=== PATIENT | male | born 1960 | race African-American/Black ===

== ENCOUNTER 2018-05-01 13:00 | Outpatient (RCR) | payer OTHER, MEDICARE, MEDICAID, SELFPAY ==
--- NOTE | 2018-04-02 13:22 | IE_ITS ---
Date: 04/02/18 Referring: Dr. Jaimie Willett Diagnosis: Mobility issues related to MS P.T. Diagnosis: Same SUBJECTIVE: History of Present Illness: Bryan returns to the clinic after a 2 month hiatus. After his last appt here in the clinic, he contacted his primary care physician due to extreme fatigue and weakness. He was subsequently admitted to [facility] with a 6 day stay for high dose steroids to address MS flair versus sarcoidosis. He had multiple studies performed during his stay, all of which showed stable changes, and stable areas of high signal in the spinal cord at both the cervical and thoracic level. He has since followed by his Rheumatology and has further testing coming up down at [facility] later this week. It sounds to be a schedule PET scan. His complaints today are of continued weakness now effecting his (R) side as well. Pt has historically been fully (I) with bed mobility and transfers, able to shower (I) etc.. Since his hospitalization, he has had difficulty getting into bed on his own stating that this can take 30-60 minutes to accomplish. He has also modified his transfers into the shower to limit the amount of time that he spends weightbearing , which has become difficult for him. He does receive services in the home with house keepers that come in 2x per day to assist with meal prep. Pt has a very regimented schedule which he keeps daily. He does not get any physical assistance at home however. Prior Level of Function: Pt has been wheelchair bound since 2012, he is visually impaired. He had been walking 300+/-ft here at prior to his hospital admission in March 2018. He receives assistance with meal preparation and housekeeping through home health. Current Level of Function: Pt continues to be (I) with stand pivot transfers. Although admits that he does not feel as safe, or confident with these as he had prior. He is no longer able to stand without UE support as he had been 2 months ago. He has a great deal of difficulty getting in and out of bed. Previous Treatment: Extensive PT intervention here in our clinic over the past several months. Comorbidities: DM, HTN, MS, Arthritis, Sarcoidosis. Falls in the last year: ____ No __X__Yes - How many? __1__ - Just prior to admission with EMS alerted by a lifeline. Reported hospitalizations in the last year - ____ No __X__ Yes - Dates of admission/reason: As above. Medications: Baclofen, Gabapentin, Mepotrexate, Aoendoonate, Folic Acid, Vitamin D3, 5mg prednisone, Metformin, Multi Vitamin, Atorvastatin, Docuset, 81mg aspirin, Acetaminophen. Quality of Life: __X__ Good Standardized Measures: Pt is unable to complete due to low vision status. OBJECTIVE: Posture: Pt presents in a motorized wheelchair with trunk supports and head rests. In seated position, he is able to statically sit without external support, although with rounded shoulder, forward head position. With upright positioning, he does have posteriorly directed loss of balance. In static standing, he maintains WBOS and UE support to wheeled walker. (B) knee hyperextension and accentuated lumbar lordosis with anterior pelvic tilt. Gait: Pt is able to ambulate 20ft with wheeled walker and CGA to min (A). He utilizes an AFO on the (L) LE. Demonstrates poor foot clearance on the (R), (B) circumducting gait pattern and early heel off on the (R). Strength: UE strength is grossly WNL Diminished trunk control Able to statically sit (I) although with dynamic sitting has significant loss of balance particularly with (R) side bending and full upright positioning. Hip flexion 2/5 (R), 0/5 (L) Quads 4/5 (R), 4-/5 (L) Hamstrings 4-/5 (R), 3/5 (L) Ankle Dorsiflexion 3/5 (R), 0/5 (L) Neuro: Pt has significant tone in (B) LE (R) > (L). He has significant strength deficits as noted specifically under strength. Treatment: Todays session consisted of re evaluation followed by neuro muscular re-education. IE: [id number] _X_ Neuro Re-education - (26022 x1): Began in the supine position with introduction of bridging activities for 15 reps. Pt requires external support to (B) LEs to maintain hooklying position. He was instructed in hip ab/ adduction because he requires 75% of (A) on the (L) and 25% (R). He also completed sit to stand exercises for 3 reps with focus on achieving unsupported static standing, and holding x 10 seconds. He requires UE support for both ascending and descending stairs for sitting position. He performs static standing with weight shifts for 10 reps. Direct treatment time: 60 minutes Total treatment time: 60 minutes ASSESSMENT: Patient has been referred for PT services with the diagnosis of mobility deficits related to MS. Patient presents with clinical signs and symptoms consistent with this dx with complicating factors including sarcoidosis and pt being low vision. He has had some losses in his mobility since his last session here two months ago, and requires extensive PT intervention to allow for safe transfers, and short distance ambulation as he had been performing previously. Of particular concern is pt's significant struggle getting into bed at night, which is taking him up to 60 minutes each night. I have discussed with him some alterations in his caregiving schedule, and hopefully he can get some assistance with this for short term which he will be looking into (I) . He is demonstrating the following impairment level findings: 1. Decreased LE strength , 2. Decreased trunk strength, 3. Increase LE tone, 4. Gait deficits. Impairments are contributing to the following functional limitations: 1. Non functional ambulator, 2. Difficulty with transfers to and from wheelchair, 3. Difficulty with bed mobility with transfers into bed taking 30-60 minutes, 4. Fear of falling. Patient is assessed as: ____ Low 97407 __X__ Moderate 31796 ____ High 40457 complexity, based on the following: History: Progressively decreasing mobility and pt with relapsing remitting MS, DM, low vision and sarcoidosis. Pt lives alone Pt is dependent on house keepers for (A) with meal prep etc... Examination: X See above for functional limitations and impairments. Presentation: X Evolving due to recent exacerbation of symptoms and hospitalization management. Decision-Making: X Moderate complexity G-Codes : Patient's primary functional limitation is in the category of: __X__ Mobility - walking and moving around : [id number] based on clinical judgement and specifically on his functional ambulation category of non functional ambulator. Projected goal: __X__ Remains Mobility - walking and moving around: [id number] STG: __6__ weeks. 1. Pt able to tolerate re-introduction of weightbearing activity without exacerbation of symptoms. 2. Pt able to statically stand (I) for short periods to improve (I) with ADLs. LTG: __12__ weeks. 1. Pt able to (I) get in and out of bed in less than 10 minutes. 2. Fully (I) self management with HEP PLAN: Patient will resume PT intervention to be seen 2 x per week, for 12 weeks, adjusting frequency of visits per patient symptoms and response to treatment. Treatment to include: X NRE- With progressive stretching and strengthening activities primarily focused at trunk strengthening and LEs. Will also perform gait training activities with focus on improved (I) with transfers, static standing and short distance ambulation. Thank you for this referral. Please do not hesitate to contact me with any questions or concerns regarding this patient's plan of care. Dr. Etienne please sign below if you are in agreement with this patient's plan of care, cc: Brittany Lim MD
--- NOTE | 2018-04-14 14:11 | PTTR_ITS ---
DATE: 04/14/18 SUBJECTIVE: Bryan reporting he is doing okay today. He feels quite stiff through bilateral LE's left greater than right. He does not feel strong enough yet to perform a lot of walking. OBJECTIVE: * X Neuro Re-education - (59096 x3): Pt was instructed in his neuromuscular re-education program as noted on his flow sheet. Perform stretching of the left LE including hamstrings and single knee to chest stretch for tone management. He performs core stabilization activities in supine and long sit position. He requires max assist in long sit for trunk stability. Standing balance performed including small CHARLI working on posturing and trunk control as well as small CHARLI tasks. See flow sheet for all activities performed. Direct treatment time: 45 minutes Total treatment time: 60 minutes Deanne Portillo PTA
--- NOTE | 2018-04-16 09:03 | PTTR_ITS ---
DATE: 04/16/18 OBJECTIVE: Co treatment with Kell Tenorio DPT. Please refer to her note. Therapeutic procedures ([id number]). Pt performs strengthening program as noted on flow sheet including core stabilization activities in long sit and short sitting positions as well as seated LAQ strengthening. Manual cueing and support required at LE's for core stabilization and bridging. See flow sheet for specific activities performed. Direct treatment time: 25 minutes Total treatment time: 25 minutes
--- NOTE | 2018-04-16 13:59 | PTTR_ITS ---
DATE: 04/16/18 SUBJECTIVE: Bryan states that he continues to feel stiff and weak. He's now on 5mg Prednisone, versus his normal 15mg. He is awaiting results of CT scans performed at [facility] [place]. OBJECTIVE: * x Neuro Re-education - (34462 x2): Bryan was instructed in a progressed NRE program as noted on flowsheet. HE was able to tolerate ambulation x 25' initially, with use of WW and min A. He requires cues for turning techniques and safety. After a rest period, he's able to ambulate 60', although with worsening gait mechanics with distance. He completed seated trunk strengthening activities, as well as closed chain strengthening, where he's able to tolerate static standing without UE support and with CG x 10 seconds. Direct treatment time: 30 minutes Total treatment time: additional time spent with Deanne Portillo PTA
--- NOTE | 2018-04-21 13:36 | PTTR_ITS ---
DATE: 04/21/18 SUBJECTIVE: Bryan states that he is feeling well. He's noticing that it's easier to get in and out of bed. He still needs to assist the right leg, and requires more time than he had previously, although he is able to accomplish the transfer in approx 30 minutes, vs the 60 minutes it was taking 2 weeks ago. OBJECTIVE: * x Neuro Re-education - (55319 x2): Bryan was instructed in a progressive NRE program. Began with transfer into quadruped position from supported standing ; he requires mod A x 1 for assistance with LEs to attain position. He is able to perform rocking exercises for tone management and alternating arm lifts with only CG. He was assisted to supine for mat activities in both supine and long sit position. He continues to require mod A for eccentric crunches, and requires rest period x 2 due to fatigue during long sit activities. Full program can be found on flow sheet. Direct treatment time: 30 minutes Total treatment time: additional time spent with Deanne Portillo PTA (see her note for specifics)
--- NOTE | 2018-04-21 15:55 | PTTR_ITS ---
DATE: 04/21/18 OBJECTIVE: Co-treatment with Kell Tenorio DPT. Please see her note for specifics. * X Neuro Re-education - (06059 x1): Pt performs seated and standing balance activities with focus on LE strength and core stabilization. Pt is quite fatigued today and requires min A with sit to stands and has several LOB especially when eccentrically lowering back to the low mat. He has one instance where he is unable to maintain sitting position due to lack of trunk control and lies all the way onto his back. He also performs small CHARLI activities within the walker with light UE support. See flow sheet for all activities performed. Deferred remaining exercises today due to pt's fatigue level and symptoms of tingling in his LE's. Direct treatment time: 20 minutes Total treatment time: 20 minutes Deanne Portillo, ESTIMATOR JEWELRY
--- NOTE | 2018-04-24 14:45 | PTTR_ITS ---
DATE: 04/24/18 OBJECTIVE: Co-treatment with Kell Tenorio DPT. Please see her note for specifics. * X Neuro Re-education - (71479 x2): Pt instructed in his neuro re-ed program as noted on flow sheet. Pt performs standing static balance activities, min A throughout with light UE support to walker followed by standing and seated trunk stabilization activities with CGA required throughout. Pt requires several rest breaks throughout to manage tone in the left LE and for fatigue level. See flow sheet for all activities performed. Direct treatment time: 25 minutes Total treatment time: 25 minutes Daenne Portillo PTA
--- NOTE | 2018-04-24 16:39 | PTTR_ITS ---
DATE: 04/24/18 SUBJECTIVE: Bryan states that he was fatigued after his last session, although was able to care for himself normally. He continues to have difficulty getting in and out of bed, although this hasn't significantly changed since his last session. OBJECTIVE: * X Neuro Re-education - (66701 x2):as noted on flow sheet. Pt completed self stretching activities. He was assisted into quadruped position, where he performed quadruped rocking for management of LE tone. He does require mod assist to the LLE, min assist to the RLE to achieve position and contact guard throughout. He was able to transition to alternating arm lifts, again with contact guard. He requires mod assist for rolling on the low mat, particularly for assistance to the LEs. He is able to perform clam shells with mod assist on the L min assist on the R and requires mod assist for all hook lying activities to maintain LE position. He does have 2 episodes of markedly increased tone in the LLE during his session today with full knee extension and ankle plantar flexion, which requires approx. 1 min. rest period each.These both occurred during rolling activities. Full program can be found noted on flow sheet. Direct treatment time: 30 min Total treatment time: 30 min, with additional time spent with Deanne Portillo PTA. Please see her note for specifics. SS/fw
--- NOTE | 2018-04-28 13:00 | PTTR_ITS ---
DATE: 04/28/18 SUBJECTIVE: Bryan notes he's feeling pretty good today. He does want to try walking. OBJECTIVE: * x Neuro Re-education - (07519 x4): Pt. instructed in neuro re-ed program as noted on his flow sheet. I do assist pt. with donning his AFO on his left foot. This was followed by ambulation x 80' contact guard assist with wheelchair follow. This was followed by parallel bar activities including small base of support balancing, functional sit to stand coming up into a full stand and pausing in that position unsupported. Pt. also completes some hook lying core stabilization exercises with assist required to maintain LE positioning. He 's able to independently roll from left to right positions to perform clam shells. Full program can be found in pt. chart. Direct treatment time: 55 min. Total treatment time: 55 min. MAURA/kf
--- NOTE | 2018-05-01 14:23 | PTTR_ITS ---
DATE: 05/01/18 SUBJECTIVE: Bryan states that his vision has been problematic today. He is feeling like he's moving better, and denies any significant fatigue after PT sessions. Compliant with HEP: x Yes No OBJECTIVE: KX applied to all codes x Patient requires PT intervention beyond therapy cap, due to mobility issues related to MS and sarcoidosis, with recent flare resulting in diminished mobility. * x Neuro Re-education - (75153 x2): Patient was instructed in a progressed NRE program as noted in flowsheet. He was able to advance his high kneeling activities, and performs these with only SBA today. He tolerated light perturbations in high kneeling as well (20 seconds, limited by LE fatigue). He requires mod A to achieve high kneel position on the low mat, although transitions to high knee with supervision only. He completed supine and long sit activities as noted on flowsheet. Direct treatment time: 30 minutes Total treatment time: additional time spent with Deanne Portillo PTA.
--- NOTE | 2018-05-01 14:34 | PTTR_ITS ---
DATE: 05/01/18 OBJECTIVE: KX applied to all codes X * X Neuro Re-education - (87736 x1)(KX): Pt performs remainder of his neuro re-ed program here in the clinic consisting of long sit trunk stabilization activities where pt requires min-mod assist to avoid posterior lean. Pt also performs standing balance activities working on upright posturing and unsupported standing. Pt notes getting very fatigued and starting to be achy in his back and we defer further exercises at this point. See flow sheet for all activities performed. Direct treatment time: 20 minutes Total treatment time: 20 minutes Deanne Portillo, GUT SNATCHER
== END 2018-05-01 23:59 | disposition home or self-care (01) ==
LOC: PT 13:00
PROVIDERS: PCP Family Medicine; Referring Provider Psychiatry & Neurology Neurology; Visit Provider Psychiatry & Neurology Neurology
DX: R26.89 Other abnormalities of gait and mobility (principal); G35 Multiple sclerosis
CPT/HCPCS: 97110; 97112; 97162; G8978

== ENCOUNTER → 2018-06-23 10:24 | Outpatient (BNVA) | payer MEDICARE, MEDICAID, SELFPAY | PROVIDERS: PCP Family Medicine; Visit Provider Psychiatry & Neurology Neurology | DX: G35 Multiple sclerosis (principal); E11.40 Type 2 diabetes mellitus with diabetic neuropathy, unspecified; Z79.84 Long term (current) use of oral hypoglycemic drugs | CPT/HCPCS: 99214 ==

== ENCOUNTER → 2018-11-12 14:51 | Outpatient (BNVA) | payer MEDICARE, MEDICAID, SELFPAY | PROVIDERS: PCP Family Medicine; Visit Provider Psychiatry & Neurology Neurology | DX: G35 Multiple sclerosis (principal); R25.2 Cramp and spasm; E11.319 Type 2 diabetes mellitus with unspecified diabetic retinopathy without macular edema; Z79.84 Long term (current) use of oral hypoglycemic drugs; E11.40 Type 2 diabetes mellitus with diabetic neuropathy, unspecified | CPT/HCPCS: 99214 ==

== ENCOUNTER → 2018-12-10 14:08 | Outpatient (BNVA) | payer MEDICARE, MEDICAID, SELFPAY | PROVIDERS: PCP Family Medicine; Visit Provider Psychiatry & Neurology Neurology | DX: G35 Multiple sclerosis (principal); R25.2 Cramp and spasm; R29.898 Other symptoms and signs involving the musculoskeletal system; E11.40 Type 2 diabetes mellitus with diabetic neuropathy, unspecified; Z79.84 Long term (current) use of oral hypoglycemic drugs | CPT/HCPCS: 99214 ==

== ENCOUNTER 2018-12-17 15:04 | Emergency (ER) | payer MEDICARE, MEDICAID, SELFPAY ==
[2018-12-17] VITALS (15 sets, daily range): BP systolic 107–128; BP diastolic 61–81; PULSE 55–91; RESP 9–23; TEMP 36.5–37; O2SAT 95–99
--- NOTE | 2018-12-17 15:08 | DI.CT_ITS ---
SYMPTOMS/DIAGNOSIS: LEFT-SIDED WEAKNESS CRANIAL CT: Noncontrast cranial CT was performed. There is mild generalized cerebral atrophy. There is no evidence of acute intracranial hemorrhage, mass effect or midline shift. Orbital and temporal bone structures appear intact. Paranasal sinuses and mastoid air cells are well aerated as visualized. CONCLUSION: No evidence of acute intracranial process.
--- NOTE | 2018-12-17 15:13 | W.ED.GENAD ---
Discharge Plan Disposition Patient Disposition: HOME Condition: Good Discharge Details Chief Complaint: GenMedical Clinical Impression: Exacerbation of multiple sclerosis, Tingling of left upper extremity, Acute hypokalemia Primary Care Provider: Ale Barraza V ED Provider: Adrian Tompkins Home Meds and New Rx's Prescriptions: New prednisone 50 MG tablet 50 mg PO DAILY Qty: 7 RF: 0 Continued methotrexate sodium 2.5 mg tablet 20 mg PO DAILY RF: 0 alfuzosin 10 mg tablet extended release 24 hr 10 mg PO DAILY RF: 0 cholecalciferol (vitamin D3) 1,000 UNIT tablet 2,000 unit PO DAILY RF: 0 alendronate 70 MG tablet 70 mg PO WEEKLY RF: 0 folic acid 1 MG tablet 1 mg PO DAILY RF: 0 gabapentin 300 MG capsule 1 - 2 cap PO TID Qty: 360 RF: 3 acetaminophen 500 MG tablet 500 mg PO DIRECTED RF: 0 docusate sodium [Doc-Q-Lace] 100 MG capsule 100 mg PO TID RF: 0 aspirin [Aspirin Low-Strength] 81 MG tablet,chewable 81 mg PO DAILY RF: 0 atorvastatin [Lipitor] 40 MG tablet 40 mg PO QPM RF: 0 Prodigy No Coding 1 EACH strip 1 ea Sub-Q BID RF: 0 multivitamin [Daily Multi-Vitamin] 1 EACH tablet 1 tab PO DAILY RF: 0 ferrous gluconate 325 MG tablet 240 mg PO DAILY RF: 0 metformin 500 MG tablet 1,000 mg PO BID RF: 0 glipizide 10 mg Tablet 10 mg PO DAILY RF: 0 baclofen 20 mg tablet 20 mg PO TID RF: 0 Discontinued prednisone 20 mg tablet 60 mg PO DAILY Qty: 15 RF: 0 Discharge Instructions Instructions: Multiple Sclerosis (GEN), Hypokalemia (ED) Additional Instructions: Please take the prednisone as directed for the next week until you follow-up with your primary care provider. If you notice any worsening of your symptoms, or any new symptoms such as vomiting, diarrhea, fever, chills, shortness of breath, chest pain, numbness, weakness, or fainting , please return immediately to the emergency department for reevaluation. Please follow up with your primary care provider as soon as possible for reassessment and reevaluation. As always, it was a pleasure participating in your medical care today. Referrals: Ale Barraza MD [Primary Care Provider] - Medical Decision Making This is a 58-year-old male with a past medical history of sarcoidosis, MS, but denies any history of stroke or myocardial infarction, who presents today for weakness for his left upper extremity with associated numbness and tingling. He denies any recent trauma or falls. Exam shows no signs of trauma, no midline cervical spine or thoracic spine tenderness. He states that his symptoms have been present for the last 2-3 days, however initially started more centrally about a week and a half ago when he stopped taking his steroids. He is unsure if this feels like her previous MS exacerbation or something different. He denies any concerning red flags of chest pain, tearing sensation in his chest, headache, or acute vision changes. He does have some chronic blindness. With his symptoms lasting greater than 24 hours I do not see any current clinical indication for immediate TPA as he would not be a candidate for this due to the longevity of his symptoms. We will get a CT scan to rule out acute stroke lead complete coverage however I do feel that his symptoms may have a component related to his MS. 4:[address] scan results have returned, there is no evidence of acute intracranial process. There is evidence of notable brain atrophy per radiology, but no other acute component. Laboratory workup is returned relatively benign, white count is normal, hemoglobin stable, electrolytes normal, potassium slightly low at 3.3, but no other significant abnormalities. Creatinine is 1.5 which is minimally higher than normal, troponin is less than 0.02, EKG benign. He had no initial symptoms concerning for ACS or chest pain. On repeat exam he continues to demonstrate notable 5 out of 5 strength of his upper extremities bilaterally, no decrease in sensation on exam. he does complain of some mild subjective tingling in his left arm, but he also states that this is much better after he got the Solu-Medrol. He states that his legs are still at their chronic level of weakness secondary to the MS in the past, and that there is no change here. With signs and symptoms clinically inconsistent with stroke, especially with him being associated with his decrease in oral steroids, and lasting for greater than 2-[address] evidence of infarct I feel that his signs and symptoms are clinically inconsistent with significant cerebrovascular accident, ACS, or acute orthopedic process. Feel that they are consistent at this time with MS. We will recommend for continued steroids for the next week until he is already scheduled appointment with his PCP 1 week away. We recommend that he continue taking his daily aspirin, and we discussed any red flags for which to immediately return. I have extensively reviewed the treatment plan and discharge instructions with the patient and their family. I have addressed all patient concerns at this time. The patient and family was made aware of what symptoms to monitor for that would warrant a return to the emergency department. Discussed the plan with the patient and family, they demonstrate verbal understanding and agreement with our assessment and plan at this time. EKG 15: 04 Rate 74, intervals normal, sinus rhythm, no significant ST elevations or depressions, no T wave inversions, no Q waves. Exam(s) a CT:CT head wo SYMPTOMS/DIAGNOSIS: LEFT-SIDED WEAKNESS CRANIAL CT: Noncontrast cranial CT was performed. There is mild generalized cerebral atrophy. There is no evidence of acute intracranial hemorrhage, mass effect or midline shift. Orbital and temporal bone structures appear intact. Paranasal sinuses and mastoid air cells are well aerated as visualized. CONCLUSION: No evidence of acute intracranial process. [id number]: Total DLP = 0.00 mGy-cm Ordered By: Adrian Tompkins DO CC: HPI General Date/Time Provider Initiated Documentation: 12/17/18 15:08. HPI Narrative: This is a 58-year-old -Swiss male with a past medical history of MS, diabetes type 2, BPH, chronic blindness, fluid overload, GERD, sarcoidosis, who presents today for evaluation of left-sided weakness. EMS was contacted secondary to the weakness, he states that his left arm is been notably weak over the last 2-3 days, however there is also been associated tingling and cramping which she states is occurred for the last week and a half after he stopped his steroids. He denies any headache, chest pain, tearing sensation in his chest, shortness of breath, right-sided weakness. He does have chronic weakness of his lower extremities and uses a wheelchair to get around. Patient denies any recent falls or trauma. He does admit to occasional sweats. He did stop his steroids about a week and a half ago, but denies any other acute medical changes or medication changes. Patient denies any history of cardiac disease or history of stroke, although he does admit to symptoms similar to this in the past that were associated with an MS exacerbation. He denies any other complaint or modifying factors at this time. He is not on any blood thinners. He does have a chronic indwelling [place] catheter urinary incontinence. Related Data Home Medications Medication Instructions Recorded Confirmed acetaminophen 500 mg PO DIRECTED 11/23/13 12/17/18 aspirin [Aspirin Low-Strength] 81 mg PO DAILY 11/23/13 12/17/18 docusate sodium [Doc-Q-Lace] 100 mg PO TID 11/23/13 12/17/18 atorvastatin [Lipitor] 40 mg PO QPM 06/14/14 12/17/18 Prodigy No Coding 12/23/15 12/17/18 ferrous gluconate 240 mg PO DAILY 03/23/16 12/17/18 multivitamin [Daily Multi-Vitamin] 1 tab PO DAILY 03/23/16 12/17/18 metformin 1,000 mg PO BID 05/29/16 12/17/18 cholecalciferol (vitamin D3) 2,000 unit PO DAILY 12/19/16 12/17/18 alendronate 70 mg PO WEEKLY 05/13/17 12/17/18 folic acid 1 mg PO DAILY tab-cap 05/13/17 12/17/18 gabapentin 1 - 2 cap PO TID #360 cap 10/21/17 12/17/18 methotrexate sodium 2.5 mg tablet 20 mg PO DAILY tab-cap 06/23/18 12/17/18 alfuzosin ER 10 mg tablet,extended 10 mg PO DAILY 12/10/18 12/17/18 release 24 hr baclofen 20 mg PO TID 12/17/18 12/17/18 glipizide 10 mg PO DAILY 12/17/18 12/17/18 prednisone 50 mg PO DAILY #7 tab 12/17/18 Previous Rx's Medication Instructions Recorded gabapentin 1 - 2 cap PO TID #360 cap 10/21/17 prednisone 50 mg PO DAILY #7 tab 12/17/18 Allergies Allergy/AdvReac Type Severity Reaction Status Date / Time No Known Allergies Allergy Unverified 12/10/18 14:29 General Stated Complaint: GenMedical AIDA: 3 Review of Systems Review of Systems All systems reviewed & are unremarkable except as noted in HPI and below PFSH Social History Smoking/Tobacco Use Status: Current every day Drug use: Never Housing: apartment 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 Do you feel safe at home: Yes Do you feel safe in your relationship?: Yes Exam Narrative Exam Narrative: 1.Const: Well-nourished, Well-developed, appearing stated age 2.Eyes: PERRL, no conjunctival injection. Notably limited vision bilaterally 3.ENT: Atraumatic external nose and ears. Moist MM. Neck: Symmetric, trachea midline, No thyromegaly. 4.CVS: +S1/S2, No murmurs or gallops. Peripheral pulses 2+ and equal in all extremities. Brisk capillary refill in all extremities. 5.RESP: Unlabored respiratory effort. Clear to auscultation bilaterally. No wheezes rales or rhonchi 6.GI: Soft, Nontender/Nondistended, No hepatosplenomegaly. No guarding or rebound. 7.MSK: Normocephalic/Atraumatic, Extremities w/o deformity or ttp No cyanosis or clubbing, +1 pitting edema of his lower extremities bilaterally, notable 1 out of 5 strength bilaterally. Patient states that this is chronic. Sensation intact bilaterally. Upper extremities demonstrate 5 out of 5 strength bilaterally, normal sensation throughout, to both pinprick and fine touch. Radial pulses +2 bilaterally. No evidence of significant abnormality or deficit comparing the left to the right. 8.Skin: Warm, Dry. No rashes or lesions. 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 Sensation grossly intact, no focal neurologic deficits. Normal swedish masseuse strength bilaterally, normal movements, exam is certainly obfuscated by his chronic MS and chronic lower extremity weakness. Otherwise there appears to be no focal neuro deficit that appears acute 10.Psych: (AAO) x3. Appropriate mood and affect Course Vital Signs Temperature 36.5 C 12/17/18 15:04 Pulse 74 12/17/18 15:04 Respiratory Rate 13 12/17/18 15:04 Blood Pressure 107/72 12/17/18 15:04 Pulse Oximetry 99 12/17/18 15:04 Temperature 36.5 C 12/17/18 15:04 Temperature Source Temporal Artery Scan 12/17/18 15:04 Pulse 74 12/17/18 15:04 Respiratory Rate 13 12/17/18 15:04 Respiratory Effort Non-Labored 12/17/18 15:04 Blood Pressure 107/72 12/17/18 15:04 Blood Pressure Position Sitting 12/17/18 15:04 Pulse Oximetry 99 12/17/18 15:04 Oxygen Delivery Method Room Air 12/17/18 15:04 Oxygen Flow Rate 0 12/17/18 15:04 Pain Level 0 12/17/18 15:04
[2018-12-17 15:25] LABS: Abs Immature Grans 0.05 k/cumm (0.0-0.09); Absolute Basophil Count 0.02 k/cumm (0.0-0.2); Absolute Eosinophil Count 0.14 k/cumm (0.0-0.7); Absolute Lymphocyte Count 2.37 k/cumm (1.2-3.4); Absolute Monocyte Count 0.35 k/cumm (0.11-0.7); Absolute Neutrophil Count 3.16 k/cumm (1.2-6.7); Basophils % 0.3; Eosinophils % 2.3; HCT 34.9 % (40.0-50.0); HGB 11.5 g/dL (13.5-17.5); Immature Grans % 0.8; Lymphocytes % 38.9; Mean Corpuscular Hemoglobin 27.6 pg (27.0-33.0); Mean Corpuscular Volume 83.7 fL (80-95); Mean Platelet Volume 10.4 fL (8.0-11.0); Monocytes % 5.7; Platelet Count 284 x1000/uL (130-400); RBC 4.17 m/cumm (4.50-6.00); RBC Distribution Width 15.3 % (11.8-14.1); White Blood Cell Count 6.09 k/cumm (4.4-10.8)
[2018-12-17] MEDS: methylPREDNISolone SUCC 125 MG VIAL IVP (15:39)
--- NOTE | 2018-12-17 15:53 | DI.RAD_ITS ---
SYMPTOMS/DIAGNOSIS: LEFT-SIDED WEAKNESS PORTABLE AP CHEST: The heart is not enlarged. The lungs appear clear and well expanded. CONCLUSION: No evidence of acute disease.
[2018-12-17 15:58] LABS: INR 1.1 (0.9-1.1); PTT Activated 20.7 sec (21.0-31.4); Prothrombin Time 10.7 sec (9.3-11.0)
[2018-12-17 16:00] LABS: ALT 22 U/L (12-78); AST 13 U/L (15-37); Albumin 4.1 g/dL (3.4-5.0); Alkaline Phosphatase 74 U/L (46-116); Anion Gap 12.3 mmol/L (3-11); BUN 15 mg/dL (7-18); Bilirubin, Total 0.3 mg/dL (0.2-1.0); CO2 24.7 mmol/L (21.0-32.0); CREATININE 1.53 mg/dL (0.70-1.30); Calcium 8.7 mg/dL (8.5-10.1); Chloride 104 mmol/L (98-107); Estimated GFR 47.32 (mL/min/1.73m2); Glucose 79 mg/dL (70-100); NT-proBNP 53 pg/mL; Potassium 3.3 mmol/L (3.5-5.1); Sodium 141 mmol/L (136-145); TSH (W/Ref FT4) 3.32 uIU/mL (0.358-3.74); Total Protein 7.7 g/dL (6.4-8.2)
[2018-12-17 16:03] LABS: TSH 3.19 uIU/mL (0.358-3.74)
[2018-12-17 16:18] LABS: Troponin I < 0.02 ng/mL (0.00-0.06)
[2018-12-17 16:37] LABS: ETHANOL BLOOD < 3.0 mg/dL (<3)
[2018-12-17] MEDS: Potassium Chloride 20 MEQ TABCR 40 MEQ PO (17:08)
== END 2018-12-17 17:27 | disposition home or self-care (01) ==
PROVIDERS: Emergency Provider Student in an Organized Health Care Education/Training Program; PCP Family Medicine
DX: G35 Multiple sclerosis (principal); R20.2 Paresthesia of skin; E87.6 Hypokalemia; E11.9 Type 2 diabetes mellitus without complications
CPT/HCPCS: 36415; 80053; 93005; 96374; 99285; 70450; 71045; 80320; 81003; 83880; 84443; 84484; 85025; 85610; 85730; 93010; J2930

== ENCOUNTER 2018-12-22 12:38 | Outpatient (REF) | payer MEDICARE, MEDICAID, SELFPAY ==
[2018-12-22 21:21] LABS: Anion Gap 14.4 mmol/L (3-11); BUN 13 mg/dL (7-18); CO2 20.6 mmol/L (21.0-32.0); CREATININE 1.47 mg/dL (0.70-1.30); Calcium 9.3 mg/dL (8.5-10.1); Chloride 104 mmol/L (98-107); Estimated GFR 49.55 (mL/min/1.73m2); Glucose 223 mg/dL (70-100); Potassium 4.3 mmol/L (3.5-5.1); Sodium 139 mmol/L (136-145)
[2018-12-22 21:43] LABS: Hemoglobin A1C 7.6 % (4.5-6.2)
== END 2018-12-22 12:58 ==
LOC: NCHCN 12:38
PROVIDERS: PCP Family Medicine; Visit Provider Family Medicine
DX: E11.39 Type 2 diabetes mellitus with other diabetic ophthalmic complication (principal)
CPT/HCPCS: 80048; 83036

== ENCOUNTER → 2018-12-23 14:40 | Outpatient (BNVA) | payer MEDICARE, MEDICAID, SELFPAY | PROVIDERS: PCP Family Medicine; Visit Provider Psychiatry & Neurology Neurology | DX: G35 Multiple sclerosis (principal); R25.2 Cramp and spasm; R29.898 Other symptoms and signs involving the musculoskeletal system; R60.9 Edema, unspecified; E11.40 Type 2 diabetes mellitus with diabetic neuropathy, unspecified | CPT/HCPCS: 99214 ==

== ENCOUNTER 2018-12-29 00:53 | Outpatient (CLI) | payer MEDICARE, MEDICAID, SELFPAY ==
--- NOTE | 2018-12-29 11:00 | DI.MRI_ITS ---
SYMPTOMS/DIAGNOSIS: RT LEG AND LT ARM WEAKNESS MRI OF THE BRAIN: Pre and post contrast examination was performed. Comparison is 02/16/18. There is again seen hyperintense signal in the periventricular white matter on the FLAIR and T 2 weighted images. This appears stable. Following contrast administration no enhancing lesions are seen. The involvement of the corpus callosum appears stable. The ventricles and sulci are stable compared to the prior examination. The diffusion weighted images have a normal appearance. No intracranial hemorrhage is seen. No enhancing masses are appreciated. There is a normal flow void seen in the [place]. The pituitary gland appears grossly unremarkable. The visualized paranasal sinuses are clear. IMPRESSION: Stable hyperintensity in the periventricular region. No new lesions or enhancing lesions are identified.
[2018-12-29] MEDS: Normal Saline Flush 10 ML SYR IVP (11:17)
[2018-12-29] MEDS: Gadoterate meglumine 20 ML VIAL 10 ML IVP (11:23)
== END 2018-12-29 01:13 ==
PROVIDERS: PCP Family Medicine; Visit Provider Psychiatry & Neurology Neurology
DX: G35 Multiple sclerosis (principal); M62.81 Muscle weakness (generalized); R29.898 Other symptoms and signs involving the musculoskeletal system
CPT/HCPCS: 70553

== ENCOUNTER 2019-01-02 13:20 | Emergency (ER) | payer MEDICARE, MEDICAID, SELFPAY ==
[2019-01-02] VITALS (16 sets, daily range): BP systolic 93–123; BP diastolic 57–94; PULSE 64–78; RESP 10–27; TEMP 36.5; O2SAT 94–99
--- NOTE | 2019-01-02 13:35 | ED.GENADUL_ITS ---
Discharge Plan Disposition Patient Disposition: HOME Condition: Stable Discharge Details Chief Complaint: Dizzy/Sync Clinical Impression: Neuropathy Primary Care Provider: Ale Barraza V ED Provider: Pérez Wall Home Meds and New Rx's Prescriptions: No Action methotrexate sodium 2.5 mg tablet 2.5 mg PO DAILY RF: 0 alfuzosin 10 mg tablet extended release 24 hr 10 mg PO DAILY RF: 0 diazepam [Valium] 5 mg tablet 5 mg PO ONCE Qty: 2 RF: 0 cholecalciferol (vitamin D3) 1,000 UNIT tablet 2,000 unit PO DAILY RF: 0 alendronate 70 MG tablet 70 mg PO WEEKLY RF: 0 folic acid 1 MG tablet 1 mg PO DAILY RF: 0 gabapentin 300 MG capsule 1 - 2 cap PO TID Qty: 360 RF: 3 ferrous gluconate [Ferate] 240 mg (27 mg iron) tablet 240 mg PO DAILY RF: 0 glipizide 10 mg tablet extended release 24hr 10 mg PO DAILY RF: 0 loratadine 10 mg tablet 10 mg PO DAILY RF: 0 omeprazole 40 mg capsule,delayed release(DR/EC) 40 mg PO DAILY RF: 0 prednisone 5 mg tablet 5 mg PO DAILY RF: 0 baclofen 20 mg tablet 20 mg PO .20 MG AM,PM,40 HS RF: 0 clonazepam 1 mg tablet 1 mg PO QHS Qty: 30 RF: 3 acetaminophen 500 MG tablet 500 mg PO DIRECTED RF: 0 docusate sodium [Doc-Q-Lace] 100 MG capsule 100 mg PO TID RF: 0 aspirin [Aspirin Low-Strength] 81 MG tablet,chewable 81 mg PO DAILY RF: 0 atorvastatin [Lipitor] 40 MG tablet 40 mg PO QPM RF: 0 Prodigy No Coding 1 EACH strip 1 ea Sub-Q BID RF: 0 multivitamin [Daily Multi-Vitamin] 1 EACH tablet 1 tab PO DAILY RF: 0 metformin 500 MG tablet 1,000 mg PO BID RF: 0 Discharge Instructions Additional Instructions: Your lab work did not show any new concerning findings. Your symptoms are likely due to your neuropathy follow up with your primary care provider in 1-2 weeks if you have new symptoms such as fevers, difficulty breathing or feel more ill return to the emergency department Medical Decision Making 58 yo male with hx of MS, chronic lower extremity weakness and wheel chair bound, T2DM, who comes in with complaints of tingling in both legs primarily in the feet. Denies fevers though states he had sweating an hour or so ago. Denies chest pain, sob, cough, headaches. He has 1+ edema of both legs to the mid tibia that he states is chronic and unchaned. He can't move the left leg when asked to lift it and right leg minimally moves against gravity and states this is chronic for him. He does have intact soft sensation to touch. No focal upper extremity deficits. Given no new weakness, vision changes or speech abnoramlities doubt cva and no recent trauma so do not feel head ct indicated. Unlikely MS flare, suspect more likely diabetic neuropathy. Will eval for electrolyte abnormalities and monitor pt remains stable no new symptoms other than spasms which he states he ges frequently and is on baclofen for this. Suspect his symptoms are due to diabetic neuropathy, will have him f/u with pcp and return precautions given Differential Diagnosis neuropathy, ms, electrolyte abnormality Medical Records Medical records reviewed: Yes I reviewed the patient's medical records. Lab Data Lab results reviewed: Yes I reviewed the patient's lab results. ECG Data Attestation: I personally reviewed and interpreted this ECG (s) as follows: Prior ECG tracings: available for review Interpretation: sinus rhythm, rate of 76, pr 154, no acute st t wave ischemic changes HPI General Mode of arrival: EMS . Date/Time Provider Initiated Documentation: 01/02/19 13:20 . Limitations to Documentation: no limitations . Information obtained by: patient . History of Present Illness 58 year old M presents to the emergency department with the chief complaint of tingling legs, described as moderate, and is localized to the left, right and lower extremity. Patient started experiencing this hour(s) (1) and it has been constant. No relieving factors improve symptom(s), No exacerbating factors reported . Patient notes denies confusion, chest pain, cough and fever/chills. Patient did receive the following treatments prior to arrival, none Related Data Home Medications Medication Instructions Recorded Confirmed acetaminophen 500 mg PO DIRECTED 11/23/13 12/17/18 aspirin [Aspirin Low-Strength] 81 mg PO DAILY 11/23/13 01/02/19 docusate sodium [Doc-Q-Lace] 100 mg PO TID 11/23/13 01/02/19 atorvastatin [Lipitor] 40 mg PO QPM 06/14/14 01/02/19 Prodigy No Coding 12/23/15 12/17/18 multivitamin [Daily Multi-Vitamin] 1 tab PO DAILY 03/23/16 01/02/19 metformin 1,000 mg PO BID 05/29/16 01/02/19 cholecalciferol (vitamin D3) 2,000 unit PO DAILY 12/19/16 01/02/19 alendronate 70 mg PO WEEKLY 05/13/17 01/02/19 folic acid 1 mg PO DAILY tab-cap 05/13/17 01/02/19 gabapentin 1 - 2 cap PO TID #360 cap 10/21/17 01/02/19 methotrexate sodium 2.5 mg tablet 2.5 mg PO DAILY tab-cap 06/23/18 01/02/19 alfuzosin ER 10 mg tablet,extended 10 mg PO DAILY 12/10/18 01/02/19 release 24 hr baclofen 20 mg tablet 20 mg PO .20 MG AM,PM,40 HS tab 12/23/18 01/02/19 diazepam 5 mg tablet 5 mg PO ONCE #2 tab 12/23/18 12/23/18 ferrous gluconate 240 mg (27 mg 240 mg PO DAILY tab 12/23/18 01/02/19 iron) tablet glipizide ER 10 mg tablet, 10 mg PO DAILY 12/23/18 extended release 24 hr loratadine 10 mg tablet 10 mg PO DAILY 12/23/18 omeprazole 40 mg capsule,delayed 40 mg PO DAILY 12/23/18 01/02/19 release prednisone 5 mg tablet 5 mg PO DAILY 12/23/18 01/02/19 clonazepam 1 mg tablet 1 mg PO QHS #30 tab 12/28/18 Previous Rx's Medication Instructions Recorded gabapentin 1 - 2 cap PO TID #360 cap 10/21/17 diazepam 5 mg tablet 5 mg PO ONCE #2 tab 12/23/18 clonazepam 1 mg tablet 1 mg PO QHS #30 tab 12/28/18 Allergies Allergy/AdvReac Type Severity Reaction Status Date / Time No Known Allergies Allergy Unverified 01/02/19 13:28 General Stated Complaint: Dizzy/Sync AIDA: 2 Review of Systems Review of Systems All systems reviewed & are unremarkable except as noted in HPI and below Constitutional Denies chills and Denies fever(s) Cardiovascular Denies chest pain and Denies dyspnea Respiratory Denies cough and Denies dyspnea Gastrointestinal Denies abdominal pain, Denies nausea and Denies vomiting Integumentary/Breasts Denies rash [facility] Medical History Sarcoidosis (Chronic) Neck pain (Chronic) Multiple sclerosis (Chronic) Optic neuritis (Chronic) GERD (gastroesophageal reflux disease) (Chronic) Diabetes type 2, controlled (Chronic) BPH (benign prostatic hyperplasia) (Chronic) Urinary incontinence (Chronic) Tobacco abuse (Chronic) Hyperlipidemia (Chronic) Chronic pain (Chronic) Vitamin D deficiency (Chronic) Congenital ptosis of left eyelid (Acute) Diabetic retinopathy (Chronic) Chewing tobacco nicotine dependence (Chronic) Surgical History H/O surgical procedure (Chronic) History of lung biopsy (Acute) History of appendectomy (Chronic) Social History Smoking/Tobacco Use Status: Former Tobacco Use Alcohol Intake: never Drug use: Never Housing: apartment 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 Do you feel safe at home: Yes Do you feel safe in your relationship?: Yes Exam Const General: no acute distress Orientation: alert HENMT Head: normal to inspection Ears: external ears normal General nose exam: external nose normal Mouth: moist mucous membranes Eyes General: appearance normal, both eyes and all related structures Neck Neck: normal visual inspection Resp Effort & Inspection: normal respiratory effort and able to speak in complete sentences Cardio Rate: regular rate Skin General skin exam: no rashes or lesions noted Neuro General: alert and oriented x3 Extrem General: normal capillary refill Psych Mental Status: mental status grossly normal Course Vital Signs Temperature 36.5 C 01/02/19 13:24 Pulse 77 01/02/19 13:24 Respiratory Rate 10 L 01/02/19 13:24 Blood Pressure 123/94 H 01/02/19 13:24 Pulse Oximetry 99 01/02/19 13:24 Temperature 36.5 C 01/02/19 13:24 Temperature Source Temporal Artery Scan 01/02/19 13:24 Pulse 77 01/02/19 13:24 Respiratory Rate 10 L 01/02/19 13:24 Respiratory Effort 01/02/19 13:30 Blood Pressure 123/94 H 01/02/19 13:24 Pulse Oximetry 99 01/02/19 13:24 Oxygen Delivery Method Room Air 01/02/19 13:24 Oxygen Flow Rate 0 01/02/19 13:24
[2019-01-02 13:49] LABS: Abs Immature Grans 0.01 k/cumm (0.0-0.09); Absolute Basophil Count 0.01 k/cumm (0.0-0.2); Absolute Lymphocyte Count 1.31 k/cumm (1.2-3.4); Absolute Monocyte Count 0.34 k/cumm (0.11-0.7); Absolute Neutrophil Count 2.71 k/cumm (1.2-6.7); Basophils % 0.2; Eosinophils % 2.2; HCT 34.3 % (40.0-50.0); HGB 11.4 g/dL (13.5-17.5); Immature Grans % 0.2; Lymphocytes % 29.2; Mean Corp. HGB Concentration 33.2 g/dL (32.0-36.0); Mean Corpuscular Hemoglobin 27.8 pg (27.0-33.0); Mean Corpuscular Volume 83.7 fL (80-95); Mean Platelet Volume 10.7 fL (8.0-11.0); Monocytes % 7.6; Neutrophils % 60.6; Platelet Count 205 x1000/uL (130-400); RBC Distribution Width 15.7 % (11.8-14.1); White Blood Cell Count 4.48 k/cumm (4.4-10.8)
[2019-01-02 13:58] LABS: INR 1.1 (0.9-1.1); PTT Activated 23.6 sec (21.0-31.4); Prothrombin Time 10.6 sec (9.3-11.0)
[2019-01-02 14:02] LABS: ALT 23 U/L (12-78); AST 24 U/L (15-37); Albumin 4.2 g/dL (3.4-5.0); Alkaline Phosphatase 64 U/L (46-116); Anion Gap 12.9 mmol/L (3-11); BUN 11 mg/dL (7-18); Bilirubin, Total 0.4 mg/dL (0.2-1.0); CO2 23.1 mmol/L (21.0-32.0); Calcium 8.7 mg/dL (8.5-10.1); Chloride 100 mmol/L (98-107); Estimated GFR 48.41 (mL/min/1.73m2); Glucose 177 mg/dL (70-100); Potassium 3.5 mmol/L (3.5-5.1); Sodium 136 mmol/L (136-145); Total Protein 7.5 g/dL (6.4-8.2)
== END 2019-01-02 14:43 | disposition home or self-care (01) ==
PROVIDERS: Emergency Provider Emergency Medicine; PCP Family Medicine
DX: E11.42 Type 2 diabetes mellitus with diabetic polyneuropathy (principal); R60.0 Localized edema; G35 Multiple sclerosis
CPT/HCPCS: 36415; 80053; 99283; 85025; 85610; 85730; J3490

== ENCOUNTER 2019-01-04 15:28 | Outpatient (REF) | payer MEDICARE, MEDICAID, SELFPAY ==
[2019-01-04 18:03] LABS: ESR 28 MM/HR (1-20)
== END 2019-01-04 15:48 ==
LOC: LBN 15:28
PROVIDERS: PCP Family Medicine; Visit Provider Psychiatry & Neurology Neurology
DX: D86.9 Sarcoidosis, unspecified (principal); G35 Multiple sclerosis
CPT/HCPCS: 85652

== ENCOUNTER 2019-01-17 16:05 | Emergency (ER) | payer MEDICARE, MEDICAID, SELFPAY ==
[2019-01-17] VITALS (84 sets, daily range): BP systolic 94–105; BP diastolic 58–72; PULSE 56–75; RESP 5–38; TEMP 36.3; O2SAT 88–97
--- NOTE | 2019-01-17 16:30 | DI.RAD_ITS ---
SYMPTOMS/DIAGNOSIS: WEAKNESS, FATIGUE, H/O MS PA AND LATERAL CHEST: Comparison is made with November,. The cardiac and mediastinal contours have a normal appearance. The lungs are well inflated and clear. No infiltrate, effusion or pneumothorax is seen. IMPRESSION: Negative chest x-ray.
--- NOTE | 2019-01-17 16:33 | W.ED.GENAD ---
Discharge Plan Disposition Patient Disposition: HOME Discharge Details Chief Complaint: GenMedical Clinical Impression: Generalized weakness Primary Care Provider: Ale Barraza V ED Provider: Willis Fowler Home Meds and New Rx's Prescriptions: Continued methotrexate sodium 2.5 mg tablet 2.5 mg PO DAILY RF: 0 alfuzosin 10 mg tablet extended release 24 hr 10 mg PO DAILY RF: 0 diazepam [Valium] 5 mg tablet 5 mg PO ONCE Qty: 2 RF: 0 cholecalciferol (vitamin D3) 1,000 UNIT tablet 2,000 unit PO DAILY RF: 0 alendronate 70 MG tablet 70 mg PO WEEKLY RF: 0 folic acid 1 MG tablet 1 mg PO DAILY RF: 0 gabapentin 300 MG capsule 1 - 2 cap PO TID Qty: 360 RF: 3 ferrous gluconate [Ferate] 240 mg (27 mg iron) tablet 240 mg PO DAILY RF: 0 glipizide 10 mg tablet extended release 24hr 10 mg PO DAILY RF: 0 loratadine 10 mg tablet 10 mg PO DAILY RF: 0 omeprazole 40 mg capsule,delayed release(DR/EC) 40 mg PO DAILY RF: 0 prednisone 5 mg tablet 5 mg PO DAILY RF: 0 baclofen 20 mg tablet 20 mg PO .20 MG AM,PM,40 HS RF: 0 clonazepam 1 mg tablet 1 mg PO QHS Qty: 30 RF: 3 acetaminophen 500 MG tablet 500 mg PO DIRECTED RF: 0 docusate sodium [Doc-Q-Lace] 100 MG capsule 100 mg PO TID RF: 0 aspirin [Aspirin Low-Strength] 81 MG tablet,chewable 81 mg PO DAILY RF: 0 atorvastatin [Lipitor] 40 MG tablet 40 mg PO QPM RF: 0 Prodigy No Coding 1 EACH strip 1 ea Sub-Q BID RF: 0 multivitamin [Daily Multi-Vitamin] 1 EACH tablet 1 tab PO DAILY RF: 0 metformin 500 MG tablet 1,000 mg PO BID RF: 0 Discharge Instructions Instructions: Weakness (ED) Additional Instructions: No identifiable cause for your weakness was found today. If your symptoms worsen or you develop localized weakness you must return to the emergency department immediately. If you feel like your symptoms are persisting or they have not improved over the next week to contact your primary care provider Referrals: Ale Barraza MD [Primary Care Provider] - 3 days Discharge Data Discharge Date/Time-TO BE ENTERED AT DEPARTURE: 01/17/19 21:23 Medical Decision Making This is a nontoxic-appearing 58-year-old male with significant comorbidities presenting with the above complaint of weakness. No focal findings on exam. No outward signs of infection. Vitals reflect a slightly decreased systolic blood pressure however MAP has been > 65 and reviewing his records show similar readings in the past. No fever here. his lab work today reveals no acute abnormalities and is unchanged from his baseline. He denies any chest pain or chest pain equivalent symptoms. His isolated troponin and EKG is negative for ACS. Urine tox here is negative. He says that he has had symptoms chronically and today felt slightly worse than normal. He has VNA coming into the home regularly as well as his nephew. I do not feel this to be related to his MS as he does not report any MS flare symptoms. As stated above he has no focal findings or deficits therefore head CT did not seem indicated at this time. He feels comfortable being discharged home at this time. We discussed in detail return precautions including fever, chest pain, abdominal pain diarrhea. Lab Data Abnormal Labs 01/17/19 01/17/19 16:25 16:25 RBC 4.04 L Hgb 11.5 L Hct 34.2 L RDW 16.0 H Anion Gap 11.2 H Creatinine 1.40 H Glucose 102 H HPI General Date/Time Provider Initiated Documentation: 01/17/19 16:07. HPI Narrative: Patient is a 58-year-old male with a significant past medical history for multiple sclerosis, diabetes mellitus type 2, paraplegia, sarcoidosis, optic neuritis, and diabetic neuropathy who presents to the emergency department with generalized weakness. He reports his symptoms occurring over the last 24 to 48 hours. He denies any focal weakness. He normally ambulates with a wheelchair at home. He denies any chest pain or shortness of breath. No abdominal pain, diarrhea, or constipation. He denies any melena stools. No vomiting. He does report a lack of appetite. Blood sugars at home is been normal and he takes his metformin daily in the a.m. Related Data Home Medications Medication Instructions Recorded Confirmed acetaminophen 500 mg PO DIRECTED 11/23/13 01/17/19 aspirin [Aspirin Low-Strength] 81 mg PO DAILY 11/23/13 01/17/19 docusate sodium [Doc-Q-Lace] 100 mg PO TID 11/23/13 01/17/19 atorvastatin [Lipitor] 40 mg PO QPM 06/14/14 01/17/19 Prodigy No Coding 12/23/15 12/17/18 multivitamin [Daily Multi-Vitamin] 1 tab PO DAILY 03/23/16 01/17/19 metformin 1,000 mg PO BID 05/29/16 01/17/19 cholecalciferol (vitamin D3) 2,000 unit PO DAILY 12/19/16 01/17/19 alendronate 70 mg PO WEEKLY 05/13/17 01/17/19 folic acid 1 mg PO DAILY tab-cap 05/13/17 01/17/19 gabapentin 1 - 2 cap PO TID #360 cap 10/21/17 01/17/19 methotrexate sodium 2.5 mg tablet 2.5 mg PO DAILY tab-cap 06/23/18 01/17/19 alfuzosin ER 10 mg tablet,extended 10 mg PO DAILY 12/10/18 01/17/19 release 24 hr baclofen 20 mg tablet 20 mg PO .20 MG AM,PM,40 HS tab 12/23/18 01/17/19 diazepam 5 mg tablet 5 mg PO ONCE #2 tab 12/23/18 01/17/19 ferrous gluconate 240 mg (27 mg 240 mg PO DAILY tab 12/23/18 01/17/19 iron) tablet glipizide ER 10 mg tablet, 10 mg PO DAILY 12/23/18 01/17/19 extended release 24 hr loratadine 10 mg tablet 10 mg PO DAILY 12/23/18 01/17/19 omeprazole 40 mg capsule,delayed 40 mg PO DAILY 12/23/18 01/17/19 release prednisone 5 mg tablet 5 mg PO DAILY 12/23/18 01/17/19 clonazepam 1 mg tablet 1 mg PO QHS #30 tab 12/28/18 01/17/19 Previous Rx's Medication Instructions Recorded gabapentin 1 - 2 cap PO TID #360 cap 10/21/17 diazepam 5 mg tablet 5 mg PO ONCE #2 tab 12/23/18 clonazepam 1 mg tablet 1 mg PO QHS #30 tab 12/28/18 Allergies Allergy/AdvReac Type Severity Reaction Status Date / Time No Known Allergies Allergy Unverified 01/17/19 16:17 General Stated Complaint: GenMedical AIDA: 3 Review of Systems Constitutional Denies body ache(s), Reports chills, Denies difficulty sleeping, Reports fatigue, Denies fever(s), Reports headache(s), Denies increased appetite, Reports lethargy, Reports night sweats, Reports poor appetite and Reports weakness Eyes Denies loss of vision ENT Denies dysphagia, Denies dizziness, Reports headache(s) and Denies neck pain Cardiovascular Denies chest pain, Denies diaphoresis, Denies syncope, Denies rapid heart rate, Denies pedal edema, Denies edema, Denies leg edema, Denies lightheadedness, Denies palpitations, Denies dyspnea and Denies dyspnea on exertion Respiratory Denies chest congestion, Denies cough, Denies pain on inspiration, Denies dyspnea, Denies dyspnea on exertion and Denies wheezing Gastrointestinal Denies melena, Denies bloating, Denies constipation, Denies cramping, Denies dysphagia, Denies diarrhea and Denies vomiting Genitourinary Denies dysuria and Denies flank pain Musculoskeletal Denies myalgias, Denies deformity, Denies joint swelling, Reports muscle weakness, Denies neck pain, Denies numbness and Denies tingling Integumentary/Breasts Denies rash Neurologic Denies confusion, Denies dizziness, Denies syncope, Reports headache(s), Denies focal weakness, Denies loss of vision, Denies numbness, Denies tingling and Reports weakness Psychiatric Denies confusion and Denies depression Endocrine Denies cold intolerance, Reports fatigue and Denies palpitations Hematologic/Lymphatic Denies easy bleeding, Denies easy bruising and Denies lymphadenopathy Allergic/Immunologic Denies wheezing [facility] Medical History Sarcoidosis (Chronic) Neck pain (Chronic) Multiple sclerosis (Chronic) Optic neuritis (Chronic) GERD (gastroesophageal reflux disease) (Chronic) Diabetes type 2, controlled (Chronic) BPH (benign prostatic hyperplasia) (Chronic) Urinary incontinence (Chronic) Tobacco abuse (Chronic) Hyperlipidemia (Chronic) Chronic pain (Chronic) Vitamin D deficiency (Chronic) Congenital ptosis of left eyelid (Acute) Diabetic retinopathy (Chronic) Chewing tobacco nicotine dependence (Chronic) Surgical History H/O surgical procedure (Chronic) History of lung biopsy (Acute) History of appendectomy (Chronic) Social History Smoking/Tobacco Use Status: Former Tobacco Use Alcohol Intake: never Drug use: Never Housing: apartment 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 Do you feel safe at home: Yes Do you feel safe in your relationship?: Yes Exam Const General: cooperative, healthy appearing, comfortable, no acute distress and well developed Nutritional Appearance: obese Orientation: alert, awake and oriented x3 HENMT Head: normal to inspection Ears: hearing grossly normal bilaterally General nose exam: external nose normal Face and sinus: normal facial exam Mouth: oral mucosae normal, tongue normal and moist mucous membranes Throat: posterior oropharynx normal Eyes General: appearance normal, both eyes and all related structures Neck Neck: normal visual inspection, full ROM, no lymphadenopathy and no meningeal signs Chest Chest: normal inspection of the chest Resp Effort & Inspection: normal respiratory effort and able to speak in complete sentences Auscultation: clear to auscultation bilaterally Cardio Jugular venous pressure: no JVD Rate: regular rate Rhythm: regular rhythm Heart Sounds: S1 normal and S2 normal GI Inspection: normal to inspection Palpation: soft, no hepatosplenomegaly and nontender Back/Spine/Pelvis Back: no CVA tenderness Skin General skin exam: no rashes or lesions noted Neuro General: alert, awake and oriented x3 Motor: muscle tone normal throughout Extrem General: normal to inspection Course Vital Signs Temperature 36.3 C L 01/17/19 16:06 Pulse 57 L 01/17/19 16:06 Respiratory Rate 16 01/17/19 16:06 Blood Pressure 101/72 01/17/19 16:06 Pulse Oximetry 97 01/17/19 16:06 Temperature 36.3 C L 01/17/19 16:06 Temperature Source Skin 01/17/19 16:06 Pulse 57 L 01/17/19 16:06 Respiratory Rate 16 01/17/19 16:06 Respiratory Effort Non-Labored 01/17/19 16:06 Blood Pressure 101/72 01/17/19 16:06 Pulse Oximetry 97 01/17/19 16:06 Oxygen Delivery Method Room Air 01/17/19 16:06 Oxygen Flow Rate 0 01/17/19 16:06 Pain Level 8 01/17/19 16:06
[2019-01-17 16:54] LABS: Lactate-non-spesis 1.3 mmol/l (0.6-1.4)
[2019-01-17 16:57] LABS: Abs Immature Grans 0.01 k/cumm (0.0-0.09); Absolute Basophil Count 0.01 k/cumm (0.0-0.2); Absolute Eosinophil Count 0.18 k/cumm (0.0-0.7); Absolute Lymphocyte Count 2.09 k/cumm (1.2-3.4); Absolute Monocyte Count 0.33 k/cumm (0.11-0.7); Absolute Neutrophil Count 2.59 k/cumm (1.2-6.7); Basophils % 0.2; Eosinophils % 3.5; HCT 34.2 % (40.0-50.0); HGB 11.5 g/dL (13.5-17.5); Immature Grans % 0.2; Lymphocytes % 40.1; Mean Corp. HGB Concentration 33.6 g/dL (32.0-36.0); Mean Corpuscular Hemoglobin 28.5 pg (27.0-33.0); Mean Corpuscular Volume 84.7 fL (80-95); Mean Platelet Volume 10.6 fL (8.0-11.0); Monocytes % 6.3; Neutrophils % 49.7; Platelet Count 231 x1000/uL (130-400); RBC 4.04 m/cumm (4.50-6.00); White Blood Cell Count 5.21 k/cumm (4.4-10.8)
[2019-01-17] MEDS: Normal Saline 1,000 ML 1000 ML IV (17:05)
[2019-01-17 17:13] LABS: ALT 25 U/L (12-78); AST 23 U/L (15-37); Albumin 4.3 g/dL (3.4-5.0); Alkaline Phosphatase 60 U/L (46-116); Anion Gap 11.2 mmol/L (3-11); BUN 15 mg/dL (7-18); Bilirubin, Total 0.4 mg/dL (0.2-1.0); CO2 25.8 mmol/L (21.0-32.0); Calcium 9.4 mg/dL (8.5-10.1); Chloride 103 mmol/L (98-107); Estimated GFR 52.42 (mL/min/1.73m2); Glucose 102 mg/dL (70-100); Magnesium 2.1 mg/dL (1.8-2.4); Potassium 3.6 mmol/L (3.5-5.1); Sodium 140 mmol/L (136-145); Total Protein 7.6 g/dL (6.4-8.2); Troponin I < 0.02 ng/mL (0.00-0.06)
[2019-01-17 17:19] LABS: TSH (W/Ref FT4) 2.78 uIU/mL (0.358-3.74)
[2019-01-17 17:57] LABS: Bilirubin Negative (Negative); Blood Negative (Negative); Clarity Clear; Glucose Negative (Negative); Ketones Negative (Negative); Leukocyte Esterase Negative (Negative); Nitrite Negative (Negative); Specific Gravity 1.015 (1.005-1.025); Urobilinogen 0.2 EU/dL (Up TO 0.2); pH 5.5 (5-8)
--- NOTE | 2019-01-17 18:12 | DI.VRAD_ITS ---
EXAM: XR Chest, 2 Views EXAM DATE/TIME: 01/17/2019 5:28 PM CLINICAL HISTORY: 58 years old, male; Signs and symptoms; Shortness of breath TECHNIQUE: Imaging protocol: XR of the chest, 2 views. COMPARISON: CR XR PORTABLE CHEST AP 12/17/2018 3:42 PM FINDINGS: Lungs: No focal airspace consolidation. Pleural space: No large pleural effusion or pneumothorax. Heart/Mediastinum: Cardiomediastinal silhouette is unchanged. Bones/joints: Mild degenerative changes of the spine. Other findings: Evaluation of the retrosternal space is limited due to overlapping arm. IMPRESSION: No acute abnormality. Dictated and Authenticated by: Laura Dominguez MD. Ordering:EMILY Pedro MD
[2019-01-17 19:14] LABS: *AMPHETAMINES SCREEN URINE Negative (Negative); *BARBITURATES SCREEN URINE Negative (Negative); *BENZODIAZEPINES SCREEN URINE Negative (Negative); Cannabinoids THC Negative (Negative); Cocaine Screen,Urine Negative (Negative); METHADONE URINE SCREEN Negative (Negative); OPIATES URINE SCREEN Negative (Negative)
[2019-01-17 19:15] LABS: Tricyclic Antidepressants Negative (Negative)
== END 2019-01-17 21:22 | disposition home or self-care (01) ==
PROVIDERS: Emergency Provider Physician Assistant; PCP Family Medicine
DX: R53.1 Weakness (principal); E11.319 Type 2 diabetes mellitus with unspecified diabetic retinopathy without macular edema
CPT/HCPCS: 36415; 80053; 80307; 93005; 96360; 99285; 71046; 81003; 83605; 83735; 84443; 84484; 85025; 93010

== ENCOUNTER → 2019-02-09 12:28 | Outpatient (BNVA) | payer MEDICARE, MEDICAID, SELFPAY | PROVIDERS: PCP Family Medicine; Visit Provider Psychiatry & Neurology Neurology | DX: G35 Multiple sclerosis (principal); R25.2 Cramp and spasm; R29.898 Other symptoms and signs involving the musculoskeletal system; E11.42 Type 2 diabetes mellitus with diabetic polyneuropathy; Z79.84 Long term (current) use of oral hypoglycemic drugs | CPT/HCPCS: 99214 ==

== ENCOUNTER 2019-03-10 00:53 | Outpatient (CLI) | payer MEDICARE, MEDICAID, SELFPAY ==
--- NOTE | 2019-03-10 11:40 | DI.MRI_ITS ---
SYMPTOMS/DIAGNOSIS: CERVICALGIA, M54.2, MULTIPLE SCLEROSIS, G35 CERVICAL SPINE MRI: MRI examination of the cervical spine was performed according to the usual protocol. The images are of suboptimal technical quality. In comparison with previous examination of 12/26/16, note is again made of multilevel prominence of the disc-osteophyte complex in the cervical region, particularly at C3-4, C4-5 and C5-6; little interval change in appearance at these levels in comparison with the previous study. No new disc herniations seen. No significant central canal spinal stenosis. Bilateral neural foraminal stenosis noted at C4-5 and C5-6. Subtle cord lesions seen on the previous examination consistent with clinically apparent multiple sclerosis noted at C2 and C3 levels and perhaps also at C1. Possible C4 and C6 lesions also present. The findings are difficult to confirm on today's examination due to decreased technical quality of the examination, but these lesions are probably still present. No gross new lesion identified. CONCLUSION: Stable appearance of subtle multiple cord lesions consistent with the patient's reported diagnosis of multiple sclerosis. No gross interval change in multilevel prominence of disc-osteophyte complex, no focal disc herniation seen.
== END 2019-03-10 01:13 ==
PROVIDERS: PCP Family Medicine; Visit Provider Specialist/Technologist Athletic Trainer
DX: M54.2 Cervicalgia (principal); G35 Multiple sclerosis; M99.72 Connective tissue and disc stenosis of intervertebral foramina of thoracic region
CPT/HCPCS: 72141

== ENCOUNTER → 2019-04-19 12:51 | Outpatient (BNVA) | payer MEDICARE, MEDICAID, SELFPAY | PROVIDERS: PCP Family Medicine; Visit Provider Psychiatry & Neurology Neurology | DX: G35 Multiple sclerosis (principal); R25.2 Cramp and spasm; R29.898 Other symptoms and signs involving the musculoskeletal system; G89.29 Other chronic pain; H54.7 Unspecified visual loss | CPT/HCPCS: 99214 ==

== ENCOUNTER 2019-06-01 09:31 | Outpatient (CLI) | payer MEDICARE, MEDICAID, SELFPAY ==
[2019-06-01 10:01] VITALS: BP 91/57; PULSE 75; RESP 18; TEMP 36.4; O2SAT 98
[2019-06-01] MEDS: Omnipaque 240 MG/ML 50 ML BTL IJ (10:38)
[2019-06-01] MEDS: Dexamethasone Sod. Phos./Pres-Free 10 MG/ML VIAL IJ (10:39)
--- NOTE | 2019-06-01 10:44 | PDOC.PAIN ---
Pain Clinic Procedure Note Procedure Note Procedure Note: Cervical Epidural Steroid Injection ALVARO GARRISON has been referred to the [facility] for cervical epidural steroid injection. COMMENTS: He was previously evaluated in our clinic and has had this procedure X 2 over the past few years. DX: Cervical radiculopathy BLADIMIR was interviewed and the medical record reviewed. There were no medical, pharmacologic, radiographic or other structural contraindications to attempting fluoroscopically guided epidural steroid injection. Risks and expected side effects as well as potential benefit of the procedure were reviewed with BLADIMIR , and BLADIMIR voiced concerns addressed. The printed consent form was signed and witnessed. Standard time-out procedure was performed. The patient was placed in the prone position on the fluoroscopy table and automated blood pressure cuff and pulse oximeter applied. The skin entry point for entering the epidural space by a midline C7-T1 interlaminar approach was identified under fluoroscopy and marked. Following thorough Chlorhexadine preparation of the skin and draping and 1% lidocaine infiltration of the skin entry point and subcutaneous tissues, an 18 gauge Tuohy needle was placed under fluoroscopic guidance and with loss of resistance technique into the C7-T1 epidural space. Upon needle placement and loss of resistance there were no paresthesiae or return of blood or CSF through the needle. 1 cc of Omnipaque 240 was injected with clear epidural spread in the A/P, lateral and oblique views. 15 mg of preservative free Dexomethasone was injected with no unusual discomfort expressed by BLADIMIR. This was flushed with 1 cc of normal saline. BLADIMIR 's vital signs were stable throughout the procedure and were as recorded in the docflowsheet by the nursing staff. Follow up plans and appointments were discussed with the BLADIMIR. Post procedure instruction was given as documented in nursing documentation and having met discharge criteria, BLADIMIR was discharged from the [facility]. COMMENTS: This procedure can be completed up to 3 times per 12 months if it is found to be effective. CC: Ale Barraza V
[2019-06-01 10:45] VITALS: BP 121/78; PULSE 84; RESP 25; O2SAT 97
--- NOTE | 2019-06-01 10:47 | DI.RAD_ITS ---
EXAM: XR PAIN CLINIC CERVICAL SP 2V CLINICAL HISTORY: Dx:Cervical Radiculopathy TECHNIQUE: Realtime digital imaging was performed. CONTRAST MATERIAL: Please refer to the procedure report for complete details. Fluoro time: 36.2 s, 5.81 mGy FINDINGS: Fluoroscopy was utilized by Dr. English during the performance of a cervical epidural steroid injection. Please refer to the procedure report for complete details.
== END 2019-06-01 09:51 ==
PROVIDERS: PCP Family Medicine; Visit Provider Preventive Medicine Occupational Medicine
DX: M54.12 Radiculopathy, cervical region (principal)
CPT/HCPCS: 62321; 72040; Q9967

== ENCOUNTER → 2019-07-13 12:59 | Outpatient (BNVA) | payer MEDICARE, MEDICAID, SELFPAY | PROVIDERS: PCP Family Medicine; Referring Provider Family Medicine; Visit Provider Psychiatry & Neurology Neurology | DX: G35 Multiple sclerosis (principal); M25.511 Pain in right shoulder; E11.9 Type 2 diabetes mellitus without complications; F17.220 Nicotine dependence, chewing tobacco, uncomplicated; G89.29 Other chronic pain; H46.9 Unspecified optic neuritis; D86.9 Sarcoidosis, unspecified; R25.2 Cramp and spasm | CPT/HCPCS: 99213 ==

== ENCOUNTER 2019-08-03 14:54 | Outpatient (CLI) | payer MEDICARE, MEDICAID, SELFPAY ==
--- NOTE | 2019-08-03 15:18 | DI.RAD_ITS ---
EXAM: XR SHOULDER RT COMPLETE 2+V INDICATION: R shoulder pain. COMPARISON: LEFT SHOULDER COMPLETE from 05/17/2014 TECHNIQUE: 2D digital imaging was performed. FINDINGS: There is mild spurring of the AC joint. There is spurring at the inferior aspect of the acromion as well as glenoid, greater and lesser tuberosities. The glenohumeral joint space is well maintained. Humeral head appears normally positioned. IMPRESSION: Degenerative changes greatest of the undersurface of the acromion.
== END 2019-08-03 15:14 ==
PROVIDERS: PCP Family Medicine; Referring Provider Family Medicine; Visit Provider Student in an Organized Health Care Education/Training Program
DX: M25.511 Pain in right shoulder (principal); M19.011 Primary osteoarthritis, right shoulder; M75.21 Bicipital tendinitis, right shoulder; M75.101 Unspecified rotator cuff tear or rupture of right shoulder, not specified as traumatic
CPT/HCPCS: 20610; 99204; 99215; 73030; J1030

== ENCOUNTER 2019-08-10 12:06 | Outpatient (REF) | payer MEDICARE, MEDICAID, SELFPAY ==
[2019-08-10 19:36] LABS: HCT 34.4 % (40.0-50.0); HGB 11.3 g/dL (13.5-17.5)
[2019-08-10 19:45] LABS: Anion Gap 13.2 mmol/L (3-11); BUN 14 mg/dL (7-18); CO2 23.8 mmol/L (21.0-32.0); CREATININE 1.34 mg/dL (0.70-1.30); Calcium 9.7 mg/dL (8.5-10.1); Chloride 107 mmol/L (98-107); Estimated GFR 55.14 (mL/min/1.73m2); Glucose 98 mg/dL (74-106); Potassium 4.6 mmol/L (3.5-5.1); Sodium 144 mmol/L (136-145)
== END 2019-08-10 12:26 ==
LOC: NCHCN 12:06
PROVIDERS: PCP Family Medicine; Visit Provider Family Medicine
DX: E11.9 Type 2 diabetes mellitus without complications (principal); D64.9 Anemia, unspecified; G35 Multiple sclerosis
CPT/HCPCS: 80048; 85014; 85018

== ENCOUNTER 2019-09-29 01:16 | Outpatient (CLI) | payer MEDICARE, MEDICAID, SELFPAY ==
--- NOTE | 2019-09-29 11:01 | DI.MRI_ITS ---
EXAM: MR CERVICAL SPINE WO/W CLINICAL HISTORY: MS G35, RT SHOULDER WEAKNESS AND HX MS. TECHNIQUE: Multiplanar multisequence MRI was performed. FINDINGS: The exam is limited by patient motion. The cervical spinal cord is difficult to evaluate due to the degree of motion artifact. Foci of increased T2 signal is noted within the cord at the C2, C3, C4, a nd possibly C6 levels, not definitely changed from the previous exam. No areas of enhancement are vi sible. Multilevel disc osteophytes are again noted which are more prominent and toward the right jose e, causing right neural foraminal encroachment from C3-4 through C6-7. IMPRESSION: Limited exam due to patient motion. Grossly stable areas of high signal in the cervical cord consist ent with the patient's history of multiple sclerosis. Stable degenerative disc changes and neural fo raminal narrowing at multiple levels greatest on the right side at C3-4.
[2019-09-29] MEDS: Normal Saline Flush 10 ML SYR IVP (11:17)
[2019-09-29] MEDS: Gadoterate meglumine 20 ML VIAL 18 ML IVP (11:18)
== END 2019-09-29 01:36 ==
PROVIDERS: PCP Family Medicine; Visit Provider Psychiatry & Neurology Neurology
DX: G35 Multiple sclerosis (principal); M25.511 Pain in right shoulder; M62.81 Muscle weakness (generalized); M50.320 Other cervical disc degeneration, mid-cervical region, unspecified level
CPT/HCPCS: 72156

== ENCOUNTER → 2019-10-13 12:14 | Outpatient (BNVA) | payer MEDICARE, MEDICAID, SELFPAY | PROVIDERS: PCP Family Medicine; Referring Provider Family Medicine; Visit Provider Psychiatry & Neurology Neurology | DX: G35 Multiple sclerosis (principal); R25.2 Cramp and spasm; R29.898 Other symptoms and signs involving the musculoskeletal system; G89.29 Other chronic pain; M25.511 Pain in right shoulder | CPT/HCPCS: 99213 ==

== ENCOUNTER 2019-11-04 21:44 | Outpatient (REF) | payer MEDICARE, MEDICAID, SELFPAY ==
[2019-11-04 19:39] LABS: ALT 18 U/L (16-63); AST 21 U/L (15-37); Albumin 4.3 g/dL (3.4-5.0); Alkaline Phosphatase 47 U/L (46-116); Anion Gap 10.4 mmol/L (3-11); BUN 12 mg/dL (7-18); Bilirubin, Total 0.3 mg/dL (0.2-1.0); CO2 26.6 mmol/L (21.0-32.0); CREATININE 1.24 mg/dL (0.70-1.30); Chloride 106 mmol/L (98-107); Glucose 97 mg/dL (74-106); Potassium 4.6 mmol/L (3.5-5.1); Sodium 143 mmol/L (136-145); Total Protein 7.1 g/dL (6.4-8.2)
[2019-11-04 19:44] LABS: Calcium 8.5 mg/dL (8.5-10.1)
[2019-11-04 19:50] LABS: HCT 33.6 % (40.0-50.0); HGB 10.8 g/dL (13.5-17.5)
[2019-11-04 20:23] LABS: Hemoglobin A1C 5.9 % (3.8-5.6)
== END 2019-11-04 22:04 ==
LOC: NCHCN 21:44
PROVIDERS: PCP Family Medicine; Visit Provider Family Medicine
DX: E11.69 Type 2 diabetes mellitus with other specified complication (principal); N28.9 Disorder of kidney and ureter, unspecified; D64.9 Anemia, unspecified; R25.2 Cramp and spasm
CPT/HCPCS: 80053; 83036; 85014; 85018

== ENCOUNTER → 2019-11-09 14:14 | Outpatient (BNVA) | payer MEDICARE, MEDICAID, SELFPAY | PROVIDERS: PCP Family Medicine; Referring Provider Family Medicine; Visit Provider Student in an Organized Health Care Education/Training Program | DX: M75.21 Bicipital tendinitis, right shoulder (principal); M75.101 Unspecified rotator cuff tear or rupture of right shoulder, not specified as traumatic | CPT/HCPCS: 99213 ==

== ENCOUNTER → 2019-12-21 10:58 | Outpatient (BNVA) | payer MEDICARE, MEDICAID, SELFPAY | PROVIDERS: PCP Family Medicine; Referring Provider Family Medicine; Visit Provider Psychiatry & Neurology Neurology | DX: G35 Multiple sclerosis (principal); R25.2 Cramp and spasm; R29.898 Other symptoms and signs involving the musculoskeletal system; G89.29 Other chronic pain; E11.319 Type 2 diabetes mellitus with unspecified diabetic retinopathy without macular edema; Z79.84 Long term (current) use of oral hypoglycemic drugs | CPT/HCPCS: 99214 ==

== ENCOUNTER → 2020-01-17 08:25 | Outpatient (BNVA) | payer MEDICARE, MEDICAID, SELFPAY | PROVIDERS: PCP Family Medicine; Referring Provider Family Medicine; Visit Provider Psychiatry & Neurology Neurology | DX: G35 Multiple sclerosis (principal); R29.898 Other symptoms and signs involving the musculoskeletal system; M75.101 Unspecified rotator cuff tear or rupture of right shoulder, not specified as traumatic; R25.2 Cramp and spasm; G89.29 Other chronic pain | CPT/HCPCS: 99214 ==

== ENCOUNTER 2020-01-25 00:47 | Outpatient (CLI) | payer MEDICARE, MEDICAID, SELFPAY ==
--- NOTE | 2020-01-25 08:45 | DI.MRI_ITS ---
EXAM: MR BRAIN WO/W CLINICAL HISTORY: new RLE WEAKNESS; MS,R29.898,G35. TECHNIQUE: Multiplanar multisequence MRI of the brain was performed. The exam is limited by patient motion. CONTRAST MATERIAL: IV Contrast: 17 ML of Dotarem contrast administered. COMPARISON: MR MR brain wo/w from 12/29/2018 FINDINGS: VENTRICLES AND EXTRA AXIAL SPACES: Stable ventricular enlargement, disproportionate to the patient's age HEMORRHAGE: None. CEREBRAL PARENCHYMA: Moderate atrophy. Cyst stable patchy areas of high signal in the periventricula r white matter. Stable atrophy of the corpus callosum. No focus of restricted diffusion to suggest acute infarct. No space-occupying lesion identified. MIDLINE SHIFT: None. BRAINSTEM/CEREBELLUM: Normal. ENHANCEMENT: No suspicious enhancement identified. VISUALIZED PARANASAL SINUSES/MASTOIDS: Clear. IMPRESSION: Limited exam due to patient motion. Stable atrophy and ventricular enlargement. Stable high signal in the periventricular white matter. No evidence of enhancing lesions. DATA REPOSITORY:
[2020-01-25] MEDS: Normal Saline Flush 10 ML SYR IVP (14:41)
[2020-01-25] MEDS: Gadoterate meglumine 20 ML VIAL 17 ML IVP (14:42)
== END 2020-01-25 01:07 ==
PROVIDERS: PCP Family Medicine; Visit Provider Psychiatry & Neurology Neurology
DX: G35 Multiple sclerosis (principal); R29.898 Other symptoms and signs involving the musculoskeletal system; G31.89 Other specified degenerative diseases of nervous system
CPT/HCPCS: 70553

== ENCOUNTER 2020-01-27 10:59 | Outpatient (REF) | payer MEDICARE, MEDICAID, SELFPAY ==
[2020-01-27 14:52] LABS: ESR 46 mm/hr (1-20)
[2020-01-27 14:56] LABS: HCT 32.3 % (40.0-50.0); HGB 10.6 g/dL (13.5-17.5); Mean Corp. HGB Concentration 32.8 g/dL (32.0-36.0); Mean Corpuscular Hemoglobin 27.3 pg (27.0-33.0); Mean Corpuscular Volume 83.2 fL (80-95); Mean Platelet Volume 11.2 fL (8.0-11.0); Platelet Count 232 x1000/uL (130-400); RBC 3.88 m/cumm (4.50-6.00); RBC Distribution Width 16.1 % (11.8-14.1); White Blood Cell Count 6.95 k/cumm (4.4-10.8)
[2020-01-27 17:12] LABS: Hemoglobin A1C 6.5 % (3.8-5.6)
== END 2020-01-27 11:19 ==
LOC: NCHCN 10:59
PROVIDERS: PCP Family Medicine; Referring Provider Family Medicine; Visit Provider Psychiatry & Neurology Neurology
DX: G35 Multiple sclerosis (principal); R29.898 Other symptoms and signs involving the musculoskeletal system; E11.9 Type 2 diabetes mellitus without complications
CPT/HCPCS: 85027; 85652; 83036

== ENCOUNTER 2020-02-08 12:40 | Outpatient (REF) | payer MEDICARE, MEDICAID, SELFPAY | END 2020-02-08 13:00 | LOC: NCHCN 12:40 | PROVIDERS: PCP Family Medicine; Visit Provider Family Medicine | DX: L97.219 Non-pressure chronic ulcer of right calf with unspecified severity (principal) | CPT/HCPCS: 87077; 87070; 87186; 87205 ==

== ENCOUNTER → 2020-03-21 10:17 | Outpatient (BNVA) | payer MEDICARE, MEDICAID, SELFPAY | PROVIDERS: PCP Family Medicine; Referring Provider Family Medicine; Visit Provider Psychiatry & Neurology Neurology | DX: G35 Multiple sclerosis (principal); R25.2 Cramp and spasm; R29.898 Other symptoms and signs involving the musculoskeletal system; G89.29 Other chronic pain | CPT/HCPCS: 99214 ==

== ENCOUNTER → 2020-06-20 10:47 | Outpatient (BNVA) | payer MEDICARE, MEDICAID, SELFPAY | PROVIDERS: PCP Family Medicine; Referring Provider Family Medicine; Visit Provider Psychiatry & Neurology Neurology | DX: G35 Multiple sclerosis (principal); R29.898 Other symptoms and signs involving the musculoskeletal system; R25.2 Cramp and spasm; G89.29 Other chronic pain; E11.319 Type 2 diabetes mellitus with unspecified diabetic retinopathy without macular edema; Z79.84 Long term (current) use of oral hypoglycemic drugs | CPT/HCPCS: 99213 ==

== ENCOUNTER → 2020-09-26 10:30 | Outpatient (BNVA) | payer MEDICARE, MEDICAID, SELFPAY | PROVIDERS: PCP Family Medicine; Visit Provider Psychiatry & Neurology Neurology | DX: G35 Multiple sclerosis (principal); R29.898 Other symptoms and signs involving the musculoskeletal system; R25.2 Cramp and spasm; G89.29 Other chronic pain | CPT/HCPCS: 99213 ==

== ENCOUNTER → 2020-12-26 10:53 | Outpatient (BNVA) | payer OTHER, MEDICAID, SELFPAY | PROVIDERS: PCP Family Medicine; Referring Provider Family Medicine; Visit Provider Psychiatry & Neurology Neurology | DX: G35 Multiple sclerosis (principal); R25.2 Cramp and spasm; R29.898 Other symptoms and signs involving the musculoskeletal system; G89.29 Other chronic pain; E11.69 Type 2 diabetes mellitus with other specified complication | CPT/HCPCS: 99214 ==

== ENCOUNTER → 2021-04-02 08:30 | Outpatient (BNVA) | payer MEDICARE, MEDICAID, SELFPAY | PROVIDERS: PCP Family Medicine; Referring Provider Family Medicine; Visit Provider Psychiatry & Neurology Neurology | DX: G35 Multiple sclerosis (principal); R25.2 Cramp and spasm; R29.898 Other symptoms and signs involving the musculoskeletal system; G89.29 Other chronic pain | CPT/HCPCS: 99442 ==

== ENCOUNTER 2021-04-05 17:15 | Outpatient (REF) | payer MEDICARE, MEDICAID, SELFPAY ==
[2021-04-05 20:05] LABS: COMMENT (LAB VIEW ONLY) 26.76 mg/dL; Microalb ug/mg Crea 19.4 ug/mg Cr
== END 2021-04-05 17:16 | disposition home or self-care (01) ==
LOC: NCHCN 17:15
PROVIDERS: PCP Family Medicine; Visit Provider Family Medicine
DX: N28.9 Disorder of kidney and ureter, unspecified (principal)
CPT/HCPCS: 82043; 82570

== ENCOUNTER → 2021-06-04 08:32 | Outpatient (BNVA) | payer MEDICARE, MEDICAID, SELFPAY | PROVIDERS: PCP Family Medicine; Referring Provider Family Medicine; Visit Provider Psychiatry & Neurology Neurology | DX: G35 Multiple sclerosis (principal); R25.2 Cramp and spasm; R29.898 Other symptoms and signs involving the musculoskeletal system; G89.29 Other chronic pain | CPT/HCPCS: 99213 ==

== ENCOUNTER 2021-07-07 16:19 | Inpatient (IN) | payer MEDICARE, MEDICAID, SELFPAY ==
[2021-07-07] VITALS (31 sets, daily range): BP systolic 90–136; BP diastolic 45–86; PULSE 71–97; RESP 10–20; TEMP 35.7–36.5; O2SAT 98–100
--- NOTE | 2021-07-07 16:00 | RT.EKG_ITS ---
APPROVED REPORT Exam: Resting ECG Reason for Exam: weakness Patient Location: E HR:88 bpm ECG Measurements Heart Rate 88 AXIS ID 152 P 36 QRSd 71 QRS 18 QT 407 T 53 QTc 494 Conclusion Sinus rhythm...normal P axis, V-rate 60- 99
--- NOTE | 2021-07-07 16:21 | W.ED.GENAD ---
Discharge Plan Disposition Patient Disposition: [facility] INPATIENT Condition: Stable Discharge Details Chief Complaint: AMS/LOC Clinical Impression: Altered mental status, Rhabdomyolysis, Urinary tract infection Primary Care Provider: Ale Barraza V ED Provider: Pérez Wall Home Meds and New Rx's Prescriptions: No Action lisinopril 2.5 mg tablet 2.5 mg PO DAILY RF: 0 tramadol 100 mg tablet 100 mg PO DAILY PRNRF: 0 folic acid 1 mg tablet 1 mg PO DAILY RF: 0 methotrexate (PF) 25 mg/0.4 mL auto-injector 25 mg subcut QWEEK RF: 0 clonazepam 1 mg tablet 1 mg PO QHS Qty: 30 RF: 3 baclofen 20 mg tablet 20 mg PO DIRECTED Qty: 360 RF: 3 alfuzosin 10 mg tablet extended release 24 hr 10 mg PO DAILY RF: 0 alendronate 70 MG tablet 70 mg PO WEEKLY RF: 0 ferrous gluconate [Ferate] 240 mg (27 mg iron) tablet 240 mg PO DAILY RF: 0 glipizide 10 mg tablet extended release 24hr 10 mg PO DAILY RF: 0 loratadine 10 mg tablet 10 mg PO DAILY RF: 0 omeprazole 40 mg capsule,delayed release(DR/EC) 40 mg PO DAILY RF: 0 prednisone 5 mg tablet 5 mg PO DAILY RF: 0 cholecalciferol (vitamin D3) 25 mcg (1,000 unit) tablet 4,000 unit PO DAILY RF: 0 gabapentin 300 mg capsule See Rx Instructions PO TID Qty: 450 RF: 3 acetaminophen 500 MG tablet 500 mg PO DIRECTED RF: 0 docusate sodium [Doc-Q-Lace] 100 MG capsule 100 mg PO TID RF: 0 aspirin [Aspirin Low-Strength] 81 MG tablet,chewable 81 mg PO DAILY RF: 0 atorvastatin [Lipitor] 40 MG tablet 40 mg PO QPM RF: 0 (DME) Prodigy No Coding 1 EACH strip 1 ea Sub-Q BID RF: 0 multivitamin [Daily Multi-Vitamin] 1 EACH tablet 1 tab PO DAILY RF: 0 metformin 500 mg tablet 850 mg PO .am RF: 0 Medical Decision Making 6=60 yo male with hx of MS, gerd, t2DM, who comes in with ems for altered mental status. Home health apparently found him at home slumped in his wheel chair and it is unclear how long he was like this for. They called ems and they noted a bgfs over 200 and on arrival the patient will make sounsd when I call his name but doesn't make any words that I can make out, just noises. He doesn't open his eyes and minimally withdraws his extremities from painful stimuli. He has no signs of trauma to the head. Diminished breath sounds at the bases. Soft abdomen, no rashes noted. He is on tramadol per his med review and given his decreased mental status and pin point pupils will administer narcan and reassess, will also obtain labs to evaluate for electrolyte abnormalities and ct head to evaluate for intracranial pathology such as hemorrhage. pt given narcan and reassessed after CT and is now awake and oriented, is still fatigued, labs thus far remarkable for cpk over 4000. He is not sure how long he has been altered for and denies taking excess amounts of tramadol though his presentation and response to narcan makes me feel the tramadol caused him to be lethargic and develop rhabdo, awaiting imaging and rest of labs. UA consistent with uti so ceftriaxone ordered, making good urine in the ng which was placed for monitoring of urinary output in setting of rhabdo. CTA negative. Given the rhabdo and lethargy will discuss with hospitalist for admission Differential Diagnosis Differential Diagnosis: drug overdose, electrolyte abnormality, tbi Imaging Data Radiologic Study: Attestation: I personally reviewed and interpreted this imaging study as follows: Imaging: CT Scan Radiologist's impression: no acute findings Lab Data Lab results reviewed: Yes I reviewed the patient's lab results. ECG Data Attestation: I personally reviewed and interpreted this ECG (s) as follows: Prior ECG tracings: not available for review Interpretation: sinus rhythm, rate of 88, no acute st t wave ischemic findings HPI General Mode of arrival: EMS. Date/Time Provider Initiated Documentation: 07/07/21 16:20. Limitations to Documentation: altered mental status. Information obtained by: patient. History of Present Illness 60 year old M presents to the emergency department with the chief complaint of lethargic, described as moderate, Patient started experiencing this unknown and it has been constant. Patient did receive the following treatments prior to arrival, none Related Data Home Medications Medication Instructions Recorded Confirmed acetaminophen 500 mg PO DIRECTED 11/23/13 06/04/21 aspirin [Aspirin Low-Strength] 81 mg PO DAILY 11/23/13 06/04/21 docusate sodium [Doc-Q-Lace] 100 mg PO TID 11/23/13 06/04/21 atorvastatin [Lipitor] 40 mg PO QPM 06/14/14 06/04/21 Prodigy No Coding 12/23/15 06/04/21 multivitamin [Daily Multi-Vitamin] 1 tab PO DAILY 03/23/16 06/04/21 alendronate 70 mg PO WEEKLY 05/13/17 06/04/21 alfuzosin 10 mg tablet,extended 10 mg PO DAILY 12/10/18 06/04/21 release 24 hr ferrous gluconate 240 mg (27 mg 240 mg PO DAILY tab 12/23/18 06/04/21 iron) tablet glipizide 10 mg tablet, extended 10 mg PO DAILY 12/23/18 06/04/21 release 24 hr loratadine 10 mg tablet 10 mg PO DAILY 12/23/18 06/04/21 omeprazole 40 mg capsule,delayed 40 mg PO DAILY 12/23/18 06/04/21 release prednisone 5 mg tablet 5 mg PO DAILY 12/23/18 06/04/21 cholecalciferol (vitamin D3) 25 4,000 unit PO DAILY tab 12/21/19 06/04/21 mcg (1,000 unit) tablet metformin 500 mg tablet 850 mg PO .am tab 06/20/20 06/04/21 baclofen 20 mg tablet 20 mg PO DIRECTED #360 tab 06/04/21 06/04/21 clonazepam 1 mg tablet 1 mg PO QHS #30 tab 06/04/21 06/04/21 folic acid 1 mg tablet 1 mg PO DAILY 06/04/21 06/04/21 lisinopril 2.5 mg tablet 2.5 mg PO DAILY 06/04/21 06/04/21 methotrexate (PF) 25 mg/0.4 mL 25 mg SUBCUT QWEEK 06/04/21 06/04/21 subcutaneous auto-injector tramadol 100 mg tablet 100 mg PO DAILY PRN 06/04/21 06/04/21 gabapentin 300 mg capsule See Rx Instructions PO TID #450 cap 06/06/21 Previous Rx's Medication Instructions Recorded baclofen 20 mg tablet 20 mg PO DIRECTED #360 tab 06/04/21 clonazepam 1 mg tablet 1 mg PO QHS #30 tab 06/04/21 gabapentin 300 mg capsule See Rx Instructions PO TID #450 cap 06/06/21 Allergies Allergy/AdvReac Type Severity Reaction Status Date / Time No Known Allergies Allergy Unverified 06/04/21 08:36 General Stated Complaint: AMS/LOC AIDA: 2 Review of Systems Unobtainable due to mental status [facility] Medical History (Updated 07/07/21 @ 18:18 by Pérez Wall MD) Abnormal CT of liver Anemia Bilateral cataracts Bilateral leg edema BPH (benign prostatic hyperplasia) Cervical radiculopathy Cervicalgia Chewing tobacco nicotine dependence Chronic pain a. chronic opiate rx Clostridium difficile colitis Congenital ptosis of left eyelid Diabetes type 2, controlled Diabetic retinopathy Family hx of colon cancer GERD (gastroesophageal reflux disease) Hip pain, right Hyperlipidemia Lytic bone lesions on xray Lytic lesion of bone on x-ray Mediastinal adenopathy Microcytic anemia Multiple sclerosis A. Diagnosed in 2006 b. nonambulatory, primarly bed to wheelchair Neck pain A. 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 Chronic opiate Rx Optic nerve atrophy Optic neuritis a. legally blind Osteopenia Pelvic lymphadenopathy Peripheral neuropathy Pituitary adenoma Renal insufficiency Sarcoidosis Spasticity Spinal stenosis Tobacco abuse a. Uses chewing tobacco Ulcer of calf Urinary incontinence Vitamin D deficiency Surgical History H/O surgical procedure a. appendectomy b. 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 What is your relationship status?: Panel score (0-1 are the most socially isolated patients): 0 What type of physical activity do you participate in: weight lifting, wheelchair-bound and additional Details: PT Do you feel safe at home: Yes Do you feel safe in your relationship?: Yes Exam Const General: no acute distress Orientation: alert HENMT Head: normal to inspection Ears: external ears normal General nose exam: external nose normal Mouth: moist mucous membranes Eyes General: appearance normal, both eyes and all related structures Neck Neck: normal visual inspection Resp Effort & Inspection: normal respiratory effort Cardio Rate: regular rate Skin General skin exam: elasticity normal Neuro General: patient alert Extrem General: normal to inspection Course Vital Signs Vital signs: Vital Signs Temperature 36.1 C L 07/07/21 16:14 Pulse 86 07/07/21 16:14 Respiratory Rate 16 07/07/21 16:14 Blood Pressure 95/52 L 07/07/21 16:14 Pulse Oximetry 100 07/07/21 16:14 Temperature 36.1 C L 07/07/21 16:14 Temperature Source Skin 07/07/21 16:14 Pulse 86 07/07/21 16:14 Respiratory Rate 16 07/07/21 16:14 Blood Pressure 95/52 L 07/07/21 16:14 Pulse Oximetry 100 07/07/21 16:14 Oxygen Delivery Method Room Air 07/07/21 16:14 Oxygen Flow Rate 0 07/07/21 16:14
[2021-07-07] MEDS: Normal Saline Flush 10 ML SYR IVP ×2 (16:35→17:01)
[2021-07-07] MEDS: Naloxone 0.4 MG/ML VIAL 0.1 MG IVP (16:35)
[2021-07-07 16:37] LABS: BE (Venous) -4 mmol/L (-2-3); HCO3 (Venous) 23 mmol/L (23-28); O2 Sat (Venous) 42 %; TCO2 (Venous) 21 mmol/L (24-29); pCO2 (Venous) 47 mmHg (41-51); pH (Venous) 7.29 (7.31-7.41); pO2 (Venous) 26 mmHg
[2021-07-07 16:40] LABS: Abs Immature Grans 0.06 10^3/uL (0.0-0.06); Absolute Basophil Count 0.01 10^3/uL (0.0-0.2); Absolute Eosinophil Count 0.01 10^3/uL (0.0-0.7); Absolute Lymphocyte Count 0.76 10^3/uL (1.2-3.4); Absolute Neutrophil Count 5.37 10^3/uL (1.2-6.7); Basophils % 0.2; Eosinophils % 0.2; HCT 36.9 % (40.0-50.0); HGB 12.2 g/dL (13.5-17.5); Immature Grans % 0.9; Lymphocytes % 11.5; MCH 28.3 pg (27.0-33.0); MCHC 33.1 % (32.0-36.0); MCV 85.6 fL (80-95); MPV 11.1 fL (8.0-11.0); Monocytes % 6.1; Neutrophils % 81.1; Nucleated RBC 0 %; Platelet Count 193 10^3/uL (130-400); RBC 4.31 10^6/uL (4.36-5.78); RDW 15.8 % (11.8-14.1); RDW-SD 48.3 fL; WBC 6.61 10^3/uL (4.4-10.8)
[2021-07-07 16:50] LABS: Source Nasal/Nares
[2021-07-07 17:04] LABS: ALT 32 U/L (16-63); AST 74 U/L (15-37); Albumin 4.5 g/dL (3.4-5.0); Alkaline Phosphatase 75 U/L (46-116); Anion Gap 11.4 mmol/L (3-11); BUN 16 mg/dL (7-18); Bilirubin, Total 0.6 mg/dL (0.2-1.0); CO2 24.6 mmol/L (21.0-32.0); CREATININE 1.4 mg/dL (0.70-1.30); Calcium 9.6 mg/dL (8.5-10.1); Chloride 105 mmol/L (98-107); Estimated GFR 52.05 (mL/min/1.73m2); Glucose 154 mg/dL (74-106); Lipase 144 U/L (73-393); Magnesium 2.6 mg/dL (1.8-2.4); Potassium 5.5 mmol/L (3.5-5.1); Sodium 141 mmol/L (136-145); TSH (W/Ref FT4) 1.63 uIU/mL (0.36-3.74); Total Protein 8.1 g/dL (6.4-8.2)
[2021-07-07 17:05] LABS: Creatine Kinase 4131 U/L (39-308); ETHANOL BLOOD < 3.0 mg/dL (<10); Troponin I < 0.05 ng/mL (<0.06)
[2021-07-07] MEDS: Omnipaque 350 MG/ML 100 ML BTL IJ (17:07)
[2021-07-07] MEDS: Normal Saline - Diluent 50 ML VIAL IV (17:08)
--- NOTE | 2021-07-07 17:10 | DI.CT_ITS ---
Exam(s) CT BRAIN NECK CTA EXAM: CT BRAIN NECK CTA CLINICAL HISTORY: altered mental status, ?cva. TECHNIQUE: Imaging Protocol: Axial CT angiography was performed with multi-slice acquisition and mu lti-planar and/or 3D reconstructions. CONTRAST MATERIAL: Intravenous: Omnipaque 350 Contrast volume:structured data in ml COMPARISON: CT,PT PET/CT STANDARD WITH E from 12/05/2015 FINDINGS: CT angiography of the cervical cranial region was performed according to the usual protocol with intr avenous infusion of 85 cc of Omnipaque 350.. Initial noncontrast scanning of the head shows moderate changes of cerebral atrophy and patchy areas of decreased attenuation in periventricular white matter consistent with microvascular ischemic gillespie es.. Visualized lung apices are clear. Visualized portions of thoracic aorta and pulmonary arterial circul ation are unremarkable. There is no evidence of a cervical mass or adenopathy. The tracheal laryngeal structures appear intact. The common, internal, and external carotid arteries are within normal limits in the cervical region w ith no evidence of aneurysm, stenosis, or dissection. The vertebral arteries are unremarkable in appearance in the cervical region with no evidence of aneu rysm, stenosis, or dissection. Intracranial portions of the internal carotid arteries appear normal with no evidence of aneurysm, st enosis, or dissection. Intracranial vertebral arteries and basilar artery appear normal with no evidence of aneurysm, stenos is or dissection. No aneurysm identified in the region of the [id number]. The anterior, middle, and posterior cer ebral arteries and major branches appear intact with no evidence of aneurysm, stenosis, or dissection . No enhancing brain lesion identified on 5 minutes delayed images.. IMPRESSION: Negative CT angiography of the cervical cranial region. RADIATION DOSE DELIVERED: 2,068.12mGy.cmTotal DLP 2,068.12mGy.cm Total DLP 43.99mGy CTDIvol DATA REPOSITORY: All CT scans at this facility are submitted to the National Radiology Data Registry (NRDR) Dose Index Registry (DIR) with the [employer] ([employer]). RADIATION OPTIMIZATION: All CT scans at this facility use at least one of these dose optimization te chniques: automated exposure control; mA and/or kV adjustment per patient size (includes targeted exa ms where dose is matched to clinical indication); or iterative reconstruction.
[2021-07-07] MEDS: Normal Saline 1,000 ML 1000 ML IV ×2 (17:14→19:21)
[2021-07-07] MEDS: Naloxone 0.4 MG/ML VIAL 0.3 MG IVP (17:25)
[2021-07-07 17:41] LABS: COVID-19 PCR Negative (Negative)
[2021-07-07 17:49] LABS: *AMPHETAMINES SCREEN URINE Negative (Negative); *BARBITURATES SCREEN URINE Negative (Negative); *BENZODIAZEPINES SCREEN URINE Negative (Negative); Cannabinoids THC Negative (Negative); Cocaine Screen,Urine Negative (Negative); METHADONE URINE SCREEN Negative (Negative); OPIATES URINE SCREEN Negative (Negative)
[2021-07-07 17:50] LABS: Tricyclic Antidepressants Negative (Negative)
[2021-07-07 17:53] LABS: Bilirubin Negative (Negative); Blood Moderate (Negative); Clarity Sl Cloudy (Clear); Glucose Negative (Negative); Ketones Negative (Negative); Leukocyte Esterase Small (Negative); Nitrite Negative (Negative); Urobilinogen 0.2 EU/dL (Up TO 0.2); pH 5.5 (5-8)
[2021-07-07 18:06] LABS: Bacteria Many HPF (Negative); C & S Indicated? Yes; Casts Negative LPF (Negative); Crystals Negative HPF (Negative); Epithelial Cells Rare HPF (Negative); Mucus Negative (Negative)
--- NOTE | 2021-07-07 18:08 | DI.VRAD_ITS ---
PROCEDURE INFORMATION: Exam: CT Angiography Head Without And With Contrast, Arteriography Exam date and time: 07/07/2021 4:42 PM Age: 60 years old Clinical indication: AMS; Additional info: PT unresponsive during exam TECHNIQUE: Imaging protocol: Computed tomographic angiography of the head without and with contrast. Exam focused on the arteries. 3D rendering (Not supervised by radiologist): MIP and/or 3D reconstructed images were created by the technologist. Radiation optimization: All CT scans at this facility use at least one of these dose optimization techniques: automated exposure control; mA and/or kV adjustment per patient size (includes targeted exams where dose is matched to clinical indication); or iterative reconstruction. Contrast material: [id number]; Contrast volume: 85 ml; Contrast route: INTRAVENOUS (IV); COMPARISON: MR BRAIN WO/W 01/25/2020 2:30 PM FINDINGS: ANTERIOR CIRCULATION: Right internal carotid artery: Intracranial segment is patent with no significant stenosis or occlusion. No aneurysm. Right middle cerebral artery: No occlusion or significant stenosis. No aneurysm. Right anterior cerebral artery: No occlusion or significant stenosis. No aneurysm. Left internal carotid artery: Intracranial segment is patent with no significant stenosis. No aneurysm. Left middle cerebral artery: No occlusion or significant stenosis. No aneurysm. Left anterior cerebral artery: No occlusion or significant stenosis. No aneurysm. POSTERIOR CIRCULATION: Right vertebral artery: No occlusion or significant stenosis. No aneurysm. Left vertebral artery: No occlusion or significant stenosis. No aneurysm. Basilar artery: No occlusion or significant stenosis. No aneurysm. Right posterior cerebral artery: No occlusion or significant stenosis. No aneurysm. Left posterior cerebral artery: No occlusion or significant stenosis. No aneurysm. HEAD: Brain: There is no acute intracranial hemorrhage, mass effect or midline shift. No large acute territorial infarct identified. There are patchy regions of hypodensity in the periventricular and subcortical white matter, likely on the basis of chronic microvascular ischemic disease. Cerebral ventricles: The ventricles and sulci are prominent in size, which is at least in part due to global cerebral volume loss. Bones/joints: Unremarkable. No acute fracture. Paranasal sinuses: Visualized sinuses are normal. No fluid levels. Mastoid air cells: Visualized mastoids are normal. No mastoid effusion. Soft tissues: Unremarkable. IMPRESSION: 1. No acute intracranial hemorrhage, mass effect or midline shift. 2. No large vessel occlusion. PROCEDURE INFORMATION: Exam: CT Angiography Neck Without And With Contrast Exam date and time: 07/07/2021 4:42 PM Age: 60 years old Clinical indication: AMS; Additional info: PT unresponsive during exam TECHNIQUE: Imaging protocol: Computed tomographic angiography of the neck without and with contrast. 3D rendering (Not supervised by radiologist): MIP and/or 3D reconstructed images were created by the technologist. Radiation optimization: All CT scans at this facility use at least one of these dose optimization techniques: automated exposure control; mA and/or kV adjustment per patient size (includes targeted exams where dose is matched to clinical indication); or iterative reconstruction. Contrast material: [id number]; Contrast volume: 85 ml; Contrast route: INTRAVENOUS (IV); COMPARISON: MR BRAIN WO/W 01/25/2020 2:30 PM FINDINGS: Right common carotid artery: No stenosis. No dissection or occlusion. Right internal carotid artery: No stenosis of the extracranial segment. No dissection or occlusion. Right external carotid artery: No occlusion or stenosis of the origin. Left common carotid artery: No stenosis. No dissection or occlusion. Left internal carotid artery: No stenosis of the extracranial segment. No dissection or occlusion. Left external carotid artery: No occlusion or stenosis of the origin. Right vertebral artery: No stenosis. No dissection or occlusion. Left vertebral artery: No stenosis. No dissection or occlusion. Soft tissues: Normal. No significant soft tissue swelling. Bones/joints: No acute fracture. IMPRESSION: No stenosis or occlusion. REFERENCES: NASCET CRITERIA. The degree of internal carotid artery stenosis is based on NASCET criteria. Normal is no stenosis. Mild is less than 50% stenosis. Moderate is 50-69% stenosis. Severe is 70% to 99% stenosis. Total occlusion is no detectable patent lumen. Dictated and Authenticated by: Ana Wells MD. Ordering:ARLEN Ortez MD
[2021-07-07] MEDS: cefTRIAXone 2 GM/50 ML BAG IVPB (18:13)
[2021-07-07] MEDS: Atorvastatin 40 MG TAB PO (21:47)
[2021-07-07] MEDS: Docusate Sodium 100 MG CAP PO (21:47)
[2021-07-07] MEDS: Heparin 5,000 UNITS/ML VIAL 5000 UNITS SC (21:48)
[2021-07-07] MEDS: clonazePAM 1 MG TAB PO (21:49)
[2021-07-07] MEDS: Normal Saline 1,000 ML 175 ML IV (23:13)
[2021-07-07] MEDS: Baclofen 10 MG TAB 40 MG PO (23:56)
[2021-07-07] MEDS: Gabapentin 300 MG CAP 600 MG PO (23:56)
[2021-07-08] MEDS: Heparin 5,000 UNITS/ML VIAL 5000 UNITS SC ×2 (04:02→15:47)
[2021-07-08] MEDS: Normal Saline 1,000 ML 175 ML IV ×4 (04:02→23:05)
[2021-07-08] MEDS: Baclofen 10 MG TAB 20 MG PO ×2 (06:33→15:47)
[2021-07-08] MEDS: Omeprazole 20 MG CAPCR 40 MG PO (06:33)
--- NOTE | 2021-07-08 06:42 | HPE_ITS ---
Date of service: 07/07/21 Time of Service: 19:42 Assessment and Plan Assessment and plan (1) Rhabdomyolysis: Status: Acute Assessment and plan: Unknown period of time when stationary, sitting in his wheelchair. IV NS bolus and ongoing replacement. Monitor CPK and creatinine. Creatinine in baseline range at time of admission. Qualifiers: Rhabdomyolysis type: non-traumatic Qualified Code(s): M62.82 - Rhabdomyolysis (2) Urinary tract infection: Status: Acute Assessment and plan: Had h/o pseudomonas UTI in 2018. No documented fever. WBC normal. Given Rocephin in the ED. Consider changing abx coverage to ciprofloxacin. (3) Altered mental status: Status: Acute Assessment and plan: Related to the Current UTI? Does take tramadol but only once daily. Held tramadol on admission. (4) Sarcoidosis: Status: Chronic Assessment and plan: Unclear of what manifestations he has had. CXR in 2019 was read as normal. (5) Multiple sclerosis: Status: Chronic Assessment and plan: See Dr Etienne routinely; last visis on 06/04/21. Will consult. (6) Diabetes type 2, controlled: Status: Chronic Assessment and plan: On glipizide and metformin. Both currently held. AC/HS fingerstick glucose monitoring with sensitive SS insulin correction dosing. Controlled carb diet. (7) Tobacco abuse: Status: Chronic Assessment and plan: Chewing tobacco. Nicoderm patch. (8) Anemia: Status: Chronic Assessment and plan: Stable. (9) Hyperkalemia: Status: Acute Assessment and plan: K 5.5 on admission; repeat pending. Elevation d/t rhabdomyolysis. Monitor. IV fluids. History of Present Illness History of Present Illness Chief Complaint: Altered mental status; lethargy Narrative: This is a 60 yo male with a PMH of Multiple Sclerosis, spasticity, Sarcoidosis, cervical stnenosis with radiculopathy, BPH, tobacco abuse, DM2, Diabtic retinopathy, anemia, GERD. He presented to the ED via EMS after home health caregiver found him at home slumped in his wheel chair. His blood glucose was > 200. In the ED he initially did not respond with words, just noises and he didn't open his eyes. Pupils were pinpoint. He was given narcan and was then awake and oriented and would answer questions appropriately. CTA head was unremarkable for any acute findings. CPK was > 4000. Creatine was 1.4 (in his baseline range). BUN 16. K elevated at 5.5. WBC normal, Hgb 12.2. UA + for mod blood, small leuk est., 10-20 WBCs and many bacteria. Rocephin initiated in the ED. Admitted for UTI and rhabdomyolysis. At the time of my evaluation, he was lethargic but would open eyes and answer questions appropriately. He stated he felt back to his baseline. Denied current pain. Stated he had an appetite and had been having normal BMs. Denied CP/palpitations, F/C. Review of Systems All systems reviewed & are unremarkable except as noted in HPI and below PFS Medical History Abnormal CT of liver Anemia Bilateral cataracts Bilateral leg edema BPH (benign prostatic hyperplasia) Cervical radiculopathy Cervicalgia Chewing tobacco nicotine dependence Chronic pain a. chronic opiate rx Clostridium difficile colitis Congenital ptosis of left eyelid Diabetes type 2, controlled Diabetic retinopathy Family hx of colon cancer GERD (gastroesophageal reflux disease) Hip pain, right Hyperlipidemia Lytic bone lesions on xray Lytic lesion of bone on x-ray Mediastinal adenopathy Microcytic anemia Multiple sclerosis A. Diagnosed in 2006 b. nonambulatory, primarly bed to wheelchair Neck pain A. 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 Chronic opiate Rx Optic nerve atrophy Optic neuritis a. legally blind Osteopenia Pelvic lymphadenopathy Peripheral neuropathy Pituitary adenoma Renal insufficiency Sarcoidosis Spasticity Spinal stenosis Tobacco abuse a. Uses chewing tobacco Ulcer of calf Urinary incontinence Vitamin D deficiency Surgical History H/O surgical procedure a. appendectomy b. 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 What is your relationship status?: Panel score (0-1 are the most socially isolated patients): 0 What type of physical activity do you participate in: weight lifting, wheelchair-bound and additional Details: PT Do you feel safe at home: Yes Do you feel safe in your relationship?: Yes Meds Allergies and Home Medications Allergies Allergy/AdvReac Type Severity Reaction Status Date / Time No Known Allergies Allergy Unverified 07/07/21 19:38 Home Medications Medication Instructions Recorded Confirmed Type acetaminophen 500 mg PO DIRECTED PRN 11/23/13 07/07/21 History aspirin [Aspirin Low-Strength] 81 mg PO DAILY 11/23/13 07/07/21 History docusate sodium [Doc-Q-Lace] 100 mg PO TID 11/23/13 07/07/21 History atorvastatin [Lipitor] 40 mg PO QPM 06/14/14 07/07/21 History Prodigy No Coding 12/23/15 06/04/21 History multivitamin [Daily Multi-Vitamin] 1 tab PO DAILY 03/23/16 07/07/21 History alendronate 70 mg PO WEEKLY 05/13/17 07/07/21 History alfuzosin 10 mg tablet,extended 10 mg PO DAILY 12/10/18 07/07/21 History release 24 hr ferrous gluconate 240 mg (27 mg 240 mg PO DAILY tab 12/23/18 07/07/21 History iron) tablet glipizide 10 mg tablet, extended 10 mg PO DAILY 12/23/18 07/07/21 History release 24 hr loratadine 10 mg tablet 10 mg PO DAILY 12/23/18 07/07/21 History omeprazole 40 mg capsule,delayed 40 mg PO DAILY 12/23/18 07/07/21 History release prednisone 5 mg tablet 5 mg PO DAILY 12/23/18 07/07/21 History cholecalciferol (vitamin D3) 25 4,000 unit PO DAILY tab 12/21/19 07/07/21 History mcg (1,000 unit) tablet metformin 500 mg tablet 850 mg PO BID tab 06/20/20 07/07/21 History baclofen 20 mg tablet 20 mg PO DIRECTED #360 tab 06/04/21 07/07/21 Rx clonazepam 1 mg tablet 1 mg PO QHS #30 tab 06/04/21 07/07/21 Rx folic acid 1 mg tablet 1 mg PO DAILY 06/04/21 07/07/21 History lisinopril 2.5 mg tablet 2.5 mg PO DAILY 06/04/21 07/07/21 History methotrexate (PF) 25 mg/0.4 mL 25 mg SUBCUT QWEEK 06/04/21 07/07/21 History subcutaneous auto-injector tramadol 100 mg tablet 100 mg PO HS 06/04/21 07/07/21 History gabapentin 300 mg capsule See Rx Instructions PO TID #450 cap 06/06/21 07/07/21 Rx methotrexate sodium 20 mg PO DIRECTED 07/07/21 07/07/21 History Exam Const General: cooperative and no acute distress Nutritional Appearance: overweight Orientation: awake, oriented to person and oriented to place [facility] Head: atraumatic and no abrasions Eyes General: appearance normal, both eyes and all related structures Sclera: sclerae normal Resp Effort & Inspection: normal respiratory effort Auscultation: clear to auscultation bilaterally Cardio Rate: regular rate Rhythm: regular rhythm Heart Sounds: S1 normal and S2 normal GI Inspection: other (Protuberant abd) Palpation: soft and nontender Auscultation: hyperactive bowel sounds Skin General skin exam: no rashes or lesions noted Neuro General: patient awake and normal light touch, pain and propioception Cranial Nerves: pupils not ERRL (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 Small reactivity noted in left eye. ) Motor: other (5/5 BUE strength. 2/5 BLE proximal strength. ) Extrem General: no calf tenderness and edema (Nonpitting) Results Labs Result diagrams: 07/07/21 16:33 07/07/21 16:33 Labs: Laboratory Results - last 24 hr 07/07/21 07/07/21 07/07/21 16:33 16:33 16:33 WBC 6.61 RBC 4.31 L Hgb 12.2 L Hct 36.9 L MCV 85.6 MCH 28.3 MCHC 33.1 RDW 15.8 H Plt Count 193 MPV 11.1 H Immature Gran % 0.9 Neutrophils % 81.1 Lymphocytes % 11.5 Monocytes % 6.1 Eosinophils % 0.2 Basophils % 0.2 Nucleated RBC % 0 Absolute Neutrophils 5.37 Absolute Lymphocytes 0.76 L Absolute Monocytes 0.40 Absolute Eosinophils 0.01 Absolute Basophils 0.01 VBG pH 7.29 L VBG pCO2 47 VBG pO2 26 VBG HCO3 23 VBG Total CO2 21 L VBG O2 Saturation 42 VBG Base Excess -4 L Sodium 141 Potassium 5.5 H Chloride 105 Carbon Dioxide 24.6 Anion Gap 11.4 H BUN 16 Creatinine 1.4 H Estimated GFR/1.73 m2 52.05 Glucose 154 H Calcium 9.6 Magnesium 2.6 H Total Bilirubin 0.6 AST 74 H ALT 32 Alkaline Phosphatase 75 Creatine Kinase 4131 H Troponin I < 0.05 Total Protein 8.1 Albumin 4.5 Lipase 144 TSH 1.63 Urine Color Urine Clarity Urine pH Ur Specific [place] Urine Protein Urine Ketones Urine Blood Urine Nitrite Urine Bilirubin Urine Urobilinogen Ur Leukocyte Esterase Urine RBC Urine WBC Ur Epithelial Cells Urine Crystals Urine Bacteria Urine Casts Urine Mucus Ur Culture Indicated? Urine Glucose Urine Opiates Screen Urine Methadone Screen Ur Barbiturates Screen Ur Tricyclics Screen Ur Amphetamines Screen U Benzodiazepines Scrn Urine Cocaine Screen Ur THC Screen Ethyl Alcohol < 3.0 COVID-19 Source SARS-CoV-2 (PCR) 07/07/21 07/07/21 07/07/21 16:45 17:20 17:20 WBC RBC Hgb Hct MCV MCH MCHC RDW Plt Count MPV Immature Gran % Neutrophils % Lymphocytes % Monocytes % Eosinophils % Basophils % Nucleated RBC % Absolute Neutrophils Absolute Lymphocytes Absolute Monocytes Absolute Eosinophils Absolute Basophils VBG pH VBG pCO2 VBG pO2 VBG HCO3 VBG Total CO2 VBG O2 Saturation VBG Base Excess Sodium Potassium Chloride Carbon Dioxide Anion Gap BUN Creatinine Estimated GFR/1.73 m2 Glucose Calcium Magnesium Total Bilirubin AST ALT Alkaline Phosphatase Creatine Kinase Troponin I Total Protein Albumin Lipase TSH Urine Color Yellow Urine Clarity Sl Cloudy Urine pH 5.5 Ur Specific [place] 1.020 Urine Protein Negative Urine Ketones Negative Urine Blood Moderate H Urine Nitrite Negative Urine Bilirubin Negative Urine Urobilinogen 0.2 Ur Leukocyte Esterase Small H Urine RBC 5-10 H Urine WBC 10-20 H Ur Epithelial Cells Rare Urine Crystals Negative Urine Bacteria Many Urine Casts Negative Urine Mucus Negative Ur Culture Indicated? Yes Urine Glucose Negative Urine Opiates Screen Negative Urine Methadone Screen Negative Ur Barbiturates Screen Negative Ur Tricyclics Screen Negative Ur Amphetamines Screen Negative U Benzodiazepines Scrn Negative Urine Cocaine Screen Negative Ur THC Screen Negative Ethyl Alcohol COVID-19 Source Nasal/Nares SARS-CoV-2 (PCR) Negative 07/07/21 19:12 WBC RBC Hgb Hct MCV MCH MCHC RDW Plt Count MPV Immature Gran % Neutrophils % Lymphocytes % Monocytes % Eosinophils % Basophils % Nucleated RBC % Absolute Neutrophils Absolute Lymphocytes Absolute Monocytes Absolute Eosinophils Absolute Basophils VBG pH VBG pCO2 VBG pO2 VBG HCO3 VBG Total CO2 VBG O2 Saturation VBG Base Excess Sodium Potassium Chloride Carbon Dioxide Anion Gap BUN Creatinine Estimated GFR/1.73 m2 Glucose Calcium Magnesium Total Bilirubin AST ALT Alkaline Phosphatase Creatine Kinase Troponin I Cancelled Total Protein Albumin Lipase TSH Urine Color Urine Clarity Urine pH Ur Specific [place] Urine Protein Urine Ketones Urine Blood Urine Nitrite Urine Bilirubin Urine Urobilinogen Ur Leukocyte Esterase Urine RBC Urine WBC Ur Epithelial Cells Urine Crystals Urine Bacteria Urine Casts Urine Mucus Ur Culture Indicated? Urine Glucose Urine Opiates Screen Urine Methadone Screen Ur Barbiturates Screen Ur Tricyclics Screen Ur Amphetamines Screen U Benzodiazepines Scrn Urine Cocaine Screen Ur THC Screen Ethyl Alcohol COVID-19 Source SARS-CoV-2 (PCR) Last Vital Signs Temp 36.5 C 07/07/21 23:39 Pulse 71 07/07/21 23:39 Resp 20 07/07/21 23:39 BP 136/85 07/07/21 23:39 Pulse Ox 98 07/07/21 23:39
[2021-07-08 07:04] VITALS: BP 108/70; PULSE 89; RESP 18; TEMP 36.7; O2SAT 99
[2021-07-08 07:04] LABS: Abs Immature Grans 0.04 10^3/uL (0.0-0.06); Absolute Basophil Count 0.02 10^3/uL (0.0-0.2); Absolute Eosinophil Count 0.13 10^3/uL (0.0-0.7); Absolute Neutrophil Count 2.49 10^3/uL (1.2-6.7); Basophils % 0.4; Eosinophils % 2.6; HGB 11.5 g/dL (13.5-17.5); Immature Grans % 0.8; Lymphocytes % 32.1; MCH 27.8 pg (27.0-33.0); MCHC 32.9 % (32.0-36.0); MCV 84.7 fL (80-95); Monocytes % 14.1; Nucleated RBC 0 %; Platelet Count 220 10^3/uL (130-400); RBC 4.13 10^6/uL (4.36-5.78); RDW-SD 48.4 fL; WBC 4.98 10^3/uL (4.4-10.8)
[2021-07-08 07:38] LABS: Anion Gap 10.6 mmol/L (3-11); BUN 12 mg/dL (7-18); CO2 25.4 mmol/L (21.0-32.0); CREATININE 1.1 mg/dL (0.70-1.30); Calcium 8.4 mg/dL (8.5-10.1); Chloride 109 mmol/L (98-107); Glucose 142 mg/dL (74-106); Magnesium 2.2 mg/dL (1.8-2.4); Potassium 3.7 mmol/L (3.5-5.1); Sodium 145 mmol/L (136-145)
[2021-07-08] MEDS: Nicotine 14 MG/24 HR PATCH TD (08:17)
[2021-07-08] MEDS: cefTRIAXone 1 GM/50 ML BAG IVPB (08:17)
[2021-07-08 08:18] LABS: Creatine Kinase > 10000 U/L (39-308)
[2021-07-08] MEDS: Gabapentin 300 MG CAP 600 MG PO (08:18)
[2021-07-08] MEDS: Folic Acid 1 MG TAB PO (08:18)
[2021-07-08] MEDS: Cholecalciferol (Vitamin D3) 1,000 UNIT TAB 4000 UNITS PO (08:18)
[2021-07-08] MEDS: predniSONE 5 MG TAB PO (08:18)
[2021-07-08] MEDS: Aspirin 81 MG CHEW PO (08:18)
[2021-07-08] MEDS: Multivitamin TAB 1 TAB PO (08:19)
[2021-07-08] MEDS: Loratidine 10 MG TAB PO (08:19)
[2021-07-08] MEDS: Docusate Sodium 100 MG CAP PO ×2 (08:19→13:19)
[2021-07-08] MEDS: PIPERACILLIN/TAZO 3.375 GM in Normal Saline 50 ML IVPB ×3 (09:59→20:56)
[2021-07-08] MEDS: Tamsulosin 0.4 MG CAPCR PO (10:08)
--- NOTE | 2021-07-08 10:40 | PDOC.CMIN ---
- If Service Date Differs Date of service: 07/08/21 Time of Service: 10:44 Care Management Initial Assess REASON FOR HOSPITALIZATION:: UTI, Rhabdomyolysis PAST MEDICAL HISTORY/PAST SURGICAL HISTORY:: Abnormal CT of liver. Anemia. Bilateral cataracts. Bilateral leg edema. BPH (benign prostatic hyperplasia). Cervical radiculopathy. Cervicalgia. Chewing tobacco nicotine dependence. Chronic pain. a. chronic opiate rx. Clostridium difficile colitis. Congenital ptosis of left eyelid. Diabetes type 2, controlled. Diabetic retinopathy. Family hx of colon cancer. GERD (gastroesophageal reflux disease). Hip pain, right. Hyperlipidemia. Lytic bone lesions on xray. Lytic lesion of bone on x-ray. Mediastinal adenopathy. Microcytic anemia. Multiple sclerosis. A. Diagnosed in 2006. b. nonambulatory, primarly bed to wheelchair. Neck pain. A. 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 b. Chronic opiate Rx. Optic nerve atrophy. Optic neuritis. a. legally blind. Osteopenia. Pelvic lymphadenopathy. Peripheral neuropathy. Pituitary adenoma. Renal insufficiency. Sarcoidosis. Spasticity. Spinal stenosis. Tobacco abuse. a. Uses chewing tobacco. Ulcer of calf. Urinary incontinence. Vitamin D deficiency. Surgical History . H/O surgical procedure. a. appendectomy. b. left levator surgery 2011. History of appendectomy. History of lung biopsy PREVIOUS FUNCTIONAL STATUS/SOCIAL/FAMILY SUPPORTS:: Bryan resides alone in [place], [place] in a handicap accessible apartment. He is independent with most home based ADLs, though he has a home health aide to help with cleaning and meal prep. He has a son, Bryan MCCURDY who resides locally and a father, Bryan Abraham who is a Reverend in [place] and keeps in good contact with Bryan. CURRENT FUNCTIONAL STATUS:: Bryan was lying in bed, talking to his son, Bryan MCCURDY when RAMIREZ entered the room. RAMIREZ reviewed known information and then enlisted the support of YAMIL Dickerson to explain medical situation to Bryan and his son, specifically treatment for Rhabdo (IVF) and anticipated length of stay (at least a few days). Bryan was gracious in interaction and both shared appreciation for the information. ADVANCE DIRECTIVES:: On file at [facility]: Bryan De CALLI as agent, others include Cal Mock and Reverend Bryan De Sr. Has patient been provided with info about the portal/API?: Yes Did the patient sign up for the portal?: No CODE STATUS:: Full Code INSURANCE COVERAGE / FINANCIAL ISSUES:: Medicaid. Medicare. Choices for Care: LTC Medicaid CURRENT HOME/COMMUNITY SERVICES/EQUIPMENT:: Grab bars, hand rails, wheel chair, hospital bed, glucometer, Homemaker; [facility]: RAMIREZ Villanueva. Bryan has met with Dr. Hayes in the past for Palliative Care. Disability income. [employer] for appointments. PRIMARY CARE PHYSICIAN:: Ale Barraza POTENTIAL DISCHARGE NEEDS:: Discussion around increased services; coordination of support. Follow up appointment with PCP. PATIENT/FAMILY EDUCATION NEEDS:: Review of discharge instructions, discuss Ask Me Three to ensure patient understanding of reason for hospitalization and self care needs upon discharge. ANTICIPATED BARRIERS TO DISCHARGE:: None identified at this time. TRANSPORTATION:: [employer] PLAN:: Bryan will return home when ready per MD, to resume current support services and follow up with his PCP. CM will continue to support discharge planning considerations. He will transport via [employer] coordinated by this keno writer.
[2021-07-08] MEDS: Insulin Aspart 300 UNITS/3 ML PEN SC ×2 (12:35→17:01)
[2021-07-08] MEDS: Gabapentin 300 MG CAP PO (12:37)
--- NOTE | 2021-07-08 13:41 | PGE_ITS ---
Date of Service Date of service: 07/08/21 Time of Service: 13:41 Assessment and Plan Assessment and plan (1) Rhabdomyolysis: Start date: 07/08/21 Start time: 13:56 Status: Acute Assessment and plan: Unknown period of time when stationary, sitting in his wheelchair. IV NS bolus and ongoing replacement. [place] [address] Creatinine 1.1 today continue to monitor CPK Qualifiers: Rhabdomyolysis type: non-traumatic Qualified Code(s): M62.82 - Rhabdomyolysis (2) Urinary tract infection: Start date: 07/08/21 Start time: 13:57 Status: Acute Assessment and plan: Had h/o pseudomonas UTI in 2018. No documented fever. WBC normal. On ceftriaxone and zosyn urine cx pending retaining, 800 ml out when cather placed per chart Placed on flomax with urinary consult question of neurogenic bladder d/t MS Qualifiers: Urinary tract infection type: acute cystitis Hematuria presence: without hematuria Qualified Code(s): N30.00 - Acute cystitis without hematuria (3) Altered mental status: Start date: 07/08/21 Start time: 13:59 Status: Resolved Assessment and plan: Baseline Mental status Related to the Current UTI? Does take tramadol but only once daily. Held tramadol on admission. Given narcan and he did wake up some uds was negative Qualifiers: Altered mental status type: stupor Qualified Code(s): R40.1 - Stupor (4) Sarcoidosis: Start date: 07/08/21 Start time: 14:00 Status: Chronic Assessment and plan: Unclear of what manifestations he has had. CXR in 2019 was read as normal. (5) Multiple sclerosis: Start date: 07/08/21 Start time: 14:01 Status: Chronic Assessment and plan: Sees Dr Etienne routinely; last visit on 06/04/21. Will consult. (6) Diabetes type 2, controlled: Start date: 07/08/21 Start time: 14:01 Status: Chronic Assessment and plan: On glipizide and metformin. Both currently held. AC/HS fingerstick glucose monitoring with sensitive SS insulin correction dosing. Controlled carb diet. Qualifiers: Diabetes mellitus superintendent terminal insulin use: unspecified superintendent terminal insulin use status Diabetes mellitus complication status: without complication Qualified Code(s): E11.9 - Type 2 diabetes mellitus without complications (7) Tobacco abuse: Start date: 07/08/21 Start time: 14:02 Status: Chronic Assessment and plan: Chewing tobacco. Nicoderm patch. (8) Anemia: Start date: 07/08/21 Start time: 14:02 Status: Chronic Assessment and plan: Stable. Qualifiers: Anemia type: unspecified type Qualified Code(s): D64.9 - Anemia, unspecified (9) Hyperkalemia: Start date: 07/08/21 Start time: 14:03 Status: Resolved Assessment and plan: 3.7 this am resolved continue to monitor. (10) DVT prophylaxis: Start date: 07/08/21 Start time: 14:04 Status: Acute Assessment and plan: Heparin subcut (11) Discharge planning issues: Start date: 07/08/21 Start time: 14:07 Status: Acute Assessment and plan: Home when medically ready discussed with Dr. Wright Subjective Subjective Patient reports: no new complaints Interval history since last seen: Alert sitting up in bed. AAOx3. States his bladder was full because he hadn't gotten up to use bathroom before the incident, he claims he stopped breathing and this is the third time it has happened, in his life. He stated that his caregiver started hitting his chest and pulling on his arms. he was awake. Discussed with him about the reasons he has been admitted. He states he does not feel any weaker than usual. Denies Cp, SOB, N/V/D. Exam Const General: cooperative and no acute distress Nutritional Appearance: overweight Orientation: awake, oriented to person and oriented to place [facility] Head: atraumatic and no abrasions Eyes General: appearance normal, both eyes and all related structures Sclera: sclerae normal Resp Effort & Inspection: normal respiratory effort Auscultation: clear to auscultation bilaterally Cardio Rate: regular rate Rhythm: regular rhythm Heart Sounds: S1 normal and S2 normal GI Inspection: other (Protuberant abd) Palpation: soft and nontender Auscultation: hyperactive bowel sounds Skin General skin exam: no rashes or lesions noted Neuro General: patient awake and normal light touch, pain and propioception Cranial Nerves: pupils not ERRL (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 Small reactivity noted in left eye. ) Motor: other (5/5 BUE strength. 2/5 BLE proximal strength. ) Extrem General: no calf tenderness and edema (Nonpitting) Objective Last Vital Signs Temp 36.7 C 07/08/21 07:04 Pulse 89 07/08/21 07:04 Resp 18 07/08/21 07:04 BP 108/70 07/08/21 07:04 Pulse Ox 99 07/08/21 07:04 Laboratory Results - last 24 hr 07/07/21 07/07/21 07/07/21 16:33 16:33 16:33 WBC 6.61 RBC 4.31 L Hgb 12.2 L Hct 36.9 L MCV 85.6 MCH 28.3 MCHC 33.1 RDW 15.8 H Plt Count 193 MPV 11.1 H Immature Gran % 0.9 Neutrophils % 81.1 Lymphocytes % 11.5 Monocytes % 6.1 Eosinophils % 0.2 Basophils % 0.2 Nucleated RBC % 0 Absolute Neutrophils 5.37 Absolute Lymphocytes 0.76 L Absolute Monocytes 0.40 Absolute Eosinophils 0.01 Absolute Basophils 0.01 VBG pH 7.29 L VBG pCO2 47 VBG pO2 26 VBG HCO3 23 VBG Total CO2 21 L VBG O2 Saturation 42 VBG Base Excess -4 L Sodium 141 Potassium 5.5 H Chloride 105 Carbon Dioxide 24.6 Anion Gap 11.4 H BUN 16 Creatinine 1.4 H Estimated GFR/1.73 m2 52.05 Glucose 154 H Calcium 9.6 Magnesium 2.6 H Total Bilirubin 0.6 AST 74 H ALT 32 Alkaline Phosphatase 75 Creatine Kinase 4131 H Troponin I < 0.05 Total Protein 8.1 Albumin 4.5 Lipase 144 TSH 1.63 Urine Color Urine Clarity Urine pH Ur Specific [place] Urine Protein Urine Ketones Urine Blood Urine Nitrite Urine Bilirubin Urine Urobilinogen Ur Leukocyte Esterase Urine RBC Urine WBC Ur Epithelial Cells Urine Crystals Urine Bacteria Urine Casts Urine Mucus Ur Culture Indicated? Urine Glucose Urine Opiates Screen Urine Methadone Screen Ur Barbiturates Screen Ur Tricyclics Screen Ur Amphetamines Screen U Benzodiazepines Scrn Urine Cocaine Screen Ur THC Screen Ethyl Alcohol < 3.0 COVID-19 Source SARS-CoV-2 (PCR) 07/07/21 07/07/21 07/07/21 16:45 17:20 17:20 WBC RBC Hgb Hct MCV MCH MCHC RDW Plt Count MPV Immature Gran % Neutrophils % Lymphocytes % Monocytes % Eosinophils % Basophils % Nucleated RBC % Absolute Neutrophils Absolute Lymphocytes Absolute Monocytes Absolute Eosinophils Absolute Basophils VBG pH VBG pCO2 VBG pO2 VBG HCO3 VBG Total CO2 VBG O2 Saturation VBG Base Excess Sodium Potassium Chloride Carbon Dioxide Anion Gap BUN Creatinine Estimated GFR/1.73 m2 Glucose Calcium Magnesium Total Bilirubin AST ALT Alkaline Phosphatase Creatine Kinase Troponin I Total Protein Albumin Lipase TSH Urine Color Yellow Urine Clarity Sl Cloudy Urine pH 5.5 Ur Specific [place] 1.020 Urine Protein Negative Urine Ketones Negative Urine Blood Moderate H Urine Nitrite Negative Urine Bilirubin Negative Urine Urobilinogen 0.2 Ur Leukocyte Esterase Small H Urine RBC 5-10 H Urine WBC 10-20 H Ur Epithelial Cells Rare Urine Crystals Negative Urine Bacteria Many Urine Casts Negative Urine Mucus Negative Ur Culture Indicated? Yes Urine Glucose Negative Urine Opiates Screen Negative Urine Methadone Screen Negative Ur Barbiturates Screen Negative Ur Tricyclics Screen Negative Ur Amphetamines Screen Negative U Benzodiazepines Scrn Negative Urine Cocaine Screen Negative Ur THC Screen Negative Ethyl Alcohol COVID-19 Source Nasal/Nares SARS-CoV-2 (PCR) Negative 07/07/21 07/08/21 07/08/21 19:12 06:40 06:40 WBC 4.98 RBC 4.13 L Hgb 11.5 L Hct 35.0 L MCV 84.7 MCH 27.8 MCHC 32.9 RDW 16.0 H Plt Count 220 MPV 11.0 Immature Gran % 0.8 Neutrophils % 50.0 Lymphocytes % 32.1 Monocytes % 14.1 Eosinophils % 2.6 Basophils % 0.4 Nucleated RBC % 0 Absolute Neutrophils 2.49 Absolute Lymphocytes 1.60 Absolute Monocytes 0.70 Absolute Eosinophils 0.13 Absolute Basophils 0.02 VBG pH VBG pCO2 VBG pO2 VBG HCO3 VBG Total CO2 VBG O2 Saturation VBG Base Excess Sodium 145 Potassium 3.7 D Chloride 109 H Carbon Dioxide 25.4 Anion Gap 10.6 BUN 12 Creatinine 1.1 Estimated GFR/1.73 m2 >= 60.00 Glucose 142 H Calcium 8.4 L Magnesium 2.2 Total Bilirubin AST ALT Alkaline Phosphatase Creatine Kinase > 68525 H Troponin I Cancelled Total Protein Albumin Lipase TSH Urine Color Urine Clarity Urine pH Ur Specific [place] Urine Protein Urine Ketones Urine Blood Urine Nitrite Urine Bilirubin Urine Urobilinogen Ur Leukocyte Esterase Urine RBC Urine WBC Ur Epithelial Cells Urine Crystals Urine Bacteria Urine Casts Urine Mucus Ur Culture Indicated? Urine Glucose Urine Opiates Screen Urine Methadone Screen Ur Barbiturates Screen Ur Tricyclics Screen Ur Amphetamines Screen U Benzodiazepines Scrn Urine Cocaine Screen Ur THC Screen Ethyl Alcohol COVID-19 Source SARS-CoV-2 (PCR)
[2021-07-08 16:07] VITALS: BP 105/68; PULSE 92; RESP 19; TEMP 36.9; O2SAT 100
[2021-07-08 23:10] VITALS: BP 131/74; PULSE 85; RESP 18; TEMP 36.4; O2SAT 98
[2021-07-09] MEDS: PIPERACILLIN/TAZO 3.375 GM in Normal Saline 50 ML IVPB ×3 (02:01→13:43)
[2021-07-09] MEDS: Heparin 5,000 UNITS/ML VIAL 5000 UNITS SC ×3 (05:01→22:17)
[2021-07-09] MEDS: Normal Saline 1,000 ML 175 ML IV (05:02)
[2021-07-09 07:22] LABS: Abs Immature Grans 0.04 10^3/uL (0.0-0.06); Absolute Basophil Count 0.01 10^3/uL (0.0-0.2); Absolute Eosinophil Count 0.16 10^3/uL (0.0-0.7); Absolute Monocyte Count 0.75 10^3/uL (0.1-0.8); Absolute Neutrophil Count 3.09 10^3/uL (1.2-6.7); Basophils % 0.2; Eosinophils % 2.7; HCT 34.2 % (40.0-50.0); Immature Grans % 0.7; Lymphocytes % 31.9; MCH 27.6 pg (27.0-33.0); MCHC 32.2 % (32.0-36.0); MCV 85.7 fL (80-95); MPV 11.2 fL (8.0-11.0); Monocytes % 12.6; Neutrophils % 51.9; Nucleated RBC 0 %; Platelet Count 190 10^3/uL (130-400); RBC 3.99 10^6/uL (4.36-5.78); RDW 16.3 % (11.8-14.1); WBC 5.95 10^3/uL (4.4-10.8)
[2021-07-09 07:34] VITALS: BP 111/72; PULSE 95; RESP 22; TEMP 36.9; O2SAT 97
[2021-07-09] MEDS: Nicotine 14 MG/24 HR PATCH TD (08:24)
[2021-07-09] MEDS: Gabapentin 300 MG CAP 600 MG PO ×2 (08:26→19:59)
[2021-07-09] MEDS: Cholecalciferol (Vitamin D3) 1,000 UNIT TAB 4000 UNITS PO (08:27)
[2021-07-09] MEDS: Folic Acid 1 MG TAB PO (08:28)
[2021-07-09] MEDS: Omeprazole 20 MG CAPCR 40 MG PO (08:28)
[2021-07-09] MEDS: Baclofen 10 MG TAB 20 MG PO ×2 (08:28→15:31)
[2021-07-09 08:29] LABS: Anion Gap 9.6 mmol/L (3-11); BUN 6 mg/dL (7-18); CO2 24.4 mmol/L (21.0-32.0); CREATININE 1.1 mg/dL (0.70-1.30); Calcium 7.9 mg/dL (8.5-10.1); Chloride 116 mmol/L (98-107); Glucose 110 mg/dL (74-106); Magnesium 2.3 mg/dL (1.8-2.4); Potassium 3.8 mmol/L (3.5-5.1); Sodium 150 mmol/L (136-145)
[2021-07-09] MEDS: Loratidine 10 MG TAB PO (08:29)
[2021-07-09] MEDS: Tamsulosin 0.4 MG CAPCR PO (08:29)
[2021-07-09] MEDS: predniSONE 5 MG TAB PO (08:29)
[2021-07-09] MEDS: Aspirin 81 MG CHEW PO (08:29)
[2021-07-09] MEDS: Multivitamin TAB 1 TAB PO (08:29)
[2021-07-09] MEDS: cefTRIAXone 1 GM/50 ML BAG IVPB (08:30)
[2021-07-09] MEDS: Docusate Sodium 100 MG CAP PO ×3 (08:30→19:59)
[2021-07-09 08:56] LABS: Creatine Kinase > 10000 U/L (39-308)
[2021-07-09] MEDS: DEXTROSE 5%-WATER 1,000 ML 150 ML IV (10:17)
--- NOTE | 2021-07-09 10:47 | CMPROGNOTE_ITS ---
- If Service Date Differs Date of service: 07/09/21 Time of Service: 10:47 Care Management Progress Note S/O:Bryan was lying in bed when CM met with him. He was pleasant and agreeable to conversation. Bryan stated that he was feeling OK and declined the need for any assistance from CM at this time. His CK continues to rise and, per provider, he will likely remain hospitalized for a while. RAMIREZ received a call from Darcy Alfaro, his community product specialist, who requested advanced notice of discharge to ensure care givers would be in place upon his return home. A: Bryan is a 60 year old man admitted with a UTI and rhabdomyolysis on 07/07/21 P:Bryan will return home when ready per MD, to resume current support services and follow up with his PCP. CM will continue to support discharge planning considerations. He will transport via [facility] W/C Van coordinated by RAMIREZ.
[2021-07-09] MEDS: Gabapentin 300 MG CAP PO (11:35)
[2021-07-09] MEDS: Insulin Aspart 300 UNITS/3 ML PEN SC ×2 (11:53→17:08)
[2021-07-09 12:17] LABS: BUN 7 mg/dL (7-18); CREATININE 1.2 mg/dL (0.70-1.30); Calcium 7.8 mg/dL (8.5-10.1); Chloride 111 mmol/L (98-107); Glucose 185 mg/dL (74-106); Potassium 4.1 mmol/L (3.5-5.1); Sodium 146 mmol/L (136-145)
--- NOTE | 2021-07-09 13:24 | UCONE_ITS ---
Date of service: 07/09/21 Time of Service: 13:25 Assessment and Plan Assessment and plan (1) Incontinence: Status: Acute Assessment and plan: His voiding symptoms seem chronic (incontinence was added to his medical history back in 2013) but I do not see where his incontinence has been characterized. I would plan on leaving his indwelling catheter until it is no longer needed for I&O and the patient returns to his baseline functioning. At that time, I would remove the indwelling catheter and go back to an external catheter. We can then monitor his postvoid residual urines and decide if more invasive testing such as urodynamics would be helpful. If the patient is incontinent but has low residual urines, we would likely continue with symptomatic management with external catheters. If the patient demonstrates high residual urines, we would likely want to see a renal ultrasound to ensure he has no hydronephrosis from a high pressure bladder. The last renal imaging that I can find in our EMR is from 2015. He had a CT scan for a GI bleed. No hydronephrosis was seen at that time. History of Present Illness History of Present Illness Chief Complaint: Incontinence Narrative: This is a 60-year-old gentleman who has a history of multiple sclerosis. He is currently hospitalized with rhabdomyolysis. I have been asked to see him for possible neurogenic bladder. The patient tells me that he has not seen a urologist previously. I do not find any previous urology records from our institution or at [facility]. Mr. De has spasticity in his cervical radiculopathy. He is wheelchair bound. He tells me that he is able to sense when he needs to void, but at times he will have difficulty getting a urinal in place in time to catch the urine. When he goes out of the house, he tells me he uses a catheter and a bag. When I asked him if the catheter was internal or attached to the outside of the penis, he said it was an external catheter. He does not recall frequent urinary tract infections. I do have 3 prior positive urine culture results over the past 5 years. I do not see any recent renal imaging studies. He does not recall any history of kidney stones or urologic surgery. He does not recall having had any type of urodynamics. In reviewing his emergency room records, a Marrero catheter was placed for accurate I and O. I do not find any indication that there was a clinical concern for urinary retention at the time. From the emergency room documentation, it looks like he may have had 825 cc of urine present soon after catheter placement. I do not know when he last voided prior to the catheter placement. Review of Systems Constitutional Constitutional: Denies chills and Denies fever(s) Cardiovascular Cardiovascular: Denies chest pain Respiratory Respiratory: Denies hemoptysis and Denies excessive phlegm production PFSH Medical History Abnormal CT of liver Anemia Bilateral cataracts Bilateral leg edema BPH (benign prostatic hyperplasia) Cervical radiculopathy Cervicalgia Chewing tobacco nicotine dependence Chronic pain a. chronic opiate rx Clostridium difficile colitis Congenital ptosis of left eyelid Diabetes type 2, controlled Diabetic retinopathy Family hx of colon cancer GERD (gastroesophageal reflux disease) Hip pain, right Hyperlipidemia Lytic bone lesions on xray Lytic lesion of bone on x-ray Mediastinal adenopathy Microcytic anemia Multiple sclerosis A. Diagnosed in 2006 b. nonambulatory, primarly bed to wheelchair Neck pain A. 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 Chronic opiate Rx Optic nerve atrophy Optic neuritis a. legally blind Osteopenia Pelvic lymphadenopathy Peripheral neuropathy Pituitary adenoma Renal insufficiency Sarcoidosis Spasticity Spinal stenosis Tobacco abuse a. Uses chewing tobacco Ulcer of calf Urinary incontinence Vitamin D deficiency Surgical History H/O surgical procedure a. appendectomy b. 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 What is your relationship status?: Panel score (0-1 are the most socially isolated patients): 0 What type of physical activity do you participate in: weight lifting, wheelchair-bound and additional Details: PT Do you feel safe at home: Yes Do you feel safe in your relationship?: Yes Exam Narrative Exam Narrative: He is cooperative. His vital signs are documented elsewhere He is awake and alert His catheter is draining clear urine Results Last Vital Signs Temp 36.9 C 07/09/21 07:34 Pulse 95 H 07/09/21 07:34 Resp 22 07/09/21 07:34 BP 111/72 07/09/21 07:34 Pulse Ox 97 07/09/21 07:34 Labs Result diagrams: 07/09/21 06:30 07/09/21 12:05 Labs: Laboratory Results - last 24 hr 07/09/21 07/09/21 07/09/21 06:30 06:50 12:05 WBC 5.95 RBC 3.99 L Hgb 11.0 L Hct 34.2 L MCV 85.7 MCH 27.6 MCHC 32.2 RDW 16.3 H Plt Count 190 MPV 11.2 H Immature Gran % 0.7 Neutrophils % 51.9 Lymphocytes % 31.9 Monocytes % 12.6 Eosinophils % 2.7 Basophils % 0.2 Nucleated RBC % 0 Absolute Neutrophils 3.09 Absolute Lymphocytes 1.90 Absolute Monocytes 0.75 Absolute Eosinophils 0.16 Absolute Basophils 0.01 Sodium 150 H 146 H Potassium 3.8 4.1 Chloride 116 H 111 H Carbon Dioxide 24.4 25.0 Anion Gap 9.6 10.0 BUN 6 L 7 Creatinine 1.1 1.2 Estimated GFR/1.73 m2 >= 60.00 >= 60.00 Glucose 110 H 185 H D Calcium 7.9 L 7.8 L Magnesium 2.3 Creatine Kinase > 10751 H
--- NOTE | 2021-07-09 13:27 | DM INPTCON_ITS ---
Date of service: 07/09/21 Time of Service: 13:27 Diabetes Inpatient Consult DESCRIPTION/ASSESSMENT: 60yo male admitted with change in mental status, rhabdomyolysis, UTI, Sarcoidosis, MS, DMII, hyperkalemia, anemia, hx of MS and tobacco use. Meds: Aspirin, baclofen, ceftriaxone, colonazepam, docusate sodiu, heparin, insulin aspart sensitive protocol, loratidine, omeprazole, zosyn, prednisone, vitamin d3, folate, mvi. Mr. De eating lunch with assistance when I visited. Denies V/V/C/D. Tolerating diabetic consistent cho diet and choosing softer textures due to not having his dentures with him. Manages blood sugar with metformin and glipizide at home ? most recent A1C was 6.5 01/27/20 (good glycemic control). BMI of 31.9kg/m2 c/w stage I obesity. No reported food allergies, restoration food needs, or any nutrition concerns. Estimated nutrition needs: 2097kcals (REEx1.2), 56-70g protein (.8-1g/kg IBW), and 2,100mL fluid (30mL/kg IBW). Diagnosis: No significant nutrition diagnosis at this time Intervention: Continue to order trays that are appropriate in textures tolerated without dentures in on diabetes consistent CHO diet order. Monitoring/evaluation: Will monitor for nutrition related changes in weight, labs. Will check back on how intake is going during admission ? no concerns at this time. Shun Dubose NDTR ? Electric Meter Setter Time Spent in Nutritional Counseling and Treatment: 0
[2021-07-09] MEDS: Polyethylene Glycol 3350 17 GM PACKET PO ×2 (14:01→19:59)
[2021-07-09 14:44] LABS: Source Nasal/Nares
--- NOTE | 2021-07-09 15:38 | W.PM.PROGNOT ---
Date of Service Date of service: 07/09/21 Time of Service: 15:38 Assessment and Plan Assessment and plan (1) Rhabdomyolysis: Status: Acute Assessment and plan: [place] [address] Creatinine 1.2 today continue to monitor CPK and kidney function Qualifiers: Rhabdomyolysis type: non-traumatic Qualified Code(s): M62.82 - Rhabdomyolysis (2) Urinary tract infection: Status: Acute Assessment and plan: urine growing ecoli, morrison sensitive retaining, 800 ml out when catheter placed per chart Placed on flomax with urinary consult question of neurogenic bladder d/t MS Qualifiers: Hematuria presence: without hematuria Urinary tract infection type: acute cystitis Qualified Code(s): N30.00 - Acute cystitis without hematuria (3) Altered mental status: Status: Resolved Assessment and plan: Baseline Mental status Related to the Current UTI? Does take tramadol but only once daily. Held tramadol on admission. Qualifiers: Altered mental status type: stupor Qualified Code(s): R40.1 - Stupor (4) Sarcoidosis: Status: Chronic Assessment and plan: Unclear of what manifestations he has had. CXR in 2019 was read as normal. (5) Multiple sclerosis: Status: Chronic Assessment and plan: Sees Dr Etienne routinely; last visit on 06/04/21. Will consult. (6) Diabetes type 2, controlled: Status: Chronic Assessment and plan: On glipizide and metformin. Both currently held. AC/HS fingerstick glucose monitoring with sensitive SS insulin correction dosing. Controlled carb diet. Qualifiers: Diabetes mellitus complication status: without complication Diabetes mellitus residential insulin use: unspecified residential insulin use status Qualified Code(s): E11.9 - Type 2 diabetes mellitus without complications (7) Tobacco abuse: Status: Chronic Assessment and plan: Chewing tobacco. Nicoderm patch. (8) Anemia: Status: Chronic Assessment and plan: Stable. Qualifiers: Anemia type: unspecified type Qualified Code(s): D64.9 - Anemia, unspecified (9) Hyperkalemia: Status: Resolved Assessment and plan: 3.7 this am resolved continue to monitor. (10) DVT prophylaxis: Status: Acute Assessment and plan: Heparin subcut (11) Discharge planning issues: Status: Acute Assessment and plan: Home when medically ready discussed with Dr. Wright Subjective Subjective Patient reports: no new complaints and afebrile Exam Const General: cooperative and no acute distress Nutritional Appearance: overweight Orientation: awake, oriented to person and oriented to place [facility] Head: atraumatic and no abrasions Eyes General: appearance normal, both eyes and all related structures Sclera: sclerae normal Resp Effort & Inspection: normal respiratory effort Auscultation: clear to auscultation bilaterally Cardio Rate: regular rate Rhythm: regular rhythm Heart Sounds: S1 normal and S2 normal GI Inspection: other (Protuberant abd) Palpation: soft and nontender Auscultation: hyperactive bowel sounds General: other (ng draining clear yellow urine) Neuro General: patient awake Motor: other (5/5 BUE strength. 2/5 BLE proximal strength. ) Extrem General: no calf tenderness and edema (Nonpitting) Objective Last Vital Signs Temp 36.9 C 07/09/21 07:34 Pulse 95 H 07/09/21 07:34 Resp 22 07/09/21 07:34 BP 111/72 07/09/21 07:34 Pulse Ox 97 07/09/21 07:34 Laboratory Results - last 24 hr 07/09/21 07/09/21 07/09/21 06:30 06:50 12:05 WBC 5.95 RBC 3.99 L Hgb 11.0 L Hct 34.2 L MCV 85.7 MCH 27.6 MCHC 32.2 RDW 16.3 H Plt Count 190 MPV 11.2 H Immature Gran % 0.7 Neutrophils % 51.9 Lymphocytes % 31.9 Monocytes % 12.6 Eosinophils % 2.7 Basophils % 0.2 Nucleated RBC % 0 Absolute Neutrophils 3.09 Absolute Lymphocytes 1.90 Absolute Monocytes 0.75 Absolute Eosinophils 0.16 Absolute Basophils 0.01 Sodium 150 H 146 H Potassium 3.8 4.1 Chloride 116 H 111 H Carbon Dioxide 24.4 25.0 Anion Gap 9.6 10.0 BUN 6 L 7 Creatinine 1.1 1.2 Estimated GFR/1.73 m2 >= 60.00 >= 60.00 Glucose 110 H 185 H D Calcium 7.9 L 7.8 L Magnesium 2.3 Creatine Kinase > 35281 H COVID-19 Source 07/09/21 14:30 WBC RBC Hgb Hct MCV MCH MCHC RDW Plt Count MPV Immature Gran % Neutrophils % Lymphocytes % Monocytes % Eosinophils % Basophils % Nucleated RBC % Absolute Neutrophils Absolute Lymphocytes Absolute Monocytes Absolute Eosinophils Absolute Basophils Sodium Potassium Chloride Carbon Dioxide Anion Gap BUN Creatinine Estimated GFR/1.73 m2 Glucose Calcium Magnesium Creatine Kinase COVID-19 Source Nasal/Nares
[2021-07-09 15:39] LABS: COVID-19 PCR Negative (Negative)
[2021-07-09 16:15] VITALS: BP 137/74; PULSE 75; RESP 17; TEMP 37.5; O2SAT 100
[2021-07-09] MEDS: Lactated Ringers 1,000 ML 150 ML IV ×3 (16:32→23:35)
[2021-07-09] MEDS: clonazePAM 1 MG TAB PO (22:16)
[2021-07-09] MEDS: Baclofen 10 MG TAB 30 MG PO (22:16)
[2021-07-09 23:17] VITALS: BP 110/70; PULSE 90; RESP 20; TEMP 36.6; O2SAT 97
[2021-07-10] MEDS: Heparin 5,000 UNITS/ML VIAL 5000 UNITS SC ×3 (05:51→22:25)
[2021-07-10] MEDS: Lactated Ringers 1,000 ML 150 ML IV ×3 (05:51→20:20)
[2021-07-10 06:56] LABS: Abs Immature Grans 0.04 10^3/uL (0.0-0.06); Absolute Basophil Count 0.01 10^3/uL (0.0-0.2); Absolute Eosinophil Count 0.14 10^3/uL (0.0-0.7); Absolute Lymphocyte Count 2.08 10^3/uL (1.2-3.4); Basophils % 0.1; Eosinophils % 1.7; HCT 33.2 % (40.0-50.0); HGB 10.8 g/dL (13.5-17.5); Immature Grans % 0.5; Lymphocytes % 25.6; MCH 27.8 pg (27.0-33.0); MCHC 32.5 % (32.0-36.0); MCV 85.3 fL (80-95); MPV 10.4 fL (8.0-11.0); Monocytes % 8.6; Neutrophils % 63.5; Nucleated RBC 0 %; Platelet Count 181 10^3/uL (130-400); RBC 3.89 10^6/uL (4.36-5.78); RDW 15.9 % (11.8-14.1); RDW-SD 49.2 fL; WBC 8.12 10^3/uL (4.4-10.8)
--- NOTE | 2021-07-10 07:01 | PGE_ITS ---
Date of Service Date of service: 07/10/21 Time of Service: 07:01 Assessment and Plan Assessment and plan (1) Urinary tract infection: Status: Acute Qualifiers: Urinary tract infection type: acute cystitis Hematuria presence: without hematuria Qualified Code(s): N30.00 - Acute cystitis without hematuria (2) Incontinence: Status: Acute Assessment and plan: Mr. De currently has had more chronic issues than he admits to based on history. He has been on alpha blockers since at least 2012, so I suspect he has some baseline of incomplete bladder emptying. I do not have a good sense of his baseline voiding symptoms. Starting him on Flomax seems like a good idea especially since he has been on alpha blockers in the past. I again think that we should leave his catheter in as long as it is medically needed for I/O and until he returns to his functional baseline. At that point, we can remove the catheter and assess his voiding symptoms. Subjective Subjective Interval history since last seen: I was able to find some additional information in this patient's older EMR notes. It looks like he has been on an alpha- jaison since at least 2012, so it would not surprise me if incomplete bladder emptying is a fairly chronic issue for him. He did have a visit with a local urologist in 2012 when the patient was on Rapaflo. Since that time, he has had other alpha blockers on his medication list (doxazosin or alfuzosin), but I am not certain that he was taking the medications routinely as the medicines disappear from his medication list periodically. Exam Narrative Exam Narrative: He is sleeping and I did not wake him His vital signs are documented elsewhere His urine in the catheter remains clear His renal function is stable with a creatinine of 1.0 Objective Last Vital Signs Temp 36.6 C 07/09/21 23:17 Pulse 90 07/09/21 23:17 Resp 20 07/09/21 23:17 BP 110/70 07/09/21 23:17 Pulse Ox 97 07/09/21 23:17 Laboratory Results - last 24 hr 07/09/21 07/09/21 07/09/21 06:30 06:50 12:05 WBC 5.95 RBC 3.99 L Hgb 11.0 L Hct 34.2 L MCV 85.7 MCH 27.6 MCHC 32.2 RDW 16.3 H Plt Count 190 MPV 11.2 H Immature Gran % 0.7 Neutrophils % 51.9 Lymphocytes % 31.9 Monocytes % 12.6 Eosinophils % 2.7 Basophils % 0.2 Nucleated RBC % 0 Absolute Neutrophils 3.09 Absolute Lymphocytes 1.90 Absolute Monocytes 0.75 Absolute Eosinophils 0.16 Absolute Basophils 0.01 Sodium 150 H 146 H Potassium 3.8 4.1 Chloride 116 H 111 H Carbon Dioxide 24.4 25.0 Anion Gap 9.6 10.0 BUN 6 L 7 Creatinine 1.1 1.2 Estimated GFR/1.73 m2 >= 60.00 >= 60.00 Glucose 110 H 185 H D Calcium 7.9 L 7.8 L Magnesium 2.3 Creatine Kinase > 01560 H COVID-19 Source SARS-CoV-2 (PCR) 07/09/21 14:30 WBC RBC Hgb Hct MCV MCH MCHC RDW Plt Count MPV Immature Gran % Neutrophils % Lymphocytes % Monocytes % Eosinophils % Basophils % Nucleated RBC % Absolute Neutrophils Absolute Lymphocytes Absolute Monocytes Absolute Eosinophils Absolute Basophils Sodium Potassium Chloride Carbon Dioxide Anion Gap BUN Creatinine Estimated GFR/1.73 m2 Glucose Calcium Magnesium Creatine Kinase COVID-19 Source Nasal/Nares SARS-CoV-2 (PCR) Negative
[2021-07-10 07:11] LABS: Absolute Neutrophil Count 5.16 10^3/uL (1.2-6.7)
[2021-07-10 07:52] VITALS: BP 152/70; PULSE 89; RESP 18; TEMP 36.6; O2SAT 98
[2021-07-10] MEDS: cefTRIAXone 1 GM/50 ML BAG IVPB (08:35)
[2021-07-10] MEDS: Polyethylene Glycol 3350 17 GM PACKET PO ×2 (08:46→20:19)
[2021-07-10] MEDS: Cholecalciferol (Vitamin D3) 1,000 UNIT TAB 4000 UNITS PO (08:47)
[2021-07-10 08:49] LABS: BUN 6 mg/dL (7-18); Calcium 8.3 mg/dL (8.5-10.1); Glucose 114 mg/dL (74-106)
[2021-07-10] MEDS: Gabapentin 300 MG CAP 600 MG PO ×2 (08:49→20:18)
[2021-07-10] MEDS: Aspirin 81 MG CHEW PO (08:49)
[2021-07-10] MEDS: Tamsulosin 0.4 MG CAPCR PO (08:49)
[2021-07-10] MEDS: Omeprazole 20 MG CAPCR 40 MG PO (08:49)
[2021-07-10] MEDS: Folic Acid 1 MG TAB PO (08:49)
[2021-07-10] MEDS: Docusate Sodium 100 MG CAP PO ×3 (08:49→20:19)
[2021-07-10] MEDS: predniSONE 5 MG TAB PO (08:49)
[2021-07-10 08:50] LABS: Anion Gap 8.8 mmol/L (3-11); CO2 25.2 mmol/L (21.0-32.0); Chloride 113 mmol/L (98-107); Potassium 3.5 mmol/L (3.5-5.1); Sodium 147 mmol/L (136-145)
[2021-07-10] MEDS: Loratidine 10 MG TAB PO (08:50)
[2021-07-10] MEDS: Baclofen 10 MG TAB 20 MG PO ×2 (08:50→16:55)
[2021-07-10] MEDS: Multivitamin TAB 1 TAB PO (08:50)
[2021-07-10] MEDS: Nicotine 14 MG/24 HR PATCH TD (08:50)
[2021-07-10 08:51] LABS: Creatine Kinase 7845 U/L (39-308); Magnesium 1.9 mg/dL (1.8-2.4)
--- NOTE | 2021-07-10 09:35 | PDOC.CMPRO ---
- If Service Date Differs Date of service: 07/10/21 Time of Service: 09:35 Care Management Progress Note S/O: Bryan was lying in bed when CM met with him. He was pleasant and agreeable to conversation. He was alert and oriented and shared with CM that he is originally from [place] and moved to [place] to receive better healthcare. He has been in a wheelchair since 2008 and is legally blind. He spends much of his time listening to the TV. He shared that he gets around independently in his apartment, since he knows where everything is. He also has caregivers for a few hours a day and receives [facility] services. RAMIREZ received a call from Darcy Alfaro yesterday, his community pharmacist, who requested advanced notice of discharge to ensure care givers would be in place upon his return home. A: Bryan is a 60 year old man admitted with a UTI and rhabdomyolysis on 07/07/21 P:Bryan will return home when ready per MD, to resume current support services and follow up with his PCP. RAMIREZ will continue to support discharge planning considerations. He will transport via [facility] W/C Van coordinated by RAMIREZ.
--- NOTE | 2021-07-10 09:36 | OTIE_ITS ---
Occupational Therapy Notes Inpatient Occupational Therapy Evaluation Date: 07/10/21 Referring Doctor:Taryn Wright MD OT Orders: Non Urgent Precautions: Fall, standard, Full PATIENT PROFILE/ADMITTING DIAGNOSIS: Pt is a 60 year old male who was brought via EMS to the ED on 07/07/21 after being found in his wheelchair by HH services with his head down. He was admitted based on his symptoms and clinical impression of Altered mental status, Rhabdomyolysis, Urinary tract infection. Past Medical History: Medical History (Updated 07/07/21 @ 18:18 by Pérez Wall MD) Abnormal CT of liver Anemia Bilateral cataracts Bilateral leg edema BPH (benign prostatic hyperplasia) Cervical radiculopathy Cervicalgia Chewing tobacco nicotine dependence Chronic pain a. chronic opiate rx Clostridium difficile colitis Congenital ptosis of left eyelid Diabetes type 2, controlled Diabetic retinopathy Family hx of colon cancer GERD (gastroesophageal reflux disease) Hip pain, right Hyperlipidemia Lytic bone lesions on xray Lytic lesion of bone on x-ray Mediastinal adenopathy Microcytic anemia Multiple sclerosis A. Diagnosed in 2006 b. nonambulatory, primarly bed to wheelchair Neck pain A. 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 Chronic opiate Rx Optic nerve atrophy Optic neuritis a. legally blind Osteopenia Pelvic lymphadenopathy Peripheral neuropathy Pituitary adenoma Renal insufficiency Sarcoidosis Spasticity Spinal stenosis Tobacco abuse a. Uses chewing tobacco Ulcer of calf Urinary incontinence Vitamin D deficiency Surgical History H/O surgical procedure a. appendectomy b. left levator surgery 2012 History of appendectomy History of lung biopsy Social History/Home Situation: Pt lives in an private apartment with caregivers and HH who come in and (A) with his ADL/IADL routines. He has MS and moved to [place] from [place] to be with his son. He states that he used to utilize a cane and FW W but his mobility progressed to worsening state and he now utilizes an electric wheelchair to get around. He notes that he sponge baths at the sink and has a visual deficit which is his baseline. He takes RCT to get to [employer] and works out at [employer] 2x per week on the (I) program. Equipment owned/DME: Cane, FWW, utilizes a electric wheelchair, grab bars SUBJECTIVE: Pt is sitting in bed when OT arrived. He states that he is doing ok and knows OT from outpatient setting. He reports that he has no idea what happened and that he fell. Although this does not appear to be the same as his ED note mentions, pt may be slightly confused at this time. OBJECTIVE: General Observation: Pleasant, ng in place Mental Status: A&Ox3 Pain: c/o pain in abdomen ROM: RUE AROM WFL L UE AROM WFL STRENGTH: RUE 2/5 throughout IV in (R) UE which may be contributing LUE 4/5 throughout FUNCTIONAL MOBILITY/ADLS: BATHING - pt was slightly confused he states that he is tired and will only wash his face and arms. OT provided pt with wash clothe for performance and he was (I) with face and (B) UE. Denies LE for today and says maybe tomorrow. BALANCE: Static sitting Normal Dynamic Sitting Normal SPECIAL TESTS: Daily Activity Limitations Standardized Measure [facility] AM -PAC ?6 clicks? Daily Activity Inpatient Short Form: Raw score: 11 Standardized score: 29.04 CMS score: 70.42% INFORMED CONSENT/EDUCATION: Pt instructed in purpose of OT Consult and plan of care. ASSESSMENT: Patient is a 60-year-old male referred to occupational therapy services with diagnosis of Altered mental status, Rhabdomyolysis, Urinary tract infection. Patient presents with clinical signs and symptoms consistent with dx, as demonstrated by the following impairment level findings/functional limitations: Slightly confused today, decreased (R) UE strength, fatigued easily, decreased functional mobility, decreased LE dressing and bathing. AMPAC score 11 Patient is assessed as a Moderate 47787 complexity based on the following: History:see above Examination: see functional limitations as noted above Presentation: evolving Decision Making: AMPAC score 11 GOALS Goals x1 week 1. Grooming- Min (A) brushing his teeth in the sitting position 2. Dressing- (I) UE and min (A) LE 3. Bathing- (I) 4. Toileting (I) 5. Eating (I) PLAN OF CARE/TREATMENT PLAN: 1x/day, 5 days/ week x 1week Initiate Occupational Therapy Services for bathing, dressing, grooming, toileting, eating, transfer training. DISCHARGE RECOMMENDATIONS TREATMENT TIME/MINUTES/CODES 60594, 20 minutes (08:40) Aura Cohen OTR/L [facility]
[2021-07-10] MEDS: Gabapentin 300 MG CAP PO (11:46)
--- NOTE | 2021-07-10 12:29 | PGE_ITS ---
Date of Service Date of service: 07/10/21 Time of Service: 12:29 Assessment and Plan Assessment and plan (1) Rhabdomyolysis: Status: Acute Assessment and plan: CPK improving Creatinine 1.0 today continue to monitor CPK and kidney function Qualifiers: Rhabdomyolysis type: non-traumatic Qualified Code(s): M62.82 - Rhabdomyolysis (2) Urinary tract infection: Status: Acute Assessment and plan: urine growing ecoli, morrison sensitive day 11/05 ceftriaxone retaining urine with 800 ml out when catheter placed per chart Placed on flomax Dr Lopez consulted. Qualifiers: Urinary tract infection type: acute cystitis Hematuria presence: w ithout hematuria Qualified Code(s): N30.00 - Acute cystitis without hematuria (3) BPH (benign prostatic hyperplasia): Status: Chronic Assessment and plan: with urinary retention started on flomax Dr Lopez consulted. Per his note: I would plan on leaving his indwelling catheter until it is no longer needed for I&O and the patient returns to his baseline functioning. At that time, I would remove the indwelling catheter and go back to an external catheter. We can then monitor his postvoid residual urines and decide if more invasive testing such as urodynamics would be helpful. If the patient is incontinent but has low residual urines, we would likely continue with symptomatic management with external catheters. If the patient demonstrates high residual urines, we would likely want to see a renal ultrasound to ensure he has no hydronephrosis from a high pressure bladder. The last renal imaging that I can find in our EMR is from 2016. He had a CT scan for a GI bleed. No hydronephrosis was seen at that time. (4) Sarcoidosis: Status: Chronic Assessment and plan: Unclear of what manifestations he has had. CXR in 2019 was read as normal. (5) Multiple sclerosis: Status: Chronic Assessment and plan: Sees Dr Etienne routinely; last visit on 06/04/21. Will consult. (6) Diabetes type 2, controlled: Status: Chronic Assessment and plan: On glipizide and metformin. Both currently held. AC/HS fingerstick glucose monitoring with sensitive SS insulin correction dosing. Controlled carb diet. Qualifiers: Diabetes mellitus tank terminal gauger insulin use: unspecified intermediate insulin use status Diabetes mellitus complication status: without complication Qualified Code(s): E11.9 - Type 2 diabetes mellitus without complications (7) Tobacco abuse: Status: Chronic Assessment and plan: Chewing tobacco. Nicoderm patch. (8) Anemia: Status: Chronic Assessment and plan: Stable. Qualifiers: Anemia type: unspecified type Qualified Code(s): D64.9 - Anemia, unspecified (9) DVT prophylaxis: Status: Acute Assessment and plan: Heparin subcut (10) Discharge planning issues: Status: Acute Assessment and plan: Home when medically ready discussed with Dr. Wright Subjective Subjective Patient reports: no new complaints, tolerating liquids well, tolerating a regular diet and afebrile; denies shortness of breath Exam Const General: cooperative and no acute distress Nutritional Appearance: overweight Orientation: awake, oriented to person and oriented to place [facility] Head: atraumatic and no abrasions Eyes General: appearance normal, both eyes and all related structures Sclera: sclerae normal Resp Effort & Inspection: normal respiratory effort Auscultation: clear to auscultation bilaterally Cardio Rate: regular rate Rhythm: regular rhythm Heart Sounds: S1 normal and S2 normal GI Inspection: other (Protuberant abd) Palpation: soft and nontender Auscultation: hyperactive bowel sounds General: other (ng draining clear yellow urine) Skin General skin exam: no rashes or lesions noted Neuro General: patient awake Cranial Nerves: pupils not ERRL (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 Small reactivity noted in left eye. ) Motor: other (5/5 BUE strength. 2/5 BLE proximal strength. ) Extrem General: no calf tenderness and edema (Nonpitting) Objective Last Vital Signs Temp 36.6 C 07/10/21 07:52 Pulse 89 07/10/21 07:52 Resp 18 07/10/21 07:52 BP 152/70 H 07/10/21 07:52 Pulse Ox 98 07/10/21 07:52 Laboratory Results - last 24 hr 07/09/21 07/10/21 07/10/21 14:30 06:30 06:30 WBC 8.12 D RBC 3.89 L Hgb 10.8 L Hct 33.2 L MCV 85.3 MCH 27.8 MCHC 32.5 RDW 15.9 H Plt Count 181 MPV 10.4 Immature Gran % 0.5 Neutrophils % 63.5 Lymphocytes % 25.6 Monocytes % 8.6 Eosinophils % 1.7 Basophils % 0.1 Nucleated RBC % 0 Absolute Neutrophils 5.16 Absolute Lymphocytes 2.08 Absolute Monocytes 0.70 Absolute Eosinophils 0.14 Absolute Basophils 0.01 Sodium 147 H Potassium 3.5 Chloride 113 H Carbon Dioxide 25.2 Anion Gap 8.8 BUN 6 L Creatinine 1.0 Estimated GFR/1.73 m2 >= 60.00 Glucose 114 H Calcium 8.3 L Magnesium 1.9 Creatine Kinase 7845 H COVID-19 Source Nasal/Nares SARS-CoV-2 (PCR) Negative
--- NOTE | 2021-07-10 13:21 | IN_ITS ---
Date of service: 07/10/21 Time of Service: 13:21 PT Notes Visit Reasons: UTI, Rhabdomyolysis Physical Therapy Inpatient Initial Evaluation Date: July 10, 2021 Referring Doctor: Taryn Wright MD PT Orders: PT CONSULT: Limited ability Precautions: Fall. Standard. Activity as tolerated. Wheelchair-bound. Legally blind. Patient Profile/Admitting Diagnosis: Leelee is a 60-year-old male with chronic multiple sclerosis, sarcoidosis, and diabetes mellitus mellitus who presented to the ED on July 07, 2021 due to a home health staff finding him slumped in his wheelchair. Patient is diagnosed with altered mental status, rhabdomyolysis, urinary tract infection, and generalized weakness. PMHX: Medical History Abnormal CT of liver Anemia Bilateral cataracts Bilateral leg edema BPH (benign prostatic hyperplasia) Cervical radiculopathy Cervicalgia Chewing tobacco nicotine dependence Chronic pain a. chronic opiate rx Clostridium difficile colitis Congenital ptosis of left eyelid Diabetes type 2, controlled Diabetic retinopathy Family hx of colon cancer GERD (gastroesophageal reflux disease) Hip pain, right Hyperlipidemia Lytic bone lesions on xray Lytic lesion of bone on x-ray Mediastinal adenopathy Microcytic anemia Multiple sclerosis A. Diagnosed in 2006 b. nonambulatory, primarily bed to wheelchair Neck pain A. 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 Chronic opiate Rx Optic nerve atrophy Optic neuritis a. legally blind Osteopenia Pelvic lymphadenopathy Peripheral neuropathy Pituitary adenoma Renal insufficiency Sarcoidosis Spasticity Spinal stenosis Tobacco abuse a. Uses chewing tobacco Ulcer of calf Urinary incontinence Vitamin D deficiency Surgical History H/O surgical procedure a. appendectomy b. left levator surgery 2012 History of appendectomy History of lung biopsy Social History/Home Situation: Lives alone in a handicap accessible apartment complex in [place] with community support being managed by community home visit field care manager Darcy Alfaro. At baseline, patient states he is able to perform stand pivot transfers to and from his motorized wheelchair at home. He receives home health assistance with meal preparation for his breakfast and dinners. receives help with house chores, groceries, and medical transport. Equipment Owned/DME: Hospital bed, regular wheelchair, motorized wheelchair, front-wheeled walker Subjective: Bryan indicates that he has been managing well at home with transferring to and from his motorized wheelchair by holding onto the armrest of the wheelchair from bed and holding onto the bed rail coming from the wheelchair. He states that he regularly uses a chest harness system to prevent him from going forward when he transfers. He clarifies that when Franny, the home health staff, found her on the chair he was trying to reach for an on the floor he dropped. He forgot to use a entry level civil engineer filler picker the object and he ended up unable to move both his legs out of an awkward position. Emphasizes that he has not fallen nor slid out of his chair when he was found. Ask about the wounds on his legs and thighs he states that when he moves in his wheelchair he gets caught some parts of his wheelchair. Objective: General Observation: Supine in bed. Wound dressing over bilateral thighs and legs. Mental Status: Alert and oriented as to person, place, time, and purpose. Able to pay attention, focus, and respond appropriately. Pain: 2-3/10 in low back ROM: Right Upper Extremity: Shoulder Flexion allows only 50% of available range of motion. Shoulder abduction allows only 50% of available range of motion.. Elbow flexion WFL. Wrist flexion WFL. Functional opening and closing of hand WFL. Left Upper Extremity: Shoulder Flexion allows only 50% of available range of motion. Shoulder abduction allows only 50% of available range of motion.. Elbow flexion WFL. Wrist flexion WFL. Functional opening and closing of hand WFL. Right Lower Extremity: Hip flexion-unable to slide heel up in supine. Hip abduction-only able to move R LE less than 10 degrees in supine to edge of bed. Knee flexion unable to slide heel up in supine. Ankle dorsiflexion no actual movement seen, muscle contraction only. Ankle plantarflexion muscle contraction only. Left Lower Extremity: Hip flexion-able to slide heel up resulting to less than 20 degrees of knee flexion and about 10 degrees of hip flexion in supine. Hip abduction-only able to move R LE less than about 10 degrees in supine to edge of bed. Knee flexion-able to slide heel up about 20 degrees of knee flexion in supine. Ankle dorsiflexion less than 10 degrees. Ankle plantarflexion about 15 degrees . Strength: Right Upper Extremity: Shoulder flexors 3-/5. Shoulder abductors 3-/5. Elbow flexors 4-/5. Elbow extensors 4-/5. Death Clearance Coordinator weak but functional. Left Upper Extremity: Shoulder flexors 3-/5. Shoulder abductors 3-/5. Elbow flexors 4-/5. Elbow extensors 4-/5. Death Clearance Coordinator weak but functional. Right Lower Extremity: Hip flexors 2-/5. Hip abductors 2-/5. Knee flexors 2-/5. Knee extensors 2-/5. Ankle dorsiflexors 1/5. Ankle plantarflexors 1/5. Left Lower Extremity: Hip flexors 2-/5. Hip abductors 2-/5. Knee flexors 2-/5. Knee extensors 2-/5. Ankle dorsiflexors 2-/5. Ankle plantarflexors 2-/5. Bed Mobility/Transfers: Supine to sit moderate assist with HOB at 45 degrees Sit to supine moderate assist with HOB at 45 degrees Sit to stand unable to test due to safety concerns Stand to sit unable to test due to safety concerns Bed to bedside commode unable to test due to safety concerns Bedside commode to bed unable to test due to safety concerns Bed to reclining chair unable to test due to safety concerns Reclining chair to bed unable to test due to safety concerns Gait: N/A. Patient non-ambulatory. Balance: Static Sitting: Poor Dynamic Sitting: Poor Static Standing: Unable to test Dynamic Standing: Unable to test gait Special Tests: Mobility Limitations Standardized Measure [facility] 6 clicks Basic Mobility Inpatient Short Form: Raw Score: CMS Score: 87% deficit Informed Consent/Education: Patient was instructed in purpose of PT consult and plan of care. Agreeable to proceed with established PT POC to achieve personal goals. Assessment: Bryan demonstrates functional mobility decline in transfers requiring the use of mechanical lift at this time to ensure patient and staff safety. We will plan on assessing transfers using steady lift in the next session with an additional caregiver for support. Skilled services are required to address issues with trunk stability, B UE/LE/core strength, mobility dependence. Patient presents with clinical signs and symptoms consistent with current/admitting diagnoses that have resulted to mobility limitations, gait instability, generalized weakness, and overall ADL decline as demonstrated by the following impairment level findings: 1. Decreased strength to BUE/LE/trunk major muscle groups 2. Impaired sitting/ balance and tolerance 3. Impaired activity tolerance 4. Limitation of joint range of motion in BUE/LE 5. BLE swelling Impairments are contributing to the following functional limitations: 1. Decline in bed mobility skills 2. Decline in transfer skills 3. Increased completion time for mobility ADL performance 5. Increased risk for falls 6. Increased risk for skin breakdown Patient is assessed as a 69976 high complexity based on the following: History: 60-year-old male with past medical history as indicated above Examination: Demonstrable impairment in strength, balance, and mobility level with underlying impairments and functional limitations as exhibited above as well as deficit score of 87% utilizing the [facility] Mobility Inpatient Short Form Presentation: Evolving Decision Makin high complexity Goals: Goals X1 week 1. Supine-Sit minimal assist 2. Sit-Supine minimal assist 3. Sit-Stand minimal assist with stand pivot and use of FWW 4. Stand-Sit minimal assist with stand pivot and use of FWW 5. Bed-Chair minimal assist with stand pivot and use of FWW 6. Chair-Bed minimal assist with stand pivot and use of FWW 7. Sitting balance and tolerance fair 8. Standing balance and tolerance fair Plan of Care/Treatment Plan: 1-2x/day, 7 days/week x 1 week. Plan of care has been reviewed with the STRUCTURAL STEEL PAINTER providing the service under Physical Therapy direction. Initiate Physical Therapy intervention for pain management as needed, strengthening, bed mobility, transfers, gait, stairs, balance training, and use of assistive device. DISCHARGE RECOMMENDATIONS: [] Home with no services [] [] Home with services [specify] [] Home with outpatient PT [] [X] SNF for continued rehabilitation to address impairments in trunk stability, B UE/LE strength, and improve mobility level prior to discharge to home. [] [employer] Robotic[employer] Care [] [] SNF versus LTC based on ability to participate and progress [] TREATMENT CODE/TIME: 60133 x 30 minutes, 56876 x 17 minutes beginning at 13:21 PM. Thank you for the opportunity to participate in the care of this patient. Rosa Luevano PT, DPT, CLT [facility] [place], [place]
[2021-07-10 15:42] VITALS: BP 143/81; PULSE 89; RESP 18; TEMP 36.6; O2SAT 98
[2021-07-10] MEDS: Insulin Aspart 300 UNITS/3 ML PEN SC (16:55)
[2021-07-10] MEDS: clonazePAM 1 MG TAB PO (22:25)
[2021-07-10] MEDS: Baclofen 10 MG TAB 30 MG PO (22:25)
[2021-07-10 23:28] VITALS: BP 115/75; PULSE 103; RESP 16; TEMP 37.6; O2SAT 96
[2021-07-11] MEDS: Ondansetron 4 MG/2 ML VIAL IVP ×2 (03:01→20:06)
[2021-07-11] MEDS: Lactated Ringers 1,000 ML 150 ML IV ×3 (03:05→22:12)
[2021-07-11 03:15] VITALS: BP 116/80; PULSE 103; RESP 24; TEMP 37.4; O2SAT 95
--- NOTE | 2021-07-11 03:15 | DI.RAD_ITS ---
Exam(s) XR ABDOMEN FLAT UPRIGHT EXAM: XR ABDOMEN FLAT UPRIGHT CLINICAL HISTORY: Vomiting and abdominal distension. TECHNIQUE: 2D digital imaging was performed. COMPARISON: No exams were available for comparison FINDINGS: There is an NG tube in the stomach. There are air-filled loops of both large and small bowel. Air-f luid levels are seen on the decubitus view. No obvious free air. IMPRESSION: I ileus versus distal large bowel obstruction. DATA REPOSITORY: RADIATION DOSE DELIVERED:
--- NOTE | 2021-07-11 04:44 | DI.VRAD_ITS ---
PROCEDURE INFORMATION: Exam: XR Abdomen Exam date and time: 07/11/2021 3:28 AM Age: 60 years old Clinical indication: Prior surgery; Surgery date: 6+ months; Surgery type: Appendectomy; Patient HX: Vomiting and abdominal distension TECHNIQUE: Imaging protocol: XR of the abdomen. Views: 2 Views. Upright and supine views. COMPARISON: CT ABD PELVIS WITH CONTRAST 10/30/2015 5:07 PM FINDINGS: Gastrointestinal tract: Moderate gaseous distention of the colon limiting evaluation for dilated small bowel. A couple loops nonspecific air in fluid distended bowel are suspicious for dilated small bowel but this cannot be determined with certainty. NG tube tip overlies stomach. Intraperitoneal space: Normal. No free air. Bones/joints: Unremarkable for age. IMPRESSION: 1. Moderate gaseous distention of the colon limiting evaluation for dilated small bowel. 2. A couple loops nonspecific air in fluid distended bowel are suspicious for dilated small bowel but this cannot be determined with certainty. Dictated and Authenticated by: Pérez Montoya MD. Ordering:BERNICE Gaston MD
[2021-07-11] MEDS: Heparin 5,000 UNITS/ML VIAL 5000 UNITS SC ×3 (05:40→22:25)
--- NOTE | 2021-07-11 07:13 | OT.INTREAT ---
Date of service: 07/11/21 Time of Service: 08:30 Occupational Therapy Notes Occupational Therapy Inpatient Treatment Note Date: 07/11/21 PRECAUTIONS: Fall, standard, Full SUBJECTIVE: Pt was lying in bed he notes that he is tired. OBJECTIVE: PAIN: c/o pain in abdomen BATHING: Sitting in bed with max (A) Set up /clean up Upper Body: (I) face, (B) UE and abdomen Lower Body: max (A) DRESSING: sitting in bed Upper Extremity: Mod (A) [facility] gown ASSESSMENT/PLAN: Pt was receptive to his ADLs in the bed, he has an NG tube and notes that he is not sure what is happening. He was able to wash his arms well with (A) with grabbing the washcloth only because of his IVs in his (R) UE. TREATMENT CODES/TIME: 43071, 20 minutes (08:30) Aura Cohen, OTR/L [facility]
[2021-07-11] MEDS: Baclofen 10 MG TAB 20 MG PO ×2 (07:32→16:36)
[2021-07-11 08:10] LABS: Anion Gap 11.3 mmol/L (3-11); BUN 5 mg/dL (7-18); CO2 22.7 mmol/L (21.0-32.0); CREATININE 0.8 mg/dL (0.70-1.30); Calcium 8.3 mg/dL (8.5-10.1); Chloride 111 mmol/L (98-107); Glucose 129 mg/dL (74-106); Potassium 3.1 mmol/L (3.5-5.1); Sodium 145 mmol/L (136-145)
[2021-07-11 08:11] LABS: C-Reactive Protein 7.71 mg/dL (0.0-0.3)
[2021-07-11] MEDS: Nicotine 14 MG/24 HR PATCH TD (08:18)
[2021-07-11] MEDS: cefTRIAXone 1 GM/50 ML BAG IVPB (08:18)
[2021-07-11 08:44] LABS: Abs Immature Grans 0.05 10^3/uL (0.0-0.06); Absolute Basophil Count 0.01 10^3/uL (0.0-0.2); Absolute Eosinophil Count 0.16 10^3/uL (0.0-0.7); Absolute Lymphocyte Count 1.88 10^3/uL (1.2-3.4); Absolute Monocyte Count 1.03 10^3/uL (0.1-0.8); Absolute Neutrophil Count 5.85 10^3/uL (1.2-6.7); Basophils % 0.1; Eosinophils % 1.8; HCT 34.9 % (40.0-50.0); HGB 11.5 g/dL (13.5-17.5); Immature Grans % 0.6; Lymphocytes % 20.9; MCH 27.4 pg (27.0-33.0); MCV 83.1 fL (80-95); MPV 11.2 fL (8.0-11.0); Monocytes % 11.5; Neutrophils % 65.1; Nucleated RBC 0 %; Platelet Count 190 10^3/uL (130-400); RDW 15.9 % (11.8-14.1); WBC 8.98 10^3/uL (4.4-10.8)
[2021-07-11 09:45] LABS: Creatine Kinase 4332 U/L (39-308)
--- NOTE | 2021-07-11 10:01 | SCONE_ITS ---
Date of service: 07/11/21 Time of Service: 10:01 Assessment and Plan Assessment and plan (1) Altered mental status: Status: Resolved Qualifiers: Altered mental status type: stupor Qualified Code(s): R40.1 - Stupor (2) Rhabdomyolysis: Status: Acute Qualifiers: Rhabdomyolysis type: non-traumatic Qualified Code(s): M62.82 - Rhabdomyolysis (3) Abdominal pain: Status: Acute Assessment and plan: Patient with abdominal distention and discomfort. No signs of peritonitis. Patient is pleasant, however difficult to follow and gather historical information at this time. Patient has been passing bowel movements daily and has been incontinent of stool. NG tube in place with minimal output. Sarah colored urine in the ng. Recommend continuing with NPO status and NG tube decompression. Trial suppository to promote passing of flatus and stool. Also ABD CT scan with oral and IV contrast would be beneficial in determining possible etiology for abdominal symptoms. History of Present Illness History of Present Illness Chief Complaint: ABD Pain, Ileus Narrative: 60 y/o male with a history of MS, Type 2 DM, spasticity, sarcoidosis and GERD was admitted to the hospitalist service for AMS and rhadomyolysis. Arrive with patient resting in bed, eyes closed this morning. Patient reports abdominal pain and expresses that his abdomen is distended. He denies any nausea or vomiting at this time. NG tube in place with minimal output. Patient has been passing large amounts of stool daily since 07/09. Review of Systems Constitutional Constitutional: Reports as per [facility] Medical History Abnormal CT of liver Anemia Bilateral cataracts Bilateral leg edema BPH (benign prostatic hyperplasia) Cervical radiculopathy Cervicalgia Chewing tobacco nicotine dependence Chronic pain a. chronic opiate rx Clostridium difficile colitis Congenital ptosis of left eyelid Diabetes type 2, controlled Diabetic retinopathy Family hx of colon cancer GERD (gastroesophageal reflux disease) Hip pain, right Hyperlipidemia Lytic bone lesions on xray Lytic lesion of bone on x-ray Mediastinal adenopathy Microcytic anemia Multiple sclerosis A. Diagnosed in 2006 b. nonambulatory, primarly bed to wheelchair Neck pain A. 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 Chronic opiate Rx Optic nerve atrophy Optic neuritis a. legally blind Osteopenia Pelvic lymphadenopathy Peripheral neuropathy Pituitary adenoma Renal insufficiency Sarcoidosis Spasticity Spinal stenosis Tobacco abuse a. Uses chewing tobacco Ulcer of calf Urinary incontinence Vitamin D deficiency Surgical History H/O surgical procedure a. appendectomy b. 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 What is your relationship status?: Panel score (0-1 are the most socially isolated patients): 0 What type of physical activity do you participate in: weight lifting, wheelchair-bound and additional Details: PT Do you feel safe at home: Yes Do you feel safe in your relationship?: Yes Exam Const General: cooperative and comfortable Orientation: alert and awake Resp Effort & Inspection: normal respiratory effort, no audible wheezes and no cough GI Inspection: distended Palpation: soft, no guarding and tender Percussion: tympanic to percussion Auscultation: high-pitched sounds Results Last Vital Signs Temp 37.4 C 07/11/21 03:15 Pulse 103 H 07/11/21 03:15 Resp 24 07/11/21 03:15 BP 116/80 07/11/21 03:15 Pulse Ox 95 07/11/21 03:15 Labs Result diagrams: 07/11/21 08:30 07/11/21 06:40 Labs: Laboratory Results - last 24 hr 07/11/21 07/11/21 07/11/21 06:40 06:40 06:40 WBC Cancelled RBC Cancelled Hgb Cancelled Hct Cancelled MCV Cancelled MCH Cancelled MCHC Cancelled RDW Cancelled Plt Count Cancelled MPV Cancelled Immature Gran % Cancelled Neutrophils % Cancelled Band Neutrophils % Cancelled Lymphocytes % Cancelled Atypical Lymphs % Cancelled Monocytes % Cancelled Eosinophils % Cancelled Basophils % Cancelled Metamyelocytes % Cancelled Myelocytes % Cancelled Promyelocytes % Cancelled Other Cells % Cancelled Nucleated RBC % Cancelled Absolute Neutrophils Cancelled Absolute Lymphocytes Cancelled Absolute Monocytes Cancelled Absolute Eosinophils Cancelled Absolute Basophils Cancelled RBC Morphology Cancelled Polychromasia Cancelled Hypochromasia Cancelled Poikilocytosis Cancelled Basophilic Stippling Cancelled Anisocytosis Cancelled Microcytosis Cancelled Macrocytosis Cancelled Spherocytes Cancelled Tear Drop Cells Cancelled Ovalocytes Cancelled Stomatocytes Cancelled Zaidi-Freeland Bodies Cancelled Cary Cells/Echinocytes Cancelled Acanthocytes (Spur) Cancelled Schistocytes Cancelled Sodium 145 Potassium 3.1 L Chloride 111 H Carbon Dioxide 22.7 Anion Gap 11.3 H BUN 5 L Creatinine 0.8 Estimated GFR/1.73 m2 >= 60.00 Glucose 129 H Calcium 8.3 L Creatine Kinase 4332 H C-Reactive Protein 7.71 H 07/11/21 08:30 WBC 8.98 RBC 4.20 L Hgb 11.5 L Hct 34.9 L MCV 83.1 MCH 27.4 MCHC 33.0 RDW 15.9 H Plt Count 190 MPV 11.2 H Immature Gran % 0.6 Neutrophils % 65.1 Band Neutrophils % Lymphocytes % 20.9 Atypical Lymphs % Monocytes % 11.5 Eosinophils % 1.8 Basophils % 0.1 Metamyelocytes % Myelocytes % Promyelocytes % Other Cells % Nucleated RBC % 0 Absolute Neutrophils 5.85 Absolute Lymphocytes 1.88 Absolute Monocytes 1.03 H Absolute Eosinophils 0.16 Absolute Basophils 0.01 RBC Morphology Polychromasia Hypochromasia Poikilocytosis Basophilic Stippling Anisocytosis Microcytosis Macrocytosis Spherocytes Tear Drop Cells Ovalocytes Stomatocytes Zaidi-Freeland Bodies Jamshid Cells/Echinocytes Acanthocytes (Spur) Schistocytes Sodium Potassium Chloride Carbon Dioxide Anion Gap BUN Creatinine Estimated GFR/1.73 m2 Glucose Calcium Creatine Kinase C-Reactive Protein
--- NOTE | 2021-07-11 10:16 | PDOC.CMPRO ---
- If Service Date Differs Date of service: 07/11/21 Time of Service: 10:16 Care Management Progress Note S/O: Bryan was laying in bed when CM met with him. He was pleasant and easily engaged in conversation. He shared that he's feeling better today, and his stomach is less bloated. He had a NG tube placed last night and a surgical consult placed today, as there is some concern on imaging for an illeus vs. Lg bowel obstruction. ICE HOCKEY COACH's will need to be in place at discharge so [facility] is requesting advance notice to help coordinate discharge planning needs. A: Bryan is a 60 year old man admitted with a UTI and rhabdomyolysis on 07/07/21 P:Bryan will return home when ready per MD via RCT W/C Van coordinated by CM. He will resume current support services and follow up with his PCP. [facility] [employer] HOC[employer] COACH's will support Bryan's transition home, so [facility] will need advance notice of discharge. CM will continue to support discharge planning considerations.
--- NOTE | 2021-07-11 10:45 | PGE_ITS ---
Date of Service Date of service: 07/11/21 Time of Service: 10:46 Assessment and Plan Assessment and plan (1) Ileus: Status: Acute Assessment and plan: NGT placed overnight, not draining any fluid. surgical consult placed CT abd/pelvis pending. (2) Rhabdomyolysis: Status: Acute Assessment and plan: CPK continues to improve Creatinine 1.0 today continue to monitor CPK and kidney function Qualifiers: Rhabdomyolysis type: non-traumatic Qualified Code(s): M62.82 - Rhabdomyolysis (3) Urinary tract infection: Status: Acute Assessment and plan: urine growing ecoli, morrison sensitive day 11/05 ceftriaxone retaining urine with 800 ml out when catheter placed per chart Placed on flomax Dr Lopez consulted. Qualifiers: Hematuria presence: without hematuria Urinary tract infection type: acute cystitis Qualified Code(s): N30.00 - Acute cystitis without hematuria (4) BPH (benign prostatic hyperplasia): Status: Chronic Assessment and plan: with urinary retention started on flomax Dr Lopez consulted. Per his note: I would plan on leaving his indwelling catheter until it is no longer needed for I&O and the patient returns to his baseline functioning. At that time, I would remove the indwelling catheter and go back to an external catheter. We can then monitor his postvoid residual urines and decide if more invasive testing such as urodynamics would be helpful. If the patient is incontinent but has low residual urines, we would likely continue with symptomatic management with external catheters. If the patient demonstrates high residual urines, we would likely want to see a renal ultrasou nd to ensure he has no hydronephrosis from a high pressure bladder. The last renal imaging that I can find in our EMR is from 2016. He had a CT scan for a GI bleed. No hydronephrosis was seen at that time. (5) Sarcoidosis: Status: Chronic Assessment and plan: Unclear of what manifestations he has had. CXR in 2019 was read as normal. (6) Multiple sclerosis: Status: Chronic Assessment and plan: Sees Dr Etienne routinely; last visit on 06/04/21. Will consult. (7) Diabetes type 2, controlled: Status: Chronic Assessment and plan: On glipizide and metformin. Both currently held. AC/HS fingerstick glucose monitoring with sensitive SS insulin correction dosing. Controlled carb diet. Qualifiers: Diabetes mellitus complication status: without complication Diabetes mellitus superintendent terminal insulin use: unspecified superintendent terminal insulin use status Qualified Code(s): E11.9 - Type 2 diabetes mellitus without complications (8) Tobacco abuse: Status: Chronic Assessment and plan: Chewing tobacco. Nicoderm patch. (9) Anemia: Status: Chronic Assessment and plan: Stable. Qualifiers: Anemia type: unspecified type Qualified Code(s): D64.9 - Anemia, unspecified (10) DVT prophylaxis: Status: Acute Assessment and plan: Heparin subcut (11) Discharge planning issues: Status: Acute Assessment and plan: Home when medically ready discussed with Dr. Wright Subjective Subjective Patient reports: no new complaints, nausea and afebrile; denies shortness of breath Interval history since last seen: required NGT overnight, concern for ileus vs bowel obstruction on imaging. Exam Const General: cooperative and no acute distress Nutritional Appearance: overweight Orientation: awake, oriented to person and oriented to place HENMN Head: atraumatic and no abrasions Eyes General: appearance normal, both eyes and all related structures Sclera: sclerae normal Resp Effort & Inspection: normal respiratory effort Auscultation: clear to auscultation bilaterally Cardio Rate: regular rate Rhythm: regular rhythm Heart Sounds: S1 normal and S2 normal GI Inspection: other (Protuberant abd) Palpation: soft and nontender Auscultation: hyperactive bowel sounds General: other (ng draining clear yellow urine) Skin General skin exam: no rashes or lesions noted Neuro General: patient awake Cranial Nerves: pupils not ERRL (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 Small reactivity noted in left eye. ) Motor: other (5/5 BUE strength. 2/5 BLE proximal strength. ) Extrem General: no calf tenderness and edema (Nonpitting) Objective Last Vital Signs Temp 37.4 C 07/11/21 03:15 Pulse 103 H 07/11/21 03:15 Resp 24 07/11/21 03:15 BP 116/80 07/11/21 03:15 Pulse Ox 95 07/11/21 03:15 Laboratory Results - last 24 hr 07/11/21 07/11/21 07/11/21 06:40 06:40 06:40 WBC Cancelled RBC Cancelled Hgb Cancelled Hct Cancelled MCV Cancelled MCH Cancelled MCHC Cancelled RDW Cancelled Plt Count Cancelled MPV Cancelled Immature Gran % Cancelled Neutrophils % Cancelled Band Neutrophils % Cancelled Lymphocytes % Cancelled Atypical Lymphs % Cancelled Monocytes % Cancelled Eosinophils % Cancelled Basophils % Cancelled Metamyelocytes % Cancelled Myelocytes % Cancelled Promyelocytes % Cancelled Other Cells % Cancelled Nucleated RBC % Cancelled Absolute Neutrophils Cancelled Absolute Lymphocytes Cancelled Absolute Monocytes Cancelled Absolute Eosinophils Cancelled Absolute Basophils Cancelled RBC Morphology Cancelled Polychromasia Cancelled Hypochromasia Cancelled Poikilocytosis Cancelled Basophilic Stippling Cancelled Anisocytosis Cancelled Microcytosis Cancelled Macrocytosis Cancelled Spherocytes Cancelled Tear Drop Cells Cancelled Ovalocytes Cancelled Stomatocytes Cancelled [place] Bodies Cancelled [place]id Cells/Echinocytes Cancelled Acanthocytes (Spur) Cancelled Schistocytes Cancelled Sodium 145 Potassium 3.1 L Chloride 111 H Carbon Dioxide 22.7 Anion Gap 11.3 H BUN 5 L Creatinine 0.8 Estimated GFR/1.73 m2 >= 60.00 Glucose 129 H Calcium 8.3 L Creatine Kinase 4332 H C-Reactive Protein 7.71 H 07/11/21 08:30 WBC 8.98 RBC 4.20 L Hgb 11.5 L Hct 34.9 L MCV 83.1 MCH 27.4 MCHC 33.0 RDW 15.9 H Plt Count 190 MPV 11.2 H Immature Gran % 0.6 Neutrophils % 65.1 Band Neutrophils % Lymphocytes % 20.9 Atypical Lymphs % Monocytes % 11.5 Eosinophils % 1.8 Basophils % 0.1 Metamyelocytes % Myelocytes % Promyelocytes % Other Cells % Nucleated RBC % 0 Absolute Neutrophils 5.85 Absolute Lymphocytes 1.88 Absolute Monocytes 1.03 H Absolute Eosinophils 0.16 Absolute Basophils 0.01 RBC Morphology Polychromasia Hypochromasia Poikilocytosis Basophilic Stippling Anisocytosis Microcytosis Macrocytosis Spherocytes Tear Drop Cells Ovalocytes Stomatocytes [place] Bodies Jamshid Cells/Echinocytes Acanthocytes (Spur) Schistocytes Sodium Potassium Chloride Carbon Dioxide Anion Gap BUN Creatinine Estimated GFR/1.73 m2 Glucose Calcium Creatine Kinase C-Reactive Protein
[2021-07-11] MEDS: Bisacodyl 10 MG SUPP PR (10:52)
--- NOTE | 2021-07-11 13:30 | DI.CT_ITS ---
Exam(s) CT ABDOMEN PELVIS W EXAM: CT ABDOMEN PELVIS W CLINICAL HISTORY: ileus,. TECHNIQUE: Imaging Protocol: Axial computed tomography images with coronal and sagittal reformatted images were created and reviewed CONTRAST MATERIAL: Intravenous: Omnipaque 100cc Oral: None COMPARISON: CT CT BRAIN NECK CTA from 07/07/2021 FINDINGS: VISUALIZED LUNG BASES: No nodules nor pleural effusions evident. Small pericardial effusion noted. ABDOMEN: There is a small amount of fluid in the left pericolic gutter. LIVER: Hepatic steatosis but no discrete focal hepatic lesions identified. No dilatation of intrahep atic ducts. GALLBLADDER/BILIARY: No obvious gallbladder pathology. CBD is not dilated. PANCREAS: No evidence of pancreatic mass nor dilatation of the pancreatic duct. SPLEEN: Spleen is not enlarged. No obvious intrasplenic lesions. Splenic and portal veins are paten t. ADRENALS: There are no significant adrenal masses. KIDNEYS:Left kidney is atrophic. Extrarenal pelvis on the right side but no hydronephrosis. No kris d renal masses evident. No hydronephrosis. Marrero catheter noted in the urinary bladder.. ABDOMINAL AORTA: Abdominal aorta is not enlarged. LYMPH NODES:There is no retroperitoneal nor paraaortic adenopathy. ABDOMINAL WALL: No evidence of significant anterior abdominal wall nor inguinal hernia. GI: NG tube coiled in the stomach. The stomach is not distended. Oral contrast has progressed to th e level of the colon. There is no evidence of small-bowel obstruction The colon is distended but not edematous. The rectosigmoid arises out of the pelvis to reach level o f the transverse colon prior to read descending into the pelvis. There is no obvious transition poin t in the field of view of this study. PELVIS: GI: Appendix is not well seen.No evidence of sigmoid diverticulitis. LYMPH NODES: There is no intrapelvic nor inguinal adenopathy. REPRODUCTIVE: Age-appropriate URINARY BLADDER: Contains Marrero catheter. OSSEOUS: No significant osseous lesions. IMPRESSION: 1. Atrophic left kidney. No other significant renal findings. No hydronephrosis. A Marrero catheter is noted in the bladder. 2. NG tube is noted in the stomach. There is no small bowel obstruction evident at this time. Howev er, the colon is somewhat distended throughout its entire length and the rectosigmoid is quite redund ant, extending up from the pelvis to the upper abdomen. 3. There is small amount of fluid in the left pericolic gutter. There is no obvious culprit source f or this fluid evident. RADIATION DOSE DELIVERED: 1,680.55mGy.cm Total DLP DATA REPOSITORY: All CT scans at this facility are submitted to the National Radiology Data Registry (NRDR) Dose Index Registry (DIR) with the [employer] (A[employer]). RADIATION OPTIMIZATION: All CT scans at this facility use at least one of these dose optimization te chniques: automated exposure control; mA and/or kV adjustment per patient size (includes targeted exa ms where dose is matched to clinical indication); or iterative reconstruction.
[2021-07-11] MEDS: Breeza Beverage 473 ML BTL 946 ML PO (14:05)
[2021-07-11] MEDS: Omnipaque 350 MG/ML 50 ML BTL PO (14:05)
--- NOTE | 2021-07-11 15:34 | PT.INTREAT ---
Date of service: 07/11/21 Time of Service: 13:28 PT Notes Visit Reasons: UTI, Rhabdomyolysis Inpatient Physical Therapy Treatment Note [facility] Date: 07/11/2021 PRECAUTIONS: Fall, wc bound, legally blind SUBJECTIVE: Bryan is pleasant and agreeable to participating in PT. He states that his R knee gives out and makes it difficult to stand. He states that he wishes he had a mechanical lift at home. OBJECTIVE: PAIN: No c/o pain BED MOBILITY/TRANSFERS Rolling L/R: Min A Supine-sit: Mod A with HOB at 40 degrees Sit-supine: Max A x2 with HOB flat Sit-stand: Mod A x2 with STEDY Stand-sit: Min A x2 with STEDY Bed-Chair: Unable GAIT: Unable THEREX: Patient was instructed in several global strengthening exercises, completed in the STEDY, including partial [id number], weight shifting, and cervical ROM exercises. ASSESSMENT: Patient tolerated session with complaint of increased fatigue. He demonstrates global weakness and requires significant assist for all bed mobility and transfers. He will require SNF level rehab versus home with resumption of community supports if they are able to manage his care at this level. PLAN: Continue with global strengthening and general conditioning for improved mobility and activity tolerance. TREATMENT CODE/TIME: 25 minutes; [id number] x2 (13:28)
[2021-07-11 15:35] VITALS: BP 112/72; PULSE 90; RESP 18; TEMP 37; O2SAT 96
[2021-07-11] MEDS: Normal Saline - Diluent 50 ML VIAL IV (15:45)
[2021-07-11] MEDS: Omnipaque 350 MG/ML 100 ML BTL IJ (15:46)
--- NOTE | 2021-07-11 17:20 | NUR.NOTE ---
Nursing Note: Patient was had 3 grossly large episodes of liquid brown stool this afternoon. Abdomen was still very distended. Patient still felt uncomfortable and crampy. The abdomen was not as firm as yesterday, and he did not strongly react to palpation of the abdomen. I did update Dr. Sesay of patients status
--- NOTE | 2021-07-11 18:16 | DI.VRAD_ITS ---
PROCEDURE INFORMATION: Exam: CT Abdomen And Pelvis With Contrast Exam date and time: 07/11/2021 1:39 PM Age: 60 years old Clinical indication: Abdominal pain TECHNIQUE: Imaging protocol: Computed tomography of the abdomen and pelvis with contrast. Contrast material: OMNIPAUE 350; Contrast volume: 100 ml; Contrast route: INTRAVENOUS (IV); COMPARISON: CT ABD PELVIS WITH CONTRAST 10/30/2015 5:07 PM FINDINGS: Tubes, catheters and devices: The nasogastric tube courses through the esophagus past a small hiatal hernia and curves in the proximal stomach terminating along the cardia. Lungs: The visualized portions of the lungs demonstrate minimal foci of atelectasis. Heart: Trace pericardial effusion. Liver: Mild generalized hepatic steatosis. Gallbladder and bile ducts: Normal. No calcified stones. No ductal dilation. Pancreas: Normal. No ductal dilation. Spleen: Normal. No splenomegaly. Adrenal glands: Normal. No mass. Kidneys and ureters: Atrophic upper pole of the left kidney with scarring and atrophy of the remainder of the left kidney. Prominent right extrarenal pelvis. Otherwise, normal right kidney. Stomach and bowel: Transit of oral contrast through nondistended small bowel loops. No small bowel obstruction. The oral contrast layers in the right hemicolon where there is extensive gaseous distension. Oral contrast mixed with liquid stool distally in dilated descending and redundant sigmoid colon. No bowel wall thickening. Appendix: No evidence of appendicitis. Intraperitoneal space: Unremarkable. No free air. No significant fluid collection. Vasculature: Unremarkable. No abdominal aortic aneurysm. Lymph nodes: Unremarkable. No enlarged lymph nodes. Urinary bladder: Urinary bladder is decompressed with a Marrero catheter balloon within. Reproductive: Unremarkable as visualized. Bones/joints: Unremarkable. No acute fracture. Soft tissues: Unremarkable. IMPRESSION: 1. Marked colonic distension with transit of oral contrast and multiple air-fluid levels suggestive of a distal large bowel obstruction at the anorectal junction versus a functional ileus. The small bowel is of normal caliber, however. No small bowel obstruction. 2. Mildly coiled nasogastric tube terminating in the cardia of the stomach. Nondistended stomach. Small hiatal hernia. 3. Severe atrophy of the upper left kidney and relative atrophy of the remaining left lower kidney relative to the right. Right prominent extrarenal pelvis is stable. 4. Decompressed urinary bladder with a Marrero catheter balloon within. 5. Mild generalized hepatic steatosis. Dictated and Authenticated by: Raeann Bautista MD. Ordering:HIMA Saldana MD
[2021-07-11] MEDS: Normal Saline Flush 10 ML SYR IVP (20:06)
[2021-07-11] MEDS: Gabapentin 300 MG CAP 600 MG PO (22:25)
[2021-07-11] MEDS: Baclofen 10 MG TAB 30 MG PO (22:26)
[2021-07-11] MEDS: clonazePAM 1 MG TAB PO (22:26)
[2021-07-12 03:24] VITALS: BP 114/74; PULSE 88; RESP 18; TEMP 36.6; O2SAT 96
[2021-07-12] MEDS: Lactated Ringers 1,000 ML 150 ML IV (04:26)
[2021-07-12] MEDS: Heparin 5,000 UNITS/ML VIAL 5000 UNITS SC ×2 (06:08→22:35)
[2021-07-12 07:14] LABS: Abs Immature Grans 0.05 10^3/uL (0.0-0.06); Absolute Basophil Count 0.03 10^3/uL (0.0-0.2); Absolute Eosinophil Count 0.13 10^3/uL (0.0-0.7); Absolute Lymphocyte Count 1.13 10^3/uL (1.2-3.4); Absolute Monocyte Count 0.51 10^3/uL (0.1-0.8); Absolute Neutrophil Count 3.63 10^3/uL (1.2-6.7); Basophils % 0.5; Eosinophils % 2.4; HCT 34.5 % (40.0-50.0); HGB 11.2 g/dL (13.5-17.5); Immature Grans % 0.9; Lymphocytes % 20.6; MCH 27.9 pg (27.0-33.0); MCHC 32.5 % (32.0-36.0); Monocytes % 9.3; Neutrophils % 66.3; Nucleated RBC 0 %; RBC 4.01 10^6/uL (4.36-5.78); RDW 15.9 % (11.8-14.1); RDW-SD 48.8 fL; WBC 5.48 10^3/uL (4.4-10.8)
[2021-07-12] MEDS: Nicotine 14 MG/24 HR PATCH TD (07:56)
[2021-07-12] MEDS: Loratidine 10 MG TAB PO (07:59)
[2021-07-12] MEDS: Aspirin 81 MG CHEW PO (07:59)
[2021-07-12] MEDS: Baclofen 10 MG TAB 20 MG PO (07:59)
[2021-07-12] MEDS: predniSONE 5 MG TAB PO (07:59)
[2021-07-12] MEDS: Gabapentin 300 MG CAP 600 MG PO (07:59)
[2021-07-12] MEDS: Cholecalciferol (Vitamin D3) 1,000 UNIT TAB 4000 UNITS PO (08:00)
[2021-07-12] MEDS: Omeprazole 20 MG CAPCR 40 MG PO (08:00)
[2021-07-12] MEDS: Multivitamin TAB 1 TAB PO (08:01)
[2021-07-12] MEDS: Folic Acid 1 MG TAB PO (08:01)
[2021-07-12] MEDS: Docusate Sodium 100 MG CAP PO (08:01)
[2021-07-12] MEDS: Tamsulosin 0.4 MG CAPCR PO (08:01)
[2021-07-12] MEDS: cefTRIAXone 1 GM/50 ML BAG IVPB (08:01)
[2021-07-12] MEDS: Polyethylene Glycol 3350 17 GM PACKET PO (08:05)
[2021-07-12 08:12] VITALS: BP 107/71; PULSE 96; RESP 18; TEMP 37.6; O2SAT 97
[2021-07-12 08:20] LABS: BUN 3 mg/dL (7-18); Calcium 8.2 mg/dL (8.5-10.1); Glucose 90 mg/dL (74-106)
[2021-07-12 08:21] LABS: Anion Gap 10.2 mmol/L (3-11); CO2 26.8 mmol/L (21.0-32.0); Chloride 112 mmol/L (98-107); Creatine Kinase 2236 U/L (39-308); Potassium 3.1 mmol/L (3.5-5.1); Sodium 149 mmol/L (136-145)
[2021-07-12 08:41] LABS: Diff Comment Diff Reviewed; Polychromasia Present
--- NOTE | 2021-07-12 08:55 | CMPROGNOTE_ITS ---
- If Service Date Differs Date of service: 07/12/21 Time of Service: 08:55 Care Management Progress Note S/O: Bryan was lying in bed when CM met with him. He was pleasant and easily engaged in conversation. He denies pain and reported that he was feeling lousy today. Bryan is NPO and is anticipating going to the OR this afternoon for a colonoscopy. His abdomen was more distended today and his mouth was dry. CM offered him chapstick, which he felt was helpful. A: Bryan is a 60 year old man admitted with a UTI and rhabdomyolysis on 07/07/21 P:Bryan will return home when ready per MD via RCT W/C Van coordinated by CM. He will resume current support services and follow up with his PCP. [facility] [employer] will support Bryan's transition home, so [facility] will need advance notice of discharge. CM will continue to support discharge planning considerations.
--- NOTE | 2021-07-12 09:11 | W.PM.PROGNOT ---
Date of Service Date of service: 07/12/21 Time of Service: 09:11 Assessment and Plan Assessment and plan (1) Ileus: Status: Acute Assessment and plan: NGT not draining any fluid. surgical consult placed CT abd/pelvis concerning for large bowel obstruction awaiting flex sigmoidoscopy, plan for tomorrow. (2) Rhabdomyolysis: Status: Acute Assessment and plan: CPK continues to improve Creatinine 1.0 today continue to monitor CPK and kidney function Qualifiers: Rhabdomyolysis type: non-traumatic Qualified Code(s): M62.82 - Rhabdomyolysis (3) Urinary tract infection: Status: Acute Assessment and plan: urine growing ecoli, morrison sensitive day 12/06 ceftriaxone retaining urine with 800 ml out when catheter placed per chart Placed on flomax Dr Lopez consulted. Qualifiers: Hematuria presence: without hematuria Urinary tract infection type: acute cystitis Qualified Code(s): N30.00 - Acute cystitis without hematuria (4) BPH (benign prostatic hyperplasia): Status: Chronic Assessment and plan: with urinary retention started on flomax Dr Lopez consulted. Per his note: I would plan on leaving his indwelling catheter until it is no longer needed for I&O and the patient returns to his baseline functioning. At that time, I would remove the indwelling catheter and go back to an external catheter. We can then monitor his postvoid residual urines and decide if more invasive testing such as urodynamics would be helpful. If the patient is incontinent but has low residual urines, we would likely continue with symptomatic management with external catheters. If the patient demonstrates high residual urines, we would likely want to see a renal ultrasound to ensure he has no hydronephrosis from a high pressure bladder. The last renal imaging that I can find in our EMR is from 2016. He had a CT scan for a GI bleed. No hydronephrosis was seen at that time. (5) Sarcoidosis: Status: Chronic Assessment and plan: Unclear of what manifestations he has had. CXR in 2019 was read as normal. (6) Multiple sclerosis: Status: Chronic Assessment and plan: Sees Dr Etienne routinely; last visit on 06/04/21. Will consult. (7) Diabetes type 2, controlled: Status: Chronic Assessment and plan: On glipizide and metformin. Both currently held. AC/HS fingerstick glucose monitoring with sensitive SS insulin correction dosing. Controlled carb diet. Qualifiers: Diabetes mellitus complication status: without complication Diabetes mellitus tobacco classer insulin use: unspecified long-term insulin use status Qualified Code(s): E11.9 - Type 2 diabetes mellitus without complications (8) Tobacco abuse: Status: Chronic Assessment and plan: Chewing tobacco. Nicoderm patch. (9) Anemia: Status: Chronic Assessment and plan: Stable. Qualifiers: Anemia type: unspecified type Qualified Code(s): D64.9 - Anemia, unspecified (10) DVT prophylaxis: Status: Acute Assessment and plan: Heparin subcut (11) Discharge planning issues: Status: Acute Assessment and plan: Home when medically ready discussed with Dr. Wright Subjective Subjective Patient reports: diarrhea and afebrile Interval history since last seen: passing liquid stool and flatus Exam Const General: cooperative and no acute distress Nutritional Appearance: overweight Orientation: awake, oriented to person and oriented to place [facility] Head: atraumatic and no abrasions Eyes General: appearance normal, both eyes and all related structures Sclera: sclerae normal Resp Effort & Inspection: normal respiratory effort Auscultation: clear to auscultation bilaterally Cardio Rate: regular rate Rhythm: regular rhythm Heart Sounds: S1 normal and S2 normal GI Inspection: other (Protuberant abd) Palpation: soft and nontender Auscultation: hyperactive bowel sounds General: other (ng draining clear yellow urine) Skin General skin exam: no rashes or lesions noted Neuro General: patient awake Cranial Nerves: pupils not ERRL (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 Small reactivity noted in left eye. ) Motor: other (5/5 BUE strength. 2/5 BLE proximal strength. ) Extrem General: no calf tenderness and edema (Nonpitting) Objective Last Vital Signs Temp 37.6 C H 07/12/21 08:12 Pulse 96 H 07/12/21 08:12 Resp 18 07/12/21 08:12 BP 107/71 07/12/21 08:12 Pulse Ox 97 07/12/21 08:12 Laboratory Results - last 24 hr 07/11/21 07/12/21 07/12/21 06:40 06:55 06:55 WBC 5.48 D RBC 4.01 L Hgb 11.2 L Hct 34.5 L MCV 86.0 MCH 27.9 MCHC 32.5 RDW 15.9 H Plt Count MPV Immature Gran % 0.9 Neutrophils % 66.3 Lymphocytes % 20.6 Monocytes % 9.3 Eosinophils % 2.4 Basophils % 0.5 Nucleated RBC % 0 Absolute Neutrophils 3.63 Absolute Lymphocytes 1.13 L Absolute Monocytes 0.51 Absolute Eosinophils 0.13 Absolute Basophils 0.03 RBC Morphology See Below Polychromasia Present Sodium 149 H Potassium 3.1 L Chloride 112 H Carbon Dioxide 26.8 Anion Gap 10.2 BUN 3 L Creatinine 1.0 Estimated GFR/1.73 m2 >= 60.00 Glucose 90 Calcium 8.2 L Creatine Kinase 4332 H 2236 H
--- NOTE | 2021-07-12 09:57 | W.NUTRFU ---
Date of service: 07/12/21 Time of Service: 09:57 Nutrition Note NOTE: Noted to have ileus, NPO x day 2. Will follow and make recommendations as needed. In view of elevated BMI, should tolerate up to 5 days NPO with fluid replacement. Time Spent in Nutritional Counseling and Treatment: 0
[2021-07-12] MEDS: POTASSIUM CHLORIDE 10 MEQ/100 ML BAG 100 MEQ IVPB ×4 (10:00→13:48)
[2021-07-12] MEDS: Normal Saline Flush 10 ML SYR IVP ×2 (10:02→15:14)
--- NOTE | 2021-07-12 12:21 | PGE_ITS ---
Date of Service Date of service: 07/12/21 Time of Service: 12:22 Assessment and Plan Assessment and plan (1) Ileus: Status: Acute (2) Abdominal pain: Status: Acute (3) Incontinence: Status: Acute (4) Urinary tract infection: Status: Acute Qualifiers: Hematuria presence: without hematuria Urinary tract infection type: acute cystitis Qualified Code(s): N30.00 - Acute cystitis without hematuria (5) Rhabdomyolysis: Status: Acute Qualifiers: Rhabdomyolysis type: non-traumatic Qualified Code(s): M62.82 - Rhabdomyolysis (6) Multiple sclerosis: Status: Chronic (7) Optic neuritis: Status: Chronic (8) GERD (gastroesophageal reflux disease): Status: Chronic (9) Diabetes type 2, controlled: Status: Chronic Qualifiers: Diabetes mellitus complication status: without complication 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 Marked colonic distension with transit of oral contrast and multiple air-fluid levels suggestive of a distal large bowel obstruction at the anorectal junction versus a functional ileus. The small bowel is of normal caliber, however. No small bowel obstruction. 2. Mildly coiled nasogastric tube terminating in the cardia of the stomach. Nondistended stomach. Small hiatal hernia. NG tube is noted in the stomach. There is no small bowel obstruction evident at this time. However, the colon is somewhat distended throughout its entire length and the rectosigmoid is quite redundant, extending up from the pelvis to the upper abdomen. Informed consent is obtained for the procedural (explained in simple layman's terms that the pt and/or family could understand) explaining risks vs benefits and alternatives to the procedure and consequences if we do not do the procedure and need/rational for the procedure. Risks include but are not limited to: bleeding, infection, perforation of esophagus, stomach, colon, small intestines, bronchus or trachea, or PTX. This would necessitate emergency surgery to repair the damage w/ possible ostomy; and other associated complications w/ the required surgery. Also complications of anesthesia including aspiration, NM/CVA/. -hospitalitsts feels he is medically stable for procedure. -d/w anethesia. mac vs GETA for procedure Subjective Subjective Interval history since last seen: pt had a nl CE 5 yrs ago Difficult to get any hx from him Exam GI Other: soft and non tender Objective Last Vital Signs Temp 37.6 C H 07/12/21 08:12 Pulse 96 H 07/12/21 08:12 Resp 18 07/12/21 08:12 BP 107/71 07/12/21 08:12 Pulse Ox 97 07/12/21 08:12 Laboratory Results - last 24 hr 07/12/21 07/12/21 06:55 06:55 WBC 5.48 D RBC 4.01 L Hgb 11.2 L Hct 34.5 L MCV 86.0 MCH 27.9 MCHC 32.5 RDW 15.9 H Plt Count MPV Immature Gran % 0.9 Neutrophils % 66.3 Lymphocytes % 20.6 Monocytes % 9.3 Eosinophils % 2.4 Basophils % 0.5 Nucleated RBC % 0 Absolute Neutrophils 3.63 Absolute Lymphocytes 1.13 L Absolute Monocytes 0.51 Absolute Eosinophils 0.13 Absolute Basophils 0.03 RBC Morphology See Below Polychromasia Present Sodium 149 H Potassium 3.1 L Chloride 112 H Carbon Dioxide 26.8 Anion Gap 10.2 BUN 3 L Creatinine 1.0 Estimated GFR/1.73 m2 >= 60.00 Glucose 90 Calcium 8.2 L Creatine Kinase 2236 H
--- NOTE | 2021-07-12 14:40 | PT.INTREAT ---
Date of service: 07/12/21 Time of Service: 13:20 PT Notes Visit Reasons: UTI, Rhabdomyolysis Inpatient Physical Therapy Treatment Note [facility] Date: 07/12/2021 PRECAUTIONS: Fall, wc bound, legally blind SUBJECTIVE: Bryan is pleasant and agreeable to participating in PT. OBJECTIVE: Bryan refused morning PT session stating I just fell asleep. PAIN: No c/o pain BED MOBILITY/TRANSFERS: Session ended early as patient requested to use bed morrison for BM. Rolling L/R: Mod A Supine-sit: Mod A - Max A with HOB at 45 degrees Sit-supine: Max A x2 with HOB flat ASSESSMENT: He demonstrates global weakness and requires significant assist for all bed mobility and transfers. He will require SNF level rehab versus home with resumption of community supports if they are able to manage his care at this level. PLAN: Continue with global strengthening and general conditioning for improved mobility and activity tolerance. TREATMENT CODE/TIME: 12 minutes; 85383 (13:20)
[2021-07-12 15:01] VITALS: BP 111/68; PULSE 100; RESP 18; TEMP 37.5; O2SAT 96
[2021-07-12] MEDS: POTASSIUM CHLORIDE/D5-0.45NACL 1,000 ML 100 MEQ IV (15:15)
--- NOTE | 2021-07-12 17:09 | W.ANESPRE ---
General Info Date of Service Date Performed: 07/13/21 Height: 5 ft 8 in Weight: 95.254 kg Body Mass Index (BMI): 31.9 Surgical Procedure: Operation Date: 07/12/21 14:25 Proposed Procedures Side Surgeon p Flexible Sigmoidoscopy Mercy Shen, DO Meds Allergies and Home Medications Allergies Allergy/AdvReac Type Severity Reaction Status Date / Time No Known Allergies Allergy Unverified 07/07/21 19:38 Home Medication Medication Instructions Recorded acetaminophen 500 mg PO DIRECTED PRN 11/23/13 aspirin [Aspirin Low-Strength] 81 mg PO DAILY 11/23/13 docusate sodium [Doc-Q-Lace] 100 mg PO TID 11/23/13 atorvastatin [Lipitor] 40 mg PO QPM 06/14/14 Prodigy No Coding 12/23/15 multivitamin [Daily Multi-Vitamin] 1 tab PO DAILY 03/23/16 alendronate 70 mg PO WEEKLY 05/13/17 alfuzosin 10 mg tablet,extended 10 mg PO DAILY 12/10/18 release 24 hr ferrous gluconate 240 mg (27 mg 240 mg PO DAILY tab 12/23/18 iron) tablet glipizide 10 mg tablet, extended 10 mg PO DAILY 12/23/18 release 24 hr loratadine 10 mg tablet 10 mg PO DAILY 12/23/18 omeprazole 40 mg capsule,delayed 40 mg PO DAILY 12/23/18 release prednisone 5 mg tablet 5 mg PO DAILY 12/23/18 cholecalciferol (vitamin D3) 25 4,000 unit PO DAILY tab 12/21/19 mcg (1,000 unit) tablet metformin 500 mg tablet 850 mg PO BID tab 06/20/20 baclofen 20 mg tablet 20 mg PO DIRECTED #360 tab 06/04/21 clonazepam 1 mg tablet 1 mg PO QHS #30 tab 06/04/21 folic acid 1 mg tablet 1 mg PO DAILY 06/04/21 lisinopril 2.5 mg tablet 2.5 mg PO DAILY 06/04/21 methotrexate (PF) 25 mg/0.4 mL 25 mg SUBCUT QWEEK 06/04/21 subcutaneous auto-injector tramadol 100 mg tablet 100 mg PO HS 06/04/21 gabapentin 300 mg capsule See Rx Instructions PO TID #450 cap 06/06/21 methotrexate sodium 20 mg PO DIRECTED 07/07/21 Current Visit Medications: Current Medications Generic Name Dose Route Start Last Admin Trade Name Yamile PRN Reason Stop Dose Admin Acetaminophen 0 mg 07/07/21 18:54 Acetaminophen 325 Mg Tab PO Q4H PRN PRN Aspirin 81 mg 07/08/21 08:30 07/12/21 07:59 Aspirin 81 Mg Chew PO 81 mg DAILY DENEEN Administration Baclofen 20 mg 07/08/21 16:00 07/12/21 15:27 Baclofen 10 Mg Tab PO Not Given BID@0800,1600 [facility] Baclofen 30 mg 07/09/21 22:00 07/11/21 22:26 Baclofen 10 Mg Tab PO 30 mg HS DENEEN Administration Cholecalciferol 4,000 units 07/08/21 08:30 07/12/21 08:00 Cholecalciferol (Vitamin D3) 1,000 Unit Tab PO 4,000 units DAILY DENEEN Administration Clonazepam 1 mg 07/07/21 22:00 07/11/21 22:26 Clonazepam 1 Mg Tab PO 1 mg HS DENEEN Administration Dextrose 0 gm 07/07/21 19:03 Glucose 40% Oral Solution 15 Gm/37.5 Gm Tube PO DIRECTED PRN Dextrose/Water 0 gm 07/07/21 19:03 Dextrose 50%-Water 25 Gm/50 Ml Syr IVP DIRECTED PRN Dimethicone/Zinc Oxide 0 gm 07/07/21 18:48 Alexis Protect Cream 142 Gm Tube TP PRN PRN Docusate Sodium 100 mg 07/07/21 20:00 07/12/21 13:55 Docusate Sodium 100 Mg Cap PO Not Given TID DENEEN Folic Acid 1 mg 07/08/21 08:30 07/12/21 08:01 Folic Acid 1 Mg Tab PO 1 mg DAILY DENEEN Administration Gabapentin 600 mg 07/07/21 23:00 07/12/21 07:59 Gabapentin 300 Mg Cap PO 600 mg BID DENEEN Administration Gabapentin 300 mg 07/08/21 12:00 07/12/21 12:33 Gabapentin 300 Mg Cap PO Not Given 1200 [facility] Heparin Sodium (Porcine) 5,000 units 07/08/21 14:00 07/12/21 13:54 Heparin 5,000 Units/Ml Vial SC Not Given Q8H [facility] Ceftriaxone Sodium/Dextrose 1 gm in 50 mls @ 100 mls/hr 07/08/21 08:30 07/12/21 08:01 Rocephin IVPB 100 mls/hr DAILY DENEEN Administration Potassium Chloride/Sodium Chloride 1,000 mls @ 100 mls/hr 07/12/21 09:15 07/12/21 15:15 Kcl 20meq/D5-0.45% Nacl IV 100 mls/hr INFUSION DENEEN Administration IV Miscellaneous Supplies 1 each 07/07/21 16:15 Iv Access IV DIRECTED DENEEN Insulin Aspart 0 units 07/08/21 08:00 07/12/21 12:33 Insulin Aspart 300 Units/3 Ml Pen SC Not Given 0800,1200,1700 [facility] Protocol Iohexol 50 ml 07/11/21 15:00 07/11/21 14:05 Omnipaque 350 Mg/Ml 50 Ml Btl PO 08/10/21 23:59 50 ml DIRECTED DENEEN Administration Iohexol 100 ml 07/11/21 16:00 07/11/21 15:46 Omnipaque 350 Mg/Ml 100 Ml Btl IJ 08/10/21 23:59 100 ml DIRECTED DENEEN Administration Loratadine 10 mg 07/08/21 08:30 07/12/21 07:59 Loratidine 10 Mg Tab PO 10 mg DAILY DENEEN Administration Magnesium Hydroxide 30 ml 07/09/21 17:22 Milk Of Magnesia 30 Ml Cup PO DAILY PRN PRN Miscellaneous Medication 946 ml 07/11/21 14:15 07/11/21 14:05 Breeza Beverage 473 Ml Btl PO 08/10/21 23:59 946 ml DIRECTED DENEEN Administration Multivitamins 1 tab 07/08/21 08:30 07/12/21 08:01 Multivitamin Tab PO 1 tab DAILY DENEEN Administration Nicotine 14 mg 07/08/21 08:30 07/12/21 07:56 Nicotine 14 Mg/24 Hr Patch TD 14 mg DAILY DENEEN Administration Omeprazole 40 mg 07/08/21 07:30 07/12/21 08:00 Omeprazole 20 Mg Capcr PO 40 mg DAILY@0730 DENEEN Administration Ondansetron HCl 4 mg 07/11/21 00:25 07/11/21 20:06 Ondansetron 4 Mg/2 Ml Vial IVP 4 mg Q4H PRN PRN Administration Polyethylene Glycol 17 gm 07/09/21 20:00 07/12/21 08:05 Polyethylene Glycol 3350 17 Gm Packet PO 17 gm BID DENEEN Administration Prednisone 5 mg 07/08/21 08:30 07/12/21 07:59 Prednisone 5 Mg Tab PO 5 mg DAILY DENEEN Administration Sodium Chloride 0 ml 07/07/21 16:11 07/12/21 15:14 Normal Saline Flush 10 Ml Syr IVP 10 ml PRN PRN Administration Sodium Chloride 50 ml 07/11/21 15:45 07/11/21 15:45 Normal Saline - Diluent 50 Ml Vial IV 50 ml .FOR DI USE DENEEN Administration Tamsulosin HCl 0.4 mg 07/08/21 08:30 07/12/21 08:01 Tamsulosin 0.4 Mg Capcr PO 0.4 mg DAILY DENEEN Administration PFSH Active Problems Active Problems: Problem Status Onset Code Abnormal computed tomography angiography (CTA) of abdomen R93.5 Ileus K56.7 Abdominal pain R10.9 Incontinence R32 Discharge planning issues Z02.9 DVT prophylaxis Z29.9 Hyperkalemia E87.5 Altered mental status R41.82 Rhabdomyolysis M62.82 Urinary tract infection N39.0 Microcytic anemia D50.9 Lytic lesion of bone on x-ray M89.9 Pelvic lymphadenopathy R59.0 Mediastinal adenopathy R59.[address] of liver R93.2 Rotator cuff tear, right M75.101 Tendonitis of long head of biceps brachii of right shoulder M75.21 Right shoulder pain M25.511 Cervical radiculopathy M54.12 Vision loss H54.7 Spasticity R25.2 Right leg weakness R29.898 Sarcoidosis D86.9 Neck pain M54.2 Multiple sclerosis G35 Optic neuritis H46.9 GERD (gastroesophageal reflux disease) K21.9 Diabetes type 2, controlled E11.9 BPH (benign prostatic hyperplasia) N40.0 Urinary incontinence R32 Tobacco abuse Z72.0 Hyperlipidemia E78.5 Cervical spinal stenosis M48.02 Chronic pain G89.29 Vitamin D deficiency E55.9 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 chronic opiate rx Clostridium difficile colitis Congenital ptosis of left eyelid Diabetes type 2, controlled Diabetic retinopathy Family hx of colon cancer GERD (gastroesophageal reflux disease) Hip pain, right Hyperlipidemia Lytic bone lesions on xray Lytic lesion of bone on x-ray Mediastinal adenopathy Microcytic anemia Multiple sclerosis A. Diagnosed in 2006 b. nonambulatory, primarly bed to wheelchair Neck pain A. 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 Chronic opiate Rx Optic nerve atrophy Optic neuritis a. legally blind Osteopenia Pelvic lymphadenopathy Peripheral neuropathy Pituitary adenoma Renal insufficiency Sarcoidosis Spasticity Spinal stenosis Tobacco abuse a. Uses chewing tobacco Ulcer of calf Urinary incontinence Vitamin D deficiency Surgical History Surgical History H/O surgical procedure a. appendectomy b. left levator surgery 2012 History of appendectomy History of lung biopsy Tobacco Smoking/Tobacco Use Status: Current every day Smokeless tobacco user: chewing tobacco Alcohol Alcohol Intake: never Substance Use Substance use: Never Substance use type: does not use Vital Signs and Lab Results Vital Signs Most Recent Vital Signs in EMR: Most Recent Vital Signs Temp Pulse Resp BP Pulse Ox 37.5 C 100 H 18 111/68 96 07/12/21 15:01 07/12/21 15:01 07/12/21 15:01 07/12/21 15:01 07/12/21 15:01 Point of Care Results Point of Care Results: Finger Stick Blood Glucose 142 07/12/21 16:38 Lab Results Result Diagrams: 07/12/21 06:55 07/12/21 06:55 Blood Type / Crossmatch: No Data to Display Complete Blood Count: White Blood Count 5.48 10^3/uL (4.4-10.8) 07/12/21 06:55 07/12/21 Red Blood Count 4.01 10^6/uL (4.36-5.78) L 07/12/21 06:55 07/12/21 Hemoglobin 11.2 g/dL (13.5-17.5) L 07/12/21 06:55 07/12/21 Hematocrit 34.5 % (40.0-50.0) L 07/12/21 06:55 07/12/21 Platelet Count 10^3/uL (130-400) 07/12/21 06:55 07/12/21 Complete Metabolic Panel: Sodium Level 149 mmol/L (136-145) H 07/12/21 06:55 07/12/21 Potassium Level 3.1 mmol/L (3.5-5.1) L 07/12/21 06:55 07/12/21 Chloride Level 112 mmol/L (98-107) H 07/12/21 06:55 07/12/21 Carbon Dioxide Level 26.8 mmol/L (21.0-32.0) 07/12/21 06:55 07/12/21 Blood Urea Nitrogen 3 mg/dL (7-18) L 07/12/21 06:55 07/12/21 Creatinine 1.0 mg/dL (0.70-1.30) 07/12/21 06:55 07/12/21 Estimated GFR/1.73 m2 >= 60.00 (mL/min/1.73m2) 07/12/21 06:55 07/12/21 Magnesium Level 1.9 mg/dL (1.8-2.4) 07/10/21 06:30 07/10/21 Calcium Level 8.2 mg/dL (8.5-10.1) L 07/12/21 06:55 07/12/21 Albumin 4.5 g/dL (3.4-5.0) 07/07/21 16:33 07/07/21 Glucose Level 90 mg/dL (74-106) 07/12/21 06:55 07/12/21 C-Reactive Protein 7.71 mg/dL (0.0-0.3) H 07/11/21 06:40 07/11/21 Liver Function Panel: Alanine Aminotransferase (ALT/SGPT) 32 U/L (16-63) 07/07/21 16:33 07/07/21 Aspartate Amino Transf (AST/SGOT) 74 U/L (15-37) H 07/07/21 16:33 07/07/21 Coagulation Panel: No Data to Display Cardiac Panel: Troponin I < 0.05 ng/mL (<0.06) 07/07/21 16:33 07/07/21 Creatine Kinase 2236 U/L (39-308) H 07/12/21 06:55 07/12/21 Arterial Blood Gas: No Data to Display Venous Blood Gas: Venous Blood pH 7.29 (7.31-7.41) L 07/07/21 16:33 07/07/21 Venous Blood Partial Pressure O2 26 mmHg 07/07/21 16:33 07/07/21 Venous Blood Partial Pressure CO2 47 mmHg (41-51) 07/07/21 16:33 07/07/21 Venous Blood Oxygen Saturation 42 % 07/07/21 16:33 07/07/21 Venous Blood HCO3 23 mmol/L (23-28) 07/07/21 16:33 07/07/21 Venous Blood Base Excess -4 mmol/L (-2-3) L 07/07/21 16:33 07/07/21 Venous Blood Total Carbon Dioxide 21 mmol/L (24-29) L 07/07/21 16:33 07/07/21 Pancreas Panel: Lipase 144 U/L (73-393) 07/07/21 16:33 07/07/21 Thyroid Panel: Thyroid Stimulating Hormone (TSH) 1.63 uIU/mL (0.36-3.74) 07/07/21 16:33 07/07/21 Infectious Disease: Coronavirus (COVID-19)(PCR) Negative (Negative) 07/09/21 14:30 07/09/21 Coronavirus 2019 Source Nasal/Nares 07/09/21 14:30 07/09/21 Blood Cultures: No Data to Display Toxicology Panel: Ethyl Alcohol Level < 3.0 mg/dL (<10) 07/07/21 16:33 07/07/21 Urine Amphetamines Screen Negative (Negative) 07/07/21 17:20 07/07/21 Urine Benzodiazepines Screen Negative (Negative) 07/07/21 17:20 07/07/21 Urine Barbiturates Screen Negative (Negative) 07/07/21 17:20 07/07/21 Urine Cocaine Screen Negative (Negative) 07/07/21 17:20 07/07/21 Urine Methadone Screen Negative (Negative) 07/07/21 17:20 07/07/21 Urine Opiates Screen Negative (Negative) 07/07/21 17:20 07/07/21 Ur Tricyclic Antidepressants Screen Negative (Negative) 07/07/21 17:20 07/07/21 Ur Tetrahydrocannabinol (THC) Scrn Negative (Negative) 07/07/21 17:20 07/07/21 Imaging and Studies Imaging and Studies EKG Summary: 07/07/21: sinus rhythm. MRI Summary: 2019 c spine: stable degenerative disc changes and neural foraminal narrowing at multiple levels. Anesthesia Assessment and Plan Anesthesia History Personal History: No History of Anesthesia Complications Family History: No Family History of Anesthesia Complications Exercise Tolerance Exercise Tolerance: Metabolic Equivalents<4 Pertinent Negatives Pertinent Negatives: No Symptoms of GERD, No Major Cardiovascular Symptoms or Complaints, No Major Pulmonary Symptoms or Complaints and No History of CVA/TIA Cardiac & Pulmonary Exam Cardiac Exam: Normal S1/S2 Heart Sounds Pulmonary Exam: Clear Bilateral Breath Sounds Implantable Cardiac Device Does patient have a Pacemaker or an ICD?: No Airway Exam Known Difficult Airway: No Mallampati Class: 4 Mouth Opening: Narrow (< 3cm) Thyromental Distance: Greater than 3 cm Facial Hair: Full [place] Neck Range of Motion: Limited ROM Neck Circumference: Thick Teeth Condition: Edentulous ASA Classification ASA Score: ASA 3 Emergency Case?: No NPO Status NPO Status: NPO Clears >2 hours, Solids >8 hours Anesthesia Plan Resuscitation Status: Full Code Anesthesia Technique: General Anesthesia Airway Planned: Natural Airway Monitors Used: Standard Monitors Preoperative Comments:: 60 yo male for flex sig Currently admitted with rhabdo, AMS, abdominal pain. Sig PMHx: severe c spine DJD/narrowing, MS, GERD, HTN, sarcoidosis, DM, chewing tobacco.
[2021-07-12] MEDS: Insulin Aspart 300 UNITS/3 ML PEN SC (17:30)
[2021-07-12 19:18] VITALS: BP 99/63; PULSE 102; RESP 20; TEMP 36.3; O2SAT 95
[2021-07-12 19:24] VITALS: BP 99/52
[2021-07-12] MEDS: POTASSIUM CHLORIDE/D5-0.45NACL 1,000 ML 125 MEQ IV (22:58)
[2021-07-12 23:47] VITALS: BP 111/77; PULSE 90; RESP 16; TEMP 36.5; O2SAT 96
[2021-07-13] VITALS (7 sets, daily range): BP systolic 105–130; BP diastolic 67–77; PULSE 79–94; RESP 17–20; TEMP 36.2–37.4; O2SAT 7–99; BMI 31.9
--- NOTE | 2021-07-13 | DI.RAD_ITS ---
Exam(s) XR ABDOMEN FLAT PLATE EXAM: XR ABDOMEN FLAT PLATE CLINICAL HISTORY: ileus TECHNIQUE: COMPARISON: CR,XR XR ABDOMEN FLAT UPRIGHT from 07/11/[address] ABDOMEN PELVIS W from 07/11/2021 FINDINGS: Two views were obtained. There is contrast material in the colon following contrast enhanced CT exam ination of July 11. There is moderate colonic distention. Little or no small bowel distension noted. No gross free intraperitoneal air on this supine film. IMPRESSION: Findings as described are consistent with an ileus. Contrast material remains in the colon [address] oral contrast administration. RADIATION DOSE DELIVERED: Total DLP
[2021-07-13] MEDS: POTASSIUM CHLORIDE/D5-0.45NACL 1,000 ML 125 MEQ IV ×2 (06:13→16:23)
[2021-07-13] MEDS: Insulin Aspart 300 UNITS/3 ML PEN SC ×2 (06:20→17:11)
--- NOTE | 2021-07-13 08:31 | CMPROGNOTE_ITS ---
- If Service Date Differs Date of service: 07/13/21 Time of Service: 08:31 Care Management Progress Note S/O: Bryan was laying in bed when CM met with him. He was awake, alert and reported that he feels like a million bucks. CM discussed discharge options with Bryan: home with resumption of services vs. SNF for short term rehab. Bryan wants to go home, and is not open to SNF placement. CM notified Yazmin at [facility] that Bryan is anticipating being discharged home with resumption of [facility] services tomorrow. Yazmin from [facility] reports that she can have [employer]'s at his apartment for 3PM, tomorrow. CM will solidify the plan with [facility] tomorrow morning. A: Bryan is a 60 year old man admitted with a UTI and rhabdomyolysis on 07/07/21 P:Bryan will return home when ready per MD via [facility] W/[facility]. He will resume current support services and follow up with his PCP. [facility] [employer] will support Bryan's transition home (they can be at his home on 07/14/21 at 3pm) Please confirm with [facility] in the morning. CM will continue to support discharge planning considerations.
--- NOTE | 2021-07-13 08:31 | PDOC.CMPRO ---
- If Service Date Differs Date of service: 07/13/21 Time of Service: 08:31 Care Management Progress Note S/O: Bryan was laying in bed when CM met with him. He was awake, alert and reported that he feels like a million bucks. CM discussed discharge options with Bryan: home with resumption of services vs. SNF for short term rehab. Bryan wants to go home, and is not open to SNF placement. CM notified Yazmin at [facility] that Bryan is anticipating being discharged home with resumption of [facility] services tomorrow. Yazmin from [facility] reports that she can have [employer]'s at his apartment for 3PM, tomorrow. CM will solidify the plan with [facility] tomorrow morning. A: Bryan is a 60 year old man admitted with a UTI and rhabdomyolysis on 07/07/21 P:Bryan will return home when ready per MD via [facility]. He will resume current support services and follow up with his PCP. [facility] [employer]'s will support Bryan's transition home (they can be at his home on 07/14/21 at 3pm) Please confirm with [facility] in the morning. CM will continue to support discharge planning considerations.
--- NOTE | 2021-07-13 08:36 | ROE_ITS ---
Date of service: 07/13/21 Time of Service: 08:36 Operative Note Operative Note DATE OF PROCEDURE: 07/13/21 POST-OP DIAGNOSIS: other olgivies from meds vs MS no mass or obstruction. no fecal impaction PROCEDURE: After informed consent was obtained the patient was taken to the procedure room and placed in a left decubitous position. Monitors were applied and a time out was done. The patients name, date of , procedure, allergies to medications and metal in their body was reviewed. The patient was then sedated. Once sedated and comfortable a rectal exam was done. External exam sh ows inflammed ext henorrhoid. Internal exam revealed a normal sphincter tone and no palpable masses. This was an un-prepped procedure. There is some stool in the rectal vault and this was irrigated out. Once we get to the rectosigmoid junction, the colon is massively dilated. There is no masses. There are no polyps visualized. There is no diaper nuclear. Presurgery. Bili and ALT of these either from his MS or from his medications.: The was decompressed. And the procedure ended. The scope was then introduced and retrofelexed. No internal hemorrhoids were identified. The scope was then advanced to the splenic flexure. The scope was removed and the patient was woken up and taken back to Same day surgery in stable condition. The patient tolerated the procedure well and there were no immediate complications. SURGEON: Mercy Shen Refer to Anesthesia Record
--- NOTE | 2021-07-13 08:50 | W.ANESPOSTOP ---
Postoperative Evaluation Vital Signs Most Recent Imported Vital Signs: Most Recent Vital Signs Temp Pulse Resp BP Pulse Ox 36.5 C 91 H 18 112/72 7 L 07/13/21 07:33 07/13/21 07:33 07/13/21 07:33 07/13/21 07:33 07/13/21 07:33 Pain Score Most Recent Pain Score: Most Recent Pain Score Pain Level 0 07/13/21 07:33
[2021-07-13] MEDS: Normal Saline Flush 10 ML SYR IVP ×2 (09:16→10:29)
[2021-07-13] MEDS: cefTRIAXone 1 GM/50 ML BAG IVPB (09:16)
--- NOTE | 2021-07-13 10:13 | W.ANESPOSTOP ---
Postoperative Evaluation Date, Time and Location Date Performed: 07/13/21 Time Performed: 10:14 Patient Location: Med/Surg Vital Signs Most Recent Imported Vital Signs: Most Recent Vital Signs Temp Pulse Resp BP Pulse Ox 37.1 C 80 18 108/70 99 07/13/21 10:09 07/13/21 10:09 07/13/21 10:09 07/13/21 10:09 07/13/21 10:09 Pain Score Most Recent Pain Score: Most Recent Pain Score Pain Level 0 07/13/21 10:09 Assessment Mental Status: Awake (Alert & Oriented to Patient Baseline) Airway and Respiratory Function: Patent airway with normal (patient baseline) respiratory exam Cardiovascular Function: Hemodynamically Stable Hydration Status: Adequately Hydrated Nausea & Vomiting: No Nausea or Vomiting Pain: Pt. Denies Any Pain Peripheral Nerve Block: Patient did not receive a nerve block
[2021-07-13] MEDS: Ondansetron 4 MG/2 ML VIAL IVP (10:29)
--- NOTE | 2021-07-13 11:00 | W.NUTRFU ---
Date of service: 07/13/21 Time of Service: 11:00 Nutrition Note NOTE: Assessment: Mr. De's diet has been advanced to full liquids. His PO intake prior to NPO was fair. Weight has been entirely stable over the past few years. BMI is 31.9 kg/m2 c/w class 1 obesity. Blood glucose has been at target. No recent A1C but historically A1C has been at target. Nutrition diagnosis: No new nutrition diagnosis at this time. Intervention: Would advance diet when he is ready to carbohydrate counting consistency soft and bite sized/moist meats etc. He does not have teeth. Monitoring and Evaluation: Will continue to monitor PO and weight and nutritional status. Will evaluate nutrition care plan ongoing and adjust as needed. Time Spent in Nutritional Counseling and Treatment: 0
--- NOTE | 2021-07-13 11:44 | OT.INNT ---
Date of service: 07/13/21 Time of Service: 09:00 Occupational Therapy Notes 07/13/21 OT attempted to see pt who states that he is not doing well. He notes that he is very uncomfortable and his abdomen appears to be swollen today. OT does let RN know who does come to assess pt and indicates that he is more sore today. His NG tube is not attached and pt states he just wants to feel better. OT will hold for today and attempt to resume services on Friday. OT was in pts room for 15 minutes at no charge to pt. Aura Cohen, OTEllie/L
[2021-07-13] MEDS: Gabapentin 300 MG CAP PO (12:18)
--- NOTE | 2021-07-13 16:21 | PT.INTREAT ---
Date of service: 07/13/21 Time of Service: 13:16 PT Notes Visit Reasons: UTI, Rhabdomyolysis Inpatient Physical Therapy Treatment Note [facility] Date: 07/13/2021 PRECAUTIONS: Wheelchair bound, legally blind SUBJECTIVE: Bryan is pleasant and agreeable to participating in PT in the afternoon. He states that he does not stand at home, that he uses his upper body to transfer from wheelchair<>bed. He reports that he has help for several hours several times each day, and feels that is sufficient. He states that he will not go to a SNF. OBJECTIVE: Patient refused morning PT session. PAIN: No c/o pain THEREX: Patient was instructed in an UE and core strengthening program, as per flow sheet. He utilizes 1# and 3# dumbbells as well as Theraband for exercise completion. ASSESSMENT: Patient would benefit from continued UE strengthening for improved ability to perform transfers from wheelchair<>bed independently in home setting. PLAN: Continue with strengthening as tolerated. TREATMENT CODE/TIME: 31 minutes; 39623 (10:28)
[2021-07-13] MEDS: Baclofen 10 MG TAB 20 MG PO (16:23)
--- NOTE | 2021-07-13 16:41 | PGE_ITS ---
Date of Service Date of service: 07/13/21 Time of Service: 10:30 Assessment and Plan Assessment and plan (1) Ileus: Start date: 07/13/21 Start time: 16:45 Status: Acute Assessment and plan: NGT dcd No BM will trial lactulose, he has dilated bowel. Flex sig with no significant findings. will give lactulose (2) Rhabdomyolysis: Start date: 07/13/21 Start time: 16:48 Status: Acute Assessment and plan: CPK continues to improve Creatinine 1.0 today continue to monitor CPK and kidney function Qualifiers: Rhabdomyolysis type: non-traumatic Qualified Code(s): M62.82 - Rhabdom yolysis (3) Urinary tract infection: Start date: 07/13/21 Start time: 16:50 Status: Acute Assessment and plan: urine growing ecoli, morrison sensitive day 6/ ceftriaxone retaining urine with 800 ml out when catheter placed per chart Placed on flomax Qualifiers: Urinary tract infection type: acute cystitis Hematuria presence: without hematuria Qualified Code(s): N30.00 - Acute cystitis without hematuria (4) BPH (benign prostatic hyperplasia): Start date: 07/13/21 Start time: 16:52 Status: Chronic Assessment and plan: with urinary retention started on flomax Dr Lopez consulted. Per his note: I would plan on leaving his indwelling catheter until it is no longer needed for I&O and the patient returns to his baseline functioning. At that time, I would remove the indwelling catheter and go back to an external catheter. We can then monitor his postvoid residual urines and decide if more invasive testing such as urodynamics would be helpful. If the patient is incontinent but has low residual urines, we would likely continue with symptomatic management with external catheters. If the patient demonstrates high residual urines, we would likely want to see a renal ultrasound to ensure he has no hydronephrosis from a high pressure bladder. The last renal imaging that I can find in our EMR is from 2016. He had a CT scan for a GI bleed. No hydronephrosis was seen at that time. (5) Sarcoidosis: Start date: 07/13/21 Start time: 16:54 Status: Chronic Assessment and plan: Unclear of what manifestations he has had. CXR in 2019 was read as normal. (6) Multiple sclerosis: Start date: 07/13/21 Start time: 16:54 Status: Chronic Assessment and plan: Sees Dr Etienne routinely; last visit on 06/04/21. Will consult. (7) Diabetes type 2, controlled: Start date: 07/13/21 Start time: 16:55 Status: Chronic Assessment and plan: On glipizide and metformin. Both currently held. AC/HS fingerstick glucose monitoring with sensitive SS insulin correction dosing. Controlled carb diet. Qualifiers: Diabetes mellitus assisted insulin use: unspecified exterminator insulin use status Diabetes mellitus complication status: without complication Qualified Code(s): E11.9 - Type 2 diabetes mellitus without complications (8) Tobacco abuse: Start date: 07/13/21 Start time: 16:55 Status: Chronic Assessment and plan: Chewing tobacco. Nicoderm patch. (9) Anemia: Start date: 07/13/21 Start time: 16:55 Status: Chronic Assessment and plan: Stable. Qualifiers: Anemia type: unspecified type Qualified Code(s): D64.9 - Anemia, unspecified (10) DVT prophylaxis: Start date: 07/13/21 Start time: 16:55 Status: Acute Assessment and plan: Heparin subcut (11) Discharge planning issues: Start date: 07/13/21 Start time: 16:55 Status: Acute Assessment and plan: Home when medically ready discussed with Dr. Alcantar Subjective Subjective Patient reports: no new complaints Interval history since last seen: Finishing up day 6/7 of ceftriaxone. NGT dcd. Patient tolerating diet. NO BM. Will give lactulose. Once he has a BM he will be ready for discharge. Exam Const General: cooperative and no acute distress Nutritional Appearance: overweight Orientation: awake, oriented to person and oriented to place [facility] Head: atraumatic and no abrasions Eyes General: appearance normal, both eyes and all related structures Sclera: sclerae normal Resp Effort & Inspection: normal respiratory effort Auscultation: clear to auscultation bilaterally Cardio Rate: regular rate Rhythm: regular rhythm Heart Sounds: S1 normal and S2 normal GI Inspection: other (Protuberant abd) Palpation: soft and nontender Auscultation: hyperactive bowel sounds General: other (ng draining clear yellow urine) Skin General skin exam: no rashes or lesions noted Neuro General: patient awake Cranial Nerves: pupils not ERRL (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 Small reactivity noted in left eye. ) Motor: other (5/5 BUE strength. 2/5 BLE proximal strength. ) Extrem General: no calf tenderness and edema (Nonpitting) Objective Last Vital Signs Temp 37.4 C 07/13/21 15:29 Pulse 94 H 07/13/21 15:29 Resp 17 07/13/21 15:29 BP 105/67 07/13/21 15:29 Pulse Ox 97 07/13/21 15:29
--- NOTE | 2021-07-13 18:00 | INDS_ITS ---
Date of service: 07/13/21 PT Notes Visit Reasons: UTI, Rhabdomyolysis Physical Therapy Inpatient Discharge Summary Date: July 13, 2021 Dates of Service: 07/13/2021 through 07/13/2021 This is a clinical summary of care provided for the duration of dates listed above. No charge was made in the completion of this documentation. Referring Doctor: Taryn Wright MD PT Orders: PT CONSULT: Limited ability Precautions: Fall. Standard. Activity as tolerated. Wheelchair-bound. Legally blind. Patient Profile/Admitting Diagnosis: Leelee is a 60-year-old male with chronic multiple sclerosis, sarcoidosis, and diabetes mellitus mellitus who presented to the ED on July 07, 2021 due to a home health staff finding him slumped in his wheelchair. Patient is diagnosed with altered mental status, rhabdomyolysis, urinary tract infection, and generalized weakness. PMHX: Medical History Abnormal CT of liver Anemia Bilateral cataracts Bilateral leg edema BPH (benign prostatic hyperplasia) Cervical radiculopathy Cervicalgia Chewing tobacco nicotine dependence Chronic pain a. chronic opiate rx Clostridium difficile colitis Congenital ptosis of left eyelid Diabetes type 2, controlled Diabetic retinopathy Family hx of colon cancer GERD (gastroesophageal reflux disease) Hip pain, right Hyperlipidemia Lytic bone lesions on xray Lytic lesion of bone on x-ray Mediastinal adenopathy Microcytic anemia Multiple sclerosis A. Diagnosed in 2006 b. nonambulatory, primarily bed to wheelchair Neck pain A. 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 Chronic opiate Rx Optic nerve atrophy Optic neuritis a. legally blind Osteopenia Pelvic lymphadenopathy Peripheral neuropathy Pituitary adenoma Renal insufficiency Sarcoidosis Spasticity Spinal stenosis Tobacco abuse a. Uses chewing tobacco Ulcer of calf Urinary incontinence Vitamin D deficiency Surgical History H/O surgical procedure a. appendectomy b. left levator surgery 2012 History of appendectomy History of lung biopsy Social History/Home Situation: Lives alone in a handicap accessible apartment complex in [place] with community support being managed by community caregivers homecare [facility]. At baseline, patient states he is able to perform stand pivot transfers to and from his motorized wheelchair at home. He receives home health assistance with meal preparation for his breakfast and dinners. receives help with house chores, groceries, and medical transport. Equipment Owned/DME: Hospital bed, regular wheelchair, motorized wheelchair, front-wheeled walker Subjective: NT. See most recent DIRECTOR OF CLINICAL EDUCATION notes. Objective: General Observation: NT. See most recent DIRECTOR OF CLINICAL EDUCATION notes. Mental Status: NT. See most recent DIRECTOR OF CLINICAL EDUCATION notes. Pain: NT. See most recent DIRECTOR OF CLINICAL EDUCATION notes. ROM: Right Upper Extremity: Shoulder Flexion allows only 50% of available range of motion. Shoulder abduction allows only 50% of available range of motion.. Elbow flexion WFL. Wrist flexion WFL. Functional opening and closing of hand WFL. Left Upper Extremity: Shoulder Flexion allows only 50% of available range of motion. Shoulder abduction allows only 50% of available range of motion.. Elbow flexion WFL. Wrist flexion WFL. Functional opening and closing of hand WFL. Right Lower Extremity: Hip flexion-unable to slide heel up in supine. Hip abduction-only able to move R LE less than 10 degrees in supine to edge of bed. Knee flexion unable to slide heel up in supine. Ankle dorsiflexion no actual movement seen, muscle contraction only. Ankle plantarflexion muscle contraction only. Left Lower Extremity: Hip flexion-able to slide heel up resulting to less than 20 degrees of knee flexion and about 10 degrees of hip flexion in supine. Hip abduction-only able to move R LE less than about 10 degrees in supine to edge of bed. Knee flexion-able to slide heel up about 20 degrees of knee flexion in supine. Ankle dorsiflexion less than 10 degrees. Ankle plantarflexion about 15 degrees . Strength: Right Upper Extremity: Shoulder flexors 3-/5. Shoulder abductors 3-/5. Elbow flexors 4-/5. Elbow extensors 4-/5. Edge Bander Hand weak but functional. Left Upper Extremity: Shoulder flexors 3-/5. Shoulder abductors 3-/5. Elbow flexors 4-/5. Elbow extensors 4-/5. Edge Bander Hand weak but functional. Right Lower Extremity: Hip flexors 2-/5. Hip abductors 2-/5. Knee flexors 2-/5. Knee extensors 2-/5. Ankle dorsiflexors 1/5. Ankle plantarflexors 1/5. Left Lower Extremity: Hip flexors 2-/5. Hip abductors 2-/5. Knee flexors 2-/5. Knee extensors 2-/5. Ankle dorsiflexors 2-/5. Ankle plantarflexors 2-/5. Bed Mobility/Transfers: Supine to sit moderate assist with HOB at 45 degrees Sit to supine moderate assist with HOB at 45 degrees Sit to stand unable to test due to safety concerns Stand to sit unable to test due to safety concerns Bed to bedside commode unable to test due to safety concerns Bedside commode to bed unable to test due to safety concerns Bed to reclining chair unable to test due to safety concerns Reclining chair to bed unable to test due to safety concerns Gait: N/A. Patient non-ambulatory. Balance: Static Sitting: Poor Dynamic Sitting: Poor Static Standing: Unable to test Dynamic Standing: Unable to test gait Assessment: Bryan demonstrates functional mobility decline in transfers requiring the use of mechanical lift at this time to ensure patient and staff safety. We will plan on assessing transfers using steady lift in the next session with an additional caregiver for support. Skilled services are required to address issues with trunk stability, B UE/LE/core strength, mobility dependence. Patient presents with clinical signs and symptoms consistent with current/admitting diagnoses that have resulted to mobility limitations, gait instability, generalized weakness, and overall ADL decline as demonstrated by the following impairment level findings: 1. Decreased strength to BUE/LE/trunk major muscle groups 2. Impaired sitting/ balance and tolerance 3. Impaired activity tolerance 4. Limitation of joint range of motion in BUE/LE 5. BLE swelling Impairments are contributing to the following functional limitations: 1. Decline in bed mobility skills 2. Decline in transfer skills 3. Increased completion time for mobility ADL performance 5. Increased risk for falls 6. Increased risk for skin breakdown Goals: Goals X1 week 1. Supine-Sit minimal assist NOT MET 2. Sit-Supine minimal assist NOT MET 3. Sit-Stand minimal assist with stand pivot and use of FWW NOT MET 4. Stand-Sit minimal assist with stand pivot and use of FWW NOT MET 5. Bed-Chair minimal assist with stand pivot and use of FWW NOT MET 6. Chair-Bed minimal assist with stand pivot and use of FWW NOT MET 7. Sitting balance and tolerance fair NOT MET 8. Standing balance and tolerance fair NOT MET Plan of Care/Treatment Plan: 1-2x/day, 7 days/week x 1 week. Plan of care has been reviewed with the DIRECTOR OF CLINICAL EDUCATION providing the service under Physical Therapy direction. Initiate Physical Therapy intervention for pain management as needed, strengthening, bed mobility, transfers, gait, stairs, balance training, and use of assistive device. DISCHARGE RECOMMENDATIONS: [] Home with no services [] [] Home with services [specify] [] Home with outpatient PT [] [X] SNF for continued rehabilitation to address impairments in trunk stability, B UE/LE strength, and improve mobility level prior to discharge to home. [] [facility] [] [] SNF versus LTC based on ability to participate and progress [] TREATMENT CODE/TIME: AL Thank you for the opportunity to participate in the care of this patient. Rosa Luevano PT, DPT, CLT [facility] [place], [place]
[2021-07-13] MEDS: Polyethylene Glycol 3350 17 GM PACKET PO (20:11)
[2021-07-13] MEDS: Docusate Sodium 100 MG CAP PO (20:11)
[2021-07-13] MEDS: Gabapentin 300 MG CAP 600 MG PO (20:11)
[2021-07-13] MEDS: Lactulose 20 GM/30 ML CUP PO (20:11)
[2021-07-14] MEDS: clonazePAM 1 MG TAB PO (00:07)
[2021-07-14] MEDS: Baclofen 10 MG TAB 30 MG PO (00:07)
[2021-07-14] MEDS: Insulin Aspart 300 UNITS/3 ML PEN SC ×2 (00:07→11:57)
[2021-07-14] MEDS: POTASSIUM CHLORIDE/D5-0.45NACL 1,000 ML 125 MEQ IV ×2 (00:08→09:45)
[2021-07-14 07:33] VITALS: BP 123/81; PULSE 80; RESP 19; TEMP 36.2; O2SAT 98
[2021-07-14 07:58] LABS: Anion Gap 8.9 mmol/L (3-11); BUN 1 mg/dL (7-18); CO2 23.1 mmol/L (21.0-32.0); Calcium 7.9 mg/dL (8.5-10.1); Chloride 113 mmol/L (98-107); Glucose 135 mg/dL (74-106); Potassium 3.1 mmol/L (3.5-5.1); Sodium 145 mmol/L (136-145)
[2021-07-14 08:32] LABS: Absolute Eosinophil Count 0.15 10^3/uL (0.0-0.7); Absolute Lymphocyte Count 1.29 10^3/uL (1.2-3.4); Absolute Neutrophil Count 2.93 10^3/uL (1.2-6.7); Atypical Lymphocytes % 3; HCT 30.3 % (40.0-50.0); HGB 9.7 g/dL (13.5-17.5); MCH 27.8 pg (27.0-33.0); MCV 86.8 fL (80-95); MPV 11.2 fL (8.0-11.0); Platelet Count 211 10^3/uL (130-400); RBC 3.49 10^6/uL (4.36-5.78); RDW 15.9 % (11.8-14.1); RDW-SD 49.7 fL; WBC 4.97 10^3/uL (4.4-10.8)
[2021-07-14 08:33] LABS: Diff Comment Manual Differential; RBC Morphology Normal
[2021-07-14] MEDS: Cholecalciferol (Vitamin D3) 1,000 UNIT TAB 4000 UNITS PO (09:36)
[2021-07-14] MEDS: cefTRIAXone 1 GM/50 ML BAG IVPB (09:36)
[2021-07-14] MEDS: Nicotine 14 MG/24 HR PATCH TD (09:36)
[2021-07-14] MEDS: Aspirin 81 MG CHEW PO (09:37)
[2021-07-14] MEDS: Baclofen 10 MG TAB 20 MG PO (09:37)
[2021-07-14] MEDS: Tamsulosin 0.4 MG CAPCR PO (09:37)
[2021-07-14] MEDS: Folic Acid 1 MG TAB PO (09:37)
[2021-07-14] MEDS: Loratidine 10 MG TAB PO (09:37)
[2021-07-14] MEDS: Multivitamin TAB 1 TAB PO (09:37)
[2021-07-14] MEDS: predniSONE 5 MG TAB PO (09:38)
[2021-07-14] MEDS: Omeprazole 20 MG CAPCR 40 MG PO (09:39)
[2021-07-14] MEDS: Potassium Chloride 20 MEQ TABCR 40 MEQ PO (09:39)
[2021-07-14] MEDS: Gabapentin 300 MG CAP 600 MG PO (09:39)
[2021-07-14 11:23] LABS: Nucleated RBC 0 %
--- NOTE | 2021-07-14 11:25 | PT.INTREAT ---
PT Notes Visit Reasons: UTI, Rhabdomyolysis Inpatient Physical Therapy Treatment Note [facility] Date: 07/14/21 PRECAUTIONS: Rolling L/R: Mod x 2 to the L THEREX: Pt completed UE strengthening ther ex as per flow sheet with 3# wt, 1#wt, and red tubing. ASSESSMENT: Pt tolerated today's session fairly well. PLAN: Cont as per PT POC. TREATMENT CODE/TIME: 10:20-10:50(30) TPx2
--- NOTE | 2021-07-14 11:37 | CMDISCH_ITS ---
- If Service Date Differs Date of service: 07/14/21 Time of Service: 11:37 LACE Index Scoring Tool - Questions: Length of Stay (in days): 7 - 13 Acuity (Admit via E.D.?): Yes Comorbidities: Diabetes w/o Complication, Connective Tissue Disease E.D. Visits: 1 - Answers: Total Score: 14 Risk of Readmission: High Risk Care Management Discharge Reason for Hospitalization: UTI, Rhabdomyolysis Discharge Plan: Bryan will return home via [facility] coordinated by [facility]. He will resume current support services and follow up with his PCP. [facility] will support Bryan's transition home (they will be at his home on 07/14/21 at 3pm) Confirmed with [facility] this morning. Patient/Family Education Needs: Review of discharge instructions, discuss Ask Me Three to ensure patient understanding of reason for hospitalization and self care needs upon discharge
[2021-07-14] MEDS: Gabapentin 300 MG CAP PO (11:57)
--- NOTE | 2021-07-14 11:57 | PGE_ITS ---
Date of Service Date of service: 07/14/21 Time of Service: 11:57 Assessment and Plan Assessment and plan (1) Ileus: Status: Resolved Assessment and plan: -Appears to have resolved, possible [place] related to polypharmacy -PO diet as tolerated -Encourage increased physical activity -Call for outpatient follow up in 1-2 weeks (2) Abdominal pain: Status: Acute Assessment and plan: -Resolved Qualifiers: Abdominal location: generalized Qualified Code(s): R10.84 - Generalized abdominal pain (3) Rhabdomyolysis: Status: Resolved Qualifiers: Rhabdomyolysis type: non-traumatic Qualified Code(s): M62.82 - Rhabdomyolysis (4) Optic neuritis: Status: Chronic (5) Multiple sclerosis: Status: Chronic (6) Sarcoidosis: Status: Chronic (7) Cervical radiculopathy: Status: Chronic Subjective Subjective Patient reports: no new complaints, feels better and tolerating a regular diet; denies nausea and vomiting Exam Const General: cooperative, comfortable and no acute distress Resp Effort & Inspection: normal respiratory effort, no audible wheezes, no cough and no respiratory distress GI Palpation: soft, not firm, no guarding and nontender Neuro General: patient alert, patient awake and patient oriented x3 Objective Last Vital Signs Temp 97.2 F L 07/14/21 07:33 Pulse 80 07/14/21 07:33 Resp 19 07/14/21 07:33 BP 123/81 07/14/21 07:33 Pulse Ox 98 07/14/21 07:33 Laboratory Results - last 24 hr 07/14/21 07/14/21 06:59 06:59 WBC 4.97 RBC 3.49 L Hgb 9.7 L Hct 30.3 L MCV 86.8 MCH 27.8 MCHC 32.0 RDW 15.9 H Plt Count 211 MPV 11.2 H Immature Gran % 0.0 Neutrophils % 59.0 Lymphocytes % 23.0 Atypical Lymphs % 3 Monocytes % 12.0 Eosinophils % 3.0 Basophils % 0.0 Nucleated RBC % 0 Absolute Neutrophils 2.93 Absolute Lymphocytes 1.29 Absolute Monocytes 0.60 Absolute Eosinophils 0.15 Absolute Basophils 0.00 RBC Morphology Normal Sodium 145 Potassium 3.1 L Chloride 113 H Carbon Dioxide 23.1 Anion Gap 8.9 BUN 1 L Creatinine 1.0 Estimated GFR/1.73 m2 >= 60.00 Glucose 135 H Calcium 7.9 L
--- NOTE | 2021-07-14 12:13 | W.PM.DS.N ---
Date of service: 07/14/21 Time of Service: 12:13 DS: Diagnosis Discharge Diagnosis (1) Ileus: Start date: 07/14/21 Start time: 12:14 Status: Resolved Asessment and Plan: Resolved Patient had a CT abd concerning for large bowel obstruction, Surgical consult was placed, NGT was placed. Very little was draining from his NGT. Flex sig was preformed by Dr. Shen. There were no identified issues. He had dialted bowel, neurogenic iliues. He would benefit from a good bowel regimen. Uptodate recommend miralax, and lactulose alonge with senna and Docusate for mild to moderate constipation in neurogenic bowel. For severe amitaza would be beneficial. he did receive lactulose overnight with good results. Will give BM with lactulose prn for BM colace and psyllium scheduled. Hold for diarrhea. Follow up with PCP in 1-2 weeks (2) Rhabdomyolysis: Start date: 07/14/21 Start time: 12:31 Status: Resolved Asessment and Plan: He had a CPK greater than 10,000 on admission from being found slumped over in WC for unknown amount of time. CpK has improved. Doing better Will resume services. (3) Urinary tract infection: Start date: 07/14/21 Start time: 12:31 Status: Resolved Asessment and Plan: Grew e.coli pansensitive. Treated with ceftriaxone. he had urinary retention of greater than 800 ml on admission, ng catheter inserted. Urology consult placed. Initiated on flomax Likely neurogenic bowel. Per urology he was ok to have ng dcd when medically stable and return to intermitten catheterization as needed with voiding. He should continue to see Dr. Lopez as he may need a superpubic in the future. (4) BPH (benign prostatic hyperplasia): Start date: 07/14/21 Start time: 12:34 Status: Chronic Asessment and Plan: On flomax and alfuzosin (5) Sarcoidosis: Start date: 07/14/21 Start time: 12:34 Status: Chronic Asessment and Plan: Unclear of what manifestations he has had. CXR in 2019 was read as normal. (6) Multiple sclerosis: Start date: 07/14/21 Start time: 12:35 Status: Chronic Asessment and Plan: Sees Dr Etienne routinely; last visit on 06/04/21. (7) Diabetes type 2, controlled: Start date: 07/14/21 Start time: 12:35 Status: Chronic Asessment and Plan: On glipizide and metformin will continue on discharge (8) Tobacco abuse: Start date: 07/14/21 Start time: 12:36 Status: Chronic Asessment and Plan: chews tobacco Used patch while in hospital (9) Anemia: Start date: 07/14/21 Start time: 12:36 Status: Chronic Asessment and Plan: Continue Iron supplementation discussed with Dr. wood Discharge Plan Disposition Patient Disposition: HOME W/HOME HEALTH SERVICE Condition: Stable Discharge Details Reason For Visit: UTI, Rhabdomyolysis Admit Date/Time: 07/07/21 18:48 Admit Provider: Abraham Alcantar Attending Provider: Abraham Alcantar Primary Care Provider: Ale Barraza V Hospital Course Hospital Course: 60 yo male with a PMH of Multiple Sclerosis, spasticity, Sarcoidosis, cervical stnenosis with radiculopathy, BPH, tobacco abuse, DM2, Diabtic retinopathy, anemia, GERD. He presented to the ED via EMS after home health caregiver found him at home slumped in his wheel chair. His blood glucose was > 200. In the ED he initially did not respond with words, just noises and he didn't open his eyes. Pupils were pinpoint. He was given narcan and was then awake and oriented and would answer questions appropriately. CTA head was unremarkable for any acute findings. CPK was > 4000. Creatine was 1.4 (in his baseline range). BUN 16. K elevated at 5.5. WBC normal, Hgb 12.2. UA + for mod blood, small leuk est., 10-20 WBCs and many bacteria. Rocephin initiated in the ED. Over course of treatment CPK came back greater than 10,000 the next day, IVF continued, rhabdo corrected and his CPK normalized. He was found to have urinary retention in the ED greater than 800 ml and catheter was placed he was started on flomax with urology consult. He recommended leaving his indwelling catheter until it is no longer needed for I&O and the patient returns to his baseline functioning. At that time, I would remove the indwelling catheter and go back to an external catheter. We can then monitor his postvoid residual urines and decide if more invasive testing such as urodynamics would be helpful. See above in diagnosis, plan. He was able to have ng dcd. There was also concern for Ileus, also see diagnosis for assessment and plan, which resolved. Will make sure Bowel regimen for home. He finished 7 day course ceftriaxone. He is being discharged home with resumption of services. Home Meds and New Rx's Prescriptions: New lactulose 20 gram/30 mL Solution 20 g PO BID Qty: 1500 RF: 0 polyethylene glycol 3350 17 gram Powder In Packet 17 g PO BID Qty: 100 RF: 0 potassium chloride [Klor-Con M20] 20 mEq Tablet,Er Particles/Crystals 40 meq PO DAILY Qty: 20 RF: 0 tamsulosin 0.4 mg Capsule 0.4 mg PO DAILY Qty: 30 RF: 0 ascorbic acid (vitamin C) [Vitamin C] 500 mg tablet 500 mg PO BID Qty: 60 RF: 0 sennosides [Senna Lax] 8.6 mg tablet 8.6 mg PO DAILY Qty: 20 RF: 0 Continued lisinopril 2.5 mg tablet 2.5 mg PO DAILY RF: 0 tramadol 100 mg tablet 100 mg PO HS RF: 0 folic acid 1 mg tablet 1 mg PO DAILY RF: 0 methotrexate (PF) 25 mg/0.4 mL auto-injector 25 mg subcut QWEEK RF: 0 clonazepam 1 mg tablet 1 mg PO QHS Qty: 30 RF: 3 baclofen 20 mg tablet 20 mg PO DIRECTED Qty: 360 RF: 3 alfuzosin 10 mg tablet extended release 24 hr 10 mg PO DAILY RF: 0 alendronate 70 MG tablet 70 mg PO WEEKLY RF: 0 ferrous gluconate [Ferate] 240 mg (27 mg iron) tablet 240 mg PO DAILY RF: 0 glipizide 10 mg tablet extended release 24hr 10 mg PO DAILY RF: 0 loratadine 10 mg tablet 10 mg PO DAILY RF: 0 omeprazole 40 mg capsule,delayed release(DR/EC) 40 mg PO DAILY RF: 0 prednisone 5 mg tablet 5 mg PO DAILY RF: 0 cholecalciferol (vitamin D3) 25 mcg (1,000 unit) tablet 4,000 unit PO DAILY RF: 0 gabapentin 300 mg capsule See Rx Instructions PO TID Qty: 450 RF: 3 acetaminophen 500 MG tablet 500 mg PO DIRECTED PRNRF: 0 docusate sodium [Doc-Q-Lace] 100 MG capsule 100 mg PO TID RF: 0 aspirin [Aspirin Low-Strength] 81 MG tablet,chewable 81 mg PO DAILY RF: 0 atorvastatin [Lipitor] 40 MG tablet 40 mg PO QPM RF: 0 (DME) [employer] No Coding 1 EACH strip 1 ea Sub-Q BID RF: 0 multivitamin [Daily Multi-Vitamin] 1 EACH tablet 1 tab PO DAILY RF: 0 metformin 500 mg tablet 850 mg PO BID RF: 0 methotrexate sodium 2.5 mg tablet 20 mg PO DIRECTED RF: 0 Discharge Instructions Instructions: Urinary Tract Infection in Men (GEN), Rhabdomyolysis (DC), Bowel Obstruction (GEN) Additional Instructions: Take bowel medications as directed, do not take if stool is loose Follow up with PCP in 1 [address] Follow up [address] Lopez as an outpatient, call to make an appt, he will need to follow you for possible further testing. Activity:: Activity as Tolerated Equipment/Supplies:: No Equipment Needed Diet:: Carb Counting Discharge Orders Discharge Orders: Discharge Order (Routine); Ordered 07/14/21 Ordered By: Nancy Davenport DS: Summary Time Spent with Patient providing and/or coordinating discharge services: Greater than 30 minutes Status at Discharge Functional status at discharge: wheelchair bound Overall status at discharge: patient is back to baseline Mental Status: mental status grossly normal Speech and Movement: speech and movement normal Mood: congruent mood Affect: normal affect Exam Const General: cooperative and no acute distress Nutritional Appearance: overweight Orientation: awake, oriented to person and oriented to place [facility] Head: atraumatic and no abrasions Eyes General: appearance normal, both eyes and all related structures Sclera: sclerae normal Resp Effort & Inspection: normal respiratory effort Auscultation: clear to auscultation bilaterally Cardio Rate: regular rate Rhythm: regular rhythm Heart Sounds: S1 normal and S2 normal GI Inspection: other (Protuberant abd) Palpation: soft and nontender Auscultation: hyperactive bowel sounds General: other (ng draining clear yellow urine) Skin General skin exam: no rashes or lesions noted Neuro General: patient awake and normal light touch, pain and propioception Cranial Nerves: pupils not ERRL (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 Small reactivity noted in left eye. ) Motor: other (5/5 BUE strength. 2/5 BLE proximal strength. ) Extrem General: no calf tenderness and edema (Nonpitting) Psych Mental Status: mental status grossly normal Speech and Movement: speech and movement normal Mood: congruent mood Affect: normal affect DS: Data Vitals/I&O Vitals and I&O: Vital Signs Temperature 36.2 C L 07/14/21 07:33 Temperature Source Tympanic 07/14/21 07:33 Pulse 80 07/14/21 07:33 Pulse Rhythm Regular 07/14/21 10:34 Pulse 80 07/07/21 19:45 Respiratory Rate 19 07/14/21 07:33 Respiratory Effort Non-Labored 07/14/21 10:34 Respiratory Depth Normal 07/14/21 10:34 Respiratory Pattern Normal 07/14/21 10:34 Blood Pressure 123/81 07/14/21 07:33 Blood Pressure Mean 78 07/07/21 19:45 Pulse Oximetry 98 07/14/21 07:33 Oxygen Delivery Method Room Air 07/14/21 07:33 Oxygen Flow Rate 0 07/14/21 07:33 Pain Level 0 07/13/21 23:48 Intake & Output 07/13/21 07/14/21 07/14/21 23:59 11:59 23:59 Intake Total 1117.083 / 2246.250 2601.667 / 2601.667 Output Total 1100 / 2050 550 / 550 Balance 17.083 / 403.628 5355.667 / 2051.667 Intake: IV 777.083 / 7399.891 8544.667 / 2241.667 Oral 340 / 340 360 / 360 Output: Urine 1100 / 1875 400 / 400 Stool 150 / 150 Other: Urine Color Straw Yellow Urine Appearance Clear Clear Comment Post straight cath. incontinent of bladder with a little urine mixed with liquid stool Stool Size Small Small Stool Characteristics Formed Soft Liquid Liquid Brown Mucoid Voiding Methods Urinal Data Completed and Pending Completed studies during hospitalization [Text1]: Exam(s) XR ABDOMEN FLAT UPRIGHT EXAM: XR ABDOMEN FLAT UPRIGHT CLINICAL HISTORY: Vomiting and abdominal distension. TECHNIQUE: 2D digital imaging was performed. COMPARISON: No exams were available for comparison FINDINGS: There is an NG tube in the stomach. There are air-filled loops of both large and small bowel. Air-fluid levels are seen on the decubitus view. No obvious free air. IMPRESSION: I ileus versus distal large bowel obstruction. Exam(s) PROCEDURE INFORMATION: Exam: XR Abdomen Exam date and time: 07/11/2021 3:28 AM Age: 60 years old Clinical indication: Prior surgery; Surgery date: 6+ months; Surgery type: Appendectomy; Patient HX: Vomiting and abdominal distension TECHNIQUE: Imaging protocol: XR of the abdomen. Views: 2 Views. Upright and supine views. COMPARISON: CT ABD PELVIS WITH CONTRAST 10/30/2015 5:07 PM FINDINGS: Gastrointestinal tract: Moderate gaseous distention of the colon limiting evaluation for dilated small bowel. A couple loops nonspecific air in fluid distended bowel are suspicious for dilated small bowel but this cannot be determined with certainty. NG tube tip overlies stomach. Intraperitoneal space: Normal. No free air. Bones/joints: Unremarkable for age. IMPRESSION: 1. Moderate gaseous distention of the colon limiting evaluation for dilated small bowel. 2. A couple loops nonspecific air in fluid distended bowel are suspicious for dilated small bowel but this cannot be determined with certainty. Exam(s) a CT:CT abdomen & pelvis w Exam(s) CT ABDOMEN PELVIS W EXAM: CT ABDOMEN PELVIS W CLINICAL HISTORY: ileus,. TECHNIQUE: Imaging Protocol: Axial computed tomography images with coronal and sagittal reformatted images were created and reviewed CONTRAST MATERIAL: Intravenous: Omnipaque 100cc Oral: None COMPARISON: CT CT BRAIN NECK CTA from 07/07/2021 FINDINGS: VISUALIZED LUNG BASES: No nodules nor pleural effusions evident. Small pericardial effusion noted. ABDOMEN: There is a small amount of fluid in the left pericolic gutter. LIVER: Hepatic steatosis but no discrete focal hepatic lesions identified. No dilatation of intrahepatic ducts. GALLBLADDER/BILIARY: No obvious gallbladder pathology. CBD is not dilated. PANCREAS: No evidence of pancreatic mass nor dilatation of the pancreatic duct. SPLEEN: Spleen is not enlarged. No obvious intrasplenic lesions. Splenic and portal veins are patent. ADRENALS: There are no significant adrenal masses. KIDNEYS:Left kidney is atrophic. Extrarenal pelvis on the right side but no hydronephrosis. No solid renal masses evident. No hydronephrosis. Ng catheter noted in the urinary bladder.. ABDOMINAL AORTA: Abdominal aorta is not enlarged. LYMPH NODES:There is no retroperitoneal nor paraaortic adenopathy. ABDOMINAL WALL: No evidence of significant anterior abdominal wall nor inguinal hernia. GI: NG tube coiled in the stomach. The stomach is not distended. Oral contrast has progressed to the level of the colon. There is no evidence of small-bowel obstruction The colon is distended but not edematous. The rectosigmoid arises out of the pelvis to reach level of the transverse colon prior to read descending into the pelvis. There is no obvious transition point in the field of view of this study. PELVIS: GI: Appendix is not well seen.No evidence of sigmoid diverticulitis. LYMPH NODES: There is no intrapelvic nor inguinal adenopathy. REPRODUCTIVE: Age-appropriate URINARY BLADDER: Contains Ng catheter. OSSEOUS: No significant osseous lesions. IMPRESSION: 1. Atrophic left kidney. No other significant renal findings. No hydronephrosis. A Ng catheter is noted in the bladder. 2. NG tube is noted in the stomach. There is no small bowel obstruction evident at this time. However, the colon is somewhat distended throughout its entire length and the rectosigmoid is quite redundant, extending up from the pelvis to the upper abdomen. 3. There is small amount of fluid in the left pericolic gutter. There is no obvious culprit source for this fluid evident. Exam(s) PROCEDURE INFORMATION: Exam: CT Abdomen And Pelvis With Contrast Exam date and time: 07/11/2021 1:39 PM Age: 60 years old Clinical indication: Abdominal pain TECHNIQUE: Imaging protocol: Computed tomography of the abdomen and pelvis with contrast. Contrast material: OMNIPAUE 350; Contrast volume: 100 ml; Contrast route: INTRAVENOUS (IV); COMPARISON: CT ABD PELVIS WITH CONTRAST 10/30/2015 5:07 PM FINDINGS: Tubes, catheters and devices: The nasogastric tube courses through the esophagus past a small hiatal hernia and curves in the proximal stomach terminating along the cardia. Lungs: The visualized portions of the lungs demonstrate minimal foci of atelectasis. Heart: Trace pericardial effusion. Liver: Mild generalized hepatic steatosis. Gallbladder and bile ducts: Normal. No calcified stones. No ductal dilation. Pancreas: Normal. No ductal dilation. Spleen: Normal. No splenomegaly. Adrenal glands: Normal. No mass. Kidneys and ureters: Atrophic upper pole of the left kidney with scarring and atrophy of the remainder of the left kidney. Prominent right extrarenal pelvis. Otherwise, normal right kidney. Stomach and bowel: Transit of oral contrast through nondistended small bowel loops. No small bowel obstruction. The oral contrast layers in the right hemicolon where there is extensive gaseous distension. Oral contrast mixed with liquid stool distally in dilated descending and redundant sigmoid colon. No bowel wall thickening. Appendix: No evidence of appendicitis. Intraperitoneal space: Unremarkable. No free air. No significant fluid collection. Vasculature: Unremarkable. No abdominal aortic aneurysm. Lymph nodes: Unremarkable. No enlarged lymph nodes. Urinary bladder: Urinary bladder is decompressed with a Ng catheter balloon within. Reproductive: Unremarkable as visualized. Bones/joints: Unremarkable. No acute fracture. Soft tissues: Unremarkable. IMPRESSION: 1. Marked colonic distension with transit of oral contrast and multiple air-fluid levels suggestive of a distal large bowel obstruction at the anorectal junction versus a functional ileus. The small bowel is of normal caliber, however. No small bowel obstruction. 2. Mildly coiled nasogastric tube terminating in the cardia of the stomach. Nondistended stomach. Small hiatal hernia. 3. Severe atrophy of the upper left kidney and relative atrophy of the remaining left lower kidney relative to the right. Right prominent extrarenal pelvis is stable. 4. Decompressed urinary bladder with a Ng catheter balloon within. 5. Mild generalized hepatic steatosis. Exam(s) XR ABDOMEN FLAT PLATE EXAM: XR ABDOMEN FLAT PLATE CLINICAL HISTORY: ileus TECHNIQUE: COMPARISON: CR,XR XR ABDOMEN FLAT UPRIGHT from 07/11/[address] ABDOMEN PELVIS W from 07/11/2021 FINDINGS: Two views were obtained. There is contrast material in the colon following contrast enhanced CT examination of July 11. There is moderate colonic distention. Little or no small bowel distension noted. No gross free intraperitoneal air on this supine film. IMPRESSION: Findings as described are consistent with an ileus. Contrast material remains in the colon 2 days post oral contrast administration. Labs on day of discharge: Labs from last 24 hours 07/14/21 07/14/21 06:59 06:59 WBC 4.97 RBC 3.49 L Hgb 9.7 L Hct 30.3 L MCV 86.8 MCH 27.8 MCHC 32.0 RDW 15.9 H Plt Count 211 MPV 11.2 H Immature Gran % 0.0 Neutrophils % 59.0 Lymphocytes % 23.0 Atypical Lymphs % 3 Monocytes % 12.0 Eosinophils % 3.0 Basophils % 0.0 Nucleated RBC % 0 Absolute Neutrophils 2.93 Absolute Lymphocytes 1.29 Absolute Monocytes 0.60 Absolute Eosinophils 0.15 Absolute Basophils 0.00 RBC Morphology Normal Sodium 145 Potassium 3.1 L Chloride 113 H Carbon Dioxide 23.1 Anion Gap 8.9 BUN 1 L Creatinine 1.0 Estimated GFR/1.73 m2 >= 60.00 Glucose 135 H Calcium 7.9 L PFSH Medical History Abnormal CT of liver Anemia Bilateral cataracts Bilateral leg edema BPH (benign prostatic hyperplasia) Cervical radiculopathy Cervicalgia Chewing tobacco nicotine dependence Chronic pain a. chronic opiate rx Clostridium difficile colitis Congenital ptosis of left eyelid Diabetes type 2, controlled Diabetic retinopathy Family hx of colon cancer GERD (gastroesophageal reflux disease) Hip pain, right Hyperlipidemia Lytic bone lesions on xray Lytic lesion of bone on x-ray Mediastinal adenopathy Microcytic anemia Multiple sclerosis A. Diagnosed in 2006 b. nonambulatory, primarly bed to wheelchair Neck pain A. 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 Chronic opiate Rx Optic nerve atrophy Optic neuritis a. legally blind Osteopenia Pelvic lymphadenopathy Peripheral neuropathy Pituitary adenoma Renal insufficiency Sarcoidosis Spasticity Spinal stenosis Tobacco abuse a. Uses chewing tobacco Ulcer of calf Urinary incontinence Vitamin D deficiency Surgical History H/O surgical procedure a. appendectomy b. 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 What is your relationship status?: Panel score (0-1 are the most socially isolated patients): 0 What type of physical activity do you participate in: weight lifting, wheelchair-bound and additional Details: PT Do you feel safe at home: Yes Do you feel safe in your relationship?: Yes
--- NOTE | 2021-07-16 07:25 | OT.INDS ---
Date of service: 07/16/21 Time of Service: 07:26 Occupational Therapy Notes Occupational Therapy Inpatient Discharge Summary Date: 07/16/21 Dates of Service: 07/10/21-07/16/21 Referring Doctor:Taryn Wright MD OT Orders: Non Urgent Precautions: Fall, standard, Full *This document serves as a summary of care, no skilled OT services provided for this documentation* PATIENT PROFILE/ADMITTING DIAGNOSIS: Pt is a 60 year old male who was brought via EMS to the ED on 07/07/21 after being found in his wheelchair by HH services with his head down. He was admitted based on his symptoms and clinical impression of Altered mental status, Rhabdomyolysis, Urinary tract infection. Past Medical History: Medical History (Updated 07/07/21 @ 18:18 by Pérez Wall MD) Abnormal CT of liver Anemia Bilateral cataracts Bilateral leg edema BPH (benign prostatic hyperplasia) Cervical radiculopathy Cervicalgia Chewing tobacco nicotine dependence Chronic pain a. chronic opiate rx Clostridium difficile colitis Congenital ptosis of left eyelid Diabetes type 2, controlled Diabetic retinopathy Family hx of colon cancer GERD (gastroesophageal reflux disease) Hip pain, right Hyperlipidemia Lytic bone lesions on xray Lytic lesion of bone on x-ray Mediastinal adenopathy Microcytic anemia Multiple sclerosis A. Diagnosed in 2006 b. nonambulatory, primarly bed to wheelchair Neck pain A. 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 Chronic opiate Rx Optic nerve atrophy Optic neuritis a. legally blind Osteopenia Pelvic lymphadenopathy Peripheral neuropathy Pituitary adenoma Renal insufficiency Sarcoidosis Spasticity Spinal stenosis Tobacco abuse a. Uses chewing tobacco Ulcer of calf Urinary incontinence Vitamin D deficiency Surgical History H/O surgical procedure a. appendectomy b. left levator surgery 2012 History of appendectomy History of lung biopsy Social History/Home Situation: Pt lives in an private apartment with caregivers and HH who come in and (A) with his ADL/IADL routines. He has MS and moved to [place] from [place] to be with his son. He states that he used to utilize a cane and FWW but his mobility progressed to worsening state and he now utilizes an electric wheelchair to get around. He notes that he sponge baths at the sink and has a visual deficit which is his baseline. He takes RCT to get to [employer] and works out at [facility] 2x per week on the (I) program. Equipment owned/DME: Cane, FWW, utilizes a electric wheelchair, grab bars SUBJECTIVE: NT OBJECTIVE: ROM: RUE AROM WFL L UE AROM WFL STRENGTH: RUE 2/5 throughout IV in (R) UE which may be contributing LUE 4/5 throughout FUNCTIONAL MOBILITY/ADLS: BATHING: Sitting in bed with max (A) Set up /clean up Upper Body: (I) face, (B) UE and abdomen Lower Body: max (A) DRESSING: sitting in bed Upper Extremity: Mod (A) [facility] gown BALANCE: Static sitting Normal Dynamic Sitting Normal ASSESSMENT: Patient is a 60-year-old male referred to occupational therapy services with diagnosis of Altered mental status, Rhabdomyolysis, Urinary tract infection. Pt was seen for 4 skilled OT sessions. He was medically cleared per MD and discharged home on 07/14/21 with resumption of HH services. GOALS 1. Grooming- Min (A) brushing his teeth in the sitting position 2. Dressing- (I) UE and min (A) LE 3. Bathing- (I) 4. Toileting (I) 5. Eating (I) PLAN OF CARE/TREATMENT PLAN: Discharge from skilled OT services. DISCHARGE RECOMMENDATIONS home with HH services. TREATMENT TIME/MINUTES/CODES N/A Aura Cohen OTR/L [facility]
== END 2021-07-14 15:01 | disposition home health service (06) | DRG 558 ==
LOC: ER 18:32 → MS 20:05
PROVIDERS: Internal Medicine; Nurse Practitioner Acute Care; Nurse Practitioner Family; Surgery; Admitting Provider Family Medicine; Emergency Provider Emergency Medicine; PCP Family Medicine; Visit Provider Family Medicine
PROC: 0DJD8ZZ Inspection of Lower Intestinal Tract, Via Natural or Artificial Opening Endoscopic (ICD-10-PCS; CPT 45330; principal; 2021-07-13 08:00)
DX: M62.82 Rhabdomyolysis (principal); N30.00 Acute cystitis without hematuria; H46.9 Unspecified optic neuritis; K56.7 Ileus, unspecified; D86.9 Sarcoidosis, unspecified; G35 Multiple sclerosis; K21.9 Gastro-esophageal reflux disease without esophagitis; D64.9 Anemia, unspecified; M54.12 Radiculopathy, cervical region; F17.220 Nicotine dependence, chewing tobacco, uncomplicated; G89.29 Other chronic pain; Z79.891 Long term (current) use of opiate analgesic; E11.319 Type 2 diabetes mellitus with unspecified diabetic retinopathy without macular edema; Z80.0 Family history of malignant neoplasm of digestive organs; E78.5 Hyperlipidemia, unspecified; E11.42 Type 2 diabetes mellitus with diabetic polyneuropathy; R32 Unspecified urinary incontinence; E55.9 Vitamin D deficiency, unspecified; E87.5 Hyperkalemia; N40.0 Benign prostatic hyperplasia without lower urinary tract symptoms; Z20.822 Contact with and (suspected) exposure to COVID-19; R40.1 Stupor; B96.20 Unspecified Escherichia coli [E. coli] as the cause of diseases classified elsewhere; N40.1 Benign prostatic hyperplasia with lower urinary tract symptoms; R33.9 Retention of urine, unspecified
CPT/HCPCS: 45378; 36415; 36416; 45330; 51702; 70496; 70498; 80048; 80053; 80307; 81025; 82550; 82805; 83690; 85027; 87077; 87635; 93005; 96361; 96365; 96375; 96376; 97110; 97162; 97166; 97530; 97535; 99221; 99232; 99285; 74018; 74019; 74177; 80320; 81003; 81015; 83735; 84443; 84484; 85025; 86140; 87086; 87186; 93010; 99223; 99233; 99239; J0696; J1644; J2250; J2310; J2405; J2543; J3480; J3490; J7060; J7512; Q9967

== ENCOUNTER → 2021-07-09 07:59 | Outpatient (BNVA) | payer MEDICARE, MEDICAID, SELFPAY | PROVIDERS: PCP Family Medicine; Referring Provider Family Medicine; Visit Provider Psychiatry & Neurology Neurology | DX: R69 Illness, unspecified (principal) ==

== ENCOUNTER → 2021-07-09 08:42 | Outpatient (BNVA) | payer MEDICARE, MEDICAID, SELFPAY | PROVIDERS: PCP Family Medicine; Referring Provider Family Medicine; Visit Provider Urology | DX: R69 Illness, unspecified (principal) ==

== ENCOUNTER 2021-07-16 13:35 | Inpatient (IN) | payer MEDICARE, MEDICAID, SELFPAY ==
[2021-07-16] VITALS (35 sets, daily range): BP systolic 92–113; BP diastolic 59–74; PULSE 74–102; RESP 12–19; TEMP 36.3–36.9; O2SAT 95–100
--- NOTE | 2021-07-16 13:45 | RT.EKG_ITS ---
APPROVED REPORT Exam: Resting ECG Reason for Exam: generalized weakness Patient Location: E HR:93 bpm ECG Measurements Heart Rate 93 AXIS KS 144 P 26 QRSd 67 QRS 12 QT 450 T 42 QTc 563 Conclusion Sinus rhythm...normal P axis, V-rate 60- 99 Prolonged QT interval...QTc >500mS sinus rhythm at 93, normal axis, QTC 563, no STEMI, nondiagnostic EKG
[2021-07-16 14:17] LABS: Abs Immature Grans 0.05 10^3/uL (0.0-0.06); Absolute Basophil Count 0.02 10^3/uL (0.0-0.2); Absolute Eosinophil Count 0.15 10^3/uL (0.0-0.7); Absolute Lymphocyte Count 1.21 10^3/uL (1.2-3.4); Absolute Monocyte Count 0.46 10^3/uL (0.1-0.8); Absolute Neutrophil Count 4.34 10^3/uL (1.2-6.7); Basophils % 0.3; Eosinophils % 2.4; HCT 33.2 % (40.0-50.0); HGB 10.8 g/dL (13.5-17.5); Immature Grans % 0.8; Lactate 1.7 mmol/L (0.6-1.4); Lymphocytes % 19.4; MCHC 32.5 % (32.0-36.0); MPV 11.1 fL (8.0-11.0); Monocytes % 7.4; Neutrophils % 69.7; Nucleated RBC 0 %; Platelet Count 266 10^3/uL (130-400); RBC 3.86 10^6/uL (4.36-5.78); RDW-SD 49.1 fL; WBC 6.23 10^3/uL (4.4-10.8)
[2021-07-16 14:41] LABS: ALT 27 U/L (16-63); AST 44 U/L (15-37); Albumin 3.3 g/dL (3.4-5.0); Alkaline Phosphatase 74 U/L (46-116); Anion Gap 11.1 mmol/L (3-11); BUN 2 mg/dL (7-18); Bilirubin, Total 0.5 mg/dL (0.2-1.0); CO2 25.9 mmol/L (21.0-32.0); CREATININE 1.3 mg/dL (0.70-1.30); Calcium 8.5 mg/dL (8.5-10.1); Chloride 113 mmol/L (98-107); Glucose 152 mg/dL (74-106); Magnesium 2.1 mg/dL (1.8-2.4); Potassium 3.4 mmol/L (3.5-5.1); Sodium 150 mmol/L (136-145); Total Protein 6.9 g/dL (6.4-8.2)
[2021-07-16 14:42] LABS: Creatine Kinase 1286 U/L (39-308); Troponin I < 0.05 ng/mL (<0.06)
[2021-07-16 14:47] LABS: Bilirubin Negative (Negative); Blood Trace-intact (Negative); Clarity Clear (Clear); Glucose Negative (Negative); Ketones Negative (Negative); Leukocyte Esterase Negative (Negative); Nitrite Negative (Negative); Urobilinogen 0.2 EU/dL (Up TO 0.2); pH 6.5 (5-8)
--- NOTE | 2021-07-16 14:47 | W.ED.GENAD ---
Discharge Plan Disposition Patient Disposition: [facility] INPATIENT Discharge Details Chief Complaint: GenMedical Clinical Impression: Altered mental status Admit Date/Time: 07/17/21 13:51 Admit Provider: Mian Jones Attending Provider: Mian Jones Primary Care Provider: Ale Barraza V ED Provider: [place] Discharge Data Discharge Date/Time-TO BE ENTERED AT DEPARTURE: 07/16/21 17:44 Medical Decision Making Bryan De is a 60-year-old woman with a history of hyperlipidemia, diabetes, renal insufficiency presenting to emergency department with generalized weakness, excessive sleepiness, and report of decreased urination. On examination Pt is somnolent but arouses easily to voice, answers questions appropriately. Neurologically nonfocal. Concern for medication effect (Pt on several sedating meds), metabolic/lyte derangement, occult infection, other. Possible acute intracranial process with apparent h/o falls. Exam/hx at this time not c/w meningitis, subarachnoid hemorrhage, CVA, acute coronary syndrome. Plan for IV placement, screening labs, EKG, CT head, telemetry, IVF hydration. Will monitor and reassess. Attempted to contact patient's son for further history, who is listed as contact, phone line is not in service. Labs reviewed, Hgb 10.8, Na 150, K 3.4. Given AMS, hypernatremia, Pt not apparently able to care for himself, plan for admission for further work up. Pt admitted to Dr. Jones, hospitalist with CXR, CT head pending. Medical Records Medical records reviewed: Yes I reviewed the patient's medical records. Lab Data Lab results reviewed: Yes I reviewed the patient's lab results. Labs: 07/16/21 16:00 Blood Blood Culture - Pending 07/16/21 15:30 Blood Blood Culture - Pending Laboratory Tests Range/Units 07/16/21 07/16/21 07/16/21 13:55 13:55 13:55 WBC (4.4-10.8) 10^3/uL 6.23 RBC (4.36-5.78) 10^6/uL 3.86 L Hgb (13.5-17.5) g/dL 10.8 L Hct (40.0-50.0) % 33.2 L MCV (80-95) fL 86.0 MCH (27.0-33.0) pg 28.0 MCHC (32.0-36.0) % 32.5 RDW (11.8-14.1) % 16.0 H Plt Count (130-400) 10^3/uL 266 MPV (8.0-11.0) fL 11.1 H Immature Gran % 0.8 Neutrophils % 69.7 Lymphocytes % 19.4 Monocytes % 7.4 Eosinophils % 2.4 Basophils % 0.3 Nucleated RBC % % 0 Absolute Neutrophils (1.2-6.7) 10^3/uL 4.34 Absolute Lymphocytes (1.2-3.4) 10^3/uL 1.21 Absolute Monocytes (0.1-0.8) 10^3/uL 0.46 Absolute Eosinophils (0.0-0.7) 10^3/uL 0.15 Absolute Basophils (0.0-0.2) 10^3/uL 0.02 VBG Lactate (0.6-1.4) mmol/L 1.7 H Sodium (136-145) mmol/L 150 H Potassium (3.5-5.1) mmol/L 3.4 L Chloride (98-107) mmol/L 113 H Carbon Dioxide (21.0-32.0) mmol/L 25.9 Anion Gap (3-11) mmol/L 11.1 H BUN (7-18) mg/dL 2 L Creatinine (0.70-1.30) mg/dL 1.3 Estimated GFR/1.73 m2 (mL/min/1.73m2) 56.70 Glucose (74-106) mg/dL 152 H Calcium (8.5-10.1) mg/dL 8.5 Magnesium (1.8-2.4) mg/dL 2.1 Total Bilirubin (0.2-1.0) mg/dL 0.5 AST (15-37) U/L 44 H ALT (16-63) U/L 27 Alkaline Phosphatase (46-116) U/L 74 Creatine Kinase (39-308) U/L 1286 H Troponin I (<0.06) ng/mL < 0.05 Total Protein (6.4-8.2) g/dL 6.9 Albumin (3.4-5.0) g/dL 3.3 L TSH (0.36-3.74) uIU/mL 3.10 Urine Color (Yellow) Urine Clarity (Clear) Urine pH (5-8) Ur Specific [place] (1.005-1.025) Urine Protein (Negative) mg/dL Urine Ketones (Negative) mg/dL Urine Blood (Negative) Urine Nitrite (Negative) Urine Bilirubin (Negative) Urine Urobilinogen (Up TO 0.2) EU/dL Ur Leukocyte Esterase (Negative) Urine RBC (0-2) HPF Urine WBC (0-5) HPF Ur Epithelial Cells (Negative) HPF Urine Crystals (Negative) HPF Urine Bacteria (Negative) HPF Urine Casts (Negative) LPF Urine Mucus (Negative) Ur Culture Indicated? Urine Glucose (Negative) mg/dL Range/Units 07/16/21 14:38 WBC (4.4-10.8) 10^3/uL RBC (4.36-5.78) 10^6/uL Hgb (13.5-17.5) g/dL Hct (40.0-50.0) % MCV (80-95) fL MCH (27.0-33.0) pg MCHC (32.0-36.0) % RDW (11.8-14.1) % Plt Count (130-400) 10^3/uL MPV (8.0-11.0) fL Immature Gran % Neutrophils % Lymphocytes % Monocytes % Eosinophils % Basophils % Nucleated RBC % % Absolute Neutrophils (1.2-6.7) 10^3/uL Absolute Lymphocytes (1.2-3.4) 10^3/uL Absolute Monocytes (0.1-0.8) 10^3/uL Absolute Eosinophils (0.0-0.7) 10^3/uL Absolute Basophils (0.0-0.2) 10^3/uL VBG Lactate (0.6-1.4) mmol/L Sodium (136-145) mmol/L Potassium (3.5-5.1) mmol/L Chloride (98-107) mmol/L Carbon Dioxide (21.0-32.0) mmol/L Anion Gap (3-11) mmol/L BUN (7-18) mg/dL Creatinine (0.70-1.30) mg/dL Estimated GFR/1.73 m2 (mL/min/1.73m2) Glucose (74-106) mg/dL Calcium (8.5-10.1) mg/dL Magnesium (1.8-2.4) mg/dL Total Bilirubin (0.2-1.0) mg/dL AST (15-37) U/L ALT (16-63) U/L Alkaline Phosphatase (46-116) U/L Creatine Kinase (39-308) U/L Troponin I (<0.06) ng/mL Total Protein (6.4-8.2) g/dL Albumin (3.4-5.0) g/dL TSH (0.36-3.74) uIU/mL Urine Color (Yellow) Yellow Urine Clarity (Clear) Clear Urine pH (5-8) 6.5 Ur Specific [place] (1.005-1.025) 1.010 Urine Protein (Negative) mg/dL Negative Urine Ketones (Negative) mg/dL Negative Urine Blood (Negative) Trace-intact H Urine Nitrite (Negative) Negative Urine Bilirubin (Negative) Negative Urine Urobilinogen (Up TO 0.2) EU/dL 0.2 Ur Leukocyte Esterase (Negative) Negative Urine RBC (0-2) HPF 0-2 Urine WBC (0-5) HPF Negative Ur Epithelial Cells (Negative) HPF Rare Urine Crystals (Negative) HPF Negative Urine Bacteria (Negative) HPF Negative Urine Casts (Negative) LPF Negative Urine Mucus (Negative) Negative Ur Culture Indicated? No Urine Glucose (Negative) mg/dL Negative ECG Data Attestation: I personally reviewed and interpreted this ECG (s) as follows: Interpretation: EKG shows sinus rhythm at 93, normal axis, QTC 563, no STEMI, nondiagnostic EKG HPI General Mode of arrival: EMS. Date/Time Provider Initiated Documentation: 07/16/21 13:43. Limitations to Documentation: no limitations. Information obtained by: patient, RN notes reviewed and old records reviewed. HPI Narrative: Bryan De is a 60-year-old woman with a history of hyperlipidemia, diabetes, renal insufficiency presenting to emergency department with generalized weakness, excessive sleepiness. Also report of decreased urination. Per record review, patient was admitted 07/07/2021 for large bowel obstruction, found to have ileus, discharged 07/14/2021. Patient reports that since being discharged home, his son is concerned that that he has seemed generally weak and seems to be sleeping quite a bit. Patient denies any pain, fever, shortness of breath, vomiting, diarrhea, constipation. Patient states that he has been having normal bowel movements since discharge. He denies any falls since discharge. Patient reports he has been taking his medications as usual. States he has been eating and drinking well. Related Data Home Medications Medication Instructions Recorded Confirmed acetaminophen 500 mg PO DIRECTED PRN 11/23/13 07/16/21 aspirin [Aspirin Low-Strength] 81 mg PO DAILY 11/23/13 07/16/21 docusate sodium [Doc-Q-Lace] 100 mg PO TID 11/23/13 07/16/21 atorvastatin [Lipitor] 40 mg PO QPM 06/14/14 07/16/21 Prodigy No Coding 12/23/15 06/04/21 multivitamin [Daily Multi-Vitamin] 1 tab PO DAILY 03/23/16 07/16/21 alendronate 70 mg PO WEEKLY 05/13/17 07/16/21 alfuzosin 10 mg tablet,extended 10 mg PO DAILY 12/10/18 07/16/21 release 24 hr ferrous gluconate 240 mg (27 mg 240 mg PO DAILY tab 12/23/18 07/16/21 iron) tablet glipizide 10 mg tablet, extended 10 mg PO DAILY 12/23/18 07/16/21 release 24 hr loratadine 10 mg tablet 10 mg PO DAILY 12/23/18 07/16/21 omeprazole 40 mg capsule,delayed 40 mg PO DAILY 12/23/18 07/16/21 release prednisone 5 mg tablet 5 mg PO DAILY 12/23/18 07/16/21 cholecalciferol (vitamin D3) 25 4,000 unit PO DAILY tab 12/21/19 07/16/21 mcg (1,000 unit) tablet metformin 500 mg tablet 850 mg PO BID tab 06/20/20 07/16/21 baclofen 20 mg tablet 20 mg PO DIRECTED #360 tab 06/04/21 07/16/21 clonazepam 1 mg tablet 1 mg PO QHS #30 tab 06/04/21 07/16/21 folic acid 1 mg tablet 1 mg PO DAILY 06/04/21 07/16/21 lisinopril 2.5 mg tablet 2.5 mg PO DAILY 06/04/21 07/16/21 methotrexate (PF) 25 mg/0.4 mL 25 mg SUBCUT QWEEK 06/04/21 07/16/21 subcutaneous auto-injector tramadol 100 mg tablet 100 mg PO HS 06/04/21 07/16/21 gabapentin 300 mg capsule See Rx Instructions PO TID #450 cap 06/06/21 07/16/21 methotrexate sodium 20 mg PO DIRECTED 07/07/21 07/16/21 ascorbic acid (vitamin C) [Vitamin 500 mg PO BID #60 tab 07/14/21 07/16/21 C] lactulose 20 g PO BID #1500 ml 07/14/21 07/16/21 polyethylene glycol 3350 17 g PO BID #100 ea 07/14/21 07/16/21 potassium chloride [Klor-Con M20] 40 meq PO DAILY #20 tab 07/14/21 07/16/21 sennosides [Senna Lax] 8.6 mg PO DAILY #20 tab 07/14/21 07/16/21 tamsulosin 0.4 mg PO DAILY #30 cap 07/14/21 07/16/21 Previous Rx's Medication Instructions Recorded baclofen 20 mg tablet 20 mg PO DIRECTED #360 tab 06/04/21 clonazepam 1 mg tablet 1 mg PO QHS #30 tab 06/04/21 gabapentin 300 mg capsule See Rx Instructions PO TID #450 cap 06/06/21 ascorbic acid (vitamin C) [Vitamin 500 mg PO BID #60 tab 07/14/21 C] lactulose 20 g PO BID #1500 ml 07/14/21 polyethylene glycol 3350 17 g PO BID #100 ea 07/14/21 potassium chloride [Klor-Con M20] 40 meq PO DAILY #20 tab 07/14/21 sennosides [Senna Lax] 8.6 mg PO DAILY #20 tab 07/14/21 tamsulosin 0.4 mg PO DAILY #30 cap 07/14/21 Allergies Allergy/AdvReac Type Severity Reaction Status Date / Time No Known Allergies Allergy Unverified 07/16/21 13:53 General Stated Complaint: GenMedical AIDA: 3 Review of Systems Narrative: Constitutional: denies fevers, reports increased fatigue Eyes: denies eye pain ENT: denies ear pain, dental pain, sore throat Cardiovascular: denies chest pain Respiratory: denies SOB, cough GI: denies abdominal pain, vomiting, diarrhea : denies flank pain MSK: denies back pain, neck pain, arthralgias, myalgias Skin: denies rash Neuro: denies headaches, numbness, reports generalized weakness PFS Active Problem List Encephalopathy (Acute) Adrenal insufficiency (Acute) Hypernatremia (Acute) Altered mental status (Acute) Incontinence (Acute) Discharge planning issues (Acute) DVT prophylaxis (Acute) Microcytic anemia (Chronic) Multiple sclerosis (Chronic) Diabetes type 2, controlled (Chronic) Urinary incontinence (Chronic) Medical History Abnormal computed tomography angiography (CTA) of abdomen Abnormal CT of liver Anemia Bilateral cataracts Bilateral leg edema BPH (benign prostatic hyperplasia) Cervical radiculopathy Cervical spinal stenosis Cervicalgia Chewing tobacco nicotine dependence Chronic pain a. chronic opiate rx Clostridium difficile colitis Congenital ptosis of left eyelid Diabetic retinopathy Family hx of colon cancer GERD (gastroesophageal reflux disease) Hip pain, right Hyperkalemia Hyperlipidemia Ileus Lytic bone lesions on xray Lytic lesion of bone on x-ray Mediastinal adenopathy Neck pain A. 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 Chronic opiate Rx Optic nerve atrophy Optic neuritis a. legally blind Osteopenia Pelvic lymphadenopathy Peripheral neuropathy Pituitary adenoma Renal insufficiency Rhabdomyolysis Right leg weakness Right shoulder pain Rotator cuff tear, right Sarcoidosis Spasticity Spinal stenosis Tendonitis of long head of biceps brachii of right shoulder Tobacco abuse a. Uses chewing tobacco Ulcer of calf Vision loss Vitamin D deficiency Surgical History (Updated 07/17/21 @ 09:28 by Nancy Davenport NP) H/O surgical procedure a. appendectomy b. 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 What is your relationship status?: Panel score (0-1 are the most socially isolated patients): 0 What type of physical activity do you participate in: weight lifting, wheelchair-bound and additional Details: PT Do you feel safe at home: Yes Do you feel safe in your relationship?: Yes Exam Narrative Exam Narrative: Constitutional: orn-jocii-nrgvlosri, pleasant, sleeping intermittently, including during encounter, arouses easily to voice, otherwise conversing normally HENT: head atraumatic/normocephalic/normal inspection, mucous membranes moist Eyes: conjunctiva normal, sclera normal, pupils 2mm b/l (blind in right eye) Neck: no stridor, normal ROM, trachea midline Chest: normal inspection Resp: normal work of breathing, LCTAB Cardio: normal rate, normal rhythm, no murmur appreciated GI: abdomen soft, non-tender, non-distended Back: normal inspection, no rash Skin: warm, dry, normal color, no rash Neuro: Sleeping, arouses easily to voice, oriented x3, grossly non-focal, normal tone Ext: +1 edema bilaterally, no posterior calf tenderness to palpation, neoprene wrapping in place RLE Psych: normal mood, normal affect, normal behavior Course Vital Signs Vital signs: Vital Signs Temperature 36.3 C L 07/16/21 13:36 Pulse 95 H 07/16/21 13:36 Respiratory Rate 18 07/16/21 13:36 Blood Pressure 92/62 L 07/16/21 13:36 Pulse Oximetry 95 07/16/21 13:36 Temperature 36.3 C L 07/16/21 13:36 Pulse 95 H 07/16/21 13:36 Respiratory Rate 15 07/16/21 14:04 Respiratory Effort Non-Labored 07/16/21 14:04 Respiratory Depth Normal 07/16/21 14:04 Respiratory Pattern Normal 07/16/21 14:04 Blood Pressure 92/62 L 07/16/21 13:36 Blood Pressure Position Supine 07/16/21 13:36 Pulse Oximetry 95 07/16/21 13:36 Oxygen Delivery Method Room Air 07/16/21 13:36 Oxygen Flow Rate 0 07/16/21 13:36 Pain Level 0 07/16/21 13:36 Lab/Test Results Lab/Test Results: 07/16/21 13:50 Blood Blood Culture - Pending 07/16/21 13:50 Blood Blood Culture - Pending Laboratory Tests Range/Units 07/16/21 07/16/21 07/16/21 13:55 13:55 13:55 WBC (4.4-10.8) 10^3/uL 6.23 RBC (4.36-5.78) 10^6/uL 3.86 L Hgb (13.5-17.5) g/dL 10.8 L Hct (40.0-50.0) % 33.2 L MCV (80-95) fL 86.0 MCH (27.0-33.0) pg 28.0 MCHC (32.0-36.0) % 32.5 RDW (11.8-14.1) % 16.0 H Plt Count (130-400) 10^3/uL 266 MPV (8.0-11.0) fL 11.1 H Immature Gran % 0.8 Neutrophils % 69.7 Lymphocytes % 19.4 Monocytes % 7.4 Eosinophils % 2.4 Basophils % 0.3 Nucleated RBC % % 0 Absolute Neutrophils (1.2-6.7) 10^3/uL 4.34 Absolute Lymphocytes (1.2-3.4) 10^3/uL 1.21 Absolute Monocytes (0.1-0.8) 10^3/uL 0.46 Absolute Eosinophils (0.0-0.7) 10^3/uL 0.15 Absolute Basophils (0.0-0.2) 10^3/uL 0.02 VBG Lactate (0.6-1.4) mmol/L 1.7 H Sodium (136-145) mmol/L 150 H Potassium (3.5-5.1) mmol/L 3.4 L Chloride (98-107) mmol/L 113 H Carbon Dioxide (21.0-32.0) mmol/L 25.9 Anion Gap (3-11) mmol/L 11.1 H BUN (7-18) mg/dL 2 L Creatinine (0.70-1.30) mg/dL 1.3 Estimated GFR/1.73 m2 (mL/min/1.73m2) 56.70 Glucose (74-106) mg/dL 152 H Calcium (8.5-10.1) mg/dL 8.5 Magnesium (1.8-2.4) mg/dL 2.1 Total Bilirubin (0.2-1.0) mg/dL 0.5 AST (15-37) U/L 44 H ALT (16-63) U/L 27 Alkaline Phosphatase (46-116) U/L 74 Creatine Kinase (39-308) U/L 1286 H Troponin I (<0.06) ng/mL < 0.05 Total Protein (6.4-8.2) g/dL 6.9 Albumin (3.4-5.0) g/dL 3.3 L TSH (0.36-3.74) uIU/mL 3.10
[2021-07-16 14:53] LABS: Bacteria Negative HPF (Negative); C & S Indicated? No; Casts Negative LPF (Negative); Crystals Negative HPF (Negative); Epithelial Cells Rare HPF (Negative); Mucus Negative (Negative); RBC 0-2 HPF (0-2); WBC Negative HPF (0-5)
--- NOTE | 2021-07-16 15:23 | DI.RAD_ITS ---
Exam(s) XR CHEST 1V IN DI DEPT EXAM: XR CHEST 1V IN DI DEPT CLINICAL HISTORY: generalized weakness TECHNIQUE: 2D digital imaging was performed. COMPARISON: CR XR CHEST 2V PA LATERAL from 01/17/2019 FINDINGS: LUNGS: Lungs are expiratory. No gross focal area of consolidation. No pleural abnormality seen. HEART: Normal. MEDIASTINUM: Normal. BONES: Unremarkable. IMPRESSION: Limited exam due to poor pulmonary inflation. No acute pulmonary findings. DATA REPOSITORY: RADIATION DOSE DELIVERED:
[2021-07-16] MEDS: Naloxone 0.4 MG/ML VIAL 0.1 MG IVP (15:30)
--- NOTE | 2021-07-16 15:45 | DI.CT_ITS ---
Exam(s) CT HEAD WO EXAM: CT HEAD WO CLINICAL HISTORY: AMS. TECHNIQUE: Imaging Protocol: Axial computed tomography images with coronal and sagittal reformatted images were created and reviewed COMPARISON: MR MRI - BRAIN W/WO CONTRAST from 08/28/2011 MR MRI - BRAIN W/WO CONTRAST from 08/28/[address] BRAIN NECK CTA from 07/07/2021 FINDINGS: Exam is somewhat limited by motion artifact. Ventricles and Extra axial spaces: Stable ventricular enlargement. Hemorrhage: None. Cerebral parenchyma: Stable atrophy. Stable white matter changes of small vessel disease. Midline shift: None. Brainstem/Cerebellum: Normal. Calvarium: Normal. Visualized Paranasal sinuses/Mastoids: Clear. Soft Tissues: Unremarkable. IMPRESSION: No acute intracranial process. RADIATION DOSE DELIVERED: 858.98mGy.cm Total DLP DATA REPOSITORY: All CT scans at this facility are submitted to the National Radiology Data Registry (NRDR) Dose Index Registry (DIR) with the [employer] [place] [employer] (A[employer]). RADIATION OPTIMIZATION: All CT scans at this facility use at least one of these dose optimization te chniques: automated exposure control; mA and/or kV adjustment per patient size (includes targeted exa ms where dose is matched to clinical indication); or iterative reconstruction.
--- NOTE | 2021-07-16 17:11 | DI.VRAD_ITS ---
PROCEDURE INFORMATION: Exam: CT Head Without Contrast Exam date and time: 07/16/2021 3:47 PM Age: 60 years old Clinical indication: Altered mental status/memory loss; Patient HX: AMS TECHNIQUE: Imaging protocol: Computed tomography of the head without contrast. COMPARISON: CT BRAIN NECK CTA 07/07/2021 4:59 PM FINDINGS: Limitations: Motion artifact does moderately limit the sensitivity of this examination. Brain: There is no acute intracranial hemorrhage, mass effect or midline shift. No large acute territorial infarct identified. There are patchy regions of hypodensity in the periventricular and subcortical white matter, likely on the basis of chronic microvascular ischemic disease. There is a region of encephalomalacia in the left occipital lobe, likely from remote infarct. Cerebral ventricles: The ventricles and sulci are prominent in size, which is at least in part due to global cerebral volume loss. Paranasal sinuses: Visualized sinuses are unremarkable. No fluid levels. Mastoid air cells: Visualized mastoid air cells are well aerated. Bones/joints: Unremarkable. No acute fracture. Soft tissues: Unremarkable. IMPRESSION: No acute intracranial hemorrhage, mass effect or midline shift. Dictated and Authenticated by: Ana Wells MD. Ordering:DAVID Beebe MD
--- NOTE | 2021-07-16 17:26 | DI.VRAD_ITS ---
PROCEDURE INFORMATION: Exam: XR Chest Exam date and time: 07/16/2021 4:02 PM Age: 60 years old Clinical indication: Other: Generalized weakness TECHNIQUE: Imaging protocol: XR of the chest. Views: 1 view. COMPARISON: CR XR CHEST 2V PA LATERAL 01/17/2019 5:25 PM FINDINGS: Lungs: The lung volumes are low, which causes crowding of the pulmonary markings and slightly limits evaluation for opacities. No large consolidation seen. Pleural spaces: No large pleural effusion. No pneumothorax. Heart/Mediastinum: No cardiomegaly. Bones/joints: Unremarkable. IMPRESSION: Low lung volumes without evidence of large consolidation. Dictated and Authenticated by: Ana Wells MD. Ordering:DAVID Beebe MD
--- NOTE | 2021-07-16 17:30 | RT.EKG_ITS ---
APPROVED REPORT Exam: Resting ECG Reason for Exam: 2nd ekg Patient Location: E HR:94 bpm ECG Measurements Heart Rate 94 AXIS DE 152 P 18 QRSd 67 QRS 6 QT 425 T 74 QTc 531 Conclusion Sinus rhythm...normal P axis, V-rate 60- 99 Prolonged QT interval...QTc >500mS
[2021-07-16 17:31] LABS: Source Nasal/Nares
--- NOTE | 2021-07-16 17:55 | W.PM.HP.N ---
Date of service: 07/16/21 Time of Service: 17:55 Assessment and Plan Assessment and plan (1) Altered mental status: Start date: 07/16/21 Start time: 18:00 Status: Acute Assessment and plan: Patient brought in for being more tired than usual. He was AAOx3 when evaluated. He stated it was because he was not eating due to not being fed by his care takers. His son stated to ED provider he had been sleeping more, likely d/t medications. He does take a lot of sedating meds. Will hold tramadol, decrease gabapentin. On discharge will half tramadol and keep decreased gabapentin dosing. Monitor status and labs Qualifiers: Altered mental status type: stupor Qualified Code(s): R40.1 - Stupor (2) Hypernatremia: Start date: 07/16/21 Start time: 18:00 Status: Acute Assessment and plan: Hyponatremic at 150 Potassium is low at 3.4 he likely needs stress dose steroids as he is on methorexate and prednisone daily d/t MS. Will give a 100 hydrocortisone now for stress dose steriods (3) Incontinence: Start date: 07/16/21 Start time: 18:00 Status: Acute Assessment and plan: D/t neurogenic bladder. Started on flomax on last Qualifiers: Incontinence type: urinary Urinary Incontinence type: other incontinence Qualified Code(s): N39.498 - Other specified urinary incontinence (4) Microcytic anemia: Start date: 07/16/21 Start time: 18:00 Status: Chronic Assessment and plan: Stable. 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 Thorne (7) DVT prophylaxis: Start date: 07/16/21 Start time: 18:00 Status: Acute Assessment and plan: Heparin subcut (8) Discharge planning issues: Start date: 07/16/21 Start time: 18:00 Status: Acute Assessment and plan: Home when medically ready with resumption of services and caregivers discussed with Dr. Jones History of Present Illness History of Present Illness Chief Complaint: Lethargy, AMS Narrative: Patient presented to [facility] yesterday, sleepy. He stated that he could not feed himself and that his caregiver left. Labs in ED significant for NA 150, potassium 3.4, glucose 152, trops negative. WBC negative. Hemaglobin 10.8 however he does have chronic anemia. He takes prednisone daily. Will give stress dose steroid. Admit to obs. Monitor labs. Hold tramadol. Decrease gabapentin. He likely is on too many sedating medications. On discharge recommend weaning back his medications including cutting tramadol in half. He states he has been having BM. CPK is slightly elevated likely residual from rhabdo on last admission. He was just discharged on Friday. he has been sleeping more at home per ER note but again likely due to medication, will also decrease gabapentin to 300 mg and consider decreasing baclofen as well. monitor in obs. CT of head was negative for acute process. Urine was negative for nitrates or leuk est. no UTI this admission. He does have an abrasion to left knee and right thigh from previous fall prior to last admission. Neosporin. Likely can return home tomorrow or following day; with decrease in medication. Review of Systems All systems reviewed & are unremarkable except as noted in HPI and below PFSH Active Problem List (Updated 07/17/21 @ 09:40 by Nancy Davenport NP) Hypernatremia (Acute) Altered mental status (Acute) Incontinence (Acute) Discharge planning issues (Acute) DVT prophylaxis (Acute) Microcytic anemia (Chronic) Multiple sclerosis (Chronic) Diabetes type 2, controlled (Chronic) Urinary incontinence (Chronic) Medical History (Updated 07/17/21 @ 09:40 by Nancy Davepnort NP) Abnormal computed tomography angiography (CTA) of abdomen Abnormal CT of liver Anemia Bilateral cataracts Bilateral leg edema BPH (benign prostatic hyperplasia) Cervical radiculopathy Cervical spinal stenosis Cervicalgia Chewing tobacco nicotine dependence Chronic pain a. chronic opiate rx Clostridium difficile colitis Congenital ptosis of left eyelid Diabetic retinopathy Family hx of colon cancer GERD (gastroesophageal reflux disease) Hip pain, right Hyperkalemia Hyperlipidemia Ileus Lytic bone lesions on xray Lytic lesion of bone on x-ray Mediastinal adenopathy Neck pain A. 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 Chronic opiate Rx Optic nerve atrophy Optic neuritis a. legally blind Osteopenia Pelvic lymphadenopathy Peripheral neuropathy Pituitary adenoma Renal insufficiency Rhabdomyolysis Right leg weakness Right shoulder pain Rotator cuff tear, right Sarcoidosis Spasticity Spinal stenosis Tendonitis of long head of biceps brachii of right shoulder Tobacco abuse a. Uses chewing tobacco Ulcer of calf Vision loss Vitamin D deficiency Surgical History (Updated 07/17/21 @ 09:28 by Nancy Davenport NP) H/O surgical procedure a. appendectomy b. 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 What is your relationship status?: Panel score (0-1 are the most socially isolated patients): 0 What type of physical activity do you participate in: weight lifting, wheelchair-bound and additional Details: PT Do you feel safe at home: Yes Do you feel safe in your relationship?: Yes Meds Allergies and Home Medications Allergies Allergy/AdvReac Type Severity Reaction Status Date / Time No Known Allergies Allergy Unverified 07/16/21 13:53 Home Medications Medication Instructions Recorded Confirmed Type acetaminophen 500 mg PO DIRECTED PRN 11/23/13 07/16/21 History aspirin [Aspirin Low-Strength] 81 mg PO DAILY 11/23/13 07/16/21 History docusate sodium [Doc-Q-Lace] 100 mg PO TID 11/23/13 07/16/21 History atorvastatin [Lipitor] 40 mg PO QPM 06/14/14 07/16/21 History Prodigy No Coding 12/23/15 06/04/21 History multivitamin [Daily Multi-Vitamin] 1 tab PO DAILY 03/23/16 07/16/21 History alendronate 70 mg PO WEEKLY 05/13/17 07/16/21 History alfuzosin 10 mg tablet,extended 10 mg PO DAILY 12/10/18 07/16/21 History release 24 hr ferrous gluconate 240 mg (27 mg 240 mg PO DAILY tab 12/23/18 07/16/21 History iron) tablet glipizide 10 mg tablet, extended 10 mg PO DAILY 12/23/18 07/16/21 History release 24 hr loratadine 10 mg tablet 10 mg PO DAILY 12/23/18 07/16/21 History omeprazole 40 mg capsule,delayed 40 mg PO DAILY 12/23/18 07/16/21 History release prednisone 5 mg tablet 5 mg PO DAILY 12/23/18 07/16/21 History cholecalciferol (vitamin D3) 25 4,000 unit PO DAILY tab 12/21/19 07/16/21 History mcg (1,000 unit) tablet metformin 500 mg tablet 850 mg PO BID tab 06/20/20 07/16/21 History baclofen 20 mg tablet 20 mg PO DIRECTED #360 tab 06/04/21 07/16/21 Rx clonazepam 1 mg tablet 1 mg PO QHS #30 tab 06/04/21 07/16/21 Rx folic acid 1 mg tablet 1 mg PO DAILY 06/04/21 07/16/21 History lisinopril 2.5 mg tablet 2.5 mg PO DAILY 06/04/21 07/16/21 History methotrexate (PF) 25 mg/0.4 mL 25 mg SUBCUT QWEEK 06/04/21 07/16/21 History subcutaneous auto-injector tramadol 100 mg tablet 100 mg PO HS 06/04/21 07/16/21 History gabapentin 300 mg capsule See Rx Instructions PO TID #450 cap 06/06/21 07/16/21 Rx methotrexate sodium 20 mg PO DIRECTED 07/07/21 07/16/21 History ascorbic acid (vitamin C) [Vitamin 500 mg PO BID #60 tab 07/14/21 07/16/21 Rx C] lactulose 20 g PO BID #1500 ml 07/14/21 07/16/21 Rx polyethylene glycol 3350 17 g PO BID #100 ea 07/14/21 07/16/21 Rx potassium chloride [Klor-Con M20] 40 meq PO DAILY #20 tab 07/14/21 07/16/21 Rx sennosides [Senna Lax] 8.6 mg PO DAILY #20 tab 07/14/21 07/16/21 Rx tamsulosin 0.4 mg PO DAILY #30 cap 07/14/21 07/16/21 Rx Exam Narrative Exam Narrative: Const: AAOx3, answering questions appropriately. He does appear slightly tired but not dozing off during conversation Neck:supple no JVD or lymphedema Chest: no trauma Resp: nonlabored, able to speak complete sentences. Cardio: RRR no ectopic beats GI: Obese abd, soft nontender, BM this am : deferred Skin: dry, MMM slighly dry, open area to right thigh and left knee apply neosporin with mepliex, no foul odor, does not look infectious Extrem: use of bilateral Upper extremities. Unable to use lower extremities, clubbing of bilateral feet. Psych: normal affect. pleasant and cooperative. Results Labs Result diagrams: 07/16/21 13:55 07/16/21 13:55 Labs: Laboratory Results - last 24 hr 07/16/21 07/16/21 07/16/21 13:55 13:55 13:55 WBC 6.23 RBC 3.86 L Hgb 10.8 L Hct 33.2 L MCV 86.0 MCH 28.0 MCHC 32.5 RDW 16.0 H Plt Count 266 MPV 11.1 H Immature Gran % 0.8 Neutrophils % 69.7 Lymphocytes % 19.4 Monocytes % 7.4 Eosinophils % 2.4 Basophils % 0.3 Nucleated RBC % 0 Absolute Neutrophils 4.34 Absolute Lymphocytes 1.21 Absolute Monocytes 0.46 Absolute Eosinophils 0.15 Absolute Basophils 0.02 VBG Lactate 1.7 H Sodium 150 H Potassium 3.4 L Chloride 113 H Carbon Dioxide 25.9 Anion Gap 11.1 H BUN 2 L Creatinine 1.3 Estimated GFR/1.73 m2 56.70 Glucose 152 H Calcium 8.5 Magnesium 2.1 Total Bilirubin 0.5 AST 44 H ALT 27 Alkaline Phosphatase 74 Creatine Kinase 1286 H Troponin I < 0.05 Total Protein 6.9 Albumin 3.3 L TSH 3.10 Urine Color Urine Clarity Urine pH Ur Specific [place] Urine Protein Urine Ketones Urine Blood Urine Nitrite Urine Bilirubin Urine Urobilinogen Ur Leukocyte Esterase Urine RBC Urine WBC Ur Epithelial Cells Urine Crystals Urine Bacteria Urine Casts Urine Mucus Ur Culture Indicated? Urine Glucose COVID-19 Source 07/16/21 07/16/21 14:38 17:27 WBC RBC Hgb Hct MCV MCH MCHC RDW Plt Count MPV Immature Gran % Neutrophils % Lymphocytes % Monocytes % Eosinophils % Basophils % Nucleated RBC % Absolute Neutrophils Absolute Lymphocytes Absolute Monocytes Absolute Eosinophils Absolute Basophils VBG Lactate Sodium Potassium Chloride Carbon Dioxide Anion Gap BUN Creatinine Estimated GFR/1.73 m2 Glucose Calcium Magnesium Total Bilirubin AST ALT Alkaline Phosphatase Creatine Kinase Troponin I Total Protein Albumin TSH Urine Color Yellow Urine Clarity Clear Urine pH 6.5 Ur Specific [place] 1.010 Urine Protein Negative Urine Ketones Negative Urine Blood Trace-intact H Urine Nitrite Negative Urine Bilirubin Negative Urine Urobilinogen 0.2 Ur Leukocyte Esterase Negative Urine RBC 0-2 Urine WBC Negative Ur Epithelial Cells Rare Urine Crystals Negative Urine Bacteria Negative Urine Casts Negative Urine Mucus Negative Ur Culture Indicated? No Urine Glucose Negative COVID-19 Source Nasal/Nares Last Vital Signs Temp 36.8 C 07/16/21 17:42 Pulse 90 07/16/21 17:42 Resp 16 07/16/21 17:42 BP 102/60 07/16/21 17:42 Pulse Ox 96 07/16/21 17:42
[2021-07-16 17:57] LABS: Troponin I < 0.05 ng/mL (<0.06)
[2021-07-16 18:27] LABS: COVID-19 PCR Negative (Negative)
[2021-07-16] MEDS: Heparin 5,000 UNITS/ML VIAL 5000 UNITS SC (18:49)
[2021-07-16] MEDS: Normal Saline 1,000 ML 150 ML IV (18:49)
[2021-07-16] MEDS: Normal Saline Flush 10 ML SYR IVP (18:50)
[2021-07-16] MEDS: Hydrocortisone SOD SUC. 100 MG VIAL IVP (18:50)
[2021-07-16] MEDS: Gabapentin 300 MG CAP 600 MG PO (20:43)
[2021-07-16] MEDS: Potassium Chloride 20 MEQ TABCR 40 MEQ PO (20:43)
[2021-07-16] MEDS: Polyethylene Glycol 3350 17 GM PACKET PO (20:43)
[2021-07-16] MEDS: Lactulose 20 GM/30 ML CUP PO (20:43)
[2021-07-16] MEDS: Docusate Sodium 100 MG CAP PO (20:44)
[2021-07-16] MEDS: Ascorbic Acid 500 MG TAB PO (20:44)
[2021-07-16] MEDS: Baclofen 10 MG TAB 40 MG PO (22:43)
[2021-07-16] MEDS: clonazePAM 1 MG TAB PO (22:43)
[2021-07-17] MEDS: Heparin 5,000 UNITS/ML VIAL 5000 UNITS SC ×3 (02:00→18:11)
[2021-07-17 07:03] VITALS: PULSE 70
[2021-07-17 08:11] VITALS: BP 119/72; PULSE 73; RESP 18; TEMP 36.6; O2SAT 99
[2021-07-17] MEDS: Tamsulosin 0.4 MG CAPCR PO (08:35)
[2021-07-17] MEDS: Senna TAB 1 TAB PO (08:36)
[2021-07-17] MEDS: Aspirin 81 MG CHEW PO (08:36)
[2021-07-17] MEDS: Loratidine 10 MG TAB PO (08:36)
[2021-07-17] MEDS: Potassium Chloride 20 MEQ TABCR 40 MEQ PO ×2 (08:36→20:19)
[2021-07-17] MEDS: Docusate Sodium 100 MG CAP PO ×2 (08:36→20:20)
[2021-07-17] MEDS: Gabapentin 300 MG CAP 600 MG PO (08:36)
[2021-07-17] MEDS: predniSONE 5 MG TAB PO (08:37)
[2021-07-17] MEDS: Ferrous Gluconate 324 MG TAB PO (08:37)
[2021-07-17] MEDS: Ascorbic Acid 500 MG TAB PO ×2 (08:37→20:19)
[2021-07-17] MEDS: Baclofen 10 MG TAB 20 MG PO ×2 (08:37→16:51)
[2021-07-17] MEDS: Folic Acid 1 MG TAB PO (08:37)
[2021-07-17] MEDS: Omeprazole 20 MG CAPCR 40 MG PO (08:37)
[2021-07-17] MEDS: Cholecalciferol (Vitamin D3) 1,000 UNIT TAB 4000 UNITS PO (08:37)
[2021-07-17] MEDS: Lisinopril 5 MG TAB 2.5 MG PO (08:38)
[2021-07-17] MEDS: Polyethylene Glycol 3350 17 GM PACKET PO ×2 (08:38→20:19)
[2021-07-17] MEDS: Insulin Aspart 300 UNITS/3 ML PEN SC ×3 (08:38→16:51)
[2021-07-17] MEDS: Lactulose 20 GM/30 ML CUP PO ×2 (08:38→20:19)
--- NOTE | 2021-07-17 09:18 | OT.INIE ---
Occupational Therapy Notes Occupational Therapy Initial Evaluation Date: 07/17/21 Referring Doctor:Nancy Davenport NP OT Orders: Non Urgent Precautions: Fall, standard, Full PATIENT PROFILE/ADMITTING DIAGNOSIS: Pt is a 60 year old male who was brought via EMS to the ED on 07/16/21 with a clinical impression of with generalized weakness, excessive sleepiness. Patient was previously admitted 07/07/2021 for large bowel obstruction, discharged 07/14/2021 to home with resumption of HH services. Past Medical History: Medical History (Updated 07/07/21 @ 18:18 by Pérez Wall MD) Abnormal CT of liver Anemia Bilateral cataracts Bilateral leg edema BPH (benign prostatic hyperplasia) Cervical radiculopathy Cervicalgia Chewing tobacco nicotine dependence Chronic pain a. chronic opiate rx Clostridium difficile colitis Congenital ptosis of left eyelid Diabetes type 2, controlled Diabetic retinopathy Family hx of colon cancer GERD (gastroesophageal reflux disease) Hip pain, right Hyperlipidemia Lytic bone lesions on xray Lytic lesion of bone on x-ray Mediastinal adenopathy Microcytic anemia Multiple sclerosis A. Diagnosed in 2006 b. nonambulatory, primarly bed to wheelchair Neck pain A. 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 Chronic opiate Rx Optic nerve atrophy Optic neuritis a. legally blind Osteopenia Pelvic lymphadenopathy Peripheral neuropathy Pituitary adenoma Renal insufficiency Sarcoidosis Spasticity Spinal stenosis Tobacco abuse a. Uses chewing tobacco Ulcer of calf Urinary incontinence Vitamin D deficiency Surgical History H/O surgical procedure a. appendectomy b. left levator surgery 2012 History of appendectomy History of lung biopsy Social History/Home Situation: Pt lives in an private apartment with caregivers and HH who come in and (A) with his ADL/IADL routines. He has MS and moved to [place] from [place] to be with his son. He states that he used to utilize a cane and FWW but his mobility progressed to worsening state and he now utilizes an electric wheelchair to get around. He notes that he sponge baths at the sink and has a visual deficit which is his baseline. He takes RCT to get to appts and works out at [employer] 2x per week on the (I) program. Equipment owned/DME: Cane, FWW, utilizes a electric wheelchair, grab bars SUBJECTIVE: Pt is sitting in bed when OT arrived. He is agreeable to OT session but states that he is so tired. He is able to open his eyes but this happens with vc throughout. Nursing reports that he is very sleepy this morning and is taking in a lot of fluids. OBJECTIVE: General Observation: Pleasant, ng in place Mental Status: A&Ox3 Pain: no c/o pain ROM: RUE AROM WFL L UE AROM WFL STRENGTH: RUE 2/5 throughout IV in (R) UE which may be contributing but notes that he has pain in (R) shoulder with shoulder flexion testing. LUE 4/5 throughout FUNCTIONAL MOBILITY/ADLS: BATHING - sitting in bed with max (A) set up/clean up, (I) Face with min vc throughout and min (A) (B) UE and underarms, pt is able to wash his abdomen and requires max (A) (B) LE. DRESSING- Mod (A) [facility] gown sitting in bed Eating- sitting in bed pt states that he is not hungry at all. For drinking his orange juice he requires max (A) cup to mouth and and with use of straw he is able to swallow his liquids without issues, otherwise he requires (A). Toileting- ng in place and pt utilizes a bed morrison with max (A) with nursing. BALANCE: Static sitting Normal Dynamic Sitting Normal SPECIAL TESTS: Daily Activity Limitations Standardized Measure [facility] AM -PAC ?6 clicks? Daily Activity Inpatient Short Form: Raw score: 11 Standardized score: 29.04 CMS score: 70.42% INFORMED CONSENT/EDUCATION: Pt instructed in purpose of OT Consult and plan of care. ASSESSMENT: Patient is a 60-year-old male referred to occupational therapy services with diagnosis of Altered mental status, Rhabdomyolysis, Urinary tract infection. Patient presents with clinical signs and symptoms consistent with dx, as demonstrated by the following impairment level findings/functional limitations: decreased (R) UE strength, fatigued easily, decreased functional mobility, decreased LE dressing and bathing, pain in (R) Shoulder, decreased functional activity tolerance. AMPAC score 11 Patient is assessed as a Moderate 08239 complexity based on the following: History:see above Examination: see functional limitations as noted above Presentation: evolving Decision Making: AMPAC score 11 GOALS Goals x1 week 1. Grooming- Min (A) brushing his teeth in the sitting position 2. Dressing- (I) UE and min (A) LE 3. Bathing- (I) UE and min (A) LE 4. Toileting mod (A) on commode 5. Eating min (A) PLAN OF CARE/TREATMENT PLAN: 1x/day, 5 days/ week x 1week Initiate Occupational Therapy Services for bathing, dressing, grooming, toileting, eating, transfer training. DISCHARGE RECOMMENDATIONS OT recommends SNF when medically cleared per MD due to pts significant decline in functional activity tolerance, high risk for re-admission and decline in functional (I). TREATMENT TIME/MINUTES/CODES 24699, 30 minutes (08:45) Aura Cohen OTR/[facility]
--- NOTE | 2021-07-17 10:10 | INITIAL_ITS ---
- If Service Date Differs Date of service: 07/17/21 Time of Service: 10:10 Care Management Initial Assess REASON FOR HOSPITALIZATION:: AMS, Weakness PAST MEDICAL HISTORY/PAST SURGICAL HISTORY:: Hypernatremia (Acute). Altered mental status (Acute). Incontinence (Acute). Discharge planning issues (Acute). DVT prophylaxis (Acute). Microcytic anemia (Chronic). Multiple sclerosis (Chronic). Diabetes type 2, controlled (Chronic). Urinary incontinence (Chronic). Abnormal computed tomography angiography (CTA) of abdomen. Abnormal CT of liver. Anemia. Bilateral cataracts. Bilateral leg edema. BPH (benign prostatic hyperplasia). Cervical radiculopathy. Cervical spinal stenosis. Cervicalgia. Chewing tobacco nicotine dependence. Chronic pain. a. chronic opiate rx. Clostridium difficile colitis. Congenital ptosis of left eyelid. Diabetic retinopathy. Family hx of colon cancer. GERD (gastroesophageal reflux disease). Hip pain, right. Hyperkalemia. Hyperlipidemia. Ileus. Lytic bone lesions on xray. Lytic lesion of bone on x-ray. Mediastinal adenopathy. Neck pain. A. 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 b. Chronic opiate Rx. Optic nerve atrophy. Optic neuritis. a. legally blind. Osteopenia. Pelvic lymphadenopathy. Peripheral neuropathy. Pituitary adenoma. Renal insufficiency. Rhabdomyolysis. Right leg weakness. Right shoulder pain. Rotator cuff tear, right. Sarcoidosis. Spasticity. Spinal stenosis. Tendonitis of long head of biceps brachii of right shoulder. Tobacco abuse. a. Uses chewing tobacco. Ulcer of calf. Vision loss. Vitamin D deficiency PREVIOUS FUNCTIONAL STATUS/SOCIAL/FAMILY SUPPORTS:: Bryan resides alone in [place], [place] in a handicap accessible apartment. He has declined in function since his last admission, which may be a sign of MS disease progression, per hospitalist. His U.[place] 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 Home health aide helps with cleaning and meal prep. He has a son, Bryan MCCURDY who resides locally and a father, Bryan Abraham who is a Reverend in [place] and keeps in good contact with Bryan. CURRENT FUNCTIONAL STATUS:: Bryan was lying in bed, he was forthcoming with information and steadfast in his decision to not go to a SNF upon discharge. Bryan called his son, during CM interaction, and was made aware of Bryan's choice as well. CM discussed PC and Hospice and provided patient education. Bryan states he will return home and request increased support from his family upon discharge. CM will continue to discuss disposition and care needs with Bryan. ADVANCE DIRECTIVES:: On file at [facility]: Bryan De III as agent, others include Cal Mock and Reverend Bryan De Sr. Has patient been provided with info about the portal/API?: Yes Did the patient sign up for the portal?: No CODE STATUS:: Full Code INSURANCE COVERAGE / FINANCIAL ISSUES:: Medicaid. Medicare. Choices for Care: [facility] Medicaid CURRENT HOME/COMMUNITY SERVICES/EQUIPMENT:: Grab bars, hand rails, wheel chair, hospital bed, glucometer, Homemaker; [facility] Medicaid through [facility]: RAMIREZ Villanueva. Bryan has met with Dr. Hayes in the past for Palliative Care. Disability income. [facility] W/C Van for appointments. PRIMARY CARE PHYSICIAN:: Ale Barraza POTENTIAL DISCHARGE NEEDS:: Discussion around increased services; coordination of support. Follow up appointment with PCP. PATIENT/FAMILY EDUCATION NEEDS:: Review of discharge instructions, discuss Ask Me Three to ensure patient understanding of reason for hospitalization and self care needs upon discharge. ANTICIPATED BARRIERS TO DISCHARGE:: None identified at this time. TRANSPORTATION:: RCT W/C Van PLAN:: CM spoke with Karime Villanueva CM for [facility] L/T Medicaid who reported Bryan currently has 13.75 respite hours weekly and 17.75 HEEL BURNISHER hours. Karime reported being at Bryan's home and calling EMS to bring him to the hospital as he was unable to transfer independently and does not have staffing available to provide that level of support in the home. Anticipate Bryan will discharge to SNF. Pharmacy and PSYCHIATRIC SPECIALIST requested this typewriter tester determine last dose given of injectable methostrexate as well as have the medicine delivered to [facility]. CM left message for advertising copywriter [facility] at 1510 to determine this information. Readmission - Assessment for Readmission Summary of readmission circumstances, based upon interviews: Bryan is only willing to go home at this time; these conversations will continue. Anticipate team meeting to discuss current level of function, natural support availability and possible disposition options to support Bryan in making an informed decision.
[2021-07-17] MEDS: Hydrocortisone SOD SUC. 100 MG VIAL 50 MG IVP ×3 (10:18→22:27)
[2021-07-17 11:07] LABS: Creatine Kinase 1226 U/L (39-308)
[2021-07-17 11:48] LABS: HCT 33.4 % (40.0-50.0); HGB 10.8 g/dL (13.5-17.5); MCV 86.5 fL (80-95); RBC 3.86 10^6/uL (4.36-5.78); WBC 7.61 10^3/uL (4.4-10.8)
[2021-07-17 11:49] LABS: Abs Immature Grans 0.05 10^3/uL (0.0-0.06); Absolute Basophil Count 0.02 10^3/uL (0.0-0.2); Absolute Eosinophil Count 0.01 10^3/uL (0.0-0.7); Absolute Lymphocyte Count 1.05 10^3/uL (1.2-3.4); Absolute Monocyte Count 0.36 10^3/uL (0.1-0.8); Absolute Neutrophil Count 6.12 10^3/uL (1.2-6.7); Basophils % 0.3; Eosinophils % 0.1; Immature Grans % 0.7; Lymphocytes % 13.8; MCHC 32.3 % (32.0-36.0); MPV 12.5 fL (8.0-11.0); Monocytes % 4.7; Neutrophils % 80.4; Nucleated RBC 0 %; Platelet Count 215 10^3/uL (130-400); RDW 16.4 % (11.8-14.1); RDW-SD 50.7 fL
[2021-07-17] MEDS: Gabapentin 300 MG CAP PO ×2 (11:54→20:20)
[2021-07-17 12:03] LABS: Calcium 8.5 mg/dL (8.5-10.1)
[2021-07-17 12:04] LABS: Anion Gap 12.6 mmol/L (3-11); BUN 4 mg/dL (7-18); CO2 23.4 mmol/L (21.0-32.0); CREATININE 1.1 mg/dL (0.70-1.30); Chloride 120 mmol/L (98-107); Glucose 176 mg/dL (74-106); Potassium 3.8 mmol/L (3.5-5.1); Sodium 156 mmol/L (136-145)
[2021-07-17 12:05] LABS: Magnesium 2.4 mg/dL (1.8-2.4)
--- NOTE | 2021-07-17 12:47 | IN_ITS ---
Date of service: 07/17/21 PT Notes Visit Reasons: Altered Mental Status, Weakness Physical Therapy Inpatient Initial Evaluation Date: 07/17/2021 Referring Doctor: Nancy Davenport NP PT Orders: PT CONSULT: Eval/treat Precautions: Fall. Standard. Activity as tolerated. Wheelchair-bound. Legally blind. Patient Profile/Admitting Diagnosis: Bryan is a 60-year-old male with chronic multiple sclerosis, sarcoidosis, and diabetes mellitus mellitus who presented on 07/16/2021 due to increased lethargy and inability to manage at home alone. Patient is diagnosed with altered mental status, rhabdomyolysis, urinary tract infection, and generalized weakness. Patient is diagnosed with altered mental status, hypernatremia, and incontinence. PMHX: Medical History Abnormal CT of liver Anemia Bilateral cataracts Bilateral leg edema BPH (benign prostatic hyperplasia) Cervical radiculopathy Cervicalgia Chewing tobacco nicotine dependence Chronic pain a. chronic opiate rx Clostridium difficile colitis Congenital ptosis of left eyelid Diabetes type 2, controlled Diabetic retinopathy Family hx of colon cancer GERD (gastroesophageal reflux disease) Hip pain, right Hyperlipidemia Lytic bone lesions on xray Lytic lesion of bone on x-ray Mediastinal adenopathy Microcytic anemia Multiple sclerosis A. Diagnosed in 2006 b. nonambulatory, primarily bed to wheelchair Neck pain A. 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 Chronic opiate Rx Optic nerve atrophy Optic neuritis a. legally blind Osteopenia Pelvic lymphadenopathy Peripheral neuropathy Pituitary adenoma Renal insufficiency Sarcoidosis Spasticity Spinal stenosis Tobacco abuse a. Uses chewing tobacco Ulcer of calf Urinary incontinence Vitamin D deficiency Surgical History H/O surgical procedure a. appendectomy b. left levator surgery 2012 History of appendectomy History of lung biopsy Social History/Home Situation: Lives alone in a handicap-accessible apartment complex in [place] with community support being managed by community care information associate Darcy Alfaro. From recent admission patient states that at baseline, he is able to perform stand pivot transfers to and from his motorized wheelchair at home. He receives home health assistance with meal preparation for his breakfast and dinners. Receives help with house chores, groceries, and medical transport. Equipment Owned/DME: Hospital bed, regular wheelchair, motorized wheelchair, front-wheeled walker Subjective: Lethargic. Attempted to woke patient up twice with success. Agreed to perform some chest pull ups using overhead trapeze before he got tired. Unsure of how he will manage at home when he does not have anybody to help him. Refused to eat breakfast and also does not want his lunch stating that he is not hungry. Objective: General Observation: Supine in bed. Wound dressing over bilateral thighs and legs. JuxtaLite compression garment on R leg which patient insisted is for his R knee. Mental Status: Lethargic but oriented as to person, place, time, and purpose. Limited ability to pay attention initially but managed to repsond appropriately later on in the session. Pain: Denies ROM: Right Upper Extremity: Shoulder Flexion allows only 75% of available range of motion. Shoulder abduction allows only 50% of available range of motion.. Elbow flexion WFL. Wrist flexion WFL. Functional opening and closing of hand WFL. Left Upper Extremity: Shoulder Flexion allows only 75% of available range of motion. Shoulder abduction allows only 50% of available range of motion.. Elbow flexion WFL. Wrist flexion WFL. Functional opening and closing of hand WFL. Right Lower Extremity: Hip flexion-unable to slide heel up in supine. Hip abduction-only able to move R LE less than 10 degrees in supine to edge of bed. Knee flexion unable to slide heel up in supine. Ankle dorsiflexion no actual movement seen, muscle contraction only. Ankle plantarflexion muscle contraction only. Left Lower Extremity: Unable to perform any movements in L LE. Strength: Right Upper Extremity: Shoulder flexors 3-/5. Shoulder abductors 3-/5. Elbow flexors 4-/5. Elbow extensors 4-/5. Dural Mechanic weak but functional. Left Upper Extremity: Shoulder flexors 3-/5. Shoulder abductors 3-/5. Elbow flexors 4-/5. Elbow extensors 4-/5. Dural Mechanic weak but functional. Right Lower Extremity: Hip flexors 1/5. Hip abductors 1/5. Knee flexors 2-/5. Knee extensors 2-/5. Ankle dorsiflexors 1/5. Ankle plantarflexors 1/5. Left Lower Extremity: Hip flexors 1/5. Hip abductors 1/5. Knee flexors 1/5. Knee extensors 1/5. Ankle dorsiflexors 1/5. Ankle plantarflexors 1/5. Bed Mobility/Transfers: Supine to sit moderate assist with HOB at 45 degrees Sit to supine moderate assist with HOB at 45 degrees Sit to stand unable to test due to safety concerns Stand to sit unable to test due to safety concerns Bed to bedside commode unable to test due to safety concerns Bedside commode to bed unable to test due to safety concerns Bed to reclining chair unable to test due to safety concerns Reclining chair to bed unable to test due to safety concerns Gait: N/A. Patient non-ambulatory. Balance: Static Sitting: Poor Dynamic Sitting: Poor Static Standing: Unable to test Dynamic Standing: Unable to test gait Special Tests: Mobility Limitations Standardized Measure [facility]-PAC 6 clicks Basic Mobility Inpatient Short Form: Raw Score: 6 CMS Score: 100% deficit Informed Consent/Education: Patient was instructed in purpose of PT consult and plan of care. Agreeable to proceed with established PT POC to achieve personal goals. Assessment: Strength has drastically declined since patient was last seen on 07/10/2021. Bryan demonstrates continued functional mobility decline in transfers requiring the use of mechanical lift at this time to ensure patient and staff safety. PT services to focus un B UE/LE strengthening and increasing sitting balance and tolerance. Skilled services are required to address issues with trunk stability, B UE/LE/core strength, mobility dependence. Patient presents with clinical signs and symptoms consistent with current/admitting diagnoses that have resulted to mobility limitations, gait instability, generalized weakness, and overall ADL decline as demonstrated by the following impairment level findings: 1. Decreased strength to BUE/LE/trunk major muscle groups 2. Impaired sitting/ balance and tolerance 3. Impaired activity tolerance 4. Limitation of joint range of motion in BUE/LE 5. BLE swelling Impairments are contributing to the following functional limitations: 1. Decline in bed mobility skills 2. Decline in transfer skills 3. Increased completion time for mobility ADL performance 5. Increased risk for falls 6. Increased risk for skin breakdown Patient is assessed as a 33716 high complexity based on the following: History: 60-year-old male with past medical history as indicated above Examination: Demonstrable impairment in strength, balance, and mobility level with underlying impairments and functional limitations as exhibited above as well as deficit score of 87% utilizing the [facility] Mobility Inpatient Short Form Presentation: Evolving Decision Makin high complexity Goals: Goals X1 week 1. Supine-Sit minimal assist 2. Sit-Supine minimal assist 3. Sitting balance/tolerance to Fair 4. B UE strength to 3/5 and B LE strength to 2-/5 to progress transfer skills Plan of Care/Treatment Plan: 1-2x/day, 7 days/week x 1 week. Plan of care has been reviewed with the INDUSTRIAL SWEEPER CLEANER providing the service under Physical Therapy direction. Initiate Physical Therapy intervention for pain management as needed, strengthening, bed mobility, transfers, gait, stairs, balance training, and use of assistive device. DISCHARGE RECOMMENDATIONS: [] Home with no services [] [] Home with services [specify] [] Home with outpatient PT [] [X] SNF for continued rehabilitation to address impairments in trunk stability, B UE/LE strength, and improve mobility level prior to discharge to home. [X] [facility] Care. Patient may require LTC placement depending on how much mobility is achieved during his rehab stay. Otherwise patient may end up needing 24/7 care. [] SNF versus LTC based on ability to participate and progress [] TREATMENT CODE/TIME: 26039 x 28 minutes beginning at 12:47 PM. Thank you for the opportunity to participate in the care of this patient. Rosa Luevano PT, DPT, CLT [facility] [place], [place]
[2021-07-17 13:05] LABS: Anion Gap 10.7 mmol/L (3-11); BUN 4 mg/dL (7-18); CO2 24.3 mmol/L (21.0-32.0); CREATININE 1.1 mg/dL (0.70-1.30); Calcium 8.6 mg/dL (8.5-10.1); Chloride 119 mmol/L (98-107); Glucose 170 mg/dL (74-106); Potassium 3.4 mmol/L (3.5-5.1); Sodium 154 mmol/L (136-145)
--- NOTE | 2021-07-17 14:20 | PGE_ITS ---
Date of Service Date of service: 07/17/21 Time of Service: 14:20 Assessment and Plan Assessment and plan (1) Altered mental status: Start date: 07/17/21 Start time: 14:31 Status: Acute Assessment and plan: Improved. Patient AAOx3. He is able to answer all questions, though he is very tired. easily wakes. He could be tired to do adrenal insufficiency and not eating Will give hydrocortisone for stress dose steroids to see if this helps. Also make sure patient has help with feedings Could also be progression of MS Qualifiers: Altered mental status type: stupor Qualified Code(s): R40.1 - Stupor (2) Adrenal insufficiency: Start date: 07/17/21 Start time: 14:35 Status: Acute Assessment and plan: As above stress dose steriods (3) Hypernatremia: Start date: 07/17/21 Start time: 14:36 Status: Acute Assessment and plan: Hyponatremic at 156 today, he is dry and potassium is still low in addition to stress steriods IVF potassium [id number] Potassium is low at 3.4 he likely needs stress dose steroids as he is on methorexate and prednisone daily d/t MS. 50 hydrocorticsone q 8 hours (4) Incontinence: Start date: 07/17/21 Start time: 14:37 Status: Acute Assessment and plan: D/t neurogenic bladder. Started on flomax on last admission in addition to his alfuzosin Ng at this time will d/c ng tomorrow and do bladder scans with straight caths as he does at home Qualifiers: Incontinence type: urinary Urinary Incontinence type: other incontinence Qualified Code(s): N39.498 - Other specified urinary incontinence (5) Microcytic anemia: Start date: 07/17/21 Start time: 14:38 Status: Chronic Assessment and plan: Stable. Monitor (6) Diabetes type 2, controlled: Start date: 07/17/21 Start time: 14:38 Status: Chronic Assessment and plan: Fingersticks, hold oral medications SSI sensitive monitor Qualifiers: Diabetes mellitus residential insulin use: unspecified termite treater insulin use status Diabetes mellitus complication status: without complication Qualified Code(s): E11.9 - Type 2 diabetes mellitus without complications (7) Multiple sclerosis: Start date: 07/17/21 Start time: 14:39 Status: Chronic Assessment and plan: followed by Dr. Thorne (8) DVT prophylaxis: Start date: 07/17/21 Start time: 14:39 Status: Acute Assessment and plan: Heparin subcut (9) Discharge planning issues: Start date: 07/17/21 Start time: 14:39 Status: Acute Assessment and plan: Home vs rehab/SNIF when medically ready with resumption of services and caregivers discussed with Dr. Jones Subjective Subjective Patient reports: other Interval history since last seen: Bryan is lying in bed, he appears weak. Sleeping, when walking into room, easily awakes. Patient is very fatigued. He also appears to be in adrenal insufficiency based on labs, which could be contributing to his weakness. PT concerned patient getting worse, unable to feed himself, agree with this. Recommend SNIF or short term rehab. If he goes home he will likely fail and return. He does appear dry and potassium low. Will hydrate with IVF potassium with D5LR. hydrocortisone q 8 hours. Exam Narrative Exam Narrative: Const: AAOx3, very tired and weak appearing today. Opens eyes to conversation HENT:MMM dry, Pupils not perrla (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 Small reactivity noted in left eye. 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 Cardio: RRR no ectopic beats GI: Obese abd, soft nontender, BM this am : deferred Skin: dry, open area to right thigh and left knee apply neosporin with mepliex, no foul odor, does not look infectious Extrem: use of bilateral Upper extremities. Unable to use lower extremities, clubbing of bilateral feet. Motor: other (5/5 BUE strength. 2/5 BLE proximal strength. ) Psych: normal affect. pleasant and cooperative. Objective Last Vital Signs Temp 36.6 C 07/17/21 08:11 Pulse 73 07/17/21 08:11 Resp 18 07/17/21 08:11 BP 119/72 07/17/21 08:11 Pulse Ox 99 07/17/21 08:11 Laboratory Results - last 24 hr 07/16/21 07/16/21 07/16/21 13:55 14:38 17:15 WBC RBC Hgb Hct MCV MCH MCHC RDW Plt Count MPV Immature Gran % Neutrophils % Lymphocytes % Monocytes % Eosinophils % Basophils % Nucleated RBC % Absolute Neutrophils Absolute Lymphocytes Absolute Monocytes Absolute Eosinophils Absolute Basophils Sodium 150 H Potassium 3.4 L Chloride 113 H Carbon Dioxide 25.9 Anion Gap 11.1 H BUN 2 L Creatinine 1.3 Estimated GFR/1.73 m2 56.70 Glucose 152 H Calcium 8.5 Magnesium 2.1 Total Bilirubin 0.5 AST 44 H ALT 27 Alkaline Phosphatase 74 Creatine Kinase 1286 H Troponin I < 0.05 < 0.05 Total Protein 6.9 Albumin 3.3 L TSH 3.10 Urine Color Yellow Urine Clarity Clear Urine pH 6.5 Ur Specific [place] 1.010 Urine Protein Negative Urine Ketones Negative Urine Blood Trace-intact H Urine Nitrite Negative Urine Bilirubin Negative Urine Urobilinogen 0.2 Ur Leukocyte Esterase Negative Urine RBC 0-2 Urine WBC Negative Ur Epithelial Cells Rare Urine Crystals Negative Urine Bacteria Negative Urine Casts Negative Urine Mucus Negative Ur Culture Indicated? No Urine Glucose Negative COVID-19 Source SARS-CoV-2 (PCR) 07/16/21 07/17/21 07/17/21 17:27 06:45 06:45 WBC 7.61 RBC 3.86 L Hgb 10.8 L Hct 33.4 L MCV 86.5 MCH 28.0 MCHC 32.3 RDW 16.4 H Plt Count 215 MPV 12.5 H Immature Gran % 0.7 Neutrophils % 80.4 Lymphocytes % 13.8 Monocytes % 4.7 Eosinophils % 0.1 Basophils % 0.3 Nucleated RBC % 0 Absolute Neutrophils 6.12 Absolute Lymphocytes 1.05 L Absolute Monocytes 0.36 Absolute Eosinophils 0.01 Absolute Basophils 0.02 Sodium 156 H Potassium 3.8 Chloride 120 H Carbon Dioxide 23.4 Anion Gap 12.6 H BUN 4 L Creatinine 1.1 Estimated GFR/1.73 m2 >= 60.00 Glucose 176 H Calcium 8.5 Magnesium 2.4 Total Bilirubin AST ALT Alkaline Phosphatase Creatine Kinase Troponin I Total Protein Albumin TSH Urine Color Urine Clarity Urine pH Ur Specific [place] Urine Protein Urine Ketones Urine Blood Urine Nitrite Urine Bilirubin Urine Urobilinogen Ur Leukocyte Esterase Urine RBC Urine WBC Ur Epithelial Cells Urine Crystals Urine Bacteria Urine Casts Urine Mucus Ur Culture Indicated? Urine Glucose COVID-19 Source Nasal/Nares SARS-CoV-2 (PCR) Negative 11/16/21 11/16/21 11/16/21 06:45 06:45 12:29 WBC RBC Hgb Hct MCV MCH MCHC RDW Plt Count MPV Immature Gran % Neutrophils % Lymphocytes % Monocytes % Eosinophils % Basophils % Nucleated RBC % Absolute Neutrophils Absolute Lymphocytes Absolute Monocytes Absolute Eosinophils Absolute Basophils Sodium Cancelled 154 H Potassium Cancelled 3.4 L Chloride Cancelled 119 H Carbon Dioxide Cancelled 24.3 Anion Gap Cancelled 10.7 BUN Cancelled 4 L Creatinine Cancelled 1.1 Estimated GFR/1.73 m2 Cancelled >= 60.00 Glucose Cancelled 170 H Calcium Cancelled 8.6 Magnesium Total Bilirubin AST ALT Alkaline Phosphatase Creatine Kinase 1226 H Troponin I Total Protein Albumin TSH Urine Color Urine Clarity Urine pH Ur Specific [place] Urine Protein Urine Ketones Urine Blood Urine Nitrite Urine Bilirubin Urine Urobilinogen Ur Leukocyte Esterase Urine RBC Urine WBC Ur Epithelial Cells Urine Crystals Urine Bacteria Urine Casts Urine Mucus Ur Culture Indicated? Urine Glucose COVID-19 Source SARS-CoV-2 (PCR)
[2021-07-17 16:06] VITALS: BP 114/73; PULSE 76; RESP 16; TEMP 36.6; O2SAT 97
[2021-07-17 19:28] VITALS: BP 104/68; PULSE 70; RESP 15; TEMP 35.9; O2SAT 97
[2021-07-17] MEDS: Baclofen 10 MG TAB 40 MG PO (22:28)
[2021-07-17] MEDS: clonazePAM 1 MG TAB PO (22:28)
[2021-07-17 23:15] VITALS: BP 104/65; PULSE 68; RESP 15; TEMP 35.8; O2SAT 97
--- NOTE | 2021-07-18 | DI.US_ITS ---
Exam(s) US ABDOMEN EXAM: US ABDOMEN CLINICAL HISTORY: lack of appetite, history of ileus TECHNIQUE: Ultrasound performed using standard protocol. COMPARISON: US BILATERAL EXTREMITY US from 03/23/2016 FINDINGS: Ultrasound was performed according to the usual protocol. The study was limited by overlying bowel g as. Abdominal aorta is nonvisualized. IVC is of grossly normal diameter period Hepatic parenchyma shows increased echogenicity raising the possibility of hepatic steatosis. There is an apparent 10 millimeter in diameter simple cyst of the left hepatic lobe. No other focal lesion identified. There is no evidence of cholelithiasis or biliary dilatation. No pericholecystic fluid collection. Pancreas appears intact as visualized but is incompletely seen. Spleen appears normal. There is no evidence of renal mass, hydronephrosis, or nephrolithiasis. IMPRESSION: Question hepatic steatosis. No evidence of cholelithiasis. DATA REPOSITORY:
[2021-07-18] MEDS: Insulin Aspart 300 UNITS/3 ML PEN SC ×5 (00:15→21:36)
[2021-07-18] MEDS: Heparin 5,000 UNITS/ML VIAL 5000 UNITS SC ×3 (02:07→18:56)
[2021-07-18 03:10] VITALS: BP 112/66; PULSE 60; RESP 15; TEMP 36.9; O2SAT 97
[2021-07-18] MEDS: Omeprazole 20 MG CAPCR 40 MG PO (06:42)
--- NOTE | 2021-07-18 06:44 | NUR.NOTE ---
Nursing Note: In to giv am medications Pt had pulled out IV and was incont of small amt of stool. Attempted x2 to gain access. No success at this time charge nurse notified. Pt with increased confusion this morning. able to answer most questions approp. But grabbing at things that are not there.
[2021-07-18 07:12] LABS: Abs Immature Grans 0.07 10^3/uL (0.0-0.06); Absolute Basophil Count 0.01 10^3/uL (0.0-0.2); Absolute Lymphocyte Count 1.24 10^3/uL (1.2-3.4); Absolute Monocyte Count 0.23 10^3/uL (0.1-0.8); Absolute Neutrophil Count 8.39 10^3/uL (1.2-6.7); Basophils % 0.1; HCT 31.7 % (40.0-50.0); HGB 10.2 g/dL (13.5-17.5); Immature Grans % 0.7; Lymphocytes % 12.5; MCH 27.8 pg (27.0-33.0); MCHC 32.2 % (32.0-36.0); MCV 86.4 fL (80-95); MPV 11.1 fL (8.0-11.0); Monocytes % 2.3; Neutrophils % 84.4; Nucleated RBC 0 %; Platelet Count 320 10^3/uL (130-400); RBC 3.67 10^6/uL (4.36-5.78); RDW 16.1 % (11.8-14.1); RDW-SD 50.3 fL; WBC 9.94 10^3/uL (4.4-10.8)
[2021-07-18 07:27] VITALS: BP 107/76; PULSE 62; RESP 17; TEMP 36.2; O2SAT 100
[2021-07-18 07:30] LABS: Anion Gap 10.3 mmol/L (3-11); BUN 5 mg/dL (7-18); CO2 24.7 mmol/L (21.0-32.0); CREATININE 1.2 mg/dL (0.70-1.30); Calcium 8.3 mg/dL (8.5-10.1); Chloride 116 mmol/L (98-107); Glucose 205 mg/dL (74-106); Magnesium 2.1 mg/dL (1.8-2.4); Potassium 3.9 mmol/L (3.5-5.1); Sodium 151 mmol/L (136-145)
--- NOTE | 2021-07-18 08:46 | NCONE_ITS ---
Date of service: 07/18/21 Time of Service: 08:46 Assessment and Plan Assessment and plan (1) Encephalopathy: Status: Acute (2) Multiple sclerosis: Status: Chronic (3) Hypernatremia: Status: Acute Assessment and plan: Mr. De is an 60 year-old man with encephalopathy, lethargy, and generalized weakness on top of chronic weakness from Multiple Sclerosis, complicated by sarcoidosis. Today, most pronounced is his encephalopathy. He is not so lethargic for me and his neurological exam appears at baseline to me, perhaps slightly weaker in the LE which is not totally unexpected. He was unable to tell me his age or what his birthday was. He was unable to tell me the current year. He had significant perseveration on his age and birthday. He has hypernatremia and suspected adrenal insufficiency, both of which are likely contributing. Agree with further work-up with brain MRI w/o as well as updated ESR and CRP. Agree with further work-up as per primary team for encephalopathy, which is most likely due to toxic-metabolic etiology. Agree with reducing centrally acting medications for now but would not adjust baclofen if we can help it. Given lack of appetite, does he have something brewing in his belly??? No pain, +BS. Given quick return to hospital, based on reports of conditions at home, and expected deconditioning, would consider at least temporary SNF placement. Will continue to follow along. History of Present Illness History of Present Illness Chief Complaint: AMS, lethargy Narrative: Handedness: right. HPI: Mr. 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 I know him quite well and last saw him in clinic on 06/04/21 at which time he was doing fairly well. He was recently admitted 07/07/21-07/14/21 after being found slumped over in his wheelchair by one of his caregivers. Found to have UTI and rhabdomyolysis. He was started on tamsolosis with plan for outpatient urology follow-up. Stay was complicated by ileus. There was concern for rectal mass vs LBO but flex sig was negative. He has diffuse colonic distention. Placed on bowel regimen. D/c'd to home. Returned to ER on 07/16/21 for increased somnolence, generalized weakness, and altered mental status. Apparently not eating/drinking at home. Unclear if this is due to lack of caregiver availability or other. While here, he has displayed a significant lack of appetite. Work-up has including nml WBC, ESR 12, worsening hypernatremia that started in prior admission (peak 156 yesterday and now to 151), low potassium which also started in prior admission but is currently corrected, stable Cr, CK which has come done since first admission (peaked at >10k) but holding steady at ~1200; trop x2 neg, CRP 2.09 (was 7.71 on 07/11/21), TSH 3.10. UA was neg for infection and Ur Spec grav was 1.010. He is being treated with stress steroids for suspected adrenal insufficiency. Imaging: -[facility] (07/07/21): no acute findings. Atrophy and chronic vascular changes notes. I reviewed these images personally and this is my personal interpretation. -[facility] head/neck (07/07/21): no significant stenosis. I reviewed these images personally and this is my personal interpretation. -[facility] (07/16/21): no acute findings. Atrophy and chronic vascular changes notes. Unchanged from previous. I reviewed these images personally and this is my personal interpretation. Consults Requesting physician: Nancy Davenport Review of Systems All systems reviewed & are unremarkable except as noted in HPI and below PFSH Active Problem List Encephalopathy (Acute) Adrenal insufficiency (Acute) Hypernatremia (Acute) Altered mental status (Acute) Incontinence (Acute) Discharge planning issues (Acute) DVT prophylaxis (Acute) Microcytic anemia (Chronic) Multiple sclerosis (Chronic) Diabetes type 2, controlled (Chronic) Urinary incontinence (Chronic) Medical History Abnormal computed tomography angiography (CTA) of abdomen Abnormal CT of liver Anemia Bilateral cataracts Bilateral leg edema BPH (benign prostatic hyperplasia) Cervical radiculopathy Cervical spinal stenosis Cervicalgia Chewing tobacco nicotine dependence Chronic pain a. chronic opiate rx Clostridium difficile colitis Congenital ptosis of left eyelid Diabetic retinopathy Family hx of colon cancer GERD (gastroesophageal reflux disease) Hip pain, right Hyperkalemia Hyperlipidemia Ileus Lytic bone lesions on xray Lytic lesion of bone on x-ray Mediastinal adenopathy Neck pain A. 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 Chronic opiate Rx Optic nerve atrophy Optic neuritis a. legally blind Osteopenia Pelvic lymphadenopathy Peripheral neuropathy Pituitary adenoma Renal insufficiency Rhabdomyolysis Right leg weakness Right shoulder pain Rotator cuff tear, right Sarcoidosis Spasticity Spinal stenosis Tendonitis of long head of biceps brachii of right shoulder Tobacco abuse a. Uses chewing tobacco Ulcer of calf Vision loss Vitamin D deficiency Surgical History (Updated 07/17/21 @ 09:28 by Nancy Davenport NP) H/O surgical procedure a. appendectomy b. 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 What is your relationship status?: Panel score (0-1 are the most socially isolated patients): 0 What type of physical activity do you participate in: weight lifting, wheelchair-bound and additional Details: PT Do you feel safe at home: Yes Do you feel safe in your relationship?: Yes Visit Medication and Allergies Active Medications Generic Name Dose Route Start Last Admin Trade Name Freq PRN Reason Stop Dose Admin Acetaminophen 0 mg 07/16/21 17:41 Acetaminophen 325 Mg Tab PO Q4H PRN PRN Ascorbic Acid 500 mg 07/16/21 20:00 07/17/21 20:19 Ascorbic Acid 500 Mg Tab PO 500 mg BID DENEEN Administration Aspirin 81 mg 07/17/21 08:30 07/17/21 08:36 Aspirin 81 Mg Chew PO 81 mg DAILY DENEEN Administration Baclofen 20 mg 07/17/21 08:00 07/17/21 16:51 Baclofen 10 Mg Tab PO 20 mg 0800,1600 DENEEN Administration Baclofen 40 mg 07/16/21 22:00 07/17/21 22:28 Baclofen 10 Mg Tab PO 40 mg HS DENEEN Administration Cholecalciferol 4,000 units 07/17/21 08:30 07/17/21 08:37 Cholecalciferol (Vitamin D3) 1,000 Unit Tab PO 4,000 units DAILY DENEEN Administration Clonazepam 1 mg 07/16/21 22:00 07/17/21 22:28 Clonazepam 1 Mg Tab PO 1 mg HS DENEEN Administration Dextrose 0 gm 07/16/21 17:44 Glucose 40% Oral Solution 15 Gm/37.5 Gm Tube PO DIRECTED PRN Dextrose/Water 0 gm 07/16/21 17:44 Dextrose 50%-Water 25 Gm/50 Ml Syr IVP DIRECTED PRN Dimethicone/Zinc Oxide 0 gm 07/16/21 17:36 Alexis Protect Cream 142 Gm Tube TP PRN PRN Docusate Sodium 100 mg 07/16/21 20:00 07/17/21 20:20 Docusate Sodium 100 Mg Cap PO 100 mg TID DENEEN Administration Ferrous Gluconate 324 mg 07/17/21 08:30 07/17/21 08:37 Ferrous Gluconate 324 Mg Tab PO 324 mg DAILY DENEEN Administration Folic Acid 1 mg 07/17/21 08:30 07/17/21 08:37 Folic Acid 1 Mg Tab PO 1 mg DAILY DENEEN Administration Gabapentin 300 mg 07/17/21 12:00 07/17/21 11:54 Gabapentin 300 Mg Cap PO 300 mg 1200 DENEEN Administration Gabapentin 300 mg 07/17/21 20:00 07/17/21 20:20 Gabapentin 300 Mg Cap PO 300 mg BID DENEEN Administration Heparin Sodium (Porcine) 5,000 units 07/16/21 18:00 07/18/21 02:07 Heparin 5,000 Units/Ml Vial SC 5,000 units Q8H DENEEN Administration Hydrocortisone 50 mg 07/17/21 14:00 07/17/21 22:27 Hydrocortisone Sod Suc. 100 Mg Vial IVP 07/19/21 13:59 50 mg Q8H DENEEN Administration Sodium Chloride 500 mls @ 0 mls/hr 07/16/21 13:50 Saline 500ml Bag IV PRN PRN As Directed Potassium Cl/Dextrose/Lact Ringer's 1,000 mls @ 75 mls/hr 07/17/21 14:30 07/17/21 17:26 Kcl 20meq/D5lr IV 75 mls/hr INFUSION DENEEN Administration IV Miscellaneous Supplies 1 each 07/16/21 14:00 Iv Access IV DIRECTED DENEEN Insulin Aspart 0 units 07/17/21 23:00 07/18/21 08:14 Insulin Aspart 300 Units/3 Ml Pen SC 2 units 0800,1200,1700,2200 DENEEN Administration Protocol Lactulose 20 gm 07/16/21 20:00 07/17/21 20:19 Lactulose 20 Gm/30 Ml Cup PO 20 gm BID DENEEN Administration Lisinopril 2.5 mg 07/17/21 08:30 07/17/21 08:38 Lisinopril 5 Mg Tab PO 2.5 mg DAILY DENEEN Administration Loratadine 10 mg 07/17/21 08:30 07/17/21 08:36 Loratidine 10 Mg Tab PO 10 mg DAILY DENEEN Administration Magnesium Hydroxide 30 ml 07/16/21 17:41 Milk Of Magnesia 30 Ml Cup PO DAILY PRN PRN Neomycin/Polymyxin/Bacitracin 0 gm 07/16/21 20:00 07/17/21 22:28 Neomycin/Bacitra/Polymyxin Oint 30 Gm Tube TP 1 applic TID DENEEN Administration Omeprazole 40 mg 07/17/21 07:30 07/18/21 06:42 Omeprazole 20 Mg Capcr PO 40 mg DAILY@0730 DENEEN Administration Methotrexate (Pf) 25 0 each 07/22/21 14:00 Mg/0.4 Ml Auto- SC Injector Q7D [facility] Polyethylene Glycol 17 gm 07/16/21 20:00 07/17/21 20:19 Polyethylene Glycol 3350 17 Gm Packet PO 17 gm BID DENEEN Administration Potassium Chloride 40 meq 07/17/21 20:00 07/17/21 20:19 Potassium Chloride 20 Meq Tabcr PO 40 meq BID DENEEN Administration Prednisone 5 mg 07/17/21 08:30 07/17/21 08:37 Prednisone 5 Mg Tab PO 5 mg DAILY DENEEN Administration Sennosides 1 tab 07/17/21 08:30 07/17/21 08:36 Senna Tab PO 1 tab DAILY DENEEN Administration Sodium Chloride 0 ml 07/16/21 13:50 07/16/21 18:50 Normal Saline Flush 10 Ml Syr IVP 10 ml PRN PRN Administration Tamsulosin HCl 0.4 mg 07/17/21 08:30 07/17/21 08:35 Tamsulosin 0.4 Mg Capcr PO 0.4 mg DAILY DENEEN Administration Allergies No Known Allergies Allergy (Unverified 07/16/21 13:53) Exam Narrative Exam Narrative: Physical Exam: Constitutional: Patient of apparent stated age, well nourished, well developed, no acute distress Neck: Supple, no meningismus CV: RRR, S1, S2, no murmur Resp: CTAB Abd: Soft, nontender, nondistended, +BS Extrem: subtle LE edema. R leg wrapped. Bandage under left knee. Neuro: MS/Language/Speech: Alert, oriented, clear language (fluency and comprehension), mild dysarthria CN: pupil non-reactive on right; blind; Left eye with very minimal reactivity; Bilateral ptosis, worse on the left; EOMI, trigeminal sensation intact, no other facial asymmetry, hearing intact, palate elevates symmetrically, tongue protrudes midline, SCM and trap strength intact Motor: Normal bulk. FMM reduced bilaterally; subtle R pronator drift. 5/5 strength in bilateral upper extremities. Flaccid LLE with no movement except with hip adduction>abduction. Some movement in RLE 2/5. Sensation: Intact to PP throughout Reflexes: hyporeflexic throughout, downgoing toe on R and neutral on L Coordination: Finger to nose performed without dysmetria Gait: he is wheelchair bound at baseline Results Last Vital Signs Temp 97.2 F L 07/18/21 07:27 Pulse 62 07/18/21 07:27 Resp 17 07/18/21 07:27 BP 107/76 07/18/21 07:27 Pulse Ox 100 07/18/21 07:27 Labs Result diagrams: 07/18/21 06:50 07/18/21 06:50 Labs: Laboratory Results - last 24 hr 07/17/21 07/17/21 07/17/21 06:45 06:45 06:45 WBC 7.61 RBC 3.86 L Hgb 10.8 L Hct 33.4 L MCV 86.5 MCH 28.0 MCHC 32.3 RDW 16.4 H Plt Count 215 MPV 12.5 H Immature Gran % 0.7 Neutrophils % 80.4 Lymphocytes % 13.8 Monocytes % 4.7 Eosinophils % 0.1 Basophils % 0.3 Nucleated RBC % 0 Absolute Neutrophils 6.12 Absolute Lymphocytes 1.05 L Absolute Monocytes 0.36 Absolute Eosinophils 0.01 Absolute Basophils 0.02 Sodium 156 H Potassium 3.8 Chloride 120 H Carbon Dioxide 23.4 Anion Gap 12.6 H BUN 4 L Creatinine 1.1 Estimated GFR/1.73 m2 >= 60.00 Glucose 176 H Calcium 8.5 Magnesium 2.4 Creatine Kinase 1226 H 07/17/21 07/17/21 07/18/21 06:45 12:29 06:50 WBC RBC Hgb Hct MCV MCH MCHC RDW Plt Count MPV Immature Gran % Neutrophils % Lymphocytes % Monocytes % Eosinophils % Basophils % Nucleated RBC % Absolute Neutrophils Absolute Lymphocytes Absolute Monocytes Absolute Eosinophils Absolute Basophils Sodium Cancelled 154 H 151 H Potassium Cancelled 3.4 L 3.9 Chloride Cancelled 119 H 116 H Carbon Dioxide Cancelled 24.3 24.7 Anion Gap Cancelled 10.7 10.3 BUN Cancelled 4 L 5 L Creatinine Cancelled 1.1 1.2 Estimated GFR/1.73 m2 Cancelled >= 60.00 >= 60.00 Glucose Cancelled 170 H 205 H Calcium Cancelled 8.6 8.3 L Magnesium 2.1 Creatine Kinase 07/18/21 06:50 WBC 9.94 D RBC 3.67 L Hgb 10.2 L Hct 31.7 L MCV 86.4 MCH 27.8 MCHC 32.2 RDW 16.1 H Plt Count 320 D MPV 11.1 H Immature Gran % 0.7 Neutrophils % 84.4 Lymphocytes % 12.5 Monocytes % 2.3 Eosinophils % 0.0 Basophils % 0.1 Nucleated RBC % 0 Absolute Neutrophils 8.39 H Absolute Lymphocytes 1.24 Absolute Monocytes 0.23 Absolute Eosinophils 0.00 Absolute Basophils 0.01 Sodium Potassium Chloride Carbon Dioxide Anion Gap BUN Creatinine Estimated GFR/1.73 m2 Glucose Calcium Magnesium Creatine Kinase
--- NOTE | 2021-07-18 09:05 | OT.INNT ---
Date of service: 07/18/21 Time of Service: 09:05 Occupational Therapy Notes 07/18/21 OT attempted to see pt and he is more confused today than his baseline. OT does discuss this with RN and it seems that pt is going to have an MRI today. Pt refuses ADLs noting he is going to take a tubby. He then repeats himself multiple times noting that he has an iphone. He is unable to carry a conversation with OT except that he continues to repeat himself about his cellphone. He continued to deny performance of his ADLs with OT. OT will hold for today and did discuss this with RN and will resume services tomorrow. Aura Cohen, OTR/L [facility]
[2021-07-18] MEDS: Lactulose 20 GM/30 ML CUP PO (09:12)
[2021-07-18] MEDS: Polyethylene Glycol 3350 17 GM PACKET PO (09:12)
[2021-07-18] MEDS: Lisinopril 5 MG TAB 2.5 MG PO (09:13)
[2021-07-18] MEDS: Baclofen 10 MG TAB 20 MG PO ×2 (09:14→16:40)
[2021-07-18] MEDS: Ascorbic Acid 500 MG TAB PO ×2 (09:14→20:02)
[2021-07-18] MEDS: Senna TAB 1 TAB PO (09:14)
[2021-07-18] MEDS: Potassium Chloride 20 MEQ TABCR 40 MEQ PO ×2 (09:15→20:03)
[2021-07-18] MEDS: Loratidine 10 MG TAB PO (09:16)
[2021-07-18] MEDS: Ferrous Gluconate 324 MG TAB PO (09:17)
[2021-07-18] MEDS: Cholecalciferol (Vitamin D3) 1,000 UNIT TAB 4000 UNITS PO (09:17)
[2021-07-18] MEDS: Docusate Sodium 100 MG CAP PO ×2 (09:17→20:01)
[2021-07-18] MEDS: Aspirin 81 MG CHEW PO (09:17)
[2021-07-18] MEDS: Folic Acid 1 MG TAB PO (09:18)
[2021-07-18] MEDS: predniSONE 5 MG TAB PO (09:19)
[2021-07-18] MEDS: Gabapentin 300 MG CAP PO ×3 (09:19→20:02)
[2021-07-18] MEDS: Tamsulosin 0.4 MG CAPCR PO (09:20)
[2021-07-18 09:52] LABS: C-Reactive Protein 2.09 mg/dL (0.0-0.3)
[2021-07-18 09:55] LABS: ESR 12 mm/hr (0-20)
[2021-07-18 11:28] VITALS: BP 109/74; PULSE 65; RESP 17; TEMP 36; O2SAT 99
--- NOTE | 2021-07-18 11:51 | PT.INTREAT ---
Date of service: 07/18/21 Time of Service: 11:51 PT Notes Visit Reasons: Altered Mental Status, Weakness Inpatient Physical Therapy Treatment Note [facility] Date: 07/18/2021 PRECAUTIONS: Nonambulatory. Activity as tolerated. Subjective: Much more awake today but still fatigued and required encouragement to participate in therapy. Complained of B LE pain with passive ranging. Agreed to pull on overhead trapeze to initiate exercises. Objective: General Observation: Supine in bed. Wound dressing over bilateral thighs and legs. JuxtaLite compression garment repositioned on R leg to contain swelling. Mental Status: Able to follow single step commands with repetition of instructions Pain: Moderate pain in B LE with passive ranging THERA EX: Pull ups using overhead trapeze x 5 reps for 2 sets while supine in bed with patient only able to lift trunk less than 10 degrees from bed due to fatigue. PROM provided to B hips, knees, and ankles with report of pain compounded by swelling in B LE. Bed Mobility/Transfers: Total assistance Gait: N/A. Patient non-ambulatory. Balance: Unable today Assessment: Continued functional mobility decline, increased fatigue, and waxing/waning of attention/confusion however can be redirected. B LE swelling contributing to pain. Has poor to fair prognosis for goals initially established for PT. Deferred PT session in the afternoon due to planned sedation for MRI testing. DISCHARGE RECOMMENDATIONS: [] Home with no services [] [] Home with services [specify] [] Home with outpatient PT [] [X] SNF for continued rehabilitation to address impairments in trunk stability, B UE/LE strength, and improve mobility level prior to discharge to home. [X] Senior Living Care. Patient may require LTC placement depending on how much mobility is achieved during his rehab stay. Otherwise patient may end up needing 24/7 care. [] SNF versus LTC based on ability to participate and progress [] TREATMENT CODE/TIME: 24618 x 24 minutes beginning at 11:51 PM.
--- NOTE | 2021-07-18 13:44 | PGE_ITS ---
Date of Service Date of service: 07/18/21 Time of Service: 11:00 Assessment and Plan Assessment and plan (1) Altered mental status: Start date: 07/18/21 Start time: 11:00 Status: Acute Assessment and plan: Improved. Patient Elana. Does not know his birthday, tries to play off not being confused. Most likely adrenal insufficiency which is why he is more awake today after receiving steroids. He did get his methotrexate on Friday Also make sure patient has help with feedings Unlikely progression of MS per Dr. Thorne ESR normal CRP improved from last visit. She agrees to rehab. He has done this in the past gone to rehab and recovered doing well Qualifiers: Altered mental status type: stupor Qualified Code(s): R40.1 - Stupor (2) Adrenal insufficiency: Start date: 07/18/21 Start time: 11:00 Status: Acute Assessment and plan: As above stress dose steriods Also started on BID potassium because he was hypokalemic despite 80 potassium daily with steroid and he has D5LR with 20K continue to monitor (3) Hypernatremia: Start date: 07/18/21 Start time: 11:00 Status: Acute Assessment and plan: Hyponatremic at improving 151 today, Decrease steroids to q 12 as he appears to be improving, continue prednisone and methotrexate (4) Incontinence: Start date: 07/18/21 Start time: 11:00 Status: Acute Assessment and plan: D/t neurogenic bladder. Started on flomax on last admission in addition to his alfuzosin Marrero at this time dcd Qualifiers: Incontinence type: urinary Urinary Incontinence type: other incontinence Qualified Code(s): N39.498 - Other specified urinary incontinence (5) Microcytic anemia: Start date: 07/18/21 Start time: 11:00 Status: Chronic Assessment and plan: Stable. 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 Thorne does not feel this is a progression at the time. In agreement with her. ESR normal. Likely multiple things going on, adrenal insufficiency, and over medication. Tramadol on hold, gapabentin decreased. Baclofen will remain the same as I do not want him withdrawal (8) DVT prophylaxis: Start date: 07/18/21 Start time: 11:00 Status: Acute Assessment and plan: Heparin subcut (9) Discharge planning issues: Start date: 07/18/21 Start time: 11:00 Status: Acute Assessment and plan: Home vs rehab/SNF when medically ready with r esumption of services and caregivers discussed with Dr. Jones Subjective Subjective Patient reports: other Interval history since last seen: More awake today, and alert. Dr. Thorne saw patient agrees he is not himself and perhaps SNF short term. Will try to get patient to agree. MRI pending, no belly pain. No white count. With lack of appetite will u/s abd. He does have bs, he has been having bm. Likely no ileus will r/o. ESR normal, crp slightly elevated but improved since last admission Exam Narrative Exam Narrative: Const: AAOx2, more alert today, but still confused. HENT:MMM dry, Pupils not perrla (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 Small reactivity noted in left eye. 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 Cardio: RRR no ectopic beats GI: Obese abd, soft nontender, BM yesterday, continues to have lack of appetits. : deferred Skin: dry, open area to right thigh and left knee apply neosporin with mepliex, no foul odor, does not look infectious Extrem: use of bilateral Upper extremities. Unable to use lower extremities, clubbing of bilateral feet. Motor: other (5/5 BUE strength. 2/5 BLE proximal strength. ) Psych: normal affect. pleasant and cooperative. Objective Last Vital Signs Temp 36.0 C L 07/18/21 11:28 Pulse 65 07/18/21 11:28 Resp 17 07/18/21 11:28 BP 109/74 07/18/21 11:28 Pulse Ox 99 07/18/21 11:28 Laboratory Results - last 24 hr 07/18/21 07/18/21 07/18/21 06:50 06:50 06:50 WBC 9.94 D RBC 3.67 L Hgb 10.2 L Hct 31.7 L MCV 86.4 MCH 27.8 MCHC 32.2 RDW 16.1 H Plt Count 320 D MPV 11.1 H Immature Gran % 0.7 Neutrophils % 84.4 Lymphocytes % 12.5 Monocytes % 2.3 Eosinophils % 0.0 Basophils % 0.1 Nucleated RBC % 0 Absolute Neutrophils 8.39 H Absolute Lymphocytes 1.24 Absolute Monocytes 0.23 Absolute Eosinophils 0.00 Absolute Basophils 0.01 ESR 12 Sodium 151 H Potassium 3.9 Chloride 116 H Carbon Dioxide 24.7 Anion Gap 10.3 BUN 5 L Creatinine 1.2 Estimated GFR/1.73 m2 >= 60.00 Glucose 205 H Calcium 8.3 L Magnesium 2.1 C-Reactive Protein 2.09 H
[2021-07-18] MEDS: Hydrocortisone SOD SUC. 100 MG VIAL 50 MG IVP (14:20)
[2021-07-18] MEDS: LORazepam 2 MG/ML VIAL 1 MG IVP (14:20)
[2021-07-18] MEDS: Normal Saline Flush 10 ML SYR IVP (17:18)
[2021-07-18 17:58] VITALS: BP 127/70; PULSE 70; RESP 19; TEMP 36.6; O2SAT 98
--- NOTE | 2021-07-18 18:52 | PDOC.CMPRO ---
- If Service Date Differs Date of service: 07/18/21 Time of Service: 18:52 Care Management Progress Note S/O: Bryan was at MRI when CM attempted to meet with him, twice today. Per report, the MRI was not successful. Provider feels that Bryan will require SNF post hospitalization, but Bryan is currently resistant to going to a SNF. CM will discuss options with Bryan in order to determine his discharge plan. CM will continue to follow. A: Bryan is a 60 year old male admitted to [facility] on 07/17/21 with AMS, weakness. P: Bryan will likely return home with a resumption of HH support vs SNF for short term rehab. He is currently resistant to SNF, but has failed at home after a previous hospitalization. Transport to be determined by disposition. He will follow up with his PCP and discharge plan of care. CM will continue to follow.
[2021-07-18] MEDS: clonazePAM 1 MG TAB PO (21:36)
[2021-07-18] MEDS: Baclofen 10 MG TAB 40 MG PO (21:36)
[2021-07-18 23:39] VITALS: BP 103/63; PULSE 62; RESP 18; TEMP 37; O2SAT 98
[2021-07-19] MEDS: Hydrocortisone SOD SUC. 100 MG VIAL 50 MG IVP (01:40)
[2021-07-19] MEDS: Heparin 5,000 UNITS/ML VIAL 5000 UNITS SC ×3 (01:41→16:59)
[2021-07-19 03:15] VITALS: BP 125/81; PULSE 44; RESP 19; TEMP 35.4; O2SAT 100
[2021-07-19 08:01] VITALS: BP 128/79; PULSE 51; RESP 18; TEMP 36.2; O2SAT 99
[2021-07-19] MEDS: Lisinopril 5 MG TAB 2.5 MG PO (08:19)
[2021-07-19] MEDS: Cholecalciferol (Vitamin D3) 1,000 UNIT TAB 4000 UNITS PO (08:20)
[2021-07-19] MEDS: Gabapentin 300 MG CAP PO ×3 (08:20→19:45)
[2021-07-19] MEDS: Omeprazole 20 MG CAPCR 40 MG PO (08:20)
[2021-07-19] MEDS: Potassium Chloride 20 MEQ TABCR 40 MEQ PO ×2 (08:20→19:45)
[2021-07-19] MEDS: predniSONE 5 MG TAB PO (08:20)
[2021-07-19] MEDS: Baclofen 10 MG TAB 20 MG PO ×2 (08:21→16:59)
[2021-07-19] MEDS: Docusate Sodium 100 MG CAP PO ×2 (08:22→19:45)
[2021-07-19] MEDS: Ferrous Gluconate 324 MG TAB PO (08:22)
[2021-07-19] MEDS: Tamsulosin 0.4 MG CAPCR PO (08:22)
[2021-07-19] MEDS: Lactulose 20 GM/30 ML CUP PO (08:22)
[2021-07-19] MEDS: Ascorbic Acid 500 MG TAB PO ×2 (08:22→19:45)
[2021-07-19] MEDS: Loratidine 10 MG TAB PO (08:22)
[2021-07-19] MEDS: Aspirin 81 MG CHEW PO (08:22)
[2021-07-19] MEDS: Polyethylene Glycol 3350 17 GM PACKET PO (08:22)
[2021-07-19] MEDS: Senna TAB 1 TAB PO (08:22)
[2021-07-19] MEDS: Folic Acid 1 MG TAB PO (08:22)
[2021-07-19] MEDS: Insulin Aspart 300 UNITS/3 ML PEN SC ×3 (08:23→17:00)
--- NOTE | 2021-07-19 08:56 | CMPROGNOTE_ITS ---
- If Service Date Differs Date of service: 07/19/21 Time of Service: 15:44 Care Management Progress Note S/O: Bryan continues to not be agreeable to SNF discharge. PT reports he does not meet criteria for short term rehab for SWB. Neurology reports MS is not worsening, and Bryan likely can rehab, provider states the overmedication is being suspected for low energy; reports Bryan more alert today. Palliative requested, ordered and coordinated for tomorrow. CM continues to follow. A: Bryan is a 60 year old male admitted to [facility] on 07/17/21 with AMS, weakness. P: Bryan will meet with Palliative Care to determine next steps in treatment and goals of care. CM will continue to follow
[2021-07-19 10:26] LABS: ALT 19 U/L (16-63); AST 25 U/L (15-37); Alkaline Phosphatase 60 U/L (46-116); Anion Gap 8.8 mmol/L (3-11); BUN 5 mg/dL (7-18); Bilirubin, Total 0.4 mg/dL (0.2-1.0); CO2 24.2 mmol/L (21.0-32.0); CREATININE 1.1 mg/dL (0.70-1.30); Calcium 8.9 mg/dL (8.5-10.1); Chloride 116 mmol/L (98-107); Glucose 221 mg/dL (74-106); Potassium 4.3 mmol/L (3.5-5.1); Sodium 149 mmol/L (136-145); Total Protein 6.4 g/dL (6.4-8.2)
[2021-07-19 11:11] VITALS: BP 117/71; PULSE 58; RESP 18; TEMP 36; O2SAT 99
--- NOTE | 2021-07-19 15:13 | PGE_ITS ---
Date of Service Date of service: 07/19/21 Time of Service: 14:00 Assessment and Plan Assessment and plan (1) Altered mental status: Start date: 07/19/21 Start time: 14:00 Status: Acute Assessment and plan: Improved. Patient AAOx2. Does not know date or year BC NGTD More awake today. continue stress dose steroids. He did get his methotrexate on Friday Also make sure patient has help with feedings Unlikely progression of MS per Dr. Thorne ESR normal CRP improved from last visit. He would do well with rehab however does not want this. He has made comments to CM about hospice and lying in bed all day. will consult palliative. Qualifiers: Altered mental status type: stupor Qualified Code(s): R40.1 - Stupor (2) Adrenal insufficiency: Start date: 07/19/21 Start time: 14:00 Status: Acute Assessment and plan: As above continue stress dose steroids Also started on BID potassium because he was hypokalemic despite 80 potassium daily with steroid and he has D5LR with 20K continue to monitor (3) Hypernatremia: Start date: 07/19/21 Start time: 14:00 Status: Acute Assessment and plan: Hyponatremic at improving 149 today, as above dc IVF (4) Incontinence: Start date: 07/19/21 Start time: 14:00 Status: Acute Assessment and plan: D/t neurogenic bladder. Started on flomax on last admission in addition to his alfuzosin Qualifiers: Incontinence type: urinary Urinary Incontinence type: other incontinence Qualified Code(s): N39.498 - Other specified urinary incontinence (5) Microcytic anemia: Start date: 07/19/21 Start time: 14:00 Status: Chronic Assessment and plan: Stable. Monitor (6) Diabetes type 2, controlled: Start date: 07/19/21 Start time: 14:00 Status: Chronic Assessment and plan: Fingersticks, hold oral medications SSI sensitive monitor Qualifiers: Diabetes mellitus long-term insulin use: unspecified terminal carman insulin use status Diabetes mellitus complication status: without complication Qualified Code(s): E11.9 - Type 2 diabetes mellitus without complications (7) Multiple sclerosis: Start date: 07/19/21 Start time: 14:00 Status: Chronic Assessment and plan: followed by Dr. Thorne ESR normal. (8) DVT prophylaxis: Start date: 07/19/21 Start time: 14:00 Status: Acute Assessment and plan: Heparin subcut (9) Discharge planning issues: Start date: 07/19/21 Start time: 14:00 Status: Acute Assessment and plan: Home when medically ready with resumption of services and caregivers, though this is not the safest option for Bryan, and feel he will not to well if he goes home discussed with Dr. Jones Subjective Subjective Patient reports: feels better Interval history since last seen: Patient feeling better able to recall his birthday, full name and facts about his life he just confused about the date and year. He is having large amount stool. BM with parameters. Abd u/s with overly ing bowel gas, no cholelithiasis or hepatic stenosis. Unable to obtain MRI as patient was uncooperative yesterday. ESR normal CRP improved. Pt states he does not want to go to rehab he wants to go home and sit in bed. Palliative placed as CM has discussed hospice with him. Exam Narrative Exam Narrative: Const: AAOx2, more alert today, but still confused. HENT:MMM dry, Pupils not perrla (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 Small reactivity noted in left eye. 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 Cardio: RRR no ectopic beats GI: Obese abd, soft nontender, BM yesterday, continues to have lack of appetits. : deferred Skin: dry, open area to right thigh and left knee apply neosporin with mepliex, no foul odor, does not look infectious Extrem: use of bilateral Upper extremities. Unable to use lower extremities, clubbing of bilateral feet. Motor: other (5/5 BUE strength. 2/5 BLE proximal strength. ) Psych: normal affect. pleasant and cooperative. Objective Last Vital Signs Temp 36.0 C L 07/19/21 11:11 Pulse 58 L 07/19/21 11:11 Resp 18 07/19/21 11:11 BP 117/71 07/19/21 11:11 Pulse Ox 99 07/19/21 11:11 Laboratory Results - last 24 hr 07/19/21 09:55 Sodium 149 H Potassium 4.3 Chloride 116 H Carbon Dioxide 24.2 Anion Gap 8.8 BUN 5 L Creatinine 1.1 Estimated GFR/1.73 m2 >= 60.00 Glucose 221 H Calcium 8.9 Total Bilirubin 0.4 AST 25 ALT 19 Alkaline Phosphatase 60 Total Protein 6.4 Albumin 3.0 L
--- NOTE | 2021-07-19 15:25 | PT.INTREAT ---
Date of service: 07/19/21 Time of Service: 11:31 PT Notes Visit Reasons: Altered Mental Status, Weakness Inpatient Physical Therapy Treatment Note [facility] Date: 07/19/2021 PRECAUTIONS: Non-ambulatory SUBJECTIVE: Bryan is pleasant and agreeable to participating in PT. At the end of the treatment, patient states that he is home. When he is told that he is at the hospital, he is surprised and reports that he did not realize he was here. OBJECTIVE: Patient was unable to participate in afternoon PT session due to significant confusion, although patient remains pleasant in interaction. PAIN: No c/o pain BED MOBILITY/TRANSFERS Supine-sit: Max A Sit-supine: Max A x2 THEREX: Patient was instructed in a trunk stabilization and UE strengthening program, completed while seated at EOB with assist x2, as per flow sheet. ASSESSMENT: Patient continues to demonstrate poor dynamic sitting balance, requiring assist x2 for all exercises completed at EOB. PLAN: Continue with global strengthening, add transfer training when appropriate. TREATMENT CODE/TIME: Session 1: 25 minutes; [id number] x2 (11:31) Session 2: 15 minutes; no charge (14:47)
--- NOTE | 2021-07-19 17:10 | PGE_ITS ---
Date of Service Date of service: 07/19/21 Time of Service: 17:10 Assessment and Plan Assessment and plan (1) Encephalopathy: Status: Acute (2) Multiple sclerosis: Status: Chronic (3) Hypernatremia: Status: Acute Assessment and plan: Mr. De is an 60 year-old man with encephalopathy, lethargy, and generalized weakness on top of chronic weakness from Multiple Sclerosis, complicated by sarcoidosis. His encephalopathy has improved significantly. Appears near baseline. He has hypernatremia and suspected adrenal insufficiency, both of which are likely contributing. Not clear that he needs brain MRI at this point given improvement and local of focal neurological findings. I discussed SNF placement with him as well. He is not interested. Asked if he had enough help and care at home. He seems to think so. Please call with any further concerns, otherwise will see him as an outpatient in follow-up. Subjective Subjective Interval history since last seen: Mental status has improved significantly. Near baseline. At times, still somewhat confused. Today, he was able to recall my prior visits as well as events at home prior to both hospitalizations. Admi ts he did not eat after coming home last time. Unable to complete MRI yesterday due to agitation. Hypernatremia improved to 149. ESR normal. CRP improved compared to previous admission. He has expressed some FTT thoughts to primary team and palliative has been consulted. He is not interested in even short-term SNF. Exam Narrative Exam Narrative: Physical Exam: Constitutional: Patient of apparent stated age, well nourished, well developed, no acute distress Neuro: MS/Language/Speech: Alert, oriented, clear language (fluency and comprehension), mild dysarthria CN: pupil non-reactive on right; blind; Left eye with very minimal reactivity; Bilateral ptosis, worse on the left; Motor: Normal bulk. FMM reduced bilaterally; no R pronator drift. 5/5 strength in bilateral upper extremities. Flaccid LLE with no movement except with hip adduction>abduction. Some movement in RLE 2/5. Coordination: Finger to nose performed without dysmetria Gait: he is wheelchair bound at baseline Objective Last Vital Signs Temp 96.8 F L 07/19/21 11:11 Pulse 58 L 07/19/21 11:11 Resp 18 07/19/21 11:11 BP 117/71 07/19/21 11:11 Pulse Ox 99 07/19/21 11:11 Laboratory Results - last 24 hr 07/19/21 09:55 Sodium 149 H Potassium 4.3 Chloride 116 H Carbon Dioxide 24.2 Anion Gap 8.8 BUN 5 L Creatinine 1.1 Estimated GFR/1.73 m2 >= 60.00 Glucose 221 H Calcium 8.9 Total Bilirubin 0.4 AST 25 ALT 19 Alkaline Phosphatase 60 Total Protein 6.4 Albumin 3.0 L
[2021-07-19] MEDS: Baclofen 10 MG TAB 40 MG PO (22:45)
[2021-07-19] MEDS: clonazePAM 1 MG TAB PO (22:45)
[2021-07-19 23:13] VITALS: BP 120/75; PULSE 62; RESP 18; TEMP 36.7; O2SAT 99
[2021-07-20] MEDS: Heparin 5,000 UNITS/ML VIAL 5000 UNITS SC ×2 (02:16→17:23)
[2021-07-20 07:09] LABS: Abs Immature Grans 0.46 10^3/uL (0.0-0.06); Absolute Basophil Count 0.08 10^3/uL (0.0-0.2); Absolute Eosinophil Count 0.31 10^3/uL (0.0-0.7); Absolute Lymphocyte Count 3.07 10^3/uL (1.2-3.4); Absolute Monocyte Count 0.32 10^3/uL (0.1-0.8); Absolute Neutrophil Count 4.13 10^3/uL (1.2-6.7); Eosinophils % 3.7; HCT 29.8 % (40.0-50.0); HGB 9.6 g/dL (13.5-17.5); Immature Grans % 5.5; Lymphocytes % 36.7; MCH 27.6 pg (27.0-33.0); MCHC 32.2 % (32.0-36.0); MCV 85.6 fL (80-95); MPV 10.9 fL (8.0-11.0); Monocytes % 3.8; Neutrophils % 49.3; Nucleated RBC 2 %; Platelet Count 281 10^3/uL (130-400); RBC 3.48 10^6/uL (4.36-5.78); RDW 16.2 % (11.8-14.1); RDW-SD 49.7 fL; WBC 8.37 10^3/uL (4.4-10.8)
[2021-07-20 07:37] LABS: Anion Gap 6.6 mmol/L (3-11); BUN 6 mg/dL (7-18); CO2 27.4 mmol/L (21.0-32.0); CREATININE 1.1 mg/dL (0.70-1.30); Calcium 8.8 mg/dL (8.5-10.1); Chloride 112 mmol/L (98-107); Glucose 113 mg/dL (74-106); Potassium 3.6 mmol/L (3.5-5.1); Sodium 146 mmol/L (136-145)
[2021-07-20] MEDS: Polyethylene Glycol 3350 17 GM PACKET PO (07:37)
[2021-07-20] MEDS: Cholecalciferol (Vitamin D3) 1,000 UNIT TAB 4000 UNITS PO (07:37)
[2021-07-20] MEDS: Omeprazole 20 MG CAPCR 40 MG PO (07:39)
[2021-07-20] MEDS: Baclofen 10 MG TAB 20 MG PO ×2 (07:39→15:33)
[2021-07-20] MEDS: Potassium Chloride 20 MEQ TABCR 40 MEQ PO ×3 (07:39→21:02)
[2021-07-20] MEDS: predniSONE 5 MG TAB PO (07:39)
[2021-07-20] MEDS: Tamsulosin 0.4 MG CAPCR PO (07:40)
[2021-07-20] MEDS: Ferrous Gluconate 324 MG TAB PO (07:40)
[2021-07-20] MEDS: Loratidine 10 MG TAB PO (07:40)
[2021-07-20] MEDS: Docusate Sodium 100 MG CAP PO ×2 (07:41→14:23)
[2021-07-20] MEDS: Gabapentin 300 MG CAP PO ×2 (07:41→21:02)
[2021-07-20] MEDS: Lisinopril 5 MG TAB 2.5 MG PO (07:42)
[2021-07-20] MEDS: Aspirin 81 MG CHEW PO (07:42)
[2021-07-20] MEDS: Ascorbic Acid 500 MG TAB PO ×2 (07:42→21:02)
[2021-07-20] MEDS: Folic Acid 1 MG TAB PO (07:42)
[2021-07-20] MEDS: Insulin Aspart 300 UNITS/3 ML PEN SC ×2 (07:43→11:59)
[2021-07-20 08:09] VITALS: BP 130/78; PULSE 59; RESP 15; TEMP 36.4; O2SAT 98
--- NOTE | 2021-07-20 11:27 | PGE_ITS ---
Date of Service Date of service: 07/20/21 Time of Service: 11:27 Assessment and Plan Assessment and plan (1) Altered mental status: Start date: 07/20/21 Start time: 11:56 Status: Resolved Assessment and plan: Resolved at baseline Gabapentin decreased. Tramadol on hold Has not c/o any pain. Will continue baclofen as is. Qualifiers: Altered mental status type: stupor Qualified Code(s): R40.1 - Stupor (2) Adrenal insufficiency: Start date: 07/20/21 Start time: 11:56 Status: Ruled-out Assessment and plan: Electrolytes normalizing. continue to monitor (3) Hypernatremia: Start date: 07/20/21 Start time: 11:58 Status: Acute Assessment and plan: 146 today off IVF. Repeat BMP tomorrow (4) Incontinence: Start date: 07/20/21 Start time: 11:58 Status: Acute Assessment and plan: D/t neurogenic bladder. Started on flomax on last admission in addition to his alfuzosin PVR, bladder scan as needed, straight cath intermittently as he does at home as needed. Qualifiers: Incontinence type: urinary Urinary Incontinence type: other incontinence Qualified Code(s): N39.498 - Other specified urinary incontinence (5) Microcytic anemia: Start date: 07/20/21 Start time: 11:58 Status: Chronic Assessment and plan: Stable. (6) Diabetes type 2, controlled: Start date: 07/20/21 Start time: 11:59 Status: Chronic Assessment and plan: Fingersticks, hold oral medications SSI sensitive monitor Qualifiers: Diabetes mellitus penitentiary insulin use: unspecified intermediate accountant insulin use status Diabetes mellitus complication status: without complication Qualified Code(s): E11.9 - Type 2 diabetes mellitus without complications (7) Multiple sclerosis: Start date: 07/20/21 Start time: 11:59 Status: Chronic Assessment and plan: followed by Dr. Thorne ESR normal. (8) DVT prophylaxis: Start date: 07/20/21 Start time: 11:59 Status: Acute Assessment and plan: Heparin subcut (9) Discharge planning issues: Start date: 07/20/21 Start time: 11:59 Status: Acute Assessment and plan: Home when medically ready with resumption of services and caregivers, though this is not the safest option for Bryan, and feel he will not to well if he goes home discussed with Dr. Jones Subjective Subjective Patient reports: other Interval history since last seen: Patient at baseline mentation. States he did not sleep much last night. Hesitant to rehab; however after speaking with him and understanding why he is resistant and explaining that if he goes home he will likely end back here he is open to possibility of rehab. He does not want to go to H/R across the street. He stated that he did not get his food on time or him meds. He also stated he was there for 2 months because his family left him. He thinks having PT three times a week is adequate enough; I explained that he needs PT at least 3-4 times a day to become stronger and he will not get this at home and what would happened if he goes home and ends up back here. This would make a longer stay in a rehab vs going now a shorter stay. He states he would consider going to a rehab as long as it was not H/R and his son did not leave the state. Will speak with CM to talk to patient as he would like to talk to son so he does not leave while he is in rehab. Exam Narrative Exam Narrative: Const: AAOx2, more alert today, but still confused. HENT:MMM dry, Pupils not perrla (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 Small reactivity noted in left eye. 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 Cardio: RRR no ectopic beats GI: Obese abd, soft nontender, BM yesterday, continues to have lack of appetits. : deferred Skin: dry, open area to right thigh and left knee apply neosporin with mepliex, no foul odor, does not look infectious Extrem: use of bilateral Upper extremities. Unable to use lower extremities, clubbing of bilateral feet. Motor: other (5/5 BUE strength. 2/5 BLE proximal strength. ) Psych: normal affect. pleasant and cooperative. Objective Last Vital Signs Temp 36.4 C L 07/20/21 08:09 Pulse 59 L 07/20/21 08:09 Resp 15 07/20/21 08:09 BP 130/78 07/20/21 08:09 Pulse Ox 98 07/20/21 08:09 Laboratory Results - last 24 hr 07/20/21 07/20/21 06:35 06:35 WBC 8.37 RBC 3.48 L Hgb 9.6 L Hct 29.8 L MCV 85.6 MCH 27.6 MCHC 32.2 RDW 16.2 H Plt Count 281 MPV 10.9 Immature Gran % 5.5 Neutrophils % 49.3 Lymphocytes % 36.7 Monocytes % 3.8 Eosinophils % 3.7 Basophils % 1.0 Nucleated RBC % 2 Absolute Neutrophils 4.13 Absolute Lymphocytes 3.07 Absolute Monocytes 0.32 Absolute Eosinophils 0.31 Absolute Basophils 0.08 Sodium 146 H Potassium 3.6 Chloride 112 H Carbon Dioxide 27.4 Anion Gap 6.6 BUN 6 L Creatinine 1.1 Estimated GFR/1.73 m2 >= 60.00 Glucose 113 H D Calcium 8.8 Magnesium 2.0
[2021-07-20] MEDS: Gabapentin 100 MG CAP PO (11:59)
--- NOTE | 2021-07-20 12:38 | PT.INTREAT ---
Date of service: 07/20/21 Time of Service: 11:38 PT Notes Visit Reasons: Altered Mental Status, Weakness Inpatient Physical Therapy Treatment Note [facility] Date: 07/20/2021 PRECAUTIONS: Non-ambulatory SUBJECTIVE: Bryan is pleasant and agreeable to participating in PT. He reports that he is feeling better today. OBJECTIVE: PAIN: Patient c/o L shoulder pain with ther ex BED MOBILITY/TRANSFERS Rolling L/R: Mod A Supine-sit: Mod A utilizing bed trapeze in a.m.; Min A utilizing bed trapeze in p.m. Sit-supine: Max A x2 in a.m.; Min A in p.m. THEREX: Patient was instructed in a trunk stabilization and UE strengthening program, completed while seated at EOB with CGA and SBA, as per flow sheet. He demonstrates occasional LOB, requiring Max A fto return to sitting position. In p.m., he utilizes yellow Theraband with exercise completion. TOILETING: Patient was incontinent of urine requiring Max A. ASSESSMENT: Patient demonstrates improved dynamic sitting balance and UE strength, which correlates with today's improved mental/cognitive status, requiring less assist with bed exercises and tolerance of the addition of resistance, which continue to be completed at EOB. He continues to demonstrate global weakness, although does demonstrate improved bed mobility at this time. PLAN: Continue with global strengthening, add transfer training when appropriate. TREATMENT CODE/TIME: Session 1: 23 minutes; [id number] x2 (11:38) Session 2: 33 minutes; [id number], [id number] (13:25)
--- NOTE | 2021-07-20 16:03 | CMPROGNOTE_ITS ---
Care Management Progress Note S/O: Per PT, Bryan is improving and now a candidate for S/T rehab, with consideration for swing bed. KARAN Felton reports meeting with Bryan and feeling SWB1 will be appropriate short term for 7-10 days. Bryan will then either discharge home with resumption of [id number]. CM continues to follow. A: Bryan is a 60 year old male admitted to [facility] on 07/17/21 with AMS, weakness. P: Bryan will transition to SWB1 for rehab prior to returning home-vs-SNF. CM will continue to follow
--- NOTE | 2021-07-20 18:01 | PCNE_ITS ---
Date of service: 07/20/21 Time of Service: 18:01 History of Present Illness Narrative: Bryan De is a very pleasant 60 year old man with a past medical history significant for MS. Palliative was consulted to discuss goals of care He felt disrespected when he was at the Rehab and does not want to go back. His meals were always cold. It is important to him to be home, have fresh air and warm meals. He lives alone in an apartment in [place]. He loves his apartment. His goa l is to get back there. He has a son, , who lives in [place]. He checks on Bryan and helps him at home. He has home health services, they come in 8-10am and 2-430 pm. He sleeps through the night. He gets himself up out of bed in the morning. He is an early riser, he goes to bed early. Assessment and Plan Assessment and plan (1) Altered mental status: Status: Resolved Qualifiers: Altered mental status type: stupor Qualified Code(s): R40.1 - Stupor (2) Incontinence: Status: Acute Qualifiers: Incontinence type: urinary Urinary Incontinence type: other incontinence Qualified Code(s): N39.498 - Other specified urinary incontinence (3) Multiple sclerosis: Status: Chronic (4) Diabetes type 2, controlled: Status: Chronic Qualifiers: Diabetes mellitus jail insulin use: unspecified termite treater insulin use status Diabetes mellitus complication status: without complication Qualified Code(s): E11.9 - Type 2 diabetes mellitus without complications (5) Palliative care patient: Status: Acute Assessment and plan: Bryan was seen to establish care with Palliative. He has a history of MS. He had AMS, but he has improved to his baseline. He has previously established that he is a DNR/DNI. His major goal is to get home, he loves his apartment. His son helps him at home and he has services. The plan for him now is to stay here at [facility] on swing bed status and return home when he is ready. He is agreeable to follow up with Palliative. Follow up inpatient as needed. He will need a follow up visit scheduled at the time of discharge. Review of Systems Narrative: He is eating and drinking and tolerating his diet. He denies SOB, coughing or wheezing. He has wounds on BLEs. He denies having any pressure sores. All systems reviewed & are unremarkable except as noted in HPI and below [facility] Active Problem List (Updated 07/20/21 @ 18:32 by Martha Duffy NP) Palliative care patient (Acute) Encephalopathy (Acute) Hypernatremia (Acute) Incontinence (Acute) Discharge planning issues (Acute) DVT prophylaxis (Acute) Microcytic anemia (Chronic) Multiple sclerosis (Chronic) Diabetes type 2, controlled (Chronic) Urinary incontinence (Chronic) Medical History (Updated 07/20/21 @ 18:32 by Martha Duffy NP) Abnormal computed tomography angiography (CTA) of abdomen Abnormal CT of liver Anemia Bilateral cataracts Bilateral leg edema BPH (benign prostatic hyperplasia) Cervical radiculopathy Cervical spinal stenosis Cervicalgia Chewing tobacco nicotine dependence Chronic pain a. chronic opiate rx Clostridium difficile colitis Congenital ptosis of left eyelid Diabetic retinopathy Family hx of colon cancer GERD (gastroesophageal reflux disease) Hip pain, right Hyperkalemia Hyperlipidemia Ileus Lytic bone lesions on xray Lytic lesion of bone on x-ray Mediastinal adenopathy Neck pain A. 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 Chronic opiate Rx Optic nerve atrophy Optic neuritis a. legally blind Osteopenia Palliative care patient Pelvic lymphadenopathy Peripheral neuropathy Pituitary adenoma Renal insufficiency Rhabdomyolysis Right leg weakness Right shoulder pain Rotator cuff tear, right Sarcoidosis Spasticity Spinal stenosis Tendonitis of long head of biceps brachii of right shoulder Tobacco abuse a. Uses chewing tobacco Ulcer of calf Vision loss Vitamin D deficiency Surgical History H/O surgical procedure a. appendectomy b. 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 What is your relationship status?: Panel score (0-1 are the most socially isolated patients): 0 What type of physical activity do you participate in: weight lifting, wheelchair-bound and additional Details: PT Do you feel safe at home: Yes Do you feel safe in your relationship?: Yes Exam Narrative Exam Narrative: General: very pleasant man, laying in bed with HOB elevated. He is awake, alert and talkative. He answers questions appropriately, tells stories. HEENT: normocephalic, atraumatic, EOMI, mucous membranes dry. Neck: supple. Cardiovascular: heart sounds regular, nontachycardic. Respiratory: respirations appear even and unlabored, lung sounds are clear on limited anterior and lateral exam. GI: softly distended, +BS, nontender on palpation. Extremities: dressings to BLEs, edema appears improved, wrinkled skin. Results Last Vital Signs Temp 36.4 C L 07/20/21 08:09 Pulse 59 L 07/20/21 08:09 Resp 15 07/20/21 08:09 BP 130/78 07/20/21 08:09 Pulse Ox 98 07/20/21 08:09 Labs Result diagrams: 07/20/21 06:35 07/20/21 06:35 Labs: Laboratory Results - last 24 hr 07/20/21 07/20/21 06:35 06:35 WBC 8.37 RBC 3.48 L Hgb 9.6 L Hct 29.8 L MCV 85.6 MCH 27.6 MCHC 32.2 RDW 16.2 H Plt Count 281 MPV 10.9 Immature Gran % 5.5 Neutrophils % 49.3 Lymphocytes % 36.7 Monocytes % 3.8 Eosinophils % 3.7 Basophils % 1.0 Nucleated RBC % 2 Absolute Neutrophils 4.13 Absolute Lymphocytes 3.07 Absolute Monocytes 0.32 Absolute Eosinophils 0.31 Absolute Basophils 0.08 Sodium 146 H Potassium 3.6 Chloride 112 H Carbon Dioxide 27.4 Anion Gap 6.6 BUN 6 L Creatinine 1.1 Estimated GFR/1.73 m2 >= 60.00 Glucose 113 H D Calcium 8.8 Magnesium 2.0
[2021-07-20 19:41] VITALS: BP 109/72; PULSE 64; RESP 16; TEMP 36.8; O2SAT 94
[2021-07-20] MEDS: Baclofen 10 MG TAB 40 MG PO (22:01)
[2021-07-20] MEDS: clonazePAM 1 MG TAB PO (22:01)
[2021-07-21 02:11] VITALS: BP 121/74; PULSE 64; RESP 16; TEMP 36.5; O2SAT 96
[2021-07-21] MEDS: Heparin 5,000 UNITS/ML VIAL 5000 UNITS SC (02:14)
[2021-07-21 07:44] LABS: Anion Gap 7.4 mmol/L (3-11); BUN 7 mg/dL (7-18); CO2 30.6 mmol/L (21.0-32.0); CREATININE 1.2 mg/dL (0.70-1.30); Calcium 9.2 mg/dL (8.5-10.1); Chloride 108 mmol/L (98-107); Glucose 98 mg/dL (74-106); Potassium 4.1 mmol/L (3.5-5.1); Sodium 146 mmol/L (136-145)
[2021-07-21 08:00] VITALS: BP 122/78; PULSE 59; RESP 20; TEMP 36.7; O2SAT 99
[2021-07-21] MEDS: predniSONE 5 MG TAB PO (08:47)
[2021-07-21] MEDS: Cholecalciferol (Vitamin D3) 1,000 UNIT TAB 4000 UNITS PO (08:47)
[2021-07-21] MEDS: Gabapentin 300 MG CAP PO (08:47)
[2021-07-21] MEDS: Tamsulosin 0.4 MG CAPCR PO (08:47)
[2021-07-21] MEDS: Potassium Chloride 20 MEQ TABCR 40 MEQ PO (08:47)
[2021-07-21] MEDS: Omeprazole 20 MG CAPCR 40 MG PO (08:47)
[2021-07-21] MEDS: Loratidine 10 MG TAB PO (08:48)
[2021-07-21] MEDS: Docusate Sodium 100 MG CAP PO ×2 (08:48→15:42)
[2021-07-21] MEDS: Baclofen 10 MG TAB 20 MG PO ×2 (08:48→15:42)
[2021-07-21] MEDS: Aspirin 81 MG CHEW PO (08:49)
[2021-07-21] MEDS: Lisinopril 5 MG TAB 2.5 MG PO (08:49)
[2021-07-21] MEDS: Folic Acid 1 MG TAB PO (08:49)
[2021-07-21] MEDS: Ferrous Gluconate 324 MG TAB PO (08:49)
[2021-07-21] MEDS: Ascorbic Acid 500 MG TAB PO (08:50)
[2021-07-21] MEDS: Polyethylene Glycol 3350 17 GM PACKET PO (08:53)
--- NOTE | 2021-07-21 09:45 | CMPROGNOTE_ITS ---
- If Service Date Differs Date of service: 07/21/21 Time of Service: 09:45 Care Management Progress Note S/O: Per PT, Bryan is improving and now a candidate for S/T rehab, with consideration for swing bed. KARAN Felton reports meeting with Bryan and feeling SWB1 will be appropriate short term for 7-10 days. Bryan will then either discharge home with resumption of [id number]. CM met with Bryan to discuss his transition to SWB1, and answered all of his questions. CM continues to follow. A: Bryan is a 60 year old male admitted to [facility] on 07/17/21 with AMS, weakness. P: Bryan will transition to SWB1 for rehab prior to returning home-vs-SNF. CM will continue to follow
[2021-07-21] MEDS: Gabapentin 100 MG CAP PO (11:35)
--- NOTE | 2021-07-21 12:07 | PT.INTREAT ---
PT Notes Visit Reasons: Altered Mental Status, Weakness Inpatient Physical Therapy Treatment Note [facility] Date: 07/21/21 SUBJECTIVE: Bryan states that he is ready to work with PT. He offers no complaints to me today. OBJECTIVE: [] BED MOBILITY/TRANSFERS Rolling L/R: mod assist THEREX: performed a global strengthening routine. Resistance with yllw theraband. See flowsheet for details. ASSESSMENT:tolerated session well. Incontinent of bowel. He requested bed morrison and urinal of which he required mod assist x 2. Improvements noted with his strengthening. PLAN: will continue to progress functional mobility following PT POC> TREATMENT CODE/TIME: 35 min beginning at [id number]. [id number]
--- NOTE | 2021-07-21 13:53 | DSE_ITS ---
Date of service: 07/21/21 Time of Service: 13:53 DS: Diagnosis Discharge Diagnosis (1) Altered mental status: Start date: 07/21/21 Start time: 13:53 Status: Resolved Asessment and Plan: admitted to [facility] after having metabolic encephalopathy, likely due to medication over use. Tramadol was held on admission, gabapentin was decreased. He was given stress dose steroids, D5LR with 20 of K and after 2 days he was at baseline mentation. He was seen by neurology. Dr. Thorne recommended ESR and CRP to r/o worsening MS. ESR was normal. and CRP was improved from last admission. She agreed with metabolic encephalopathy and decreasing medication. He has not complained of any pain. He has been doing well. He needs to work with PT and they recommend he stay for SB admission therefore he is being admitted to level one SB 1 for PT. (2) Incontinence: Start date: 07/21/21 Start time: 13:56 Status: Chronic Asessment and Plan: On flomax. Bladder scan and straight cath intermittently PVR as well This was the recommendation of urology on last visit. (3) Multiple sclerosis: Start date: 07/21/21 Start time: 13:57 Status: Chronic Asessment and Plan: as above (4) Diabetes type 2, controlled: Start date: 07/21/21 Start time: 13:57 Status: Chronic Asessment and Plan: Will continue with SSI insulin (5) Palliative care patient: Start date: 07/21/21 Start time: 13:59 Status: Acute Asessment and Plan: He will be followed by palliative as he has discussed with CM that at some point he does want to go on hospice. discussed with Dr. Alcantar Discharge Plan Disposition Patient Disposition: [facility] SWING BED LEVEL 1 Condition: Improving Discharge Details Reason For Visit: Altered Mental Status, Weakness Admit Date/Time: 07/17/21 13:51 Admit Provider: Mian Jones Attending Provider: Mian Jones Primary Care Provider: Ale Barraza V Hospital Course Hospital Course: Patient was admitted to [facility] after being found to be very sleepy. He stated that he could not feed himself and that his caregiver left. Labs in ED significant for NA 150, potassium 3.4, glucose 152, trops negative. WBC negative. Hemaglobin 10.8 however he does have chronic anemia. He takes prednisone daily.He takes methotrexate injections weekly last one was last Friday he also is on prednisone; stress dose steroids were given, his tramadol was held and gabapentin was decreased. After a couple of days he returned to baseline mental status. Urine was checked for UTI. He had no nitrates or leuk estrase. Crp and ESR checked for progression of MS. ESR was normal. CRP improved from last admission. He refused to go to rehab, he did mention hospice to , palliative consult placed. They will follow him. He has been working with PT. They recommend he be Swung. Therefore he is being transitioned to [facility] for PT, and will be discharged home when ready. Home Meds and New Rx's Prescriptions: No Action lisinopril 2.5 mg tablet 2.5 mg PO DAILY RF: 0 tramadol 100 mg tablet 100 mg PO HS RF: 0 folic acid 1 mg tablet 1 mg PO DAILY RF: 0 methotrexate (PF) 25 mg/0.4 mL auto-injector 25 mg subcut QWEEK RF: 0 clonazepam 1 mg tablet 1 mg PO QHS Qty: 30 RF: 3 baclofen 20 mg tablet 20 mg PO DIRECTED Qty: 360 RF: 3 alfuzosin 10 mg tablet extended release 24 hr 10 mg PO DAILY RF: 0 alendronate 70 MG tablet 70 mg PO WEEKLY RF: 0 ferrous gluconate [Ferate] 240 mg (27 mg iron) tablet 240 mg PO DAILY RF: 0 glipizide 10 mg tablet extended release 24hr 10 mg PO DAILY RF: 0 loratadine 10 mg tablet 10 mg PO DAILY RF: 0 omeprazole 40 mg capsule,delayed release(DR/EC) 40 mg PO DAILY RF: 0 prednisone 5 mg tablet 5 mg PO DAILY RF: 0 cholecalciferol (vitamin D3) 25 mcg (1,000 unit) tablet 4,000 unit PO DAILY RF: 0 gabapentin 300 mg capsule See Rx Instructions PO TID Qty: 450 RF: 3 acetaminophen 500 MG tablet 500 mg PO DIRECTED PRNRF: 0 docusate sodium [Doc-Q-Lace] 100 MG capsule 100 mg PO TID RF: 0 aspirin [Aspirin Low-Strength] 81 MG tablet,chewable 81 mg PO DAILY RF: 0 atorvastatin [Lipitor] 40 MG tablet 40 mg PO QPM RF: 0 (DME) Prodigy No Coding 1 EACH strip 1 ea Sub-Q BID RF: 0 multivitamin [Daily Multi-Vitamin] 1 EACH tablet 1 tab PO DAILY RF: 0 metformin 500 mg tablet 850 mg PO BID RF: 0 methotrexate sodium 2.5 mg tablet 20 mg PO DIRECTED RF: 0 lactulose 20 gram/30 mL Solution 20 g PO BID Qty: 1500 RF: 0 polyethylene glycol 3350 17 gram Powder In Packet 17 g PO BID Qty: 100 RF: 0 potassium chloride [Klor-Con M20] 20 mEq Tablet,Er Particles/Crystals 40 meq PO DAILY Qty: 20 RF: 0 tamsulosin 0.4 mg Capsule 0.4 mg PO DAILY Qty: 30 RF: 0 ascorbic acid (vitamin C) [Vitamin C] 500 mg tablet 500 mg PO BID Qty: 60 RF: 0 sennosides [Senna Lax] 8.6 mg tablet 8.6 mg PO DAILY Qty: 20 RF: 0 Discharge Instructions Activity:: Activity as Tolerated Equipment/Supplies:: No Equipment Needed Diet:: Carb Counting Discharge Orders Discharge Orders: Discharge Order (Routine); Ordered 07/21/21 Ordered By: Nancy Davenport DS: Summary Time Spent with Patient providing and/or coordinating discharge services: Greater than 30 minutes Status at Discharge Functional status at discharge: bed bound Overall status at discharge: patient is not back to baseline Mental Status: other Speech and Movement: speech and movement normal Mood: other Affect: normal affect Exam Narrative Exam Narrative: Const: AAOx2, more alert today, baseline mentation HENT:MMM dry, Pupils not perrla (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 Small reactivity noted in left eye. 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 Cardio: RRR no ectopic beats GI: Obese abd, soft nontender, BM yesterday, continues to have lack of appetits. : deferred Skin: dry, open area to right thigh and left knee apply neosporin with mepliex, no foul odor, does not look infectious Extrem: use of bilateral Upper extremities. Unable to use lower extremities, clubbing of bilateral feet. Motor: other (5/5 BUE strength. 2/5 BLE proximal strength. ) Psych: normal affect. pleasant and cooperative. Psych Mental Status: other Speech and Movement: speech and movement normal Mood: other Affect: normal affect DS: Data Vitals/I&O Vitals and I&O: Vital Signs Temperature 36.7 C 07/21/21 08:00 Temperature Source Tympanic 07/21/21 08:00 Pulse 59 L 07/21/21 08:00 Pulse Rhythm Regular 07/21/21 08:41 Pulse 91 H 07/16/21 17:15 Respiratory Rate 20 07/21/21 08:00 Respiratory Effort 07/21/21 08:41 Respiratory Depth Normal 07/21/21 08:41 Respiratory Pattern Normal 07/21/21 08:41 Blood Pressure 122/78 07/21/21 08:00 Blood Pressure Mean 69 07/16/21 17:15 Blood Pressure Position Supine 07/16/21 13:36 Pulse Oximetry 99 07/21/21 08:00 Oxygen Delivery Method Room Air 07/21/21 08:00 Oxygen Flow Rate 0 07/21/21 08:00 Pain Level 0 07/21/21 02:11 Intake & Output 07/20/21 07/21/21 07/21/21 23:59 11:59 23:59 Intake Total 1000 / 1000 240 / 600 360 / 600 Output Total 500 / 1152 850 / 1100 250 / 1100 Balance 500 / -152 -610 / -500 110 / -500 Intake: Oral 1000 / 1000 240 / 600 360 / 600 Output: Urine 500 / 1152 850 / 1100 250 / 1100 Other: Urine Color Yellow Yellow Yellow Urine Appearance Clear Clear Clear Urine Odor Normal None Normal Comment straight cath pt for 400 output Patient incontinent brief changed Stool Size Large Moderate Stool Characteristics Liquid Soft Mucoid Liquid Brown Voiding Methods Urinal Incontinent Urinal Data Completed and Pending Completed studies during hospitalization [Text1]: Exam(s) XR CHEST 1V IN DI DEPT EXAM: XR CHEST 1V IN DI DEPT CLINICAL HISTORY: generalized weakness TECHNIQUE: 2D digital imaging was performed. COMPARISON: CR XR CHEST 2V PA LATERAL from 01/17/2019 FINDINGS: LUNGS: Lungs are expiratory. No gross focal area of consolidation. No pleural abnormality seen. HEART: Normal. MEDIASTINUM: Normal. BONES: Unremarkable. IMPRESSION: Limited exam due to poor pulmonary inflation. No acute pulmonary findings. Exam(s) a CT:CT head wo Exam(s) CT HEAD WO EXAM: CT HEAD WO CLINICAL HISTORY: AMS. TECHNIQUE: Imaging Protocol: Axial computed tomography images with coronal and sagittal reformatted images were created and reviewed COMPARISON: MR MRI - BRAIN W/WO CONTRAST from 08/28/2011 MR MRI - BRAIN W/WO CONTRAST from 08/28/[address] BRAIN NECK CTA from 07/07/2021 FINDINGS: Exam is somewhat limited by motion artifact. Ventricles and Extra axial spaces: Stable ventricular enlargement. Hemorrhage: None. Cerebral parenchyma: Stable atrophy. Stable white matter changes of small vessel disease. Midline shift: None. Brainstem/Cerebellum: Normal. Calvarium: Normal. Visualized Paranasal sinuses/Mastoids: Clear. Soft Tissues: Unremarkable. IMPRESSION: No acute intracranial process. Exam(s) PROCEDURE INFORMATION: Exam: CT Head Without Contrast Exam date and time: 07/16/2021 3:47 PM Age: 60 years old Clinical indication: Altered mental status/memory loss; Patient HX: AMS TECHNIQUE: Imaging protocol: Computed tomography of the head without contrast. COMPARISON: CT BRAIN NECK CTA 07/07/2021 4:59 PM FINDINGS: Limitations: Motion artifact does moderately limit the sensitivity of this examination. Brain: There is no acute intracranial hemorrhage, mass effect or midline shift. No large acute territorial infarct identified. There are patchy regions of hypodensity in the periventricular and subcortical white matter, likely on the basis of chronic microvascular ischemic disease. There is a region of encephalomalacia in the left occipital lobe, likely from remote infarct. Cerebral ventricles: The ventricles and sulci are prominent in size, which is at least in part due to global cerebral volume loss. Paranasal sinuses: Visualized sinuses are unremarkable. No fluid levels. Mastoid air cells: Visualized mastoid air cells are well aerated. Bones/joints: Unremarkable. No acute fracture. Soft tissues: Unremarkable. IMPRESSION: No acute intracranial hemorrhage, mass effect or midline shift. Exam(s) PROCEDURE INFORMATION: Exam: XR Chest Exam date and time: 07/16/2021 4:02 PM Age: 60 years old Clinical indication: Other: Generalized weakness TECHNIQUE: Imaging protocol: XR of the chest. Views: 1 view. COMPARISON: CR XR CHEST 2V PA LATERAL 01/17/2019 5:25 PM FINDINGS: Lungs: The lung volumes are low, which causes crowding of the pulmonary markings and slightly limits evaluation for opacities. No large consolidation seen. Pleural spaces: No large pleural effusion. No pneumothorax. Heart/Mediastinum: No cardiomegaly. Bones/joints: Unremarkable. IMPRESSION: Low lung volumes without evidence of large consolidation. Exam(s) US ABDOMEN EXAM: US ABDOMEN CLINICAL HISTORY: lack of appetite, history of ileus TECHNIQUE: Ultrasound performed using standard protocol. COMPARISON: US BILATERAL EXTREMITY US from 03/23/2016 FINDINGS: Ultrasound was performed according to the usual protocol. The study was limited by overlying bowel gas. Abdominal aorta is nonvisualized. IVC is of grossly normal diameter period Hepatic parenchyma shows increased echogenicity raising the possibility of hepatic steatosis. There is an apparent 10 millimeter in diameter simple cyst of the left hepatic lobe. No other focal lesion identified. There is no evidence of cholelithiasis or biliary dilatation. No pericholecystic fluid collection. Pancreas appears intact as visualized but is incompletely seen. Spleen appears normal. There is no evidence of renal mass, hydronephrosis, or nephrolithiasis. IMPRESSION: Question hepatic steatosis. No evidence of cholelithiasis. Labs on day of discharge: Labs from last 24 hours 07/21/21 07:25 Sodium 146 H Potassium 4.1 Chloride 108 H Carbon Dioxide 30.6 Anion Gap 7.4 BUN 7 Creatinine 1.2 Estimated GFR/1.73 m2 >= 60.00 Glucose 98 Calcium 9.2 Preliminary micro results at discharge 07/16/21 16:00 Blood Culture - Preliminary Blood NO GROWTH 96 HOURS 07/16/21 15:30 Blood Culture - Preliminary Blood NO GROWTH 96 HOURS [facility] Active Problem List Palliative care patient (Acute) Encephalopathy (Acute) Hypernatremia (Acute) Incontinence (Chronic) Discharge planning issues (Acute) DVT prophylaxis (Acute) Microcytic anemia (Chronic) Multiple sclerosis (Chronic) Diabetes type 2, controlled (Chronic) Urinary incontinence (Chronic) Medical History Abnormal computed tomography angiography (CTA) of abdomen Abnormal CT of liver Anemia Bilateral cataracts Bilateral leg edema BPH (benign prostatic hyperplasia) Cervical radiculopathy Cervical spinal stenosis Cervicalgia Chewing tobacco nicotine dependence Chronic pain a. chronic opiate rx Clostridium difficile colitis Congenital ptosis of left eyelid Diabetic retinopathy Family hx of colon cancer GERD (gastroesophageal reflux disease) Hip pain, right Hyperkalemia Hyperlipidemia Ileus Lytic bone lesions on xray Lytic lesion of bone on x-ray Mediastinal adenopathy Neck pain A. 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 Chronic opiate Rx Optic nerve atrophy Optic neuritis a. legally blind Osteopenia Palliative care patient Pelvic lymphadenopathy Peripheral neuropathy Pituitary adenoma Renal insufficiency Rhabdomyolysis Right leg weakness Right shoulder pain Rotator cuff tear, right Sarcoidosis Spasticity Spinal stenosis Tendonitis of long head of biceps brachii of right shoulder Tobacco abuse a. Uses chewing tobacco Ulcer of calf Vision loss Vitamin D deficiency Surgical History H/O surgical procedure a. appendectomy b. 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 What is your relationship status?: Panel score (0-1 are the most socially isolated patients): 0 What type of physical activity do you participate in: weight lifting, wheelchair-bound and additional Details: PT Do you feel safe at home: Yes Do you feel safe in your relationship?: Yes
--- NOTE | 2021-07-31 16:08 | INDS_ITS ---
Date of service: 07/31/21 Time of Service: 16:09 PT Notes Visit Reasons: Altered Mental Status, Weakness Physical Therapy inpatient Discharge Summary Date: 07/31/2021 Dates of Service: 07/22 through 07/30/2021 This is a clinical summary of care provided for the duration of dates listed above. No charge was made in the completion of this documentation. Referring Doctor: Nancy Davenport NP PT Orders: PT CONSULT: Eval/treat Precautions: Fall. Standard. Activity as tolerated. Wheelchair-bound. Legally blind. Patient Profile/Admitting Diagnosis: Bryan is planned to convert back to acute level of care due to increased acuity of his medical conditions. Bryan is a 60-year-old male with chronic multiple sclerosis, sarcoidosis, and diabetes mellitus mellitus who presented on 07/16/2021 due to increased lethargy and inability to manage at home alone. Patient is diagnosed with altered mental status, rhabdomyolysis, urinary tract infection, and generalized weakness. Patient was diagnosed with altered mental status, hypernatremia, and incontinence. He participated in PT intervention from 07/17/21 - 07/21/21. He improved from a medical standpoint, but due to ongoing mobility deficits, was transitioned to Swing Bed level of care for rehabilitation prior to returning home. PMHX: Medical History Abnormal CT of liver Anemia Bilateral cataracts Bilateral leg edema BPH (benign prostatic hyperplasia) Cervical radiculopathy Cervicalgia Chewing tobacco nicotine dependence Chronic pain a. chronic opiate rx Clostridium difficile colitis Congenital ptosis of left eyelid Diabetes type 2, controlled Diabetic retinopathy Family hx of colon cancer GERD (gastroesophageal reflux disease) Hip pain, right Hyperlipidemia Lytic bone lesions on xray Lytic lesion of bone on x-ray Mediastinal adenopathy Microcytic anemia Multiple sclerosis A. Diagnosed in 2006 b. nonambulatory, primarily bed to wheelchair Neck pain A. 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 Chronic opiate Rx Optic nerve atrophy Optic neuritis a. legally blind Osteopenia Pelvic lymphadenopathy Peripheral neuropathy Pituitary adenoma Renal insufficiency Sarcoidosis Spasticity Spinal stenosis Tobacco abuse a. Uses chewing tobacco Ulcer of calf Urinary incontinence Vitamin D deficiency Surgical History H/O surgical procedure a. appendectomy b. left levator surgery 2012 History of appendectomy History of lung biopsy Social History/Home Situation: Lives alone in a handicap-accessible apartment complex in [place] with community support being managed by community care management assistant Darcy Alfaro. From recent admission patient states that at baseline, he is able to perform stand pivot transfers to and from his motorized wheelchair at home. He receives home health assistance with meal preparation for his breakfast and dinners. Receives help with house chores, groceries, and medical transport. He performs a strengthening program at [facility] 2x/week at baseline for core and upper body strengthening. Equipment Owned/DME: Hospital bed, regular wheelchair, motorized wheelchair, front-wheeled walker Subjective: NT. See most recent SUPERVISOR FABRICATION notes. Objective: General Observation: NT. See most recent SUPERVISOR FABRICATION notes. Mental Status: NT. See most recent SUPERVISOR FABRICATION notes. Pain: NT. See most recent SUPERVISOR FABRICATION notes. ROM: Right Upper Extremity: Shoulder Flexion to 120 degrees. Elbow flexion WFL. Wrist flexion WFL. Functional opening and closing of hand WFL. Left Upper Extremity: Shoulder Flexion to 120 degrees. Elbow flexion WFL. Wrist flexion WFL. Functional opening and closing of hand WFL. Right Lower Extremity: Hip flexion-unable to slide heel up in supine. Hip abduction-only able to move R LE less than 10 degrees in supine to edge of bed. Knee flexion unable to slide heel up in supine. Ankle dorsiflexion no actual movement seen, muscle contraction only. Ankle plantarflexion muscle contraction only. Left Lower Extremity: Unable to perform any movements in L LE. Strength: Right Upper Extremity: Shoulder flexors 3/5. Elbow flexors 4-/5. Elbow extensors 4-/5. School Cleaner weak but functional. Left Upper Extremity: Shoulder flexors 3/5. Elbow flexors 4-/5. Elbow extensors 4-/5. School Cleaner weak but functional. Right Lower Extremity: Hip flexors 1/5. Hip abductors 1/5. Knee flexors 2-/5. Knee extensors 2-/5. Ankle dorsiflexors 1/5. Ankle plantarflexors 1/5. Left Lower Extremity: Hip flexors 1/5. Hip abductors 1/5. Knee flexors 1/5. Knee extensors 1/5. Ankle dorsiflexors 1/5. Ankle plantarflexors 1/5. Bed Mobility/Transfers: Supine to sit moderate assist x 3 to moderate assist of 1 with HOB at 45 degrees Sit to stand minimal assist of 3 to moderate assist of 1 with use of STEDY LIFT Stand to sit min A x 3 to moderate assist of 1 with use of STEDY LIFT Bed to reclining chair min A x 3 to moderate assist of 1 with use of STEDY LIFT Reclining chair to bed min A x 3 to moderate assist of 1 with use of STEDY LIFT Gait: N/A. Patient non-ambulatory. Balance: Static Sitting: Poor Dynamic Sitting: Poor Static Standing: Poor Dynamic Standing: Unable to test gait Special Tests: Mobility Limitations Standardized Measure [facility] AM-PAC 6 clicks Basic Mobility Inpatient Short Form: Raw Score: 10 CMS Score: 77% deficit Assessment: Bryan continues to demonstrate mobility decline, increasing weakness, and worsening dysphagia at this time necessitating reconversion back to acute level of care as of today. Patient is a 60 year old male with chronic medical conditions including multiple sclerosis, sarcoidosis, diabetes with diabetic retinopathy, and legal blindness. Patient presents with clinical signs and symptoms consistent with current/admitting diagnoses that have resulted to mobility limitations, gait instability, generalized weakness, and overall ADL decline as demonstrated by the following impairment level findings: 1. Decreased strength to BUE/LE/trunk major muscle groups 2. Impaired sitting/ balance and tolerance 3. Impaired activity tolerance 4. Limitation of joint range of motion in BUE/LE 6. Legally blind due to optic neuritis Impairments are contributing to the following functional limitations: 1. Continued decline in bed mobility skills 2. Continue decline in transfer skills 3. Continued increased completion time for mobility ADL performance 5. Continue increased risk for falls 6. Continue increased risk for skin breakdown Goals: Goals X1 week 1. Supine-Sit minimal assist NOT MET 2. Sit-Supine minimal assist NOT MET 3. Sitting balance/tolerance to Fair NOT MET 4. B UE strength to 3/5 and B LE strength to 2-/5 to progress transfer skills NOT MET DISCHARGE RECOMMENDATIONS: Will plan to re-evaluate under acute lvel of care once another referral is received from hospitalist. TREATMENT CODE/TIME: MI Thank you for the opportunity to participate in the care of this patient. Rosa Luevano PT, DPT, CLT [facility] [place], [place]
== END 2021-07-21 15:58 | disposition swing bed (61) | DRG 640 ==
LOC: ER 14:30 → MS 17:41
PROVIDERS: Emergency Medicine; Nurse Practitioner Family; Admitting Provider Internal Medicine; Emergency Provider Student in an Organized Health Care Education/Training Program; PCP Family Medicine; Visit Provider Internal Medicine
DX: E87.0 Hyperosmolality and hypernatremia (principal); G92.8 Other toxic encephalopathy; E27.40 Unspecified adrenocortical insufficiency; T50.995A Adverse effect of other drugs, medicaments and biological substances, initial encounter; G35 Multiple sclerosis; E78.5 Hyperlipidemia, unspecified; E11.9 Type 2 diabetes mellitus without complications; Z79.84 Long term (current) use of oral hypoglycemic drugs; N31.9 Neuromuscular dysfunction of bladder, unspecified; N39.498 Other specified urinary incontinence; D50.9 Iron deficiency anemia, unspecified; E87.6 Hypokalemia; M48.02 Spinal stenosis, cervical region; M54.12 Radiculopathy, cervical region; K21.9 Gastro-esophageal reflux disease without esophagitis; F17.220 Nicotine dependence, chewing tobacco, uncomplicated; E55.9 Vitamin D deficiency, unspecified; Z20.822 Contact with and (suspected) exposure to COVID-19; Z99.3 Dependence on wheelchair; D86.9 Sarcoidosis, unspecified; M81.0 Age-related osteoporosis without current pathological fracture; Z66 Do not resuscitate; Z79.52 Long term (current) use of systemic steroids
CPT/HCPCS: 36415; 80048; 80053; 82550; 85652; 87040; 87635; 93005; 96374; 96375; 97110; 97163; 97166; 97530; 99223; 99232; 99285; 70450; 71045; 76700; 81003; 81015; 83605; 83735; 84443; 84484; 85025; 86140; 93010; 99233; 99239; G0378; J1644; J1720; J2060; J2310; J7512

== ENCOUNTER 2021-07-21 16:04 | Inpatient (IN) | payer MEDICARE, MEDICAID, SELFPAY ==
--- NOTE | 2021-07-21 14:18 | HPE_ITS ---
Date of service: 07/21/21 Time of Service: 14:18 Assessment and Plan Assessment and plan (1) Weakness: Start date: 07/21/21 Start time: 14:22 Status: Acute Assessment and plan: Bryan would like to return home. He did not want to go to rehab he had a bad experience, initially PT felt he needed rehab however after he reached baseline mental status he was appropriate for SB status. PT consulted and working with him OT consulted. His weakness has improved. (2) Multiple sclerosis: Start date: 07/21/21 Start time: 14:24 Status: Chronic Assessment and plan: initially thought to be worsening MS. Dr. Etienne evaluated patient. ESR was normal. CRP was improved from last admission He was receiving too many medications. Tramadol was held on admission. He has not c/o any pain Gabapentin was decreased. baclofen left alone. Given stress dose steroids and he returned to baseline. (3) Incontinence: Start date: 07/21/21 Start time: 14:26 Status: Chronic Assessment and plan: Continue bladder scans. PVR, intermittent catheterizations as needed. Qualifiers: Incontinence type: urinary Urinary Incontinence type: other incontinence Qualified Code(s): N39.498 - Other specified urinary incontinence (4) Microcytic anemia: Start date: 07/21/21 Start time: 14:27 Status: Chronic Assessment and plan: stable, surveillance labs weekly (5) Palliative care patient: Start date: 07/21/21 Start time: 14:28 Status: Acute Assessment and plan: Met with palliative yesterday, they will continue to follow him as an outpatient, he did mention eventually he will want hospice. (6) Diabetes type 2, controlled: Start date: 07/21/21 Start time: 14:28 Status: Chronic Assessment and plan: SSI, hold orals, Monitor. Qualifiers: Diabetes mellitus senior living insulin use: unspecified buttermaker helper insulin use status Diabetes mellitus complication status: without complication Qualified Code(s): E11.9 - Type 2 diabetes mellitus without complications (7) Discharge planning issues: Start date: 07/21/21 Start time: 14:29 Status: Acute Assessment and plan: Home when discharged by PT Discussed with Dr. Alcantar History of Present Illness History of Present Illness Chief Complaint: Weakness, AMS, MS Narrative: Patient was admitted to [facility] after being found to be very sleepy. He stated that he could not feed himself and that his caregiver left. Labs in ED significant for NA 150, potassium 3.4, glucose 152, trops negative. WBC negative. Hemaglobin 10.8 however he does have chronic anemia. He takes prednisone daily.He takes methotrexate injections weekly last one was last Friday he also is on prednisone; stress dose steroids were given, his tramadol was held and gabapentin was decreased. After a couple of days he returned to baseline mental status. Urine was checked for UTI. He had no nitrates or leuk estrase. Crp and ESR checked for progression of MS. ESR was normal. CRP improved from last admission. He refused to go to rehab, he did mention hospice to , palliative consult placed. They will follow him. He has been working with PT. They recommend he be Swung. Therefore he is being transitioned to SB1 for PT, and will be discharged home when ready. Review of Systems All systems reviewed & are unremarkable except as noted in HPI and below PFSH Active Problem List Palliative care patient (Acute) Encephalopathy (Acute) Hypernatremia (Acute) Incontinence (Chronic) Discharge planning issues (Acute) DVT prophylaxis (Acute) Microcytic anemia (Chronic) Multiple sclerosis (Chronic) Diabetes type 2, controlled (Chronic) Urinary incontinence (Chronic) Medical History Abnormal computed tomography angiography (CTA) of abdomen Abnormal CT of liver Anemia Bilateral cataracts Bilateral leg edema BPH (benign prostatic hyperplasia) Cervical radiculopathy Cervical spinal stenosis Cervicalgia Chewing tobacco nicotine dependence Chronic pain a. chronic opiate rx Clostridium difficile colitis Congenital ptosis of left eyelid Diabetic retinopathy Family hx of colon cancer GERD (gastroesophageal reflux disease) Hip pain, right Hyperkalemia Hyperlipidemia Ileus Lytic bone lesions on xray Lytic lesion of bone on x-ray Mediastinal adenopathy Neck pain A. 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 Chronic opiate Rx Optic nerve atrophy Optic neuritis a. legally blind Osteopenia Palliative care patient Pelvic lymphadenopathy Peripheral neuropathy Pituitary adenoma Renal insufficiency Rhabdomyolysis Right leg weakness Right shoulder pain Rotator cuff tear, right Sarcoidosis Spasticity Spinal stenosis Tendonitis of long head of biceps brachii of right shoulder Tobacco abuse a. Uses chewing tobacco Ulcer of calf Vision loss Vitamin D deficiency Surgical History H/O surgical procedure a. appendectomy b. 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 What is your relationship status?: Panel score (0-1 are the most socially isolated patients): 0 What type of physical activity do you participate in: weight lifting, wheelchair-bound and additional Details: PT Do you feel safe at home: Yes Do you feel safe in your relationship?: Yes Meds Allergies and Home Medications Allergies Allergy/AdvReac Type Severity Reaction Status Date / Time No Known Allergies Allergy Unverified 07/16/21 13:53 Home Medications Medication Instructions Recorded Confirmed Type acetaminophen 500 mg PO DIRECTED PRN 11/23/13 07/16/21 History aspirin [Aspirin Low-Strength] 81 mg PO DAILY 11/23/13 07/16/21 History docusate sodium [Doc-Q-Lace] 100 mg PO TID 11/23/13 07/16/21 History atorvastatin [Lipitor] 40 mg PO QPM 06/14/14 07/16/21 History Prodigy No Coding 12/23/15 06/04/21 History multivitamin [Daily Multi-Vitamin] 1 tab PO DAILY 03/23/16 07/16/21 History alendronate 70 mg PO WEEKLY 05/13/17 07/16/21 History alfuzosin 10 mg tablet,extended 10 mg PO DAILY 12/10/18 07/16/21 History release 24 hr ferrous gluconate 240 mg (27 mg 240 mg PO DAILY tab 12/23/18 07/16/21 History iron) tablet glipizide 10 mg tablet, extended 10 mg PO DAILY 12/23/18 07/16/21 History release 24 hr loratadine 10 mg tablet 10 mg PO DAILY 12/23/18 07/16/21 History omeprazole 40 mg capsule,delayed 40 mg PO DAILY 12/23/18 07/16/21 History release prednisone 5 mg tablet 5 mg PO DAILY 12/23/18 07/16/21 History cholecalciferol (vitamin D3) 25 4,000 unit PO DAILY tab 12/21/19 07/16/21 History mcg (1,000 unit) tablet metformin 500 mg tablet 850 mg PO BID tab 06/20/20 07/16/21 History baclofen 20 mg tablet 20 mg PO DIRECTED #360 tab 06/04/21 07/16/21 Rx clonazepam 1 mg tablet 1 mg PO QHS #30 tab 06/04/21 07/16/21 Rx folic acid 1 mg tablet 1 mg PO DAILY 06/04/21 07/16/21 History lisinopril 2.5 mg tablet 2.5 mg PO DAILY 06/04/21 07/16/21 History methotrexate (PF) 25 mg/0.4 mL 25 mg SUBCUT QWEEK 06/04/21 07/16/21 History subcutaneous auto-injector tramadol 100 mg tablet 100 mg PO HS 06/04/21 07/16/21 History gabapentin 300 mg capsule See Rx Instructions PO TID #450 cap 06/06/21 07/16/21 Rx methotrexate sodium 20 mg PO DIRECTED 07/07/21 07/16/21 History ascorbic acid (vitamin C) [Vitamin 500 mg PO BID #60 tab 07/14/21 07/16/21 Rx C] lactulose 20 g PO BID #1500 ml 07/14/21 07/16/21 Rx polyethylene glycol 3350 17 g PO BID #100 ea 07/14/21 07/16/21 Rx potassium chloride [Klor-Con M20] 40 meq PO DAILY #20 tab 07/14/21 07/16/21 Rx sennosides [Senna Lax] 8.6 mg PO DAILY #20 tab 07/14/21 07/16/21 Rx tamsulosin 0.4 mg PO DAILY #30 cap 07/14/21 07/16/21 Rx Exam Const General: cooperative, comfortable and no acute distress Nutritional Appearance: obese Orientation: alert, awake and oriented x3 Eyes Eyelids: eyelids normal Pupils: pupils not ERRL (blind in right eye. ) EOM: EOM not intact bilaterally Neck Neck: normal visual inspection and no JVD Lymphatic: no lymphadenopathy noted Resp Effort & Inspection: normal respiratory effort Auscultation: clear to auscultation bilaterally Cardio Jugular venous pressure: no JVD Rhythm: regular rhythm Heart Sounds: S1 normal GI Auscultation: normal bowel sounds General: No CVA tenderness and deferred Skin General skin exam: no rashes or lesions noted Neuro General: patient alert, patient awake, oriented (baseline mental status) Patient Orientation: Person and Place and does not move all extremities (able to move upper extremities) Speech: speech normal Extrem General: abnormal to inspection, abnormal ROM, clubbing, cyanosis or edema noted and clubbing (bilateral lower extermities)
[2021-07-21 15:30] VITALS: BP 114/75; PULSE 69; RESP 18; TEMP 36.7; O2SAT 98
--- NOTE | 2021-07-21 15:51 | CMPROGNOTE_ITS ---
- If Service Date Differs Date of service: 07/21/21 Time of Service: 15:51 Care Management Progress Note S/O: Per PT, Bryan is improving and now a candidate for S/T rehab, with consideration for swing bed. KARAN Felton reports meeting with Bryan and feeling SWB1 will be appropriate short term for 7-10 days. Bryan will then either discharge home with resumption of [id number]. CM met with Bryan to discuss his transition to SWB1, and answered all of his questions. CM continues to follow. A: Bryan is a 60 year old male admitted to [facility] on 07/17/21 with AMS, weakness. P: Bryan will transition to SWB1 for rehab prior to returning home-vs-SNF. CM will continue to follow
--- NOTE | 2021-07-21 15:52 | CMSCP_ITS ---
- If Service Date Differs Date of service: 07/21/21 Time of Service: 15:52 Swingbed Plan of Care Plan of care: SWING BED PROGRAM ACTIVITIES/DISCHARGE PLAN OF CARE ACTIVITIES PLAN Date: 07/21/21 Identified Need: Individualized plan for activities to enrich life during SWB st ay. Intervention/Plan: CM will offer cart items, music tablet, TV, and volunteer services for life enrichment during SWB stay. Initials KM DISCHARGE PLAN Date: 07/21/21 Identified Need: Bryan needs to gain strength and independence with transfers and mobility. Intervention/Plan: Bryan will work with PT daily to increase strength and independence with transfers and ambulation. Initials KM
--- NOTE | 2021-07-21 15:55 | CMSA_ITS ---
- If Service Date Differs Date of service: 07/21/21 Time of Service: 15:57 SB Psychosocial/Act.Assessment - Hospital Admission Admission Date: 07/17/21 Admission From:: Home Diagnosis:: Altered Mental Status, weakness - Swing Bed Admission Swing Bed Admit Date:: 07/21/21 Swing Bed Level of Care: Level 1/SNF - Social Supports PREVIOUS FUNCTIONAL STATUS/SOCIAL/FAMILY SUPPORTS:: Bryan resides alone in [place], [place] in a handicap accessible apartment. He has declined in function since his last admission, which may be a sign of MS disease progression, per hospitalist. His Caster Helper, Karime reports he has 13.75 hours of respite and 17.75 hours of MONITOR TECH weekly through [facility]. Home health aide helps with cleaning and meal prep. He has a son, Bryan MCCURDY who resides locally and a father, Bryan Abraham who is a Reverend in [place] and keeps in good contact with Bryan. - Prior to Admission Living Arrangements/Environment Prior to Admission:: Bryan lives in an apartment, alone. He has [facility] needs, and has caregivers that help him around the house and with ADL's, but they are not 24/7 caregivers. 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 - [place]: No 's Spouse: No - Benefits Financial: Social Security, Medicare, Medicaid - [place] Active Protestant Member:: Yes Protestant Affliation: Shinto Will Protestant Members or Production Support Consultant Visit:: No - Advance Directives for Healthcare Advance Directives for Healthcare: Advance Directives Advance Directive Agent: Bryan De III - Present Functional Status Physical Abilities:: limited due to MS Cognitive:: a&o x3 Communication:: clear Sensory Systems: legally blind Behavior:: calm, cooperative, pleasant - Medical History PAST MEDICAL HISTORY/PAST SURGICAL HISTORY:: Hypernatremia (Acute). Altered mental status (Acute). Incontinence (Acute). Discharge planning issues (Acute). DVT prophylaxis (Acute). Microcytic anemia (Chronic). Multiple sclerosis (Chronic). Diabetes type 2, controlled (Chronic). Urinary incontinence (Chronic). Abnormal computed tomography angiography (CTA) of abdomen. Abnormal CT of liver. Anemia. Bilateral cataracts. Bilateral leg edema. BPH (benign prostatic hyperplasia). Cervical radiculopathy. Cervical spinal stenosis. Cervicalgia. Chewing tobacco nicotine dependence. Chronic pain. a. chronic opiate rx. Clostridium difficile colitis. Congenital ptosis of left eyelid. Diabetic retinopathy. Family hx of colon cancer. GERD (gastroesophageal reflux disease). Hip pain, right. Hyperkalemia. Hyperlipidemia. Ileus. Lytic bone lesions on xray. Lytic lesion of bone on x- ray. Mediastinal adenopathy. Neck pain. A. 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 b. Chronic opiate Rx. Optic nerve atrophy. Optic neuritis. a. legally blind. Osteopenia. Pelvic lymphadenopathy. Peripheral neuropathy. Pituitary adenoma. Renal insufficiency. Rhabdomyolysis. Right leg weakness. Right shoulder pain. Rotator cuff tear, right. Sarcoidosis. Spasticity. Spinal stenosis. Tendonitis of long head of biceps brachii of right shoulder. Tobacco abuse. a. Uses chewing tobacco. Ulcer of calf. Vision loss. Vitamin D deficiency - Admission Data Reason for Swing Bed Admission:: Strengthening, increase independence with transfers. Discharge Plan:: Bryan will remain on SWB1 for 7-10 days to work with PT. If he contines to require rehab, he will choose a SNF for more retirement care, but he would prefer to return home after the short rehab stay. Assessment: Bryan will work with PT daily to increase strength and indpendence with transfers. He will likely return home once his rehab is complete, within 10 days, and will resume his home care provided through [facility]. If he requires additional rehab, he will choose a SNF where he can have a longer rehab stay. Pantograph Machine Set Up Operator: Elsa Seay Date Assessment was completed:: 07/21/21
[2021-07-21] MEDS: Insulin Aspart 300 UNITS/3 ML PEN SC (17:10)
[2021-07-21] MEDS: Ascorbic Acid 500 MG TAB PO (20:46)
[2021-07-21] MEDS: Docusate Sodium 100 MG CAP PO (20:46)
[2021-07-21] MEDS: Gabapentin 300 MG CAP PO (20:46)
[2021-07-21] MEDS: Potassium Chloride 20 MEQ TABCR 40 MEQ PO (20:46)
[2021-07-21] MEDS: clonazePAM 1 MG TAB PO (22:37)
[2021-07-21] MEDS: Baclofen 10 MG TAB 40 MG PO (22:37)
[2021-07-22] MEDS: Heparin 5,000 UNITS/ML VIAL 5000 UNITS SC ×3 (01:42→18:02)
[2021-07-22 07:00] LABS: HCT 33.5 % (40.0-50.0); MCH 28.1 pg (27.0-33.0); MCHC 32.8 % (32.0-36.0); MCV 85.7 fL (80-95); Platelet Count 272 10^3/uL (130-400); RBC 3.91 10^6/uL (4.36-5.78); RDW 16.7 % (11.8-14.1); RDW-SD 49.8 fL; WBC 6.59 10^3/uL (4.4-10.8)
[2021-07-22 07:10] VITALS: BP 96/63; PULSE 84; RESP 16; TEMP 36.8; O2SAT 99
--- NOTE | 2021-07-22 08:32 | IN_ITS ---
PT Notes Date: 07/22/2021 Referring Doctor: Nancy Davenport NP PT Orders: PT CONSULT: Eval/treat Precautions: Fall. Standard. Activity as tolerated. Wheelchair-bound. Legally blind. Patient Profile/Admitting Diagnosis: Bryan is a 60-year-old male with chronic multiple sclerosis, sarcoidosis, and diabetes mellitus mellitus who presented on 07/16/2021 due to increased lethargy and inability to manage at home alone. Patient is diagnosed with altered mental status, rhabdomyolysis, urinary tract infection, and generalized weakness. Patient was diagnosed with altered mental status, hypernatremia, and incontinence. He participated in PT intervention from 07/17/21 - 07/21/21. He improved from a medical standpoint, but due to ongoing mobility deficits, was transitioned to Swing Bed level of care for rehabilitation prior to returning home. PMHX: Medical History Abnormal CT of liver Anemia Bilateral cataracts Bilateral leg edema BPH (benign prostatic hyperplasia) Cervical radiculopathy Cervicalgia Chewing tobacco nicotine dependence Chronic pain a. chronic opiate rx Clostridium difficile colitis Congenital ptosis of left eyelid Diabetes type 2, controlled Diabetic retinopathy Family hx of colon cancer GERD (gastroesophageal reflux disease) Hip pain, right Hyperlipidemia Lytic bone lesions on xray Lytic lesion of bone on x-ray Mediastinal adenopathy Microcytic anemia Multiple sclerosis A. Diagnosed in 2006 b. nonambulatory, primarily bed to wheelchair Neck pain A. 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 Chronic opiate Rx Optic nerve atrophy Optic neuritis a. legally blind Osteopenia Pelvic lymphadenopathy Peripheral neuropathy Pituitary adenoma Renal insufficiency Sarcoidosis Spasticity Spinal stenosis Tobacco abuse a. Uses chewing tobacco Ulcer of calf Urinary incontinence Vitamin D deficiency Surgical History H/O surgical procedure a. appendectomy b. left levator surgery 2012 History of appendectomy History of lung biopsy Social History/Home Situation: Lives alone in a handicap-accessible apartment complex in [place] with community support being managed by community grounds caretaker Darcy Alfaro. From recent admission patient states that at baseline, he is able to perform stand pivot transfers to and from his motorized wheelchair at home. He receives home health assistance with meal preparation for his breakfast and dinners. Receives help with house chores, groceries, and medical transport. He performs a strengthening program at [facility] 2x/week at baseline for core and upper body strengthening. Equipment Owned/DME: Hospital bed, regular wheelchair, motorized wheelchair, front-wheeled walker Subjective: Bryan states that he's feeling good today. He feels as though he's ready to try transferring. Objective: General Observation: Supine in bed. Wound dressing over distal RLE. Mental Status: A&Ox3. Pleasant and cooperative. Pain: Denies ROM: Right Upper Extremity: Shoulder Flexion to 120 degrees. Elbow flexion WFL. Wrist flexion WFL. Functional opening and closing of hand WFL. Left Upper Extremity: Shoulder Flexion to 120 degrees. Elbow flexion WFL. Wrist flexion WFL. Functional opening and closing of hand WFL. Right Lower Extremity: Hip flexion-unable to slide heel up in supine. Hip ab duction-only able to move R LE less than 10 degrees in supine to edge of bed. Knee flexion unable to slide heel up in supine. Ankle dorsiflexion no actual movement seen, muscle contraction only. Ankle plantarflexion muscle contraction only. Left Lower Extremity: Unable to perform any movements in L LE. Strength: Right Upper Extremity: Shoulder flexors 3/5. Elbow flexors 4-/5. Elbow extensors 4-/5. Activated Sludge Attendant weak but functional. Left Upper Extremity: Shoulder flexors 3/5. Elbow flexors 4-/5. Elbow extensors 4-/5. Activated Sludge Attendant weak but functional. Right Lower Extremity: Hip flexors 1/5. Hip abductors 1/5. Knee flexors 2-/5. Knee extensors 2-/5. Ankle dorsiflexors 1/5. Ankle plantarflexors 1/5. Left Lower Extremity: Hip flexors 1/5. Hip abductors 1/5. Knee flexors 1/5. Knee extensors 1/5. Ankle dorsiflexors 1/5. Ankle plantarflexors 1/5. Bed Mobility/Transfers: During evaluation, patient is incontinent of bowel and requires max A x 2 for rolling, and max A x 1 for self-care. Supine to sit moderate assist x 3 with HOB at 45 degrees Sit to stand min A x 3 with Steadi Lift Stand to sit min A x 3 with Steadi Lift Bed to reclining chair min A x 3 with Steadi Lift Reclining chair to bed min A x 3 with Steadi Lift Gait: N/A. Patient non-ambulatory. Balance: Static Sitting: Poor Dynamic Sitting: Poor Static Standing: Poor Dynamic Standing: Unable to test gait Special Tests: Mobility Limitations Standardized Measure [facility] AM-PAC 6 clicks Basic Mobility Inpatient Short Form: Raw Score: 10 CMS Score: 77% deficit Informed Consent/Education: Patient was instructed in purpose of PT consult and plan of care. Agreeable to proceed with established PT POC to achieve personal goals. Assessment: Patient is a 60 year old male with chronic medical conditions including multiple sclerosis, sarcoidosis, and diabetes with diabetic retinopathy and legal blindness. He has baseline mobility issues, but is able to transfer independently, and continue to reside in a private apartment with assistance from caregivers who come in intermittently throughout the day. He presents with significantly diminished mobility following acute medical issues and a 5 day hospitalization, during which he participated in PT intervention. He's now transitioned to Swing Bed level of care for rehabilitation prior to returning home. He requires PT intervention to regain independence with bed mobility and transfers to allow for safe return back home. Patient presents with clinical signs and symptoms consistent with current/admitting diagnoses that have resulted to mobility limitations, gait instability, generalized weakness, and overall ADL decline as demonstrated by the following impairment level findings: 1. Decreased strength to BUE/LE/trunk major muscle groups 2. Impaired sitting/ balance and tolerance 3. Impaired activity tolerance 4. Limitation of joint range of motion in BUE/LE Impairments are contributing to the following functional limitations: 1. Decline in bed mobility skills 2. Decline in transfer skills 3. Increased completion time for mobility ADL performance 5. Increased risk for falls 6. Increased risk for skin breakdown [place] [address] moderate complexity based on the following: History: 60-year-old male with complicated medical history as indicated above, in addition to recent hospitalization for acute medical issues. He has now medically stabilized, and requires continued PT intervention in Swing Bed level of care to allow for safe transition back home with caregiver assistance. Examination: Functional limitations as noted above Presentation: Evolving Decision Makin moderate complexity Goals: Goals X1 week 1. Supine-Sit minimal assist 2. Sit-Supine minimal assist 3. Sitting balance/tolerance to Fair 4. B UE strength to 3/5 and B LE strength to 2-/5 to progress transfer skills Plan of Care/Treatment Plan: 1-2x/day, 7 days/week x 1 week. Plan of care has been reviewed with the MANAGER KNOWLEDGE providing the service under Physical Therapy direction. Initiate Physical Therapy intervention for pain management as needed, strengthening, bed mobility, transfers, gait, stairs, balance training, and use of assistive device. DISCHARGE RECOMMENDATIONS: Home with services [continuation of previous services with addition of PT] TREATMENT CODE/TIME: 88072 (9:05-9:50) Thank you for the opportunity to participate in the care of this patient. Kell Tenorio, PT, DPT [facility] [place], [place]
[2021-07-22] MEDS: Loratidine 10 MG TAB PO (09:11)
[2021-07-22] MEDS: Docusate Sodium 100 MG CAP PO (09:11)
[2021-07-22] MEDS: Polyethylene Glycol 3350 17 GM PACKET PO (09:11)
[2021-07-22] MEDS: Ferrous Gluconate 324 MG TAB PO (09:11)
[2021-07-22] MEDS: Aspirin 81 MG CHEW PO (09:11)
[2021-07-22] MEDS: Cholecalciferol (Vitamin D3) 1,000 UNIT TAB 4000 UNITS PO (09:11)
[2021-07-22] MEDS: Folic Acid 1 MG TAB PO (09:11)
[2021-07-22] MEDS: Ascorbic Acid 500 MG TAB PO ×2 (09:11→20:18)
[2021-07-22] MEDS: Lisinopril 5 MG TAB 2.5 MG PO (09:11)
[2021-07-22] MEDS: Potassium Chloride 20 MEQ TABCR 40 MEQ PO ×2 (09:12→20:17)
[2021-07-22] MEDS: Tamsulosin 0.4 MG CAPCR PO (09:12)
[2021-07-22] MEDS: Baclofen 10 MG TAB 20 MG PO ×2 (09:12→16:39)
[2021-07-22] MEDS: Gabapentin 300 MG CAP PO ×2 (09:12→20:18)
[2021-07-22] MEDS: predniSONE 5 MG TAB PO (09:12)
[2021-07-22] MEDS: Omeprazole 20 MG CAPCR 40 MG PO (09:12)
--- NOTE | 2021-07-22 10:04 | PT.DS ---
Supervising Provider: Kell Tenorio PT Diagnosis: right shoulder pain, multiple sclerosis Diagnosis: Multiple sclerosis, symptoms and signs involving the musculoskeletal system Weeks Elapsed: week(s) and 0 day(s) Patient Location: Med Surg Referring Provider: Date of Service: July 22, 2021 10:04 am PT Notes Date: 07/17/21 -07/21/2021 Referring Doctor: Nancy Davenport NP PT Orders: PT CONSULT: Eval/treat Precautions: Fall. Standard. Activity as tolerated. Wheelchair-bound. Legally blind. Patient Profile/Admitting Diagnosis: Bryan is a 60-year-old male with chronic multiple sclerosis, sarcoidosis, and diabetes mellitus mellitus who presented on 07/16/2021 due to increased lethargy and inability to manage at home alone. Patient is diagnosed with altered mental status, rhabdomyolysis, urinary tract infection, and generalized weakness. Patient was diagnosed with altered mental status, hypernatremia, and incontinence. He participated in PT intervention from 07/17/21 - 07/21/21. He improved from a medical standpoint, but due to ongoing mobility deficits, was transitioned to Swing Bed level of care for rehabilitation prior to returning home. PMHX: Medical History Abnormal CT of liver Anemia Bilateral cataracts Bilateral leg edema BPH (benign prostatic hyperplasia) Cervical radiculopathy Cervicalgia Chewing tobacco nicotine dependence Chronic pain a. chronic opiate rx Clostridium difficile colitis Congenital ptosis of left eyelid Diabetes type 2, controlled Diabetic retinopathy Family hx of colon cancer GERD (gastroesophageal reflux disease) Hip pain, right Hyperlipidemia Lytic bone lesions on xray Lytic lesion of bone on x-ray Mediastinal adenopathy Microcytic anemia Multiple sclerosis A. Diagnosed in 2006 b. nonambulatory, primarily bed to wheelchair Neck pain A. 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 Chronic opiate Rx Optic nerve atrophy Optic neuritis a. legally blind Osteopenia Pelvic lymphadenopathy Peripheral neuropathy Pituitary adenoma Renal insufficiency Sarcoidosis Spasticity Spinal stenosis Tobacco abuse a. Uses chewing tobacco Ulcer of calf Urinary incontinence Vitamin D deficiency Surgical History H/O surgical procedure a. appendectomy b. left levator surgery 2012 History of appendectomy History of lung biopsy Social History/Home Situation: Lives alone in a handicap-accessible apartment complex in [place] with community support being managed by community healthcare liaison Darcy Alfaro. From recent admission patient states that at baseline, he is able to perform stand pivot transfers to and from his motorized wheelchair at home. He receives home health assistance with meal preparation for his breakfast and dinners. Receives help with house chores, groceries, and medical transport. He performs a strengthening program at [facility] 2x/week at baseline for core and upper body strengthening. Equipment Owned/DME: Hospital bed, regular wheelchair, motorized wheelchair, front-wheeled walker Subjective: Bryan states that he's feeling good today. He feels as though he's ready to try transferring. Objective: General Observation: Supine in bed. Wound dressing over distal RLE. Mental Status: A&Ox3. Pleasant and cooperative. Pain: Denies ROM: Right Upper Extremity: Shoulder Flexion to 120 degrees. Elbow flexion WFL. Wrist flexion WFL. Functional opening and closing of hand WFL. Left Upper Extremity: Shoulder Flexion to 120 degrees. Elbow flexion WFL. Wrist flexion WFL. Functional opening and closing of hand WFL. Right Lower Extremity: Hip flexion-unable to slide heel up in supine. Hip abduction-only able to move R LE less than 10 degrees in supine to edge of bed. Knee flexion unable to slide heel up in supine. Ankle dorsiflexion no actual movement seen, muscle contraction only. Ankle plantarflexion muscle contraction only. Left Lower Extremity: Unable to perform any movements in L LE. Strength: Right Upper Extremity: Shoulder flexors 3/5. Elbow flexors 4-/5. Elbow extensors 4-/5. Project Consultant weak but functional. Left Upper Extremity: Shoulder flexors 3/5. Elbow flexors 4-/5. Elbow extensors 4-/5. Project Consultant weak but functional. Right Lower Extremity: Hip flexors 1/5. Hip abductors 1/5. Knee flexors 2-/5. Knee extensors 2-/5. Ankle dorsiflexors 1/5. Ankle plantarflexors 1/5. Left Lower Extremity: Hip flexors 1/5. Hip abductors 1/5. Knee flexors 1/5. Knee extensors 1/5. Ankle dorsiflexors 1/5. Ankle plantarflexors 1/5. Bed Mobility/Transfers: During evaluation, patient is incontinent of bowel and requires max A x 2 for rolling, and max A x 1 for self-care. Supine to sit moderate assist x 3 with HOB at 45 degrees Sit to stand min A x 3 with Steadi Lift Stand to sit min A x 3 with Steadi Lift Bed to reclining chair min A x 3 with Steadi Lift Reclining chair to bed min A x 3 with Steadi Lift Gait: N/A. Patient non-ambulatory. Balance: Static Sitting: Poor Dynamic Sitting: Poor Static Standing: Poor Dynamic Standing: Unable to test gait Special Tests: Mobility Limitations Standardized Measure [facility] AM-PAC 6 clicks Basic Mobility Inpatient Short Form: Raw Score: 10 CMS Score: 77% deficit Informed Consent/Education: Patient was instructed in purpose of PT consult and plan of care. Agreeable to proceed with established PT POC to achieve personal goals. Assessment: Patient is a 60 year old male with chronic medical conditions including multiple sclerosis, sarcoidosis, and diabetes with diabetic retinopathy and legal blindness. He has baseline mobility issues, but is able to transfer independently, and continue to reside in a private apartment with assistance from caregivers who come in intermittently throughout the day. He presents with significantly diminished mobility following acute medical issues and a 5 day hospitalization, during which he participated in PT intervention. He now requires transition to Swing Bed level of care for rehabilitation prior to returning home. He requires ongoing PT intervention to regain independence with bed mobility and transfers to allow for safe return back home. Goals: Goals X1 week 1. Supine-Sit minimal assist (NOT MET) 2. Sit-Supine minimal assist(NOT MET) 3. Sitting balance/tolerance to Fair(NOT MET) 4. B UE strength to 3/5 and B LE strength to 2-/5 to progress transfer skills(NOT MET) Plan of Care/Treatment Plan: Transition to Swing Bed level of care (see Initial Eval with today's date) DISCHARGE RECOMMENDATIONS: Transition to Swing Bed level of care prior to transitioning home with services [continuation of previous services with addition of PT] TREATMENT CODE/TIME: n/a Thank you for the opportunity to participate in the care of this patient. Kell Tenorio, PT, DPT [facility] [place], [place]
--- NOTE | 2021-07-22 11:38 | PT.INTREAT ---
PT Notes Inpatient Physical Therapy Treatment Note [facility] Date: 07/22/21 PRECAUTIONS:standard; non-ambulatory patient SUBJECTIVE: Bryan states that he's ready to get back to bed. He would like to try to use the commode first. OBJECTIVE: PAIN: right knee discomfort BED MOBILITY/TRANSFERS Scooting up in bed: independent with use of trapeze Sit-supine: max A x 2 with Steady Lift Sit-stand: mod A x 2, 3 transfers with Steady Lift Stand-sit: mod A x 2 with Steady Lift Chair-bed: mod A x 2 with Steady Lift TOILETING: CGA-min A for trunk when seated on commode. Patient able to clicking machine operator Steady with min A x 1, with additional person for max A self-care GAIT : non-ambulatory at baseline Treatment: Session consisted of transfer training with use of Steady lift. Patient completed several transfers, with good safety awareness and improved participation. ASSESSMENT: Difficulty with transfers from lower chairs versus elevated bed. Able to effectively use commode with assistance to trunk throughout. PLAN: Continue with transfer training and UE/trunk strengthening program. TREATMENT CODE/TIME: 11:00-11:30 ([id number]) Kell Tenorio, PT, DPT [facility]
[2021-07-22] MEDS: Gabapentin 100 MG CAP PO (12:01)
[2021-07-22] MEDS: Insulin Aspart 300 UNITS/3 ML PEN SC ×3 (12:01→21:27)
[2021-07-22 15:30] VITALS: BP 104/64; PULSE 89; RESP 17; TEMP 36.3; O2SAT 96
[2021-07-22] MEDS: Baclofen 10 MG TAB 40 MG PO (21:26)
[2021-07-22] MEDS: clonazePAM 1 MG TAB PO (21:27)
[2021-07-22 23:55] VITALS: BP 108/69; PULSE 86; RESP 17; TEMP 36.6; O2SAT 96
[2021-07-23] MEDS: Heparin 5,000 UNITS/ML VIAL 5000 UNITS SC ×3 (02:38→16:53)
[2021-07-23] MEDS: Polyethylene Glycol 3350 17 GM PACKET PO ×2 (08:25→21:06)
[2021-07-23] MEDS: Gabapentin 300 MG CAP PO ×2 (08:26→21:08)
[2021-07-23] MEDS: Cholecalciferol (Vitamin D3) 1,000 UNIT TAB 4000 UNITS PO (08:26)
[2021-07-23] MEDS: Omeprazole 20 MG CAPCR 40 MG PO (08:26)
[2021-07-23] MEDS: Potassium Chloride 20 MEQ TABCR 40 MEQ PO ×2 (08:26→21:07)
[2021-07-23] MEDS: Aspirin 81 MG CHEW PO (08:26)
[2021-07-23] MEDS: predniSONE 5 MG TAB PO (08:26)
[2021-07-23] MEDS: Docusate Sodium 100 MG CAP PO ×3 (08:26→21:08)
[2021-07-23] MEDS: Loratidine 10 MG TAB PO (08:26)
[2021-07-23] MEDS: Tamsulosin 0.4 MG CAPCR PO (08:27)
[2021-07-23] MEDS: Ascorbic Acid 500 MG TAB PO ×2 (08:27→21:08)
[2021-07-23] MEDS: Normal Saline Flush 10 ML SYR IVP (08:27)
[2021-07-23] MEDS: Ferrous Gluconate 324 MG TAB PO (08:27)
[2021-07-23] MEDS: Folic Acid 1 MG TAB PO (08:27)
[2021-07-23] MEDS: Lisinopril 5 MG TAB 2.5 MG PO (08:28)
[2021-07-23 09:03] VITALS: BP 106/65; PULSE 87; RESP 20; TEMP 36.9; O2SAT 95
[2021-07-23] MEDS: Baclofen 10 MG TAB 20 MG PO ×2 (11:27→16:52)
[2021-07-23] MEDS: Insulin Aspart 300 UNITS/3 ML PEN SC ×3 (11:53→21:06)
[2021-07-23] MEDS: Gabapentin 100 MG CAP PO (11:53)
--- NOTE | 2021-07-23 13:27 | PTTR_ITS ---
Date of service: 07/23/21 Time of Service: 11:02 PT Notes Inpatient Physical Therapy Treatment Note [facility] Date: 07/23/2021 PRECAUTIONS: Non-ambulatory SUBJECTIVE: Bryan states that he is feeling good today, he is pleasant and ag reeable to participating in PT and sitting up in the chair for lunch. OBJECTIVE: PAIN: No c/o pain BED MOBILITY/TRANSFERS Supine-sit: Min A with use of trapeze and bed rails Sit-stand: Min A x2 with STEDY Stand-sit: Min A x2 with STEDY Bed-chair: STEDY Commode-chair: STEDY GAIT: Unable THEREX: Patient was instructed in a seated resisted core stabilization program and UE strengthening program, as per flow sheet. He utilizes 1# dumbbells and yellow Theraband with all exercises. ASSESSMENT: Patient tolerated session well without complaint. He was able to transfer from bed-chair with STEDY, requiring Min A x2 for sit<>stand transfers. PLAN: Continue with core and UE strengthening as well as transfer training to continue progressing toward baseline level of function. TREATMENT CODE/TIME: Session 1: 23 minutes; [id number] x2 (11:02) Session 2: 30 minutes; [id number], [id number] (13:39)
[2021-07-23 15:51] VITALS: BP 98/63; PULSE 92; RESP 16; TEMP 36.6; O2SAT 93
--- NOTE | 2021-07-23 16:00 | PHA.REVIEW ---
Pharmacy Admission Review - Admission Clinical Review (Last Reviewed 07/21/21 @ 14:19 by Nancy Davenport NP) Weakness (Acute) Palliative care patient (Acute) Discharge planning issues (Acute) No Known Allergies Allergy (Unverified 07/16/21 13:53) Resuscitation Status DNR/DNI Height 5 ft 8 in Weight 93.8 kg - Renal Dosing Medications needing adjustments: Reviewed (SCr: 1.2, CrCl: ~74.6mL/min adjusted body weight.) List of meds needing interventions: Baclofen dose adjustment recommended, but patient has been on this dose and renal function is at baseline. - Anticoagulation Anticoagulation: Hgb 11.0 g/dL (13.5-17.5) L 07/22/21 06:35 Hct 33.5 % (40.0-50.0) L 07/22/21 06:35 Plt Count 272 10^3/uL (130-400) 07/22/21 06:35 DVT Prophylaxis: Reviewed Medications: Heparin (Heparin 5000 units SC Q8H) Therapeutic Anticoagulation: N/A - Opiate Usage Evaluate Pain Scale/Pains Meds: N/A (No opiates this admission.) Scheduled Bowel Reg ordered if on Opiates?: Yes (Miralax, Docusate schedul) - Relevant Labs Electrolytes, C-Reactive P, ESR: Reviewed - DM Control DM Control: Finger Stick Blood Glucose 195 Finger Stick Blood Glucose 195 Finger Stick Blood Glucose 195 Finger Stick Blood Glucose 127 Finger Stick Blood Glucose 127 Finger Stick Blood Glucose 127 Insulin Dosing: Reviewed (Glucose controlled with sliding scale insulin aspart.) - Heart Failure/AK EF%, RACHEL's, B-Blockers, Diuretics: Reviewed - BP Control BP Control: Blood Pressure 98/63 Blood Pressure 106/65 If elevated: N/A (Blood pressure trending low.) - Qtc Review If Elevated: Reviewed (QTc 531 on admission.) - IV to PO Switch IV Medications: Reviewed - Home Meds Home Med List reviewed: Intervened (Noticed discrepancies between external med list and home med list, contacted provider and pharmacy, will update home med list and mention to provider so they can review it.) Relevent Home Meds Not ordered & why?: Gabapentin dose reduced due to confusion (600mg AM, HS, and 300mg at noon at home, 300mg AM, HS and 100mg at noon inpatient), Glipizide ER 10mg and Metformin 850mg BID (using insulin aspart ss), Alendronate 70mg weekly, Atorvastatin 40mg every evening, Alfuzosin ER 10mg daily. - Current meds Current Medication Order Review: Reviewed - Comments Comments/Follow Ups: Continue to monitor labs, vital signs and for medication changes (any medications causing QT prolongation).
[2021-07-23] MEDS: Baclofen 10 MG TAB 40 MG PO (21:07)
[2021-07-23] MEDS: clonazePAM 1 MG TAB PO (21:08)
[2021-07-23 23:42] VITALS: BP 99/68; PULSE 89; RESP 18; TEMP 36.8; O2SAT 93
[2021-07-24] MEDS: Heparin 5,000 UNITS/ML VIAL 5000 UNITS SC (02:28)
[2021-07-24 06:27] LABS: HCT 36.8 % (40.0-50.0); HGB 12.1 g/dL (13.5-17.5); MCH 27.7 pg (27.0-33.0); MCHC 32.9 % (32.0-36.0); MCV 84.2 fL (80-95); MPV 11.1 fL (8.0-11.0); Platelet Count 248 10^3/uL (130-400); RBC 4.37 10^6/uL (4.36-5.78); RDW 16.5 % (11.8-14.1); RDW-SD 48.7 fL; WBC 7.89 10^3/uL (4.4-10.8)
[2021-07-24 07:32] VITALS: BP 104/68; PULSE 58; RESP 16; TEMP 36.5; O2SAT 97
[2021-07-24] MEDS: Tamsulosin 0.4 MG CAPCR PO (08:05)
[2021-07-24] MEDS: Gabapentin 300 MG CAP PO ×2 (08:05→20:49)
[2021-07-24] MEDS: Potassium Chloride 20 MEQ TABCR 40 MEQ PO ×2 (08:07→20:48)
[2021-07-24] MEDS: Baclofen 10 MG TAB 20 MG PO ×2 (08:08→15:05)
[2021-07-24] MEDS: Loratidine 10 MG TAB PO (08:08)
[2021-07-24] MEDS: Ferrous Gluconate 324 MG TAB PO (08:08)
[2021-07-24] MEDS: Docusate Sodium 100 MG CAP PO ×2 (08:08→20:48)
[2021-07-24] MEDS: Folic Acid 1 MG TAB PO (08:09)
[2021-07-24] MEDS: Ascorbic Acid 500 MG TAB PO ×2 (08:09→20:48)
[2021-07-24] MEDS: Lisinopril 5 MG TAB 2.5 MG PO (08:09)
[2021-07-24] MEDS: Cholecalciferol (Vitamin D3) 1,000 UNIT TAB 4000 UNITS PO (08:10)
[2021-07-24] MEDS: Aspirin 81 MG CHEW PO (08:10)
[2021-07-24] MEDS: Omeprazole 20 MG CAPCR 40 MG PO (08:11)
[2021-07-24] MEDS: predniSONE 5 MG TAB PO (08:12)
[2021-07-24] MEDS: Gabapentin 100 MG CAP PO (11:16)
[2021-07-24] MEDS: Insulin Aspart 300 UNITS/3 ML PEN SC ×3 (11:46→22:09)
--- NOTE | 2021-07-24 14:01 | NUR.NOTE ---
Nursing Note: I was asked to look at the site where patient's IV access was. Peer nurse had concerns about purulence. Area around it was hard, with a small area of puss at the access site. A warm pack was applied to the site and was reported to the CCC. Also patient did tell me that he has been seen at the [facility]. They were contacted and they will send patients most recent visit notes to here
--- NOTE | 2021-07-24 14:48 | PTTR_ITS ---
Date of service: 07/24/21 Time of Service: 11:02 PT Notes Inpatient Physical Therapy Treatment Note [facility] Date: 07/24/2021 PRECAUTIONS: Non-ambulatory SUBJECTIVE: Bryan states that he is feeling good today, he is pleasant and ag reeable to participating in PT and sitting up in the chair for lunch. OBJECTIVE: PAIN: No c/o pain BED MOBILITY/TRANSFERS Supine-sit: SBA with use of trapeze and bed rails. Assisted with use of leg bill recapitulation clerk due to visual impairment Sit-supine: Mod A of B LE Sit-stand: CGA x2 with STEDY in a.m.; Min A x2 with STEDY in p.m. Stand-sit: CGA x2 with STEDY [facility] Chair-commode: STEDY GAIT: Unable THEREX: Patient was instructed in a seated resisted core stabilization program and UE strengthening program, as per flow sheet. He utilizes 1# dumbbells and yellow Theraband with all exercises. TOILETING: Patient toileted with assist in both a.m. and p.m. ASSESSMENT: Patient tolerated session well without complaint. He was able to transfer from bed-chair with STEDY, requiring CGA x2 for sit<>stand transfers. He was also able to tolerate a progression in his ther ex program, tolerating increased reps with all exercises. PLAN: Continue with core and UE strengthening as well as transfer training to continue progressing toward baseline level of function. TREATMENT CODE/TIME: Session 1: 40 minutes; 89609, [id number] x2 (11:02) Session 2: 23 minutes; 43475 x2 (12:54)
--- NOTE | 2021-07-24 16:15 | WOUNDCARE ---
Wound Care Report Notes from weeks were reviewed and shown to the provider. Order for promagan to the wound bed covered with a Unnaboot change every 3 days was ordered. This was applied
[2021-07-24] MEDS: clonazePAM 1 MG TAB PO (22:08)
[2021-07-24] MEDS: Baclofen 10 MG TAB 40 MG PO (22:08)
[2021-07-24 23:39] VITALS: BP 92/60; PULSE 87; RESP 17; TEMP 35.1; O2SAT 95
[2021-07-25] MEDS: Heparin 5,000 UNITS/ML VIAL 5000 UNITS SC (01:43)
[2021-07-25 07:33] VITALS: BP 111/71; PULSE 78; RESP 17; TEMP 35.8; O2SAT 98
[2021-07-25 07:38] LABS: HCT 39.7 % (40.0-50.0); HGB 12.8 g/dL (13.5-17.5); MCH 27.5 pg (27.0-33.0); MCHC 32.2 % (32.0-36.0); MCV 85.2 fL (80-95); MPV 11.6 fL (8.0-11.0); Platelet Count 260 10^3/uL (130-400); RBC 4.66 10^6/uL (4.36-5.78); RDW 16.2 % (11.8-14.1); RDW-SD 49.7 fL; WBC 7.38 10^3/uL (4.4-10.8)
[2021-07-25] MEDS: Cholecalciferol (Vitamin D3) 1,000 UNIT TAB 4000 UNITS PO (08:38)
[2021-07-25] MEDS: Baclofen 10 MG TAB 20 MG PO ×2 (08:38→15:34)
[2021-07-25] MEDS: predniSONE 5 MG TAB PO (08:38)
[2021-07-25] MEDS: Docusate Sodium 100 MG CAP PO ×2 (08:39→21:24)
[2021-07-25] MEDS: Loratidine 10 MG TAB PO (08:39)
[2021-07-25] MEDS: Folic Acid 1 MG TAB PO (08:39)
[2021-07-25] MEDS: Aspirin 81 MG CHEW PO (08:39)
[2021-07-25] MEDS: Gabapentin 300 MG CAP PO ×2 (08:39→21:25)
[2021-07-25] MEDS: Ferrous Gluconate 324 MG TAB PO (08:39)
[2021-07-25] MEDS: Tamsulosin 0.4 MG CAPCR PO (08:39)
[2021-07-25] MEDS: Potassium Chloride 20 MEQ TABCR 40 MEQ PO ×2 (08:39→21:24)
[2021-07-25] MEDS: Lisinopril 5 MG TAB 2.5 MG PO (08:39)
[2021-07-25] MEDS: Ascorbic Acid 500 MG TAB PO ×2 (08:40→21:25)
[2021-07-25] MEDS: Insulin Aspart 300 UNITS/3 ML PEN SC ×3 (12:10→21:30)
[2021-07-25] MEDS: Gabapentin 100 MG CAP PO (12:10)
--- NOTE | 2021-07-25 12:21 | PT.INTREAT ---
Date of service: 07/25/21 Time of Service: 10:10 PT Notes Inpatient Physical Therapy Treatment Note [facility] Date: 07/25/2021 PRECAUTIONS: Non-ambulatory SUBJECTIVE: Bryna is pleasant and agreeable to participating in PT and sitting up in the chair for lunch. He reports that he feels he is getting stronger and OBJECTIVE: PAIN: No c/o pain BED MOBILITY/TRANSFERS Supine-sit: SBA with use of trapeze and bed rails. Assisted with use of leg bilingual spanish inbound sales due to chronic visual impairment Sit-supine: SBA with cueing and assist with leg bilingual spanish inbound sales placement due to chronic visual impairment Sit-stand: SBA x2 with STEDY in a.m.; Min A from recliner surface with STEDY in p.m. Stand-sit: CGA with STEDY Bed-chair: STEDY Chair-bed: STEDY GAIT: Unable THEREX: Patient was instructed in a seated resisted core stabilization program and UE strengthening program, as per flow sheet. He utilizes red Theraband with all exercises. Rhythmic stabilization techniques utilized for improved core stability while seated at EOB. ASSESSMENT: Patient tolerated session well without complaint. He was able to complete bed mobility transfers with SBA only. He requires cues due to chronic visual impairment in unfamiliar environment. He was also able to tolerate a progression in his ther ex program, tolerating increased resistance. PLAN: Continue with core and UE strengthening as well as transfer training to continue progressing toward baseline level of function. TREATMENT CODE/TIME: Session 1: 42 minutes; [id number], [id number] x2 (10:10) Session 2: 18 minutes; [id number] (12:35)
--- NOTE | 2021-07-25 15:20 | CHAPLAIN ---
Bryan was finishing up a conversation with dietary staff when I visited. He was pleasant. We remembered each other from a previous admission of Bryan's. I reminded him of my role and offered support. Bryan has MS and according to the hospitalist [employer] OPERATOR report it is progressing.
[2021-07-25 16:46] VITALS: BP 111/71; PULSE 80; RESP 17; TEMP 36.6; O2SAT 95
[2021-07-25] MEDS: clonazePAM 1 MG TAB PO (21:25)
[2021-07-25] MEDS: Baclofen 10 MG TAB 40 MG PO (21:29)
[2021-07-25 23:28] VITALS: BP 111/65; PULSE 81; RESP 18; TEMP 36.7; O2SAT 96
[2021-07-26] MEDS: Heparin 5,000 UNITS/ML VIAL 5000 UNITS SC (01:10)
[2021-07-26 05:38] LABS: HCT 35.9 % (40.0-50.0); HGB 11.8 g/dL (13.5-17.5); MCH 27.7 pg (27.0-33.0); MCHC 32.9 % (32.0-36.0); MCV 84.3 fL (80-95); MPV 11.5 fL (8.0-11.0); Platelet Count 230 10^3/uL (130-400); RBC 4.26 10^6/uL (4.36-5.78); RDW-SD 47.8 fL; WBC 8.21 10^3/uL (4.4-10.8)
[2021-07-26 08:04] VITALS: BP 96/67; PULSE 72; RESP 16; TEMP 36.6; O2SAT 96
[2021-07-26] MEDS: Potassium Chloride 20 MEQ TABCR 40 MEQ PO ×2 (08:55→21:08)
[2021-07-26] MEDS: Baclofen 10 MG TAB 20 MG PO ×2 (08:55→17:00)
[2021-07-26] MEDS: predniSONE 5 MG TAB PO (08:55)
[2021-07-26] MEDS: Cholecalciferol (Vitamin D3) 1,000 UNIT TAB 4000 UNITS PO (08:55)
[2021-07-26] MEDS: Tamsulosin 0.4 MG CAPCR PO (08:56)
[2021-07-26] MEDS: Omeprazole 20 MG CAPCR 40 MG PO (08:56)
[2021-07-26] MEDS: Docusate Sodium 100 MG CAP PO ×3 (08:56→21:06)
[2021-07-26] MEDS: Lisinopril 5 MG TAB 2.5 MG PO (08:56)
[2021-07-26] MEDS: Loratidine 10 MG TAB PO (08:56)
[2021-07-26] MEDS: Aspirin 81 MG CHEW PO (08:56)
[2021-07-26] MEDS: Ferrous Gluconate 324 MG TAB PO (08:56)
[2021-07-26] MEDS: Ascorbic Acid 500 MG TAB PO ×2 (08:56→21:08)
[2021-07-26] MEDS: Gabapentin 300 MG CAP PO ×2 (08:56→21:09)
[2021-07-26] MEDS: Folic Acid 1 MG TAB PO (08:56)
[2021-07-26] MEDS: Gabapentin 100 MG CAP PO (11:45)
[2021-07-26] MEDS: Insulin Aspart 300 UNITS/3 ML PEN SC (17:34)
[2021-07-26 19:10] VITALS: BP 115/70; PULSE 79; RESP 16; TEMP 35.7; O2SAT 99
[2021-07-26] MEDS: Baclofen 10 MG TAB 40 MG PO (21:07)
[2021-07-26] MEDS: clonazePAM 1 MG TAB PO (21:09)
[2021-07-26 22:50] VITALS: BP 83/56; PULSE 93; RESP 16; TEMP 35.3; O2SAT 95
[2021-07-27 00:09] VITALS: BP 95/62
[2021-07-27] MEDS: Heparin 5,000 UNITS/ML VIAL 5000 UNITS SC ×3 (01:24→18:04)
[2021-07-27 07:21] VITALS: BP 100/68; PULSE 79; RESP 17; TEMP 36.2; O2SAT 100
[2021-07-27] MEDS: Omeprazole 20 MG CAPCR 40 MG PO (07:47)
[2021-07-27] MEDS: Gabapentin 300 MG CAP PO ×2 (07:47→20:56)
[2021-07-27] MEDS: Cholecalciferol (Vitamin D3) 1,000 UNIT TAB 4000 UNITS PO (07:47)
[2021-07-27] MEDS: Docusate Sodium 100 MG CAP PO ×3 (07:48→20:55)
[2021-07-27] MEDS: Loratidine 10 MG TAB PO (07:48)
[2021-07-27] MEDS: Potassium Chloride 20 MEQ TABCR 40 MEQ PO ×2 (07:48→20:55)
[2021-07-27] MEDS: Ferrous Gluconate 324 MG TAB PO (07:48)
[2021-07-27] MEDS: Baclofen 10 MG TAB 20 MG PO ×2 (07:48→16:08)
[2021-07-27] MEDS: Tamsulosin 0.4 MG CAPCR PO (07:48)
[2021-07-27] MEDS: predniSONE 5 MG TAB PO (07:48)
[2021-07-27] MEDS: Aspirin 81 MG CHEW PO (07:48)
[2021-07-27] MEDS: Folic Acid 1 MG TAB PO (07:49)
[2021-07-27] MEDS: Ascorbic Acid 500 MG TAB PO ×2 (07:49→20:56)
[2021-07-27] MEDS: Lisinopril 5 MG TAB 2.5 MG PO (07:49)
[2021-07-27] MEDS: Insulin Aspart 300 UNITS/3 ML PEN SC ×3 (08:52→16:49)
[2021-07-27] MEDS: Gabapentin 100 MG CAP PO (12:00)
--- NOTE | 2021-07-27 14:00 | PTTR_ITS ---
Date of service: 07/27/21 Time of Service: 14:00 PT Notes Visit Reasons: Weakness, AMS, MS Inpatient Physical Therapy Treatment Note [facility] Date: 07/27/2021 PRECAUTIONS: Legally blind. Non-ambulatory. High risk for falls. High risk for skin breakdown. SUBJECTIVE: Compliant with morning and afternoon sessions. Morning session shortened as he requested to answer a call from her younger brother and sister for their regular Thanksgiving call every year. Continues to complain of B LE pain and tenderness. OBJECTIVE: PAIN: B LE pain to palpation with R LE more painful than L. BED MOBILITY/TRANSFERS Supine-sit: Minimal assist with HOB at 30 degrees Sit-supine: Minimal assist to BLE due to fatigue after activity THERA ACT: Worked on increasing trunk stability, controlled mobility, and B UE/LE strengthening utilizing PNF techniques of rhythmic stabilization, balance perturbations, and rowing activities. While at EOB and with one UE supporting trunk, patient worked on elbow flexion and extension using 3 lb DB. Still at EOB, with B UE holding up trunk erect and with CGA-minimal assist from PT, worked on performing short-arc quad to about 30 degrees on the R side; no available extension on the L. Patient needed to go back to bed immediately after activity due to the neeed for a bowel movement. ASSESSMENT: Patient is demonstrating increasing ability to hold trunk up while seated at edge of bed. Pain in B LE and fatigue from chronic MS are barriers to further progress. With set up, verbal cueing, and assistance with placement of leg warp scouring vat tender to B LE, patient may be stand by assist only. However, at home patient may not have a person with him all the time to provide cueing and assistance with placement of leg warp scouring vat tender for all transfers. At this time, he requires the use of bed morrison for all his toileting needs as he does not sit up safely yet on the bedside commode without physical assistance. We are limited by simulating actual transfer as we do not have his motorized wheelchair in the facility to determine his safety level for transfers. He presently requires the use of the STEDY lift, which patient does not have at home, for all transfers. Hence, the recommendation of continued rehabilitation in the SNF or here. If patient is agreeable to staying here for further rehabilitation, we will require that his motorized wheelchair be transferred so that we can zoom into transfer training right away for the remainder of his stay. PLAN: Request for transfer of motorized wheelchair from home to here so transfer training may right away initiated and to allow true functional carryover. Patient will benefit from OT services as well to address self-care deficits. TREATMENT CODE/TIME: Session 1??[id number] x 13 minutes beginning at 10:24 AM. Session 2??[id number] x 25 minutes beginning at 14:00 PM CC:
[2021-07-27 15:27] VITALS: BP 107/68; PULSE 86; RESP 16; TEMP 36.4; O2SAT 99
[2021-07-27] MEDS: Polyethylene Glycol 3350 17 GM PACKET PO (20:54)
[2021-07-27] MEDS: clonazePAM 1 MG TAB PO (20:56)
[2021-07-27] MEDS: Baclofen 10 MG TAB 40 MG PO (20:58)
[2021-07-27 23:15] VITALS: BP 99/67; PULSE 89; RESP 16; TEMP 36.1; O2SAT 95
[2021-07-28 07:27] VITALS: BP 94/64; PULSE 85; RESP 17; TEMP 36; O2SAT 97
[2021-07-28] MEDS: Ferrous Gluconate 324 MG TAB PO (08:56)
[2021-07-28] MEDS: Ascorbic Acid 500 MG TAB PO (08:56)
[2021-07-28] MEDS: Folic Acid 1 MG TAB PO (08:56)
[2021-07-28] MEDS: Lisinopril 5 MG TAB 2.5 MG PO (08:57)
[2021-07-28] MEDS: Baclofen 10 MG TAB 20 MG PO (08:57)
[2021-07-28] MEDS: predniSONE 5 MG TAB PO (08:58)
[2021-07-28] MEDS: Loratidine 10 MG TAB PO (08:58)
[2021-07-28] MEDS: Aspirin 81 MG CHEW PO (08:58)
[2021-07-28] MEDS: Gabapentin 300 MG CAP PO (08:59)
[2021-07-28] MEDS: Potassium Chloride 20 MEQ TABCR 40 MEQ PO (08:59)
[2021-07-28] MEDS: Cholecalciferol (Vitamin D3) 1,000 UNIT TAB 4000 UNITS PO (08:59)
[2021-07-28] MEDS: Omeprazole 20 MG CAPCR 40 MG PO (08:59)
[2021-07-28] MEDS: Tamsulosin 0.4 MG CAPCR PO (08:59)
--- NOTE | 2021-07-28 11:49 | PTTR_ITS ---
Date of service: 07/28/21 Time of Service: 07:44 PT Notes Visit Reasons: Weakness, AMS, MS Inpatient Physical Therapy Treatment Note [facility] Date: 07/28/2021 PRECAUTIONS: Activity as Tolerated, non-ambulatory SUBJECTIVE: Bryan states that he is feeling ok today. He states several times why do you have to get me up so early? OBJECTIVE: PAIN: No c/o pain BED MOBILITY/TRANSFERS Supine-sit: Mod A with HOB at 40 degrees utilizing trapeze, bed rail, and leg traveling inventory associate Sit-stand: Mod A with STEDY Stand-sit: CGA with STEDY Bed-Chair: STEDY GAIT: Unable TOILETING: Patient toileted utilizing bedside commode with Max A ASSESSMENT: Patient appeared limited this morning due to significant fatigue. He required increased assist and was not able to participate in ther ex. PLAN: Continue with global strengthening and general conditioning for continued progression toward baseline level of function. TREATMENT CODE/TIME: 39 minutes; [id number] x3 (07:44)
[2021-07-28] MEDS: Heparin 5,000 UNITS/ML VIAL 5000 UNITS SC ×2 (12:07→18:27)
--- NOTE | 2021-07-28 12:21 | NUR.NOTE ---
Nursing Note: Holding patients meals and insulin at this time as per providers concern of an ileus. Xray is pending. Patient is updated and understands concern
--- NOTE | 2021-07-28 13:24 | DI.RAD_ITS ---
Exam(s) XR ABDOMEN FLAT UPRIGHT EXAM: XR ABDOMEN FLAT UPRIGHT CLINICAL HISTORY: abdominal pain. TECHNIQUE: 2D digital imaging was performed. COMPARISON: CR,XR XR CHEST 1V IN DI DEPT from 07/16/2021 FINDINGS: There are multiple air-filled distended bowel loops in the abdomen and pelvis involving both small an d large bowel loops. The stomach is also air-filled. Air is seen in the rectum. On the decubitus v iew findings is no free air evident. No air-fluid levels. IMPRESSION: Probable diffuse ileus pattern, although cannot exclude very distal colon obstruction at the rectoan al junction. There is no fecal impaction in the rectum. DATA REPOSITORY: RADIATION DOSE DELIVERED:
--- NOTE | 2021-07-28 13:45 | W.PM.PROGNOT ---
Date of Service Date of service: 07/28/21 Time of Service: 13:45 Assessment and Plan Assessment and plan (1) Ileus: Start date: 07/28/21 Start time: 14:11 Status: Acute Assessment and plan: Patient having abdominal pain, xray revealing ileus vs obstruction, will make NPO, NGT placed. Surgery consulted. He continues to have liquid stool but this likely is going around the obstruction Protonix BID IV. Will have surgery see him tommorrow (2) Abdominal pain: Start date: 07/28/21 Start time: 14:11 Status: Acute Assessment and plan: as above Qualifiers: Abdominal location: generalized Qualified Code(s): R10.84 - Generalized abdominal pain (3) Weakness: Start date: 07/28/21 Start time: 14:06 Status: Acute Assessment and plan: Continue to work with PT/OT (4) Multiple sclerosis: Start date: 07/28/21 Start time: 14:06 Status: Chronic Assessment and plan: initially thought to be worsening MS. Dr. Etienne evaluated patient. ESR was normal. CRP was improved from last admission He was receiving too many medications. Tramadol was held on admission. He has not c/o any pain Gabapentin was decreased. baclofen left alone. Given stress dose steroids and he returned to baseline. (5) Incontinence: Start date: 07/28/21 Start time: 14:06 Status: Chronic Assessment and plan: Marrero placed, for patient comfort. Qualifiers: Incontinence type: urinary Urinary Incontinence type: other incontinence Qualified Code(s): N39.498 - Other specified urinary incontinence (6) Microcytic anemia: Start date: 07/28/21 Start time: 14:07 Status: Chronic Assessment and plan: stable, surveillance labs weekly (7) Palliative care patient: Start date: 07/28/21 Start time: 14:07 Status: Acute Assessment and plan: Met with palliative yesterday, they will continue to follow him as an outpatient, he did mention eventually he will want hospice. (8) Diabetes type 2, controlled: Start date: 07/28/21 Start time: 14:07 Status: Chronic Assessment and plan: SSI, hold orals, Monitor. 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 wood Subjective Subjective Patient reports: other Interval history since last seen: Patient sitting up in chair. Tired today. BS hypo active despite having large liquid bm. Hx iliues. Xray obtained d/t abdominal pain. Xray revealed ileus vs obstruction. Will make NPO, place NGT with wall suction to low. Surgical consult placed. Protonix PPI BID Exam Const General: cooperative, comfortable and no acute distress Nutritional Appearance: obese Orientation: alert, awake and oriented x3 Eyes Eyelids: eyelids normal Pupils: pupils not ERRL (blind in right eye. ) EOM: EOM not intact bilaterally Neck Neck: normal visual inspection and no JVD Lymphatic: no lymphadenopathy noted Resp Effort & Inspection: normal respiratory effort Auscultation: clear to auscultation bilaterally Cardio Jugular venous pressure: no JVD Rhythm: regular rhythm Heart Sounds: S1 normal GI Inspection: obesity Palpation: tender Auscultation: hypoactive bowel sounds General: No CVA tenderness and deferred Skin General skin exam: no rashes or lesions noted Neuro General: patient alert, patient awake, oriented (baseline mental status) Patient Orientation: Person and Place and does not move all extremities (able to move upper extremities) Speech: speech normal Extrem General: abnormal to inspection, abnormal ROM, clubbing, cyanosis or edema noted and clubbing (bilateral lower extermities) Objective Last Vital Signs Temp 36.0 C L 07/28/21 07:27 Pulse 85 07/28/21 07:27 Resp 17 07/28/21 07:27 BP 94/64 L 07/28/21 07:27 Pulse Ox 97 07/28/21 07:27
--- NOTE | 2021-07-28 13:49 | DI.VRAD_ITS ---
PROCEDURE INFORMATION: Exam: XR Abdomen Exam date and time: 07/28/2021 12:17 PM Age: 60 years old Clinical indication: Abdominal pain TECHNIQUE: Imaging protocol: XR of the abdomen. Views: 2 Views. Upright and supine views. COMPARISON: CR XR ABDOMEN FLAT PLATE 07/13/2021 2:31 PM FINDINGS: Gastrointestinal tract: Multiple loops of distended bowel may represent obstruction or ileus.. Intraperitoneal space: Normal. No free air. Bones/joints: Unremarkable for age. IMPRESSION: Multiple loops of distended bowel may represent obstruction or ileus.. Dictated and Authenticated by: Dana Guardado MD. Ordering:NICOLE Cruz MD
[2021-07-28 15:28] VITALS: BP 72/51; PULSE 79; RESP 20; TEMP 35.3; O2SAT 96
[2021-07-28 15:35] VITALS: BP 110/60
[2021-07-28] MEDS: Lactated Ringers 1,000 ML 85 ML IV (17:47)
[2021-07-28] MEDS: Metoclopramide 10 MG/2 ML VIAL IVP (17:48)
[2021-07-28] MEDS: Normal Saline Flush 10 ML SYR IVP (20:03)
[2021-07-28] MEDS: Pantoprazole 40 MG VIAL IVP (20:04)
[2021-07-28 20:05] VITALS: BP 102/69; PULSE 93; RESP 16; TEMP 36; O2SAT 100
[2021-07-28 23:27] VITALS: BP 100/56; PULSE 87; RESP 16; TEMP 36.6; O2SAT 97
[2021-07-29] MEDS: Heparin 5,000 UNITS/ML VIAL 5000 UNITS SC ×3 (02:06→18:01)
[2021-07-29] MEDS: Normal Saline Flush 10 ML SYR IVP ×4 (02:08→21:58)
[2021-07-29] MEDS: Metoclopramide 10 MG/2 ML VIAL IVP ×2 (02:08→06:32)
[2021-07-29] MEDS: Lactated Ringers 1,000 ML 85 ML IV (04:35)
[2021-07-29 05:44] LABS: Abs Immature Grans 0.12 10^3/uL (0.0-0.06); Absolute Basophil Count 0.03 10^3/uL (0.0-0.2); Absolute Eosinophil Count 0.24 10^3/uL (0.0-0.7); Absolute Lymphocyte Count 2.05 10^3/uL (1.2-3.4); Absolute Monocyte Count 1.12 10^3/uL (0.1-0.8); Absolute Neutrophil Count 3.76 10^3/uL (1.2-6.7); Basophils % 0.4; Eosinophils % 3.3; HCT 34.5 % (40.0-50.0); HGB 11.3 g/dL (13.5-17.5); Immature Grans % 1.6; MCH 27.6 pg (27.0-33.0); MCHC 32.8 % (32.0-36.0); MCV 84.4 fL (80-95); Monocytes % 15.3; Neutrophils % 51.4; Nucleated RBC 0 %; Platelet Count 202 10^3/uL (130-400); RBC 4.09 10^6/uL (4.36-5.78); RDW 15.9 % (11.8-14.1); RDW-SD 47.8 fL; WBC 7.32 10^3/uL (4.4-10.8)
[2021-07-29 06:44] LABS: Anion Gap 9.7 mmol/L (3-11); BUN 12 mg/dL (7-18); CO2 23.3 mmol/L (21.0-32.0); CREATININE 1.1 mg/dL (0.70-1.30); Calcium 9.4 mg/dL (8.5-10.1); Chloride 103 mmol/L (98-107); Glucose 135 mg/dL (74-106); Potassium 3.6 mmol/L (3.5-5.1); Sodium 136 mmol/L (136-145)
[2021-07-29 07:39] VITALS: BP 95/60; PULSE 102; RESP 20; TEMP 36.6; O2SAT 95
--- NOTE | 2021-07-29 09:43 | W.SURGCON ---
Date of service: 07/29/21 Time of Service: 09:43 Assessment and Plan Assessment and plan (1) Pseudoobstruction of colon: Status: Acute Assessment and plan: Mr. De is a 60 year old male with MS, DM and neurogenic bladder with a second episode of bloating and abdominal pain. There is minimal NG output. XRAYs to me look like pseudoobstruction from aneurogenic bowel. Recommend removal of NG tube and Reglan 10 mg q6 hours Would not try neostygmine as he may perforate. History of Present Illness History of Present Illness Chief Complaint: Abdominal pain, ? obstruction Narrative: Mr. De is a 60 year old male with Ms, neurogenic bladder, DM who developed abdominal distention and pain yesterday. He had the same thing happen a few weeks ago. An NG tube was placed and he had 100 cc of clear fluid removed. XRAY yesterday was read as ileus vs obstruction. CXR and abdominal XRAY showed dilated small and large bowel as well as a very redundant large intestine. There is no free air. He has a ng catheter in place for neurogenic bladder. Consults Consult date: 07/28/21 Requesting physician: Nancy Davenport Review of Systems Constitutional Constitutional: Denies fever(s), Denies headache(s), Denies weakness and Denies weight loss Eyes Eyes: Denies change in vision ENT Ears, Nose, Mouth, and Throat: Denies headache(s) Cardiovascular Cardiovascular: Denies chest pain, Denies irregular heart rhythm, Denies palpitations and Denies dyspnea Respiratory Respiratory: Denies cough and Denies dyspnea Gastrointestinal Gastrointestinal: Reports as per HPI Genitourinary Genitourinary: Reports system reviewed and no additional complaints, except as documented Musculoskeletal Musculoskeletal: Reports system reviewed and no additional complaints, except as documented Integumentary/Breasts Skin/Breast: Reports system reviewed and no additional complaints, except as documented Neurologic Neurologic: Reports system reviewed and no additional complaints, except as documented, Denies headache(s) and Denies weakness Psychiatric Psychiatric: Reports system reviewed and no additional complaints, except as documented Endocrine Endocrine: Reports system reviewed and no additional complaints, except as documented and Denies palpitations Hematologic/Lymphatic Hematologic/Lymphatic: Reports system reviewed and no additional complaints, except as documented Allergic/Immunologic Allergic/Immunologic: Reports system reviewed and no additional complaints, except as documented PFSH Active Problem List Palliative care patient (Acute) Encephalopathy (Acute) Hypernatremia (Acute) Incontinence (Chronic) Discharge planning issues (Acute) DVT prophylaxis (Acute) Microcytic anemia (Chronic) Multiple sclerosis (Chronic) Diabetes type 2, controlled (Chronic) Urinary incontinence (Chronic) Medical History Abnormal computed tomography angiography (CTA) of abdomen Abnormal CT of liver Anemia Bilateral cataracts Bilateral leg edema BPH (benign prostatic hyperplasia) Cervical radiculopathy Cervical spinal stenosis Cervicalgia Chewing tobacco nicotine dependence Chronic pain a. chronic opiate rx Clostridium difficile colitis Congenital ptosis of left eyelid Diabetic retinopathy Family hx of colon cancer GERD (gastroesophageal reflux disease) Hip pain, right Hyperkalemia Hyperlipidemia Ileus Lytic bone lesions on xray Lytic lesion of bone on x-ray Mediastinal adenopathy Neck pain A. 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 Chronic opiate Rx Optic nerve atrophy Optic neuritis a. legally blind Osteopenia Palliative care patient Pelvic lymphadenopathy Peripheral neuropathy Pituitary adenoma Renal insufficiency Rhabdomyolysis Right leg weakness Right shoulder pain Rotator cuff tear, right Sarcoidosis Spasticity Spinal stenosis Tendonitis of long head of biceps brachii of right shoulder Tobacco abuse a. Uses chewing tobacco Ulcer of calf Vision loss Vitamin D deficiency Surgical History H/O surgical procedure a. appendectomy b. 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 What is your relationship status?: Panel score (0-1 are the most socially isolated patients): 0 What type of physical activity do you participate in: weight lifting, wheelchair-bound and additional Details: PT Do you feel safe at home: Yes Do you feel safe in your relationship?: Yes Exam Const General: comfortable Orientation: alert HENMT Head: normocephalic and atraumatic Resp Effort & Inspection: normal respiratory effort Auscultation: clear to auscultation bilaterally Cardio Rate: regular rate Rhythm: regular rhythm Heart Sounds: no gallops, no murmurs and no rubs GI Inspection: normal to inspection Palpation: soft and nontender Auscultation: normal bowel sounds Results Last Vital Signs Temp 97.9 F 07/29/21 07:39 Pulse 102 H 07/29/21 07:39 Resp 20 07/29/21 07:39 BP 95/60 L 07/29/21 07:39 Pulse Ox 95 07/29/21 07:39 Labs Result diagrams: 07/29/21 05:35 07/29/21 05:35 Labs: Laboratory Results - last 24 hr 07/29/21 07/29/21 05:35 05:35 WBC 7.32 RBC 4.09 L Hgb 11.3 L Hct 34.5 L MCV 84.4 MCH 27.6 MCHC 32.8 RDW 15.9 H Plt Count 202 MPV 11.0 Immature Gran % 1.6 Neutrophils % 51.4 Lymphocytes % 28.0 Monocytes % 15.3 Eosinophils % 3.3 Basophils % 0.4 Nucleated RBC % 0 Absolute Neutrophils 3.76 Absolute Lymphocytes 2.05 Absolute Monocytes 1.12 H Absolute Eosinophils 0.24 Absolute Basophils 0.03 Sodium 136 Potassium 3.6 Chloride 103 Carbon Dioxide 23.3 Anion Gap 9.7 BUN 12 Creatinine 1.1 Estimated GFR/1.73 m2 >= 60.00 Glucose 135 H Calcium 9.4 Magnesium 2.0
--- NOTE | 2021-07-29 09:45 | DI.RAD_ITS ---
Exam(s) XR ABDOMEN FLAT PLATE EXAM: XR ABDOMEN FLAT PLATE CLINICAL HISTORY: kub, possible obstruction. TECHNIQUE: 2D digital imaging was performed. COMPARISON: CR XR ABDOMEN FLAT PLATE from 07/13/2021 CR,XR XR ABDOMEN FLAT UPRIGHT from 07/28/2021 CR,XR XR ABDOMEN FLAT UPRIGHT from 07/28/2021 FINDINGS: This single AP supine view reveals persistent prominent air-filled bowel loops in the abdomen and pel vis, both within small and large bowel loops. There is a paucity of air in the rectum. Cannot assess for free air as this is a supine view. IMPRESSION: DATA REPOSITORY: RADIATION DOSE DELIVERED:
--- NOTE | 2021-07-29 09:55 | DI.RAD_ITS ---
Exam(s) XR PORTABLE CHEST AP EXAM: XR PORTABLE CHEST AP CLINICAL HISTORY: NGT placing. TECHNIQUE: 2D digital imaging was performed. COMPARISON: CR,XR XR ABDOMEN FLAT UPRIGHT from 07/28/2021 FINDINGS: Heart size is upper normal. The mediastinum is not widened. Lungs are clear. No infiltrates nor obvious pleural effusions. There has been interval placement of an NG tube. Its distal tip is in the stomach. IMPRESSION: Distal tip of the NG tube is in the stomach, satisfactory position. DATA REPOSITORY: RADIATION DOSE DELIVERED: All CT scans at this facility use at least one of these dose optimization techniques: automated exposure control; mA and/or kV adjustment per patient size (includes targeted e xams where dose is matched to clinical indication); or iterative reconstruction.
--- NOTE | 2021-07-29 10:27 | W.PM.PROGNOT ---
Date of Service Date of service: 07/29/21 Time of Service: 10:27 Subjective Subjective Patient reports: other Interval history since last seen: After speaking with surgery, patient does not appear to have obstruction or ileus, less than 100 output. He is likely having neurogenic bowl and kinking due to large pannus. He is chair to bed bound. He stated to nursing he is ready to give up he knows he is dying. Surgery evaluated patient, likely will continue to have this issue, does not recommend amitaza due to risk for perf, recommend hospice. Given patient decline, talk of hospice over several weeks, continuing pain and possible kinking of bowel due to m/s will consult hospice. Patient is a candidate, and appears to be becoming weaker. still requiring 2 max assist. Will keep in SB at this time. NGT removed. Objective Last Vital Signs Temp 36.6 C 07/29/21 07:39 Pulse 102 H 07/29/21 07:39 Resp 20 07/29/21 07:39 BP 95/60 L 07/29/21 07:39 Pulse Ox 95 07/29/21 07:39 Laboratory Results - last 24 hr 07/29/21 07/29/21 05:35 05:35 WBC 7.32 RBC 4.09 L Hgb 11.3 L Hct 34.5 L MCV 84.4 MCH 27.6 MCHC 32.8 RDW 15.9 H Plt Count 202 MPV 11.0 Immature Gran % 1.6 Neutrophils % 51.4 Lymphocytes % 28.0 Monocytes % 15.3 Eosinophils % 3.3 Basophils % 0.4 Nucleated RBC % 0 Absolute Neutrophils 3.76 Absolute Lymphocytes 2.05 Absolute Monocytes 1.12 H Absolute Eosinophils 0.24 Absolute Basophils 0.03 Sodium 136 Potassium 3.6 Chloride 103 Carbon Dioxide 23.3 Anion Gap 9.7 BUN 12 Creatinine 1.1 Estimated GFR/1.73 m2 >= 60.00 Glucose 135 H Calcium 9.4 Magnesium 2.0
--- NOTE | 2021-07-29 10:28 | DI.VRAD_ITS ---
PROCEDURE INFORMATION: Exam: XR Abdomen Exam date and time: 07/29/2021 9:57 AM Age: 60 years old Clinical indication: Other: Possible obstruction TECHNIQUE: Imaging protocol: XR of the abdomen. Views: Frontal supine view of the abdomen. 1 View. COMPARISON: CR XR ABDOMEN FLAT UPRIGHT 28/07/2021 13:07 FINDINGS: Tubes, catheters and devices: N/A Gastrointestinal tract: Similar to yesterday's exam, there are multiple loops of air-filled dilated small bowel and colon throughout the abdomen. There may be slightly increased colonic gas today. Bones/joints: Unremarkable. IMPRESSION: Probable generalized ileus. Dictated and Authenticated by: Michael Rousseau MD. Ordering:NICOLE Cruz MD
--- NOTE | 2021-07-29 10:29 | DI.VRAD_ITS ---
PROCEDURE INFORMATION: Exam: XR Chest Exam date and time: 07/29/2021 9:45 AM Age: 60 years old Clinical indication: Device placement; Ng tube TECHNIQUE: Imaging protocol: XR of the chest. Views: 1 view. COMPARISON: XR CHEST 1V IN DI DEPT 16/07/2021 16:58 FINDINGS: Scan quality: Exam is technically satisfactory. Tubes, catheters and devices: There has been interval placement of a nasogastric tube which extends into the stomach in the left upper quadrant. Lungs: There continue to be streaky increased markings in the lung bases. Lung volumes appear somewhat diminished. This may represent atelectasis. Pleural spaces: Unremarkable. No pleural effusion. No pneumothorax. Heart/Mediastinum: Cardiomediastinal silhouette is normal. Vasculature: Pulmonary vessels are non-engorged. Bones/joints: Unremarkable. IMPRESSION: NG tube placement appears satisfactory. Increased basilar markings in the lungs probably reflect atelectasis. Dictated and Authenticated by: Michael Rousseau MD. Ordering:NICOLE Cruz MD
[2021-07-29] MEDS: Polyethylene Glycol 3350 17 GM PACKET PO ×2 (11:50→21:58)
[2021-07-29] MEDS: Insulin Aspart 300 UNITS/3 ML PEN SC ×3 (11:51→21:59)
[2021-07-29] MEDS: Pantoprazole 40 MG VIAL IVP ×2 (11:51→22:13)
[2021-07-29] MEDS: predniSONE 5 MG TAB PO (11:53)
[2021-07-29] MEDS: Tamsulosin 0.4 MG CAPCR PO (11:53)
[2021-07-29] MEDS: Cholecalciferol (Vitamin D3) 1,000 UNIT TAB 4000 UNITS PO (11:53)
[2021-07-29] MEDS: Potassium Chloride 20 MEQ TABCR 40 MEQ PO ×2 (11:53→21:58)
[2021-07-29] MEDS: Gabapentin 100 MG CAP PO (11:53)
[2021-07-29] MEDS: Baclofen 10 MG TAB 20 MG PO ×2 (11:54→17:16)
[2021-07-29] MEDS: Ferrous Gluconate 324 MG TAB PO (11:54)
[2021-07-29] MEDS: Gabapentin 300 MG CAP PO ×2 (11:54→21:58)
[2021-07-29] MEDS: Docusate Sodium 100 MG CAP PO ×2 (11:54→21:59)
[2021-07-29] MEDS: Lisinopril 5 MG TAB 2.5 MG PO (11:55)
[2021-07-29] MEDS: Ascorbic Acid 500 MG TAB PO ×2 (11:55→21:58)
[2021-07-29] MEDS: Aspirin 81 MG CHEW PO (11:55)
[2021-07-29] MEDS: Folic Acid 1 MG TAB PO (11:56)
[2021-07-29] MEDS: Loratidine 10 MG TAB PO (11:56)
[2021-07-29] MEDS: Metoclopramide 10 MG TAB PO ×2 (11:56→17:16)
--- NOTE | 2021-07-29 12:46 | NUR.NOTE ---
g tube removed at 1100 per PHYSICIAN OFFICE SECRETARY order Patietn to resume his previous diet and AM meds were administered Nursing Note:
[2021-07-29 15:28] VITALS: BP 107/67; PULSE 85; RESP 20; TEMP 36.6; O2SAT 96
[2021-07-29] MEDS: clonazePAM 1 MG TAB PO (21:58)
[2021-07-29] MEDS: Baclofen 10 MG TAB 40 MG PO (21:59)
[2021-07-29 22:39] VITALS: BP 96/60; PULSE 98; RESP 16; TEMP 36.4; O2SAT 100
[2021-07-30] MEDS: Heparin 5,000 UNITS/ML VIAL 5000 UNITS SC ×3 (03:53→17:03)
[2021-07-30 07:30] VITALS: BP 100/66; PULSE 95; RESP 18; TEMP 36.4; O2SAT 99
--- NOTE | 2021-07-30 08:13 | W.PALPGNOTE ---
Date of service: 07/30/21 Time of Service: 08:13 Assessment and Plan Assessment and plan (1) Pseudoobstruction of colon: Status: Acute (2) Weakness: Status: Acute (3) Multiple sclerosis: Status: Chronic (4) Palliative care patient: Status: Acute Assessment and plan: Bryan states that he is doing better today. His abdomen feels okay. He is not interested in going towards comfort like care. He was happy to hear how good his fingerstick was. I did see that the NG tube was removed after draining about 100 cc. He seems to be doing quite well today, long-term is hopkins. I will let his usual palliative provider know that I saw him in the hospital as she may want to check on him later this week. He has a relationship with Martha Stevens NP Subjective Subjective Interval history since last seen: I have not met Leelee before. He is normally a patient of Martha Mukherjee for palliative care. Is a 60-year-old man with multiple sclerosis and diabetes. He has been in the hospital now about 10 days. Staff asked me to see him today because they were concerned about his distention. He says that his stomach is big but it does not hurt. He also states that he is passing gas. His fingerstick while I was in the room was 138 he feels that he is drinking fineOverall he is doing well. He cannot remember his last bowel movement Exam Narrative Exam Narrative: Smiles easily Resp Effort & Inspection: normal respiratory effort and able to speak in complete sentences Auscultation: clear to auscultation bilaterally Cardio Rate: regular rate Rhythm: regular rhythm Heart Sounds: murmur GI Palpation: soft, no hepatosplenomegaly and firm Auscultation: high-pitched sounds and normoactive bowel sounds Objective Last Vital Signs Temp 97.5 F L 07/30/21 07:30 Pulse 95 H 07/30/21 07:30 Resp 18 07/30/21 07:30 BP 100/66 07/30/21 07:30 Pulse Ox 99 07/30/21 07:30 Laboratory Tests 07/29/21 07/29/21 05:35 05:35 Hct 34.5 L Sodium 136 Potassium 3.6 INDINGS: Heart size is upper normal. The mediastinum is not widened. Lungs are clear. No infiltrates nor obvious pleural effusions. There has been interval placement of an NG tube. Its distal tip is in the stomach. IMPRESSION: Distal tip of the NG tube is in the stomach, satisfactory position.
[2021-07-30] MEDS: Polyethylene Glycol 3350 17 GM PACKET PO ×2 (08:14→19:48)
[2021-07-30] MEDS: Potassium Chloride 20 MEQ TABCR 40 MEQ PO ×2 (08:14→19:49)
[2021-07-30] MEDS: predniSONE 5 MG TAB PO (08:14)
[2021-07-30] MEDS: Docusate Sodium 100 MG CAP PO ×3 (08:15→19:49)
[2021-07-30] MEDS: Ferrous Gluconate 324 MG TAB PO (08:15)
[2021-07-30] MEDS: Loratidine 10 MG TAB PO (08:15)
[2021-07-30] MEDS: Tamsulosin 0.4 MG CAPCR PO (08:15)
[2021-07-30] MEDS: Cholecalciferol (Vitamin D3) 1,000 UNIT TAB 4000 UNITS PO (08:15)
[2021-07-30] MEDS: Baclofen 10 MG TAB 20 MG PO ×2 (08:15→17:02)
[2021-07-30] MEDS: Gabapentin 300 MG CAP PO ×2 (08:15→19:49)
[2021-07-30] MEDS: Ascorbic Acid 500 MG TAB PO ×2 (08:16→19:49)
[2021-07-30] MEDS: Folic Acid 1 MG TAB PO (08:16)
[2021-07-30] MEDS: Metoclopramide 10 MG TAB PO ×3 (08:16→17:03)
[2021-07-30] MEDS: Aspirin 81 MG CHEW PO (08:16)
[2021-07-30] MEDS: Lisinopril 5 MG TAB 2.5 MG PO (08:17)
[2021-07-30] MEDS: Pantoprazole 40 MG VIAL IVP ×2 (08:44→19:48)
[2021-07-30] MEDS: Gabapentin 100 MG CAP PO (10:59)
[2021-07-30 15:55] VITALS: BP 113/68; PULSE 90; RESP 17; TEMP 36.7; O2SAT 98
[2021-07-30] MEDS: Insulin Aspart 300 UNITS/3 ML PEN SC (17:03)
[2021-07-30] MEDS: Normal Saline Flush 10 ML SYR IVP (19:48)
[2021-07-30] MEDS: Baclofen 10 MG TAB 40 MG PO (23:24)
[2021-07-30] MEDS: clonazePAM 1 MG TAB PO (23:24)
[2021-07-30 23:32] VITALS: BP 88/62
[2021-07-30 23:54] VITALS: BP 88/56; PULSE 84; RESP 16; TEMP 36.5; O2SAT 99
[2021-07-31] MEDS: Heparin 5,000 UNITS/ML VIAL 5000 UNITS SC ×2 (02:06→11:31)
[2021-07-31 04:52] VITALS: BP 121/68
[2021-07-31 08:41] VITALS: BP 80/52; PULSE 89; RESP 16; TEMP 36.9; O2SAT 100
--- NOTE | 2021-07-31 09:17 | OT.INNT ---
Date of service: 07/31/21 Time of Service: 09:18 Occupational Therapy Notes 07/31/21 OT went to see pt and consult was attempted. Pt is unable to open his eyes, he is not oriented to place or time but is to name. He was requiring max (A) for eating and was consistently chewing 1 piece of egg for 15 minutes straight, with max (A) handling of cup he was able to drink his coffee. Pts mental clarity at this time does not allow for proper OT consultation at this time. OT will continue to attempt OT consult. Aura Cohen [facility] [place], [place]
[2021-07-31] MEDS: Pantoprazole 40 MG VIAL IVP (09:35)
--- NOTE | 2021-07-31 10:36 | W.PM.DS.N ---
Date of service: 07/31/21 Time of Service: 10:36 DS: Diagnosis Discharge Diagnosis (1) Pseudoobstruction of colon: Status: Acute (2) Weakness: Status: Acute (3) Multiple sclerosis: Status: Chronic (4) Palliative care patient: Status: Acute Discharge Plan Disposition Patient Disposition: [facility] INPATIENT Condition: Deteriorating Discharge Details Reason For Visit: Weakness, AMS, MS Admit Date/Time: 07/21/21 16:04 Admit Provider: Abraham Alcantar Attending Provider: Abraham Alcantar Primary Care Provider: Ale Barraza V Hospital Course Hospital Course: this is a 60 year old male who was admitted to [facility] after being found altered. Labs in ED significant for NA 150, potassium 3.4, glucose 152, trops negative. WBC negative. Hemoglobin 10.8 however he does have chronic anemia. He was given stress dose steroids, his tramadol was held and gabapentin was decreased. After a couple of days he returned to baseline mental status. Urine was checked for UTI. He had no nitrates or leuk estrase. Crp and ESR checked for progression of MS. ESR was normal. CRP improved from last admission. he was evaluated by neurology who did not feel he had an acute flare of his MS. He was not safe enough for discharge to home but he refused to go to rehab, he did mention hospice to , palliative consult placed, after meeting with palliative he did decide not to go on comfort care. He required bowel management and eventually an NGT for an ileus which did resolve. His NG was removed and began taking PO. He began failing again, and as he wasn't interested in going [facility]PER[facility], he will be discharged back to acute care for further work up and management. discussed with DR Jones. Home Meds and New Rx's Prescriptions: No Action lisinopril 2.5 mg tablet 2.5 mg PO DAILY RF: 0 folic acid 1 mg tablet 1 mg PO DAILY RF: 0 methotrexate (PF) 25 mg/0.4 mL auto-injector 25 mg subcut QWEEK RF: 0 clonazepam 1 mg tablet 1 mg PO QHS Qty: 30 RF: 3 baclofen 20 mg tablet 20 mg PO DIRECTED Qty: 360 RF: 3 alfuzosin 10 mg tablet extended release 24 hr 10 mg PO DAILY RF: 0 alendronate 70 MG tablet 70 mg PO WEEKLY RF: 0 ferrous gluconate [Ferate] 240 mg (27 mg iron) tablet 240 mg PO DAILY RF: 0 glipizide 10 mg tablet extended release 24hr 10 mg PO DAILY RF: 0 loratadine 10 mg tablet 10 mg PO DAILY RF: 0 omeprazole 40 mg capsule,delayed release(DR/EC) 40 mg PO DAILY RF: 0 prednisone 5 mg tablet 5 mg PO DAILY RF: 0 cholecalciferol (vitamin D3) 25 mcg (1,000 unit) tablet 2,000 unit PO DAILY RF: 0 gabapentin 300 mg capsule See Rx Instructions PO TID Qty: 450 RF: 3 acetaminophen 500 MG tablet 500 mg PO Q48H PRNRF: 0 docusate sodium [Doc-Q-Lace] 100 MG capsule 100 mg PO TID RF: 0 aspirin [Aspirin Low-Strength] 81 MG tablet,chewable 81 mg PO DAILY RF: 0 atorvastatin [Lipitor] 40 MG tablet 40 mg PO QPM RF: 0 (DME) Prodigy No Coding 1 EACH strip 1 ea Sub-Q BID RF: 0 multivitamin [Daily Multi-Vitamin] 1 EACH tablet 1 tab PO DAILY RF: 0 lactulose 20 gram/30 mL solution 20 g PO BID PRN PRNRF: 0 metformin 850 mg tablet 850 mg PO BID RF: 0 tramadol 100 mg tablet extended release 24 hr 100 mg PO HS RF: 0 polyethylene glycol 3350 17 gram Powder In Packet 17 g PO BID Qty: 100 RF: 0 potassium chloride [Klor-Con M20] 20 mEq Tablet,Er Particles/Crystals 40 meq PO DAILY Qty: 20 RF: 0 tamsulosin 0.4 mg Capsule 0.4 mg PO DAILY Qty: 30 RF: 0 ascorbic acid (vitamin C) [Vitamin C] 500 mg tablet 500 mg PO BID Qty: 60 RF: 0 sennosides [Senna Lax] 8.6 mg tablet 8.6 mg PO DAILY Qty: 20 RF: 0 Discharge Instructions Activity:: bedrest Equipment/Supplies:: No Equipment Needed Diet:: As Tolerated Discharge Orders Discharge Orders: Discharge Order (Routine); Ordered 07/31/21 Ordered By: Shana Parrish Discharge Data Discharge Date/Time-TO BE ENTERED AT DEPARTURE: 07/31/21 13:06 DS: Summary Time Spent with Patient providing and/or coordinating discharge services: Greater than 30 minutes Status at Discharge Functional status at discharge: bed bound Overall status at discharge: patient is not back to baseline Mental Status: mental status grossly normal and other (lethargic) Speech and Movement: slurred speech Mood: congruent mood Affect: normal affect Exam Const General: cooperative, comfortable and no acute distress Nutritional Appearance: obese Orientation: alert, awake and oriented x3 Eyes Eyelids: eyelids normal Pupils: pupils not ERRL (blind in right eye. ) EOM: EOM not intact bilaterally Neck Neck: normal visual inspection and no JVD Lymphatic: no lymphadenopathy noted Resp Effort & Inspection: normal respiratory effort and able to speak in complete sentences Auscultation: clear to auscultation bilaterally Cardio Jugular venous pressure: no JVD Rate: regular rate Rhythm: regular rhythm Heart Sounds: S1 normal and murmur GI Inspection: obesity Palpation: soft, no hepatosplenomegaly, firm and tender Auscultation: normal bowel sounds, high-pitched sounds, hypoactive bowel sounds and normoactive bowel sounds General: No CVA tenderness and deferred Skin General skin exam: no rashes or lesions noted Neuro General: patient alert, patient awake, oriented (baseline mental status) Patient Orientation: Person and Place and does not move all extremities (able to move upper extremities) Speech: speech normal Extrem General: abnormal to inspection, abnormal ROM, clubbing, cyanosis or edema noted and clubbing (bilateral lower extermities) Psych Mental Status: mental status grossly normal Speech and Movement: slurred speech Mood: congruent mood Affect: normal affect DS: Data Vitals/I&O Vitals and I&O: Vital Signs Temperature 36.9 C 07/31/21 08:41 Temperature Source Tympanic 07/31/21 08:41 Pulse 89 07/31/21 08:41 Pulse Rhythm Regular 07/31/21 10:07 Respiratory Rate 16 07/31/21 08:41 Respiratory Effort Non-Labored 07/31/21 10:07 Respiratory Depth Normal 07/31/21 10:07 Respiratory Pattern Normal 07/31/21 10:07 Blood Pressure 80/52 L 07/31/21 08:41 Pulse Oximetry 100 07/31/21 08:41 Oxygen Delivery Method Room Air 07/31/21 08:41 Oxygen Flow Rate 0 07/31/21 08:41 Pain Level 0 07/31/21 08:41 Comment 07/27/21 23:15 Intake & Output 07/30/21 07/30/21 07/31/21 11:59 23:59 11:59 Intake Total 300 / 1020 720 / 1020 100 / 100 Output Total 400 / 525 125 / 525 525 / 525 Balance -100 / 495 595 / 495 -425 / -425 Intake: Oral 300 / 1020 720 / 1020 100 / 100 Output: Urine 400 / 525 125 / 525 525 / 525 Other: Urine Color Light Sarah Straw Light Sarah Dark Sarah Urine Appearance Sediment Cloudy Clear Stool Size Large Stool Characteristics Liquid Brown PFSH Active Problem List Palliative care patient (Acute) Encephalopathy (Acute) Hypernatremia (Acute) Incontinence (Chronic) Discharge planning issues (Acute) DVT prophylaxis (Acute) Microcytic anemia (Chronic) Multiple sclerosis (Chronic) Diabetes type 2, controlled (Chronic) Urinary incontinence (Chronic) Medical History Abnormal computed tomography angiography (CTA) of abdomen Abnormal CT of liver Anemia Bilateral cataracts Bilateral leg edema BPH (benign prostatic hyperplasia) Cervical radiculopathy Cervical spinal stenosis Cervicalgia Chewing tobacco nicotine dependence Chronic pain a. chronic opiate rx Clostridium difficile colitis Congenital ptosis of left eyelid Diabetic retinopathy Family hx of colon cancer GERD (gastroesophageal reflux disease) Hip pain, right Hyperkalemia Hyperlipidemia Ileus Lytic bone lesions on xray Lytic lesion of bone on x-ray Mediastinal adenopathy Neck pain A. 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 Chronic opiate Rx Optic nerve atrophy Optic neuritis a. legally blind Osteopenia Palliative care patient Pelvic lymphadenopathy Peripheral neuropathy Pituitary adenoma Renal insufficiency Rhabdomyolysis Right leg weakness Right shoulder pain Rotator cuff tear, right Sarcoidosis Spasticity Spinal stenosis Tendonitis of long head of biceps brachii of right shoulder Tobacco abuse a. Uses chewing tobacco Ulcer of calf Vision loss Vitamin D deficiency Surgical History H/O surgical procedure a. appendectomy b. 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 What is your relationship status?: Panel score (0-1 are the most socially isolated patients): 0 What type of physical activity do you participate in: weight lifting, wheelchair-bound and additional Details: PT Do you feel safe at home: Yes Do you feel safe in your relationship?: Yes
[2021-07-31] MEDS: Gabapentin 100 MG CAP PO (12:31)
[2021-07-31] MEDS: Metoclopramide 10 MG TAB PO (12:32)
== END 2021-07-31 13:06 | disposition short-term general hospital (02) | DRG 948 ==
PROVIDERS: General Practice; Nurse Practitioner Family; Admitting Provider Family Medicine; PCP Family Medicine; Visit Provider Family Medicine
DX: R53.1 Weakness (principal); G93.40 Encephalopathy, unspecified; E87.0 Hyperosmolality and hypernatremia; K59.2 Neurogenic bowel, not elsewhere classified; G35 Multiple sclerosis; N39.498 Other specified urinary incontinence; D50.9 Iron deficiency anemia, unspecified; Z79.4 Long term (current) use of insulin; Z51.5 Encounter for palliative care; N40.0 Benign prostatic hyperplasia without lower urinary tract symptoms; M54.12 Radiculopathy, cervical region; F17.220 Nicotine dependence, chewing tobacco, uncomplicated; E55.9 Vitamin D deficiency, unspecified; E78.5 Hyperlipidemia, unspecified; E87.5 Hyperkalemia; M48.00 Spinal stenosis, site unspecified; E11.42 Type 2 diabetes mellitus with diabetic polyneuropathy; Z79.84 Long term (current) use of oral hypoglycemic drugs; N31.8 Other neuromuscular dysfunction of bladder
CPT/HCPCS: 36415; 80048; 85027; 97110; 97116; 97162; 97530; 99305; 99309; 99316; 71045; 74018; 74019; 83735; 85025; J1644; J2765; J7512

== ENCOUNTER 2021-07-31 12:59 | Inpatient (IN) | payer MEDICARE, MEDICAID, SELFPAY ==
--- NOTE | 2021-07-31 12:08 | PDOC.CMPRO ---
- If Service Date Differs Date of service: 07/31/21 Time of Service: 12:08 Care Management Progress Note S/O: Per report, Bryan was not able to swallow today and was hypotensive and confused. He was changed from SWB1 status to an acute inpatient. CM submitted CFC [id number] to [facility]. While on SWB1, Bryan worked with PT daily, but was not able to be independent with transfers. He will likely be recommended to go to a SNF. CM attempted to discuss options for his disposition, but Bryan stated that he doesn't want to think about that right now. CM will continue to discuss discharge planning in order to help Bryan determine his plan. RAMIREZ changed his Rheumatology appt at [facility] to 08/16/21 at 10:15am. (Original appt was for 07/31/21). A: Bryan is a 60 year old male admitted to [facility] on 07/17/21 for weakness, AMS. He was then transitioned to SWB1 on 07/21/21. On 07/31/21 he was changed to an acute inpatient again due to his inability to swallow and hypotension. P: Bryan will remain at [facility] until he is medically cleared by MD. CM will go over options for Bryan including returning home with a resumption of support vs SNF for short term rehab prior to returning home. He has not met his goal with PT to be independent with transfers, therefore it is recommended that he go to a SNF. He will follow up with his PCP and discharge plan of care. CM will continue to support Bryan with discharge planning considerations.
--- NOTE | 2021-07-31 13:02 | W.PM.HP.N ---
Date of service: 07/31/21 Time of Service: 13:02 Assessment and Plan Assessment and plan (1) Urinary tract infection: Status: Acute Assessment and plan: started on ceftriaxone based on previous culture. cultures pending. Qualifiers: Hematuria presence: without hematuria Urinary tract infection type: acute cystitis Qualified Code(s): N30.00 - Acute cystitis without hematuria (2) Adrenal insufficiency: Status: Ruled-out Assessment and plan: hypotensive yesterday, given IV fluid bolus, urine positive, cultures pending. giving stress dose steroids. (3) Diabetes type 2, controlled: Status: Chronic Assessment and plan: continue diabetic diet sliding scale coverage and blood sugar monitoring discussed with DR Jones Qualifiers: Diabetes mellitus complication status: without complication Diabetes mellitus half-way insulin use: unspecified half-way insulin use status Qualified Code(s): E11.9 - Type 2 diabetes mellitus without complications History of Present Illness History of Present Illness Chief Complaint: weakness, dysphagia Narrative: this is a 60 year old male who was originally admitted to [facility] after being found altered. He was given stress dose steroids, his tramadol was held and gabapentin was decreased. After a couple of days he returned to baseline mental status. Urine was checked for UTI. He had no nitrates or leuk estrase. Crp and ESR checked for progression of MS. ESR was normal. CRP improved from last admission. he was evaluated by neurology who did not feel he had an acute flare of his MS. He was not safe enough for discharge to home but he refused to go to rehab, he did mention hospice to , palliative consult placed, after meeting with palliative he did decide not to go on comfort care. He required bowel management and eventually an NGT for an ileus which did resolve. His NG was removed and began taking PO. He began failing again, increased lethargy, poor PO intake, increased weakness and difficulty working with PT. 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 Review of Systems All systems reviewed & are unremarkable except as noted in HPI and below [facility] Active Problem List Palliative care patient (Acute) Encephalopathy (Acute) Hypernatremia (Acute) Incontinence (Chronic) Discharge planning issues (Acute) DVT prophylaxis (Acute) Microcytic anemia (Chronic) Multiple sclerosis (Chronic) Diabetes type 2, controlled (Chronic) Urinary incontinence (Chronic) Medical History Abnormal computed tomography angiography (CTA) of abdomen Abnormal CT of liver Anemia Bilateral cataracts Bilateral leg edema BPH (benign prostatic hyperplasia) Cervical radiculopathy Cervical spinal stenosis Cervicalgia Chewing tobacco nicotine dependence Chronic pain a. chronic opiate rx Clostridium difficile colitis Congenital ptosis of left eyelid Diabetic retinopathy Family hx of colon cancer GERD (gastroesophageal reflux disease) Hip pain, right Hyperkalemia Hyperlipidemia Ileus Lytic bone lesions on xray Lytic lesion of bone on x-ray Mediastinal adenopathy Neck pain A. 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 Chronic opiate Rx Optic nerve atrophy Optic neuritis a. legally blind Osteopenia Palliative care patient Pelvic lymphadenopathy Peripheral neuropathy Pituitary adenoma Renal insufficiency Rhabdomyolysis Right leg weakness Right shoulder pain Rotator cuff tear, right Sarcoidosis Spasticity Spinal stenosis Tendonitis of long head of biceps brachii of right shoulder Tobacco abuse a. Uses chewing tobacco Ulcer of calf Vision loss Vitamin D deficiency Surgical History H/O surgical procedure a. appendectomy b. 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 What is your relationship status?: Panel score (0-1 are the most socially isolated patients): 0 What type of physical activity do you participate in: weight lifting, wheelchair-bound and additional Details: PT Do you feel safe at home: Yes Do you feel safe in your relationship?: Yes Meds Allergies and Home Medications Allergies Allergy/AdvReac Type Severity Reaction Status Date / Time No Known Allergies Allergy Unverified 07/16/21 13:53 Home Medications Medication Instructions Recorded Confirmed Type acetaminophen 500 mg PO Q48H PRN 11/23/13 07/31/21 History aspirin [Aspirin Low-Strength] 81 mg PO DAILY 11/23/13 07/31/21 History docusate sodium [Doc-Q-Lace] 100 mg PO TID 11/23/13 07/31/21 History atorvastatin [Lipitor] 40 mg PO QPM 06/14/14 07/31/21 History Prodigy No Coding 12/23/15 07/31/21 History multivitamin [Daily Multi-Vitamin] 1 tab PO DAILY 03/23/16 07/31/21 History alendronate 70 mg PO WEEKLY 05/13/17 07/31/21 History alfuzosin 10 mg tablet,extended 10 mg PO DAILY 12/10/18 07/31/21 History release 24 hr ferrous gluconate 240 mg (27 mg 240 mg PO DAILY tab 12/23/18 07/31/21 History iron) tablet glipizide 10 mg tablet, extended 10 mg PO DAILY 12/23/18 07/31/21 History release 24 hr loratadine 10 mg tablet 10 mg PO DAILY 12/23/18 07/31/21 History omeprazole 40 mg capsule,delayed 40 mg PO DAILY 12/23/18 07/31/21 History release prednisone 5 mg tablet 5 mg PO DAILY 12/23/18 07/31/21 History cholecalciferol (vitamin D3) 25 2,000 unit PO DAILY tab 12/21/19 07/31/21 History mcg (1,000 unit) tablet baclofen 20 mg tablet 20 mg PO DIRECTED #360 tab 06/04/21 07/31/21 Rx clonazepam 1 mg tablet 1 mg PO QHS #30 tab 06/04/21 07/31/21 Rx folic acid 1 mg tablet 1 mg PO DAILY 06/04/21 07/31/21 History lisinopril 2.5 mg tablet 2.5 mg PO DAILY 06/04/21 07/31/21 History methotrexate (PF) 25 mg/0.4 mL 25 mg SUBCUT QWEEK 06/04/21 07/31/21 History subcutaneous auto-injector gabapentin 300 mg capsule See Rx Instructions PO TID #450 cap 06/06/21 07/31/21 Rx ascorbic acid (vitamin C) [Vitamin 500 mg PO BID #60 tab 07/14/21 07/31/21 Rx C] polyethylene glycol 3350 17 g PO BID #100 ea 07/14/21 07/31/21 Rx potassium chloride [Klor-Con M20] 40 meq PO DAILY #20 tab 07/14/21 07/31/21 Rx sennosides [Senna Lax] 8.6 mg PO DAILY #20 tab 07/14/21 07/31/21 Rx tamsulosin 0.4 mg PO DAILY #30 cap 07/14/21 07/31/21 Rx lactulose 20 g PO BID PRN PRN 07/24/21 07/31/21 History metformin 850 mg PO BID 07/24/21 07/31/21 History tramadol 100 mg PO HS 07/24/21 07/31/21 History Exam Narrative Exam Narrative: General: cooperative, comfortable and no acute distress Nutritional Appearance: obese Orientation: alert, awake and oriented x3 Eyes Eyelids: eyelids normal Pupils: pupils not ERRL (blind in right eye. ) EOM: EOM not intact bilaterally Neck Neck: normal visual inspection and no JVD Lymphatic: no lymphadenopathy noted Resp Effort & Inspection: normal respiratory effort Auscultation: clear to auscultation bilaterally Cardio Jugular venous pressure: no JVD Rhythm: regular rhythm Heart Sounds: S1 normal GI Auscultation: normal bowel sounds General: No CVA tenderness and deferred Skin General skin exam: no rashes or lesions noted Neuro General: patient alert, patient awake, oriented (baseline mental status) Patient Orientation: Person and Place and does not move all extremities (able to move upper extremities) Speech: speech normal Extrem General: abnormal to inspection, abnormal ROM, clubbing, cyanosis or edema noted and clubbing (bilateral lower extermities) Results Labs Result diagrams: 08/01/21 06:30 08/01/21 06:30
--- OUTSIDE RECORDS SUMMARY | 2021-07-31 13:13 | XMS_ITS ---
:1960 Author Organization [facility] Address [address] [place] [address] Care Team Providers Name Role Phone Melcher Dallas, Megan Unavailable Unavailable PROBLEMS Type Condition ICD9-CM Code WQN52-GN Code Onset Condition SNO MED Code Dates Status Problem Sarcoidosis, D86.9 Active 9815703 [id number] unspecified Problem Chronic ulcer of L97.912 Active right lower extremity with fat layer exposed Problem Non-pressure L97.815 Active chronic ulcer of other part of right lower leg with muscle involvement without evidence of necrosis Problem Multiple G35 Active 40404158 sclerosis Problem Type 2 diabetes E11.39 Active 2509 3002 mellitus with other diabetic ophthalmic complication ALLERGIES No Known Allergies ENCOUNTERS Encounter Location Date Diagnosis [facility] [address] Aug, [place] [address] [facility] [address] Aug, [place] [address] [facility] [address] Jul, [place] [address] [facility] [address] 12 Jul, 2020 [place] [address] [facility] [address] 05 Jul, 2020 [place] [address] [facility] [address] 29 Jun, 2020 [place] [address] [facility] [address] Jun, [place] [address] [facility] [address] 15 Jun, 2020 [place] [address] [facility] [address] 08 Jun, 2020 [place] [address] [facility] [address] Jun, [place] [address] [facility] [address] 28 May, 2020 [place] [address] [facility] [address] 24 May, 2020 [place] [address] [facility] [address] 17 May, 2020 [place] [address] [facility] 14 May, 2020 [place] [address] [facility] May, [place] [address] [facility] May, [place] [address] [facility] Apr, [place] [address] [facility] Apr, [place] [address] [facility] Apr, [place] [address] [facility] Apr, [place] [address] [place] [facility] [address] [facility] Mar, Chronic [place] [address] extremity wi th fat layer exposed L97.912 [facility] [address] [facility] Mar, [place] [address] extremity wi th fat layer exposed L97.912 [place] [facility] [address] [facility] Mar, [place] [address] [facility] [address] [facility] Mar, [place] [address] of other par t of right lower leg with muscle involvement without evidence of necrosis L97.815 and Sarc oidosis, unspecified D86. 9 [facility] [address] [facility] Mar, [place] [address] [facility] [address] [facility] Mar, [place] [address] [facility] [address] [facility] Mar, [place] [address] of other par t of right lower leg with muscle involvement without evidence of necrosis L97.815 ; Type 2 diabetes mellitus with ot her diabetic ophthalmic compl ication E11.39 ; Sarcoid osis, unspecified D86. 9 ; Multiple sclerosis G35 an d Abnormal findings on diag nostic imaging of other parts of musculoskeletal system R93.7 [facility] [address] [facility] Mar, [place] [address] [facility] [address] [facility] Jan, [place] [address] IMMUNIZATIONS No Known Immunizations SOCIAL HISTORY Qualifiers Date Never Smoker REASON FOR REFERRAL FUNCTIONAL STATUS PLAN OF CARE Activity Details Future Test X Tibula/Fibula R 2V 20200301 6 Future Test Path:Other 20200302 VITAL SIGNS MEDICATIONS Medication Instructions Dosage Frequency Start End Duration Statu s Date Date predniSONE 5 MG Orally Once a 1 tablet 24h 30 day(s) Active day Loratadine 10 MG Orally Once a 1 tablet 24h 30 day(s ) Active day Ferrous Gluconate Orally Once a 1 tablet with 24h 30 day(s) Active 240 (27 Fe) MG day water or juice between meals Hydrocortisone Externally BID 1 application 12h Active Valerate 0.2 % Gabapentin 300 MG Orally every 2 capsules Active morning, 1 capsule at noon and 2 caps before bedtime( 5 capules daily) Alfuzosin HCl ER Orally Once a 1 tablet 24h 30 day(s ) Active 10 MG day immediately after the same meal Docusate Sodium Orally Once a 1 capsule as 24h 30 da y(s) Active 100 MG day needed MiraLax 17 as directed Active GM/SCOOP Aspirin 81 81 MG Orally Once a 1 tablet 24h 30 day(s ) Active day Tab-A-Jax - as directed Active Folic Acid 1 MG Orally Once a 1 tablet 24h 30 day(s) Active day Lisinopril 2.5 MG Orally Once a 1 tablet 24h 30 day( s) Active day Vitamin D3 25 MCG Orally Once a 2 tablets 24h Active (1000 UT) day metFORMIN HCl 850 Orally twice a 1 tablet with 12h Active MG day a meal Omeprazole 40 MG Orally Once a 1 capsule 30 24h 30 d ay(s) Active day minutes before morning meal clonazePAM 1 MG Orally Once a 1 tablet 24h A ctive day Atorvastatin Orally Once a 1 tablet 24h 30 day(s) Ac tive Calcium 40 MG day Methotrexate 2.5 Orally 20 mg as directed Active MG weekly per rheumatology Furosemide 20 mg Orally Once a 1 tablet Active day, PRN Mapap 500 MG Orally take 1 tablet as Act yury every other day needed as needed for mild to moderate pain Alendronate Orally once 1 tablet Active Sodium 70 MG weekly glipiZIDE XL 10 Orally Once a 1 tablet with 24h 30 d ay(s) Active MG day breakfast PROCEDURES No Known procedures RESULTS Name Result Date Reference Range Path:Skin lesion 2020-03-30 Result inflammation X Tibula/Fibula R 2V 2020-03-16 See Below For Report Path:Other 2020-02-24 REASON FOR VISIT [facility]-Follow Up, [facility]-Follow Up, [facility]-Follow Up, [facility]-Follow Up, [facility]ound [facility]-FollowUp, [facility]-Follow Up, [facility]-Follow Up, Wound [facility]- Follow Up, Wound CTR-Follow Up, Wound CTR-Follow Up, Wound CTR-Follow Up, Skin Substitute, Wound CTR-Follow Up, [facility]ound [facility]-Follow Up, [facility]ound [facility]-Follow Up, [facility]ound [facility]-Follow Up, [facility]ound [facility]-Follow Up, Wound CTR-NSG Visit, [facility]ound [facility]-Follow Up, Wound CTR-NSG Visit, [facility]ound [facility]-Follow Up, ulcer bx order, right leg ulcer, need bx, right leg ulcer, med rec,Xray order, [facility]-Follow Up, [facility]-Follow Up, path order from 02/23, [facility]ound [facility]-Follow Up, [facility]ound [facility]-NEW Insurance Providers [facility] Health Member Patient Patient Patient Patient Patient Subscriber Subscriber Subscriber Group Insurance Plan Plan Plan Plan ID Relationship Address Phone Name Date of ID Name Date of No Type Insurance Insurance Insurance Coverage to Subscriber Address Phone Name Dates S-MEDICAID [facility] S-MEDICAID self [place] [id number] [place] [address] [place] [facility] [id number]ELF [address] SELF PAY self [place]O [id number] [place] [address] SELF PAY self [place]O [id number] [place] [address] INSURANCE MEDICARE 3000 [employer] MEDICARE self [place] [id number] [facility] [id number] SELF PAY [address] SELF PAY self [place] [id number] [place] [address] INSURANCE S-MEDICAID [facility] S-MEDICAID self [place] [id number] [place] [address] [place] [facility] [place] [id number] MEDICARE 3000 [place] MEDICARE self [place] [id number] [facility] [id number] S-MEDICAID [facility] S-MEDICAID self [place] [id number] [place] [address] [place] [facility] [place] [id number] MEDICAL (GENERAL) HISTORY Type Description Date Surgical History No Surgical history information
[2021-07-31 13:42] LABS: Abs Immature Grans 0.04 10^3/uL (0.0-0.06); Absolute Basophil Count 0.02 10^3/uL (0.0-0.2); Absolute Eosinophil Count 0.27 10^3/uL (0.0-0.7); Absolute Lymphocyte Count 2.47 10^3/uL (1.2-3.4); Absolute Neutrophil Count 3.83 10^3/uL (1.2-6.7); Basophils % 0.3; Eosinophils % 3.6; HCT 34.5 % (40.0-50.0); HGB 11.3 g/dL (13.5-17.5); Immature Grans % 0.5; Lymphocytes % 33.2; MCH 27.6 pg (27.0-33.0); MCHC 32.8 % (32.0-36.0); MCV 84.4 fL (80-95); MPV 11.1 fL (8.0-11.0); Monocytes % 10.8; Neutrophils % 51.6; Nucleated RBC 0 %; Platelet Count 201 10^3/uL (130-400); RBC 4.09 10^6/uL (4.36-5.78); RDW 16.2 % (11.8-14.1); RDW-SD 49.4 fL; WBC 7.43 10^3/uL (4.4-10.8)
[2021-07-31 13:57] LABS: ALT 14 U/L (16-63); AST 18 U/L (15-37); Albumin 3.5 g/dL (3.4-5.0); Alkaline Phosphatase 74 U/L (46-116); Anion Gap 11.4 mmol/L (3-11); BUN 14 mg/dL (7-18); Bilirubin, Total 0.5 mg/dL (0.2-1.0); CO2 19.6 mmol/L (21.0-32.0); CREATININE 1.2 mg/dL (0.70-1.30); Calcium 9.6 mg/dL (8.5-10.1); Chloride 105 mmol/L (98-107); Glucose 155 mg/dL (74-106); Potassium 3.6 mmol/L (3.5-5.1); Sodium 136 mmol/L (136-145)
--- NOTE | 2021-07-31 14:03 | NUR.NOTE ---
Patient status was changed to acute, swing bed status D/C
[2021-07-31] MEDS: Metoclopramide 10 MG TAB PO (16:29)
[2021-07-31] MEDS: Baclofen 10 MG TAB 20 MG PO (16:29)
[2021-07-31] MEDS: Docusate Sodium 100 MG CAP PO ×2 (16:29→20:41)
[2021-07-31] MEDS: Normal Saline 1,000 ML 100 ML IV (16:30)
[2021-07-31 17:43] VITALS: BP 109/63; PULSE 88; RESP 14; TEMP 36.6; O2SAT 99
[2021-07-31] MEDS: Normal Saline Flush 10 ML SYR IVP (20:38)
[2021-07-31] MEDS: Polyethylene Glycol 3350 17 GM PACKET PO (20:39)
[2021-07-31] MEDS: Potassium Chloride Liquid 20 MEQ PKT 40 MEQ PO (20:39)
[2021-07-31] MEDS: Pantoprazole 40 MG VIAL IVP (20:39)
[2021-07-31] MEDS: Heparin 5,000 UNITS/ML VIAL 5000 UNITS SC (20:41)
[2021-07-31] MEDS: Gabapentin 300 MG CAP PO (20:42)
[2021-07-31 22:00] LABS: Bilirubin Negative (Negative); Blood Large (Negative); Clarity Cloudy (Clear); Glucose Negative (Negative); Ketones Negative (Negative); Leukocyte Esterase Large (Negative); Nitrite Positive (Negative); Specific Gravity >= 1.030 (1.005-1.025); Urobilinogen 0.2 EU/dL (Up TO 0.2)
[2021-07-31 22:09] LABS: Bacteria Packed HPF (Negative); C & S Indicated? Yes; RBC >50 HPF (0-2); WBC >50 HPF (0-5)
[2021-07-31] MEDS: Insulin Aspart 300 UNITS/3 ML PEN SC (22:14)
[2021-07-31] MEDS: Baclofen 10 MG TAB 40 MG PO (22:15)
[2021-07-31] MEDS: clonazePAM 1 MG TAB PO (22:15)
[2021-07-31 22:40] VITALS: BP 112/75; PULSE 89; RESP 12; TEMP 36.1; O2SAT 98
[2021-08-01] MEDS: Normal Saline 1,000 ML 100 ML IV (02:27)
[2021-08-01] MEDS: Normal Saline Flush 10 ML SYR IVP ×2 (02:27→20:11)
[2021-08-01] MEDS: Heparin 5,000 UNITS/ML VIAL 5000 UNITS SC ×3 (04:24→20:11)
[2021-08-01 07:05] LABS: Abs Immature Grans 0.05 10^3/uL (0.0-0.06); Absolute Basophil Count 0.03 10^3/uL (0.0-0.2); Absolute Eosinophil Count 0.32 10^3/uL (0.0-0.7); Absolute Monocyte Count 0.75 10^3/uL (0.1-0.8); Absolute Neutrophil Count 3.06 10^3/uL (1.2-6.7); Basophils % 0.5; Eosinophils % 5.1; HCT 31.3 % (40.0-50.0); HGB 10.3 g/dL (13.5-17.5); Immature Grans % 0.8; Lymphocytes % 33.3; MCH 27.3 pg (27.0-33.0); MCHC 32.9 % (32.0-36.0); MPV 11.7 fL (8.0-11.0); Monocytes % 11.9; Neutrophils % 48.4; Nucleated RBC 0 %; Platelet Count 199 10^3/uL (130-400); RBC 3.77 10^6/uL (4.36-5.78); RDW 16.1 % (11.8-14.1); RDW-SD 48.2 fL; WBC 6.31 10^3/uL (4.4-10.8)
[2021-08-01 07:26] VITALS: BP 110/68; PULSE 68; RESP 16; TEMP 36; O2SAT 98
[2021-08-01 07:52] LABS: ALT 14 U/L (16-63); AST 13 U/L (15-37); Albumin 3.1 g/dL (3.4-5.0); Alkaline Phosphatase 63 U/L (46-116); Anion Gap 11.2 mmol/L (3-11); BUN 11 mg/dL (7-18); Bilirubin, Total 0.4 mg/dL (0.2-1.0); CO2 18.8 mmol/L (21.0-32.0); CREATININE 1.1 mg/dL (0.70-1.30); Calcium 8.4 mg/dL (8.5-10.1); Chloride 108 mmol/L (98-107); Glucose 111 mg/dL (74-106); Potassium 3.5 mmol/L (3.5-5.1); Sodium 138 mmol/L (136-145); Total Protein 6.4 g/dL (6.4-8.2)
[2021-08-01] MEDS: Aspirin 81 MG CHEW PO (08:40)
[2021-08-01] MEDS: Gabapentin 300 MG CAP PO ×2 (08:41→20:13)
[2021-08-01] MEDS: Docusate Sodium 100 MG CAP PO ×3 (08:41→20:13)
[2021-08-01] MEDS: Baclofen 10 MG TAB 20 MG PO ×2 (08:41→15:58)
[2021-08-01] MEDS: Polyethylene Glycol 3350 17 GM PACKET PO ×2 (08:42→20:12)
[2021-08-01] MEDS: Loratidine 10 MG TAB PO (08:42)
[2021-08-01] MEDS: Pantoprazole 40 MG VIAL IVP ×2 (08:42→20:11)
[2021-08-01] MEDS: Metoclopramide 10 MG TAB PO ×3 (08:42→15:59)
[2021-08-01] MEDS: Lisinopril 5 MG TAB 2.5 MG PO (08:42)
[2021-08-01] MEDS: Tamsulosin 0.4 MG CAPCR PO (08:43)
[2021-08-01] MEDS: Potassium Chloride Liquid 20 MEQ PKT 40 MEQ PO ×2 (08:43→20:12)
[2021-08-01] MEDS: predniSONE 5 MG TAB PO (08:43)
[2021-08-01] MEDS: cefTRIAXone 1 GM/50 ML BAG IVPB (09:20)
[2021-08-01] MEDS: Hydrocortisone SOD SUC. 100 MG VIAL 50 MG IVP ×3 (09:21→20:11)
[2021-08-01 09:52] VITALS: O2SAT 98
--- NOTE | 2021-08-01 10:51 | PHA.REVIEW ---
Pharmacy Admission Review - Admission Clinical Review No Known Allergies Allergy (Unverified 07/16/21 13:53) Resuscitation Status DNR/DNI Height 5 ft 8 in Weight 93.8 kg - Renal Dosing Renal Dosing: BUN 11 mg/dL (7-18) 08/01/21 06:30 Creatinine 1.1 mg/dL (0.70-1.30) 08/01/21 06:30 Medications needing adjustments: Reviewed (SCr: 1.1, CrCl~81.4mL/min (using adjusted body weight). All medications dosed appropriately.) - Anticoagulation Anticoagulation: Hgb 10.3 g/dL (13.5-17.5) L 08/01/21 06:30 Hct 31.3 % (40.0-50.0) L 08/01/21 06:30 Plt Count 199 10^3/uL (130-400) 08/01/21 06:30 Creatinine 1.1 mg/dL (0.70-1.30) 08/01/21 06:30 DVT Prophylaxis: Reviewed Medications: Heparin (Heparin 5000 units SC Q8H) - Opiate Usage Evaluate Pain Scale/Pains Meds: N/A (No opiates this admission.) - Relevant Labs Sodium 138 mmol/L (136-145) 08/01/21 06:30 Potassium 3.5 mmol/L (3.5-5.1) 08/01/21 06:30 Chloride 108 mmol/L (98-107) H 08/01/21 06:30 Electrolytes, C-Reactive P, ESR: Reviewed - DM Control DM Control: Glucose 111 mg/dL (74-106) H 08/01/21 06:30 Finger Stick Blood Glucose 105 Finger Stick Blood Glucose 105 Finger Stick Blood Glucose 105 Insulin Dosing: Reviewed (Blood glucose) - Heart Failure/CA EF%, RACHEL's, B-Blockers, Diuretics: N/A - BP Control BP Control: Blood Pressure 110/68 If elevated: Reviewed (Blood pressure well controlled.) - Qtc Review If Elevated: Reviewed (QTc 531 on admission) - IV to PO Switch IV Medications: Reviewed - Home Meds Home Med List reviewed: Reviewed Relevent Home Meds Not ordered & why?: Alfluzosin and Atorvastatin not ordered, Ascorbic acid, Cholecalciferol, Ferrous gluconate and folic acid (held currently, patient having difficulty swallowing) Glipizide and Metformin (insulin aspart ordered, patient having difficulty swallowing) and Omeprazole (replaced by Pantoprazole IV). - Current meds Current Medication Order Review: Reviewed - Comments Comments/Follow Ups: Continue to monitor for vital signs, labs and changes in medications (avoid QT prolonging medications). Antibiotic Activity - Pharmacy Antibiotic Review Pharmacy Antibiotic Activity: Abx regimen adjustment (Ceftriaxone day 1. Urine culture pending.)
[2021-08-01] MEDS: Gabapentin 100 MG CAP PO (12:38)
[2021-08-01] MEDS: Insulin Aspart 300 UNITS/3 ML PEN SC ×3 (12:38→22:43)
--- NOTE | 2021-08-01 14:14 | PGE_ITS ---
Date of Service Date of service: 08/01/21 Time of Service: 14:14 Assessment and Plan Assessment and plan (1) Urinary tract infection: Status: Acute Assessment and plan: started on ceftriaxone based on previous culture. cultures pending. Qualifiers: Hematuria presence: without hematuria Urinary tract infection type: acute cystitis Qualified Code(s): N30.00 - Acute cystitis without hematuria (2) Altered mental status: Status: Resolved Assessment and plan: improved after receiving IV fluids, antibiotics and stress dose steroids advance diet today now awake Qualifiers: Altered mental status type: stupor Qualified Code(s): R40.1 - Stupor (3) Adrenal insufficiency: Status: Ruled-out Assessment and plan: hypotensive yesterday, given IV fluid bolus, urine positive, cultures pending. giving stress dose steroids. (4) Diabetes type 2, controlled: Status: Chronic Assessment and plan: continue diabetic diet sliding scale coverage and blood sugar monitoring Qualifiers: Diabetes mellitus complication status: without complication Diabetes mellitus shelter insulin use: unspecified middle or intermediate school principal insulin use status Qualified Code(s): E11.9 - Type 2 diabetes mellitus without complications (5) Multiple sclerosis: Status: Chronic Assessment and plan: initially thought to be worsening MS. Dr. Etienne evaluated patient previously on original admission. ESR was normal. CRP was improved from last admission It was thought he was receiving too many medications. Tramadol was held on admission. He has not c/o any pain Gabapentin was decreased. baclofen left alone. Given stress dose steroids and he returned to baseline. consider medication adjustment if needed. (6) DVT prophylaxis: Status: Acute Assessment and plan: heparin (7) Discharge planning issues: Status: Acute Assessment and plan: palliative following case management following for discharge planning. home with a resumption of support vs SNF for short term rehab prior to returning home discussed with Dr Jones Subjective Subjective Patient reports: feels better, tolerating liquids well, tolerating a regular diet and afebrile; denies shortness of breath Exam Narrative Exam Narrative: General: cooperative, comfortable and no acute distress Nutritional Appearance: obese Orientation: alert, awake and oriented x3 Eyes Eyelids: eyelids normal Pupils: pupils not ERRL (blind in right eye. ) EOM: EOM not intact bilaterally Neck Neck: normal visual inspection and no JVD Lymphatic: no lymphadenopathy noted Resp Effort & Inspection: normal respiratory effort Auscultation: clear to auscultation bilaterally Cardio Jugular venous pressure: no JVD Rhythm: regular rhythm Heart Sounds: S1 normal GI Auscultation: normal bowel sounds General: No CVA tenderness and deferred Skin General skin exam: no rashes or lesions noted Neuro General: patient alert, patient awake, oriented (baseline mental status) Patient Orientation: Person and Place and does not move all extremities (able to move upper extremities) Speech: speech normal Extrem General: abnormal to inspection, abnormal ROM, clubbing, cyanosis or edema noted and clubbing (bilateral lower extermities) Objective Last Vital Signs Temp 36.0 C L 08/01/21 07:26 Pulse 68 08/01/21 07:26 Resp 16 08/01/21 07:26 BP 110/68 08/01/21 07:26 Pulse Ox 98 08/01/21 09:52 Laboratory Results - last 24 hr 07/31/21 08/01/21 08/01/21 21:37 06:30 06:30 WBC 6.31 RBC 3.77 L Hgb 10.3 L Hct 31.3 L MCV 83.0 MCH 27.3 MCHC 32.9 RDW 16.1 H Plt Count 199 MPV 11.7 H Immature Gran % 0.8 Neutrophils % 48.4 Lymphocytes % 33.3 Monocytes % 11.9 Eosinophils % 5.1 Basophils % 0.5 Nucleated RBC % 0 Absolute Neutrophils 3.06 Absolute Lymphocytes 2.10 Absolute Monocytes 0.75 Absolute Eosinophils 0.32 Absolute Basophils 0.03 Sodium 138 Potassium 3.5 Chloride 108 H Carbon Dioxide 18.8 L Anion Gap 11.2 H BUN 11 Creatinine 1.1 Estimated GFR/1.73 m2 >= 60.00 Glucose 111 H Calcium 8.4 L Total Bilirubin 0.4 AST 13 L ALT 14 L Alkaline Phosphatase 63 Total Protein 6.4 Albumin 3.1 L Urine Color Yellow Urine Clarity Cloudy Urine pH 6.0 Ur Specific [place] >= 1.030 H Urine Protein 100 H Urine Ketones Negative Urine Blood Large H Urine Nitrite Positive H Urine Bilirubin Negative Urine Urobilinogen 0.2 Ur Leukocyte Esterase Large H Urine RBC >50 H Urine WBC >50 H Ur Epithelial Cells Not Applicable Urine Crystals Not Applicable Urine Bacteria Packed Urine Mucus Not Applicable Ur Culture Indicated? Yes Urine Glucose Negative
[2021-08-01 15:57] VITALS: BP 90/52; PULSE 77; RESP 17; TEMP 36.6; O2SAT 97
--- NOTE | 2021-08-01 18:30 | CMPROGNOTE_ITS ---
- If Service Date Differs Date of service: 08/01/21 Time of Service: 18:30 Care Management Progress Note S/O: Bryan was resting when CM attempted to meet with him. Per report, he was started on ceftriaxone to treat his UTI, and his cultures are pending. He will likely still require SNF after this acute admission, but he was not ready to discuss it at this time. He will have another evaluation by PT to determine discharge recommendations. CM will continue to follow. A: Bryan is a 60 year old male admitted to [facility] on 07/17/21 for weakness, AMS. He was then transitioned to SW on 07/21/21. On 07/31/21 he was changed to an acute inpatient again due to his inability to swallow and hypotension. P: Bryan will remain at [facility] until he is medically cleared by MD. CM will go over options for Bryan including returning home with a resumption of support vs SNF for short term rehab prior to returning home. He has not met his goal with PT to be independent with transfers, therefore it is recommended that he go to a SNF. He will follow up with his PCP and discharge plan of care. CM will continue to s upport Bryan with discharge planning considerations.
[2021-08-01] MEDS: Baclofen 10 MG TAB 40 MG PO (22:44)
[2021-08-01] MEDS: clonazePAM 1 MG TAB PO (22:44)
[2021-08-01 23:39] VITALS: BP 103/65; PULSE 78; RESP 16; TEMP 36.3; O2SAT 98
[2021-08-02] MEDS: Normal Saline Flush 10 ML SYR IVP ×4 (02:08→19:41)
[2021-08-02] MEDS: Hydrocortisone SOD SUC. 100 MG VIAL 50 MG IVP ×2 (02:08→07:54)
[2021-08-02] MEDS: Heparin 5,000 UNITS/ML VIAL 5000 UNITS SC ×3 (04:21→19:40)
[2021-08-02 07:24] VITALS: BP 99/62; PULSE 83; RESP 16; TEMP 37.1; O2SAT 98
[2021-08-02] MEDS: Pantoprazole 40 MG VIAL IVP ×2 (07:54→19:40)
[2021-08-02] MEDS: Metoclopramide 10 MG TAB PO ×3 (07:55→15:50)
[2021-08-02] MEDS: Lisinopril 5 MG TAB 2.5 MG PO (07:55)
[2021-08-02] MEDS: Polyethylene Glycol 3350 17 GM PACKET PO ×2 (07:55→19:39)
[2021-08-02] MEDS: Potassium Chloride Liquid 20 MEQ PKT 40 MEQ PO ×2 (07:55→19:39)
[2021-08-02] MEDS: Loratidine 10 MG TAB PO (07:56)
[2021-08-02] MEDS: Tamsulosin 0.4 MG CAPCR PO (07:56)
[2021-08-02] MEDS: predniSONE 5 MG TAB PO (07:56)
[2021-08-02] MEDS: Aspirin 81 MG CHEW PO (07:56)
[2021-08-02] MEDS: Gabapentin 300 MG CAP PO ×2 (07:56→19:39)
[2021-08-02] MEDS: Docusate Sodium 100 MG CAP PO ×3 (07:56→19:39)
[2021-08-02] MEDS: Baclofen 10 MG TAB 20 MG PO ×2 (07:56→15:50)
[2021-08-02] MEDS: Insulin Aspart 300 UNITS/3 ML PEN SC ×3 (07:57→16:59)
[2021-08-02] MEDS: cefTRIAXone 1 GM/50 ML BAG IVPB (09:31)
[2021-08-02] MEDS: Normal Saline 500 ML 30 ML IV (09:32)
[2021-08-02] MEDS: Gabapentin 100 MG CAP PO (11:24)
--- NOTE | 2021-08-02 12:39 | IN_ITS ---
Date of service: 08/02/21 PT Notes Visit Reasons: Dehydration Physical Therapy Inpatient Initial Evaluation Date: 08/02/2021 Referring Doctor: Shana Parrish NP PT Orders: PT CONSULT: Eval/treat Precautions: Fall. Standard. Activity as tolerated. Wheelchair-bound. Legally blind. Patient Profile/Admitting Diagnosis: Patient converted to acute level of care as of 07/31/2021. Bryan is a 60-year-old male with chronic multiple sclerosis, sarcoidosis, and diabetes mellitus who presented to the ED on 07/16/2021 due to increased lethargy and inability to manage at home alone. Patient was diagnosed with altered mental status, hypernatremia, and incontinence. Continued rehabilitation services were provided for patient under swing bed level II from 07/22/2021 through 07/31/2021. Patient demonstrated functional mobility decline, increased lethargy, and worsening weakness however refused comfort measures level of care. Hence patient needed to go back to acute level of care with new referrrla for PT sent in today for resumption of services. PMHX: Active Problem List Palliative care patient (Acute) Encephalopathy (Acute) Hypernatremia (Acute) Incontinence (Chronic) Discharge planning issues (Acute) DVT prophylaxis (Acute) Microcytic anemia (Chronic) Multiple sclerosis (Chronic) Diabetes type 2, controlled (Chronic) Urinary incontinence (Chronic) Medical History Abnormal computed tomography angiography (CTA) of abdomen Abnormal CT of liver Anemia Bilateral cataracts Bilateral leg edema BPH (benign prostatic hyperplasia) Cervical radiculopathy Cervical spinal stenosis Cervicalgia Chewing tobacco nicotine dependence Chronic pain a. 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 Chronic opiate Rx Optic nerve atrophy Optic neuritis a. legally blind Osteopenia Palliative care patient Pelvic lymphadenopathy Peripheral neuropathy Pituitary adenoma Renal insufficiency Rhabdomyolysis Right leg weakness Right shoulder pain Rotator cuff tear, right Sarcoidosis Spasticity Spinal stenosis Tendonitis of long head of biceps brachii of right shoulder Tobacco abuse a. Uses chewing tobacco Ulcer of calf Vision loss Vitamin D deficiency Surgical History H/O surgical procedure a. appendectomy b. left levator surgery 2012 History of appendectomy History of lung biopsy Social History/Home Situation: Lives alone in a handicap-accessible apartment complex in [place] with community support being managed by community neonatal critical care nurse Darcy Alfaro. From recent admission patient states that at baseline, he is able to perform stand pivot transfers to and from his motorized wheelchair at home. He receives home health assistance with meal preparation for his breakfast and dinners. Receives help with house chores, groceries, and medical transport. He performs a strengthening program at [facility] 2x/week at baseline for core and upper body strengthening. Equipment Owned/DME: Hospital bed, regular wheelchair, motorized wheelchair, front-wheeled walker Subjective: Agreeable to PT consult and getting out of bed. Denies headache, chest pain, fatigue throughout session. Did express tenderness to both legs to palpation when pillows and heels up device were removed from under his legs. Objective: General Observation: Supine in bed. Marrero catheter in place. Mental Status: Alert and oriented x 4. Pain: Moderate to signficant tenderness in B legs with R>>L ROM: Right Upper Extremity: Shoulder Flexion to 120 degrees. Elbow flexion WFL. Wrist flexion WFL. Functional opening and closing of hand WFL. Left Upper Extremity: Shoulder Flexion to 120 degrees. Elbow flexion WFL. Wrist flexion WFL. Functional opening and closing of hand WFL. Right Lower Extremity: Hip flexion-unable to slide heel up in supine. Hip abduction-only able to move R LE 10-20 degrees in supine to edge of bed. Knee flexion up to 20 degrees. Knee extension allowed up to 45 degrees from 90 degrees while seated at edge of bed. Ankle dorsiflexion no actual movement seen, muscle contraction only. Ankle plantarflexion muscle contraction only. Left Lower Extremity: Unable to perform any movements in L LE. Strength: Right Upper Extremity: Shoulder flexors 3/5. Elbow flexors 4-/5. Elbow extensors 4-/5. Global Upstream Marketing Manager weak but functional. Left Upper Extremity: Shoulder flexors 3/5. Elbow flexors 4-/5. Elbow extensors 4-/5. Global Upstream Marketing Manager weak but functional. Right Lower Extremity: Hip flexors 1/5. Hip abductors 1/5. Knee flexors 2-/5. Knee extensors 2-/5. Ankle dorsiflexors 1/5. Ankle plantarflexors 1/5. Left Lower Extremity: Hip flexors 1/5. Hip abductors 2-/5. Knee flexors 2-/5. Knee extensors 2-/5. Ankle dorsiflexors 1/5. Ankle plantarflexors 1/5. Bed Mobility/Transfers: Supine to sit minimal assist using leg sales agent business services, R bed rail, and overhead trapeze with tactile cueing provided due to legal blindness Sit to stand contact guard assist of 2 with use of STEDY LIFT, tactile cueing provided for hand placement due to legal blindness Stand to sit contact guard assist of 2 with use of STEDY LIFT, tactile cueing provided for hand placement due to legal blindness Bed to reclining chair contact guard assist of 2 with use of STEDY LIFT, tactile cueing provided for hand placement due to legal blindness Gait: N/A. Patient non-ambulatory. Balance: Static Sitting: Good Dynamic Sitting: Fair Static Standing: Unable Dynamic Standing: Unable Special Tests: Mobility Limitations Standardized Measure [facility] AM-PAC 6 clicks Basic Mobility Inpatient Short Form: Raw Score: 10 CMS Score: 77% deficit Assessment: Bryan continues to demonstrate mobility decline, increasing weakness, and worsening dysphagia at this time necessitating reconversion back to acute level of care as of today. Patient is a 60 year old male with chronic medical conditions including multiple sclerosis, sarcoidosis, diabetes with diabetic retinopathy, and legal blindness. Patient presents with clinical signs and symptoms consistent with current/admitting diagnoses that have resulted to mobility limitations, gait instability, generalized weakness, and overall ADL decline as demonstrated by the following impairment level findings: 1. Decreased strength to BUE/LE/trunk major muscle groups 2. Impaired sitting/ balance and tolerance 3. Impaired activity tolerance 4. Limitation of joint range of motion in BUE/LE 6. Legally blind due to optic neuritis Impairments are contributing to the following functional limitations: 1. Continued decline in bed mobility skills 2. Continue decline in transfer skills 3. Continued increased completion time for mobility ADL performance 5. Continue increased risk for falls 6. Continue increased risk for skin breakdown Goals: Goals X1 week 1. Supine-Sit stand by assist 2. Sit-Supine stand by assist 3. Sitting balance/tolerance to Good 4. B UE strength to 3/5 and B LE strength to 3-/5 to progress transfer skills DISCHARGE RECOMMENDATIONS: [] Home with no services [] [] Home with services [specify] [] Home with outpatient PT [] [X] SNF for continued rehabilitation to address impairments in trunk stability, B UE/LE strength, and improve mobility level prior to discharge to home. [X] Bag Adjuster Care. Patient may require LTC placement depending on how much mobility is achieved during his rehab stay. Otherwise patient may end up needing 24/ care. [] SNF versus LTC based on ability to participate and progress [] TREATMENT CODE/TIME: 85901 x 30 minutes, 63952 x 11 minutes beginning at 12:39 PM. Thank you for the opportunity to participate in the care of this patient. Rosa Luevano PT, DPT, CLT [facility] [place], [place]
--- NOTE | 2021-08-02 12:53 | W.PM.PROGNOT ---
Date of Service Date of service: 08/02/21 Time of Service: 12:55 Assessment and Plan Assessment and plan (1) Urinary tract infection: Status: Acute Assessment and plan: cultures positive for MRSA, ceftriaxone discontinued, started on linezolid Qualifiers: Hematuria presence: without hematuria Urinary tract infection type: acute cystitis Qualified Code(s): N30.00 - Acute cystitis without hematuria (2) Altered mental status: Status: Resolved Assessment and plan: improved after receiving IV fluids, antibiotics and stress dose steroids back to baseline Qualifiers: Altered mental status type: stupor Qualified Code(s): R40.1 - Stupor (3) Adrenal insufficiency: Status: Ruled-out Assessment and plan: giving stress dose steroids. (4) Diabetes type 2, controlled: Status: Chronic Assessment and plan: continue diabetic diet sliding scale coverage and blood sugar monitoring Qualifiers: Diabetes mellitus complication status: without complication Diabetes mellitus [facility] insulin use: unspecified superintendent container terminal insulin use status Qualified Code(s): E11.9 - Type 2 diabetes mellitus without complications (5) Multiple sclerosis: Status: Chronic Assessment and plan: initially thought to be worsening MS. Dr. Etienne evaluated patient previously on original admission. ESR was normal. CRP was improved from last admission It was thought he was receiving too many medications. Tramadol was held on admission. He has not c/o any pain Gabapentin was decreased. baclofen left alone. Given stress dose steroids and he returned to baseline. consider medication adjustment if needed. (6) DVT prophylaxis: Status: Acute Assessment and plan: heparin (7) Discharge planning issues: Status: Acute Assessment and plan: palliative following case management following for discharge planning. home with a resumption of support vs SNF for short term rehab prior to returning home discussed with Dr Jones Subjective Subjective Patient reports: no new complaints, feels better, tolerating liquids well, tolerating a regular diet and afebrile Exam Narrative Exam Narrative: General: cooperative, comfortable and no acute distress Nutritional Appearance: obese Orientation: alert, awake and oriented x3 Eyes Eyelids: eyelids normal Pupils: pupils not ERRL (blind in right eye. ) EOM: EOM not intact bilaterally Neck Neck: normal visual inspection and no JVD Lymphatic: no lymphadenopathy noted Resp Effort & Inspection: normal respiratory effort Auscultation: clear to auscultation bilaterally Cardio Jugular venous pressure: no JVD Rhythm: regular rhythm Heart Sounds: S1 normal GI Auscultation: normal bowel sounds General: No CVA tenderness and deferred Skin General skin exam: no rashes or lesions noted Neuro General: patient alert, patient awake, oriented (baseline mental status) Patient Orientation: Person and Place and does not move all extremities (able to move upper extremities) Speech: speech normal Extrem General: abnormal to inspection, abnormal ROM, clubbing, cyanosis or edema noted and clubbing (bilateral lower extermities) Objective Last Vital Signs Temp 37.1 C 08/02/21 07:24 Pulse 83 08/02/21 07:24 Resp 16 08/02/21 07:24 BP 99/62 L 08/02/21 07:24 Pulse Ox 98 08/02/21 07:24
[2021-08-02] MEDS: Linezolid 600 MG TAB PO ×2 (13:22→19:39)
[2021-08-02 15:44] VITALS: BP 97/61; PULSE 60; RESP 17; TEMP 36.4; O2SAT 99
--- NOTE | 2021-08-02 17:29 | CMPROGNOTE_ITS ---
- If Service Date Differs Date of service: 08/02/21 Time of Service: 17:29 Care Management Progress Note S/O: Bryan was lying in bed when CM met with him today. CM discussed options for discharge, and he stated that he would prefer to return home. CM stated that both MD and PT are recommending SNF. He reported that his last caregivers leave at around 6pm, and they do not return until about 8am. CM pointed out that he would potentially be alone, without help for 14 hours. He agreed to a referral being sent to the [facility] as a back up plan, if he is not able to transfer independently when he becomes medically ready for discharge. CM sent the referral to the [facility], who is reviewing it currently. CM will continue to follow. A: Bryan is a 60 year old male admitted to [facility] on 07/17/21 for weakness, AMS. He was then transitioned to SWB1 on 07/21/21. On 07/31/21 he was changed to an acute inpatient again due to his inability to swallow and hypotension. P: Bryan will remain at [facility] until he is medically cleared by MD. CM will go over options for Bryan including returning home with a resumption of support vs SNF for short term rehab prior to returning home. He has not met his goal with PT to be independent with transfers, therefore it is recommended that he go to a SNF. He will follow up with his PCP and discharge plan of care. CM will continue to support Bryan with discharge planning considerations.
[2021-08-02 19:45] VITALS: O2SAT 99
[2021-08-02] MEDS: clonazePAM 1 MG TAB PO (23:18)
[2021-08-02] MEDS: Baclofen 10 MG TAB 40 MG PO (23:21)
[2021-08-02 23:24] VITALS: BP 105/72; PULSE 60; RESP 18; TEMP 37; O2SAT 98
[2021-08-03 07:41] LABS: HCT 31.8 % (40.0-50.0); HGB 10.7 g/dL (13.5-17.5); MCH 27.7 pg (27.0-33.0); MCHC 33.6 % (32.0-36.0); MCV 82.4 fL (80-95); MPV 11.7 fL (8.0-11.0); Platelet Count 217 10^3/uL (130-400); RBC 3.86 10^6/uL (4.36-5.78); RDW 16.5 % (11.8-14.1); RDW-SD 49.1 fL; WBC 8.06 10^3/uL (4.4-10.8)
[2021-08-03 07:42] VITALS: BP 93/62; PULSE 63; RESP 16; TEMP 36.7; O2SAT 96
[2021-08-03] MEDS: Metoclopramide 10 MG TAB PO ×3 (07:42→16:44)
[2021-08-03] MEDS: Lisinopril 5 MG TAB 2.5 MG PO (07:42)
[2021-08-03] MEDS: Docusate Sodium 100 MG CAP PO ×3 (07:42→21:04)
[2021-08-03] MEDS: Aspirin 81 MG CHEW PO (07:42)
[2021-08-03] MEDS: predniSONE 5 MG TAB PO (07:43)
[2021-08-03] MEDS: Linezolid 600 MG TAB PO ×2 (07:43→21:04)
[2021-08-03] MEDS: Loratidine 10 MG TAB PO (07:43)
[2021-08-03] MEDS: Gabapentin 300 MG CAP PO ×2 (07:43→21:03)
[2021-08-03] MEDS: Baclofen 10 MG TAB 20 MG PO ×2 (07:43→16:44)
[2021-08-03] MEDS: Pantoprazole 40 MG VIAL IVP ×2 (07:44→21:04)
[2021-08-03] MEDS: Tamsulosin 0.4 MG CAPCR PO (07:44)
[2021-08-03] MEDS: Polyethylene Glycol 3350 17 GM PACKET PO ×2 (07:44→21:05)
[2021-08-03] MEDS: Potassium Chloride Liquid 20 MEQ PKT 40 MEQ PO ×2 (07:47→21:04)
[2021-08-03] MEDS: Normal Saline Flush 10 ML SYR IVP ×2 (07:47→21:05)
--- NOTE | 2021-08-03 08:31 | CMPROGNOTE_ITS ---
- If Service Date Differs Date of service: 08/03/21 Time of Service: 08:31 Care Management Progress Note S/O: Bryan has been sleeping every time CM attempted to meet with him today. He is doing well clinically and has returned to his baseline mental status. Bryan is currently being treated with Linezolid for an MRSA UTI. He is afebrile and his vs are stable although his blood pressures are running a little low, with systolic pressures between 90 and 110. Bryan continues to work with PT for global strengthening to improve mobility and activity tolerance. A referral has been sent to the [facility] for short term rehab but no determination has been made yet. A: Bryan is a 60 year old male admitted to [facility] on 07/17/21 for weakness, AMS. He was then transitioned to [facility] on 07/21/21. On 07/31/21 he was changed to an acute inpatient again due to his inability to swallow and hypotension. P: Bryan will remain at [facility] until he is medically cleared by MD. His discharge plan remains unclear as Bryan wants to go home but He has not met his goal with PT to be independent with transfers, therefore it is recommended that he go to a SNF. A referral was sent to the [facility] but no determination has been made yet. Bryan will follow up with his PCP and discharge plan of care. CM will continue to support Bryan with discharge planning considerations.
[2021-08-03] MEDS: Heparin 5,000 UNITS/ML VIAL 5000 UNITS SC ×2 (11:51→21:04)
[2021-08-03] MEDS: Gabapentin 100 MG CAP PO (11:51)
--- NOTE | 2021-08-03 12:46 | PT.INTREAT ---
Date of service: 08/03/21 Time of Service: 10:24 PT Notes Visit Reasons: Dehydration Inpatient Physical Therapy Treatment Note [facility] Date: 08/03/2021 PRECAUTIONS: Fall, Activity as tolerated, non-ambulatory SUBJECTIVE: Bryan is pleasant and agreeable to participating in PT. He states that he is feeling better than the last time I saw him. OBJECTIVE: PAIN: No c/o pain BED MOBILITY/TRANSFERS Sit-supine: Mod A with HOB flat Sit-stand: Min A x2 from low recliner surface Stand-sit: SBA Bed-Chair: STEDY THEREX: Patient was instructed in a resisted UE strengthening program, completed in a seated position, as per flow sheet. He utilizes red Theraband, 3# and 1# dumbbells with exercise completion. ASSESSMENT: Patient tolerated session with minimal complaint of increased fatigue with transfer and with ther ex completion. He would benefit from continued transfer training and global strengthening for improved mobility. PLAN: Continue with global strengthening for improved mobility and activity tolerance. TREATMENT CODE/TIME: Session 1: 16 minutes; 24483 (10:24) Session 2: 12 minutes; [id number] (12:08)
--- NOTE | 2021-08-03 14:40 | PGE_ITS ---
Date of Service Date of service: 08/03/21 Time of Service: 14:40 Assessment and Plan Assessment and plan (1) Urinary tract infection: Start date: 08/03/21 Start time: 14:43 Status: Acute Assessment and plan: cultures positive for MRSA, ceftriaxone discontinued, started on linezolid day 2 Qualifiers: Urinary tract infection type: acute cystitis Hematuria presence: w ithout hematuria Qualified Code(s): N30.00 - Acute cystitis without hematuria (2) Altered mental status: Start date: 08/03/21 Start time: 14:44 Status: Resolved Assessment and plan: back to baseline Qualifiers: Altered mental status type: stupor Qualified Code(s): R40.1 - Stupor (3) Adrenal insufficiency: Start date: 08/03/21 Start time: 14:46 Status: Resolved Assessment and plan: resolved after giving stress dose steroids. (4) Diabetes type 2, controlled: Start date: 08/03/21 Start time: 14:46 Status: Chronic Assessment and plan: continue diabetic diet sliding scale coverage and blood sugar monitoring Qualifiers: Diabetes mellitus group home insulin use: unspecified ophthalmic surgeon insulin use status Diabetes mellitus complication status: without complication Qualified Code(s): E11.9 - Type 2 diabetes mellitus without complications (5) Multiple sclerosis: Start date: 08/03/21 Start time: 14:46 Status: Chronic Assessment and plan: initially thought to be worsening MS. Dr. Etienne evaluated patient previously on original admission. ESR was normal. CRP was improved from last admission It was thought he was receiving too many medications. Tramadol was held on admission. He has not c/o any pain Gabapentin was decreased. baclofen left alone. Given stress dose steroids and he returned to baseline. consider medication adjustment if needed. (6) DVT prophylaxis: Start date: 08/03/21 Start time: 14:47 Status: Acute Assessment and plan: heparin (7) Discharge planning issues: Start date: 08/03/21 Start time: 14:47 Status: Acute Assessment and plan: palliative following case management following for discharge planning. home with a resumption of support vs SNF for short term rehab prior to returning home discussed with Dr Jones Subjective Subjective Patient reports: other Interval history since last seen: Patient states he is feeling tired, but otherwise well. Tolerating liquids well, regular diet and afebrile. Exam Narrative Exam Narrative: General: cooperative, comfortable and no acute distress Nutritional Appearance: obese Orientation: alert, awake and oriented x3 Eyes Eyelids: eyelids normal Pupils: pupils not ERRL (blind in right eye. ) EOM: EOM not intact bilaterally Neck Neck: normal visual inspection and no JVD Lymphatic: no lymphadenopathy noted Resp Effort & Inspection: normal respiratory effort Auscultation: clear to auscultation bilaterally Cardio Jugular venous pressure: no JVD Rhythm: regular rhythm Heart Sounds: S1 normal GI Auscultation: normal bowel sounds General: No CVA tenderness and deferred Skin General skin exam: no rashes or lesions noted Neuro General: patient alert, patient awake, oriented (baseline mental status) Patient Orientation: Person and Place and does not move all extremities (able to move upper extremities) Speech: speech normal Extrem General: abnormal to inspection, abnormal ROM, clubbing, cyanosis or edema noted and clubbing (bilateral lower extermities) Objective Last Vital Signs Temp 36.7 C 08/03/21 07:42 Pulse 63 08/03/21 07:42 Resp 16 08/03/21 07:42 BP 93/62 L 08/03/21 07:42 Pulse Ox 96 08/03/21 07:42 Laboratory Results - last 24 hr 08/03/21 06:45 WBC 8.06 RBC 3.86 L Hgb 10.7 L Hct 31.8 L MCV 82.4 MCH 27.7 MCHC 33.6 RDW 16.5 H Plt Count 217 MPV 11.7 H
[2021-08-03 15:40] VITALS: BP 100/61; PULSE 55; RESP 16; TEMP 36.5; O2SAT 100
[2021-08-03] MEDS: Insulin Aspart 300 UNITS/3 ML PEN SC (17:18)
[2021-08-03 21:10] VITALS: O2SAT 100
[2021-08-03] MEDS: Baclofen 10 MG TAB 40 MG PO (21:31)
[2021-08-03] MEDS: clonazePAM 1 MG TAB PO (21:31)
[2021-08-03 21:47] VITALS: BP 117/70; PULSE 61; RESP 16; TEMP 37; O2SAT 100
[2021-08-04] MEDS: Heparin 5,000 UNITS/ML VIAL 5000 UNITS SC ×3 (03:59→19:50)
[2021-08-04 04:07] VITALS: BP 96/57; PULSE 59; RESP 16; TEMP 36.8; O2SAT 100
[2021-08-04 04:18] VITALS: BP 110/62
[2021-08-04 07:34] VITALS: BP 94/55; PULSE 64; RESP 17; TEMP 36.4; O2SAT 97
[2021-08-04] MEDS: Potassium Chloride Liquid 20 MEQ PKT 40 MEQ PO ×2 (07:49→19:49)
[2021-08-04] MEDS: Pantoprazole 40 MG VIAL IVP ×2 (07:49→19:49)
[2021-08-04] MEDS: Baclofen 10 MG TAB 20 MG PO ×2 (07:49→16:17)
[2021-08-04] MEDS: Aspirin 81 MG CHEW PO (07:50)
[2021-08-04] MEDS: Docusate Sodium 100 MG CAP PO ×3 (07:50→19:50)
[2021-08-04] MEDS: Metoclopramide 10 MG TAB PO ×3 (07:50→16:17)
[2021-08-04] MEDS: Loratidine 10 MG TAB PO (07:50)
[2021-08-04] MEDS: predniSONE 5 MG TAB PO (07:50)
[2021-08-04] MEDS: Tamsulosin 0.4 MG CAPCR PO (07:50)
[2021-08-04] MEDS: Gabapentin 300 MG CAP PO ×2 (07:51→19:50)
[2021-08-04] MEDS: Linezolid 600 MG TAB PO ×2 (07:51→19:49)
[2021-08-04] MEDS: Normal Saline Flush 10 ML SYR IVP ×2 (07:56→19:49)
[2021-08-04 09:02] LABS: Abs Immature Grans 0.06 10^3/uL (0.0-0.06); Absolute Basophil Count 0.04 10^3/uL (0.0-0.2); Absolute Eosinophil Count 0.27 10^3/uL (0.0-0.7); Absolute Lymphocyte Count 2.11 10^3/uL (1.2-3.4); Absolute Monocyte Count 0.66 10^3/uL (0.1-0.8); Absolute Neutrophil Count 2.91 10^3/uL (1.2-6.7); Basophils % 0.7; Eosinophils % 4.5; HCT 29.3 % (40.0-50.0); HGB 9.6 g/dL (13.5-17.5); Lymphocytes % 34.9; MCH 27.7 pg (27.0-33.0); MCHC 32.8 % (32.0-36.0); MCV 84.4 fL (80-95); MPV 10.4 fL (8.0-11.0); Monocytes % 10.9; Nucleated RBC 0 %; Platelet Count 197 10^3/uL (130-400); RBC 3.47 10^6/uL (4.36-5.78); RDW 16.7 % (11.8-14.1); WBC 6.05 10^3/uL (4.4-10.8)
[2021-08-04 09:13] LABS: BUN 9 mg/dL (7-18); CREATININE 1.1 mg/dL (0.70-1.30); Calcium 8.1 mg/dL (8.5-10.1); Chloride 109 mmol/L (98-107); Glucose 96 mg/dL (74-106); Potassium 3.7 mmol/L (3.5-5.1); Sodium 139 mmol/L (136-145)
[2021-08-04] MEDS: predniSONE 20 MG TAB PO (09:24)
--- NOTE | 2021-08-04 10:21 | PT.INTREAT ---
Date of service: 08/04/21 Time of Service: 09:50 PT Notes Visit Reasons: Dehydration Inpatient Physical Therapy Treatment Note [facility] Date: 08/04/2021 PRECAUTIONS: Fall, Activity as tolerated, non-ambulatory SUBJECTIVE: Bryan is pleasant and agreeable to participating in PT. Feeling up to getting into chair. Asked to slow up several times while going supine to sit to get his balance. OBJECTIVE: PAIN: No c/o pain BED MOBILITY/TRANSFERS Sit-supine: Mod A with HOB at 45 degrees x 2 Sit-stand: Min A x2 from edge of bed Stand-sit: SBA Bed-Chair: SINA THEREX: Patient was instructed in a resisted UE strengthening program, completed in a seated position, as per flow sheet. He utilizes red Theraband, 3# and 1# dumbbells with exercise completion. ASSESSMENT: Patient tolerated session well with minimal complaint of increased fatigue with transfer and with ther exercises. Feel he would benefit from continued transfer training and global strengthening for improved mobility. PLAN: Continue with global strengthening for mobility and activity tolerance for improved ADL function. TREATMENT CODE/TIME: 28888 x 2, 9:50 to 10:15 (25')
[2021-08-04] MEDS: Folic Acid 1 MG TAB PO (11:07)
[2021-08-04] MEDS: Gabapentin 100 MG CAP PO (11:07)
[2021-08-04] MEDS: Ascorbic Acid 500 MG TAB PO ×2 (11:08→19:50)
[2021-08-04] MEDS: Ferrous Gluconate 324 MG TAB PO (11:08)
--- NOTE | 2021-08-04 12:45 | PGE_ITS ---
Date of Service Date of service: 08/04/21 Time of Service: 12:45 Assessment and Plan Assessment and plan (1) Urinary tract infection: Start date: 08/04/21 Start time: 12:54 Status: Acute Assessment and plan: cultures positive for MRSA, ceftriaxone discontinued, started on linezolid day 3 Waiting to go to rehab, referral sent to [facility] Qualifiers: Urinary tract infection type: acute cystitis Hematuria presence: without hematuria Qualified Code(s): N30.00 - Acute cystitis without hematuria (2) Altered mental status: Start date: 08/04/21 Start time: 13:04 Status: Resolved Assessment and plan: back to baseline Qualifiers: Altered mental status type: stupor Qualified Code(s): R40.1 - Stupor (3) Adrenal insufficiency: Start date: 08/04/21 Start time: 13:04 Status: Resolved Assessment and plan: resolved after giving stress dose steroids. (4) Diabetes type 2, controlled: Start date: 08/04/21 Start time: 13:08 Status: Chronic Assessment and plan: continue diabetic diet sliding scale coverage and blood sugar monitoring Qualifiers: Diabetes mellitus middle or intermediate school principal insulin use: unspecified middle or intermediate school principal insulin use status Diabetes mellitus complication status: without complication Qualified Code(s): E11.9 - Type 2 diabetes mellitus without complications (5) Multiple sclerosis: Start date: 08/04/21 Start time: 13:08 Status: Chronic Assessment and plan: initially thought to be worsening MS. Dr. Etienne evaluated patient previously on original admission. ESR was normal. CRP was improved from last admission It was thought he was receiving too many medications. Tramadol was held on admission. He has not c/o any pain Gabapentin was decreased. baclofen left alone. Given stress dose steroids and he returned to baseline. consider medication adjustment if needed. (6) DVT prophylaxis: Start date: 08/04/21 Start time: 13:08 Status: Acute Assessment and plan: heparin (7) Discharge planning issues: Start date: 08/04/21 Start time: 13:08 Status: Acute Assessment and plan: palliative following case management following for discharge planning. home with a resumption of support vs SNF for short term rehab prior to returning home discussed with Dr Wright Subjective Subjective Patient reports: no new complaints Interval history since last seen: Bryan is sitting up in chair. Comfortable, no c/o. Would like a diet change to regular from minced. Will change. Exam Narrative Exam Narrative: Exam Narrative: General: cooperative, comfortable and no acute distress Nutritional Appearance: obese Orientation: alert, awake and oriented x3 Eyes Eyelids: eyelids normal Pupils: pupils not ERRL (blind in right eye. ) EOM: EOM not intact bilaterally Neck Neck: normal visual inspection and no JVD Lymphatic: no lymphadenopathy noted Resp Effort & Inspection: normal respiratory effort Auscultation: clear to auscultation bilaterally Cardio Jugular venous pressure: no JVD Rhythm: regular rhythm Heart Sounds: S1 normal GI Auscultation: normal bowel sounds General: No CVA tenderness and deferred Skin General skin exam: no rashes or lesions noted Neuro General: patient alert, patient awake, oriented (baseline mental status) Patient Orientation: Person and Place and does not move all extremities (able to move upper extremities) Speech: speech normal Extrem General: abnormal to inspection, abnormal ROM, clubbing, cyanosis or edema noted and clubbing (bilateral lower extermities) Objective Last Vital Signs Temp 36.4 C L 08/04/21 07:34 Pulse 64 08/04/21 07:34 Resp 17 08/04/21 07:34 BP 94/55 L 08/04/21 07:34 Pulse Ox 97 08/04/21 07:34 Laboratory Results - last 24 hr 08/04/21 08/04/21 08:55 08:55 WBC 6.05 RBC 3.47 L Hgb 9.6 L Hct 29.3 L MCV 84.4 MCH 27.7 MCHC 32.8 RDW 16.7 H Plt Count 197 MPV 10.4 Immature Gran % 1.0 Neutrophils % 48.0 Lymphocytes % 34.9 Monocytes % 10.9 Eosinophils % 4.5 Basophils % 0.7 Nucleated RBC % 0 Absolute Neutrophils 2.91 Absolute Lymphocytes 2.11 Absolute Monocytes 0.66 Absolute Eosinophils 0.27 Absolute Basophils 0.04 Sodium 139 Potassium 3.7 Chloride 109 H Carbon Dioxide 18.0 L Anion Gap 12.0 H BUN 9 Creatinine 1.1 Estimated GFR/1.73 m2 >= 60.00 Glucose 96 Calcium 8.1 L
[2021-08-04 15:52] VITALS: BP 96/59; PULSE 64; RESP 16; TEMP 36.7; O2SAT 99
[2021-08-04] MEDS: Insulin Aspart 300 UNITS/3 ML PEN SC (16:59)
[2021-08-04] MEDS: Polyethylene Glycol 3350 17 GM PACKET PO (19:49)
[2021-08-04 20:00] VITALS: O2SAT 100
[2021-08-04 20:16] VITALS: BP 106/64; PULSE 65; RESP 15; TEMP 36.4; O2SAT 100
[2021-08-04] MEDS: Baclofen 10 MG TAB 40 MG PO (22:25)
[2021-08-04] MEDS: clonazePAM 1 MG TAB PO (22:25)
[2021-08-05 02:18] VITALS: BP 108/67; PULSE 57; RESP 15; TEMP 36.5; O2SAT 99
[2021-08-05] MEDS: Heparin 5,000 UNITS/ML VIAL 5000 UNITS SC ×3 (04:06→19:56)
[2021-08-05] MEDS: Linezolid 600 MG TAB PO ×2 (07:46→19:57)
[2021-08-05] MEDS: Polyethylene Glycol 3350 17 GM PACKET PO (07:46)
[2021-08-05] MEDS: Potassium Chloride Liquid 20 MEQ PKT 40 MEQ PO ×2 (07:46→19:56)
[2021-08-05] MEDS: Baclofen 10 MG TAB 20 MG PO ×2 (07:47→16:31)
[2021-08-05] MEDS: Tamsulosin 0.4 MG CAPCR PO (07:47)
[2021-08-05] MEDS: Loratidine 10 MG TAB PO (07:47)
[2021-08-05] MEDS: Gabapentin 300 MG CAP PO ×2 (07:47→19:57)
[2021-08-05] MEDS: Cholecalciferol (Vitamin D3) 1,000 UNIT TAB 4000 UNITS PO (07:47)
[2021-08-05] MEDS: predniSONE 10 MG TAB PO (07:47)
[2021-08-05] MEDS: Folic Acid 1 MG TAB PO (07:48)
[2021-08-05] MEDS: Metoclopramide 10 MG TAB PO ×3 (07:48→16:31)
[2021-08-05] MEDS: Docusate Sodium 100 MG CAP PO ×2 (07:48→14:06)
[2021-08-05] MEDS: Aspirin 81 MG CHEW PO (07:48)
[2021-08-05] MEDS: Ferrous Gluconate 324 MG TAB PO (07:48)
[2021-08-05] MEDS: Ascorbic Acid 500 MG TAB PO ×2 (07:48→19:57)
[2021-08-05] MEDS: Normal Saline Flush 10 ML SYR IVP ×2 (07:49→19:59)
[2021-08-05] MEDS: Pantoprazole 40 MG VIAL IVP ×2 (07:54→19:55)
[2021-08-05 07:57] VITALS: BP 102/62; PULSE 64; RESP 16; TEMP 37; O2SAT 97
--- NOTE | 2021-08-05 11:52 | PT.INTREAT ---
Date of service: 08/05/21 Time of Service: 10:45 PT Notes Visit Reasons: Dehydration Inpatient Physical Therapy Treatment Note [facility] Date: 08/05/2021 PT Notes Visit Reasons: Dehydration Inpatient Physical Therapy Treatment Not Date: 08/04/2021 PRECAUTIONS: Fall, Activity as tolerated, non-ambulatory SUBJECTIVE: Feeling great. Did have to go to have a bowel movement once up in standing in STEDY lift. OBJECTIVE: Did have loose BM once standing in STEDY and again while on commode. PAIN: No c/o pain BED MOBILITY/TRANSFERS Supine to sit: Mod A with HOB at 45 degrees Sit-stand: Min A x2 from edge of bed Stand-sit: SBA - CGA Bed-Commode: STEDY Commode to chair: STEDY THEREX: Patient was instructed in a resisted UE strengthening program, completed in a seated position, as per flow sheet. He utilizes red Theraband, 1# dumbbells with exercise completion. Held bicep curls due to patient indicating he has had issues with pain in the past with these on the right and IV access inside of left elbow. Added IR with red t-band with bilateral shoulders instead. ASSESSMENT: Patient tolerated session well with minimal complaint of increased fatigue with transfer and with ther exercises. Feel he would benefit from continued transfer training and global strengthening for improved mobility. PLAN: Continue with global strengthening for mobility and activity tolerance for improved ADL function. TREATMENT CODE/TIME: 46748u6, 35' starting at 10:45 am
[2021-08-05] MEDS: Gabapentin 100 MG CAP PO (12:00)
--- NOTE | 2021-08-05 12:13 | PGE_ITS ---
Date of Service Date of service: 08/05/21 Time of Service: 12:13 Assessment and Plan Assessment and plan (1) Urinary tract infection: Start date: 08/05/21 Start time: 12:14 Status: Acute Assessment and plan: cultures positive for MRSA, ceftriaxone discontinued, started on linezolid day 4 Waiting to go to rehab, referral sent to [facility] Qualifiers: Hematuria presence: without hematuria Urinary tract infection type: acute cystitis Qualified Code(s): N30.00 - Acute cystitis without hematuria (2) Altered mental status: Start date: 08/05/21 Start time: 12:15 Status: Resolved Assessment and plan: back to baseline Qualifiers: Altered mental status type: stupor Qualified Code(s): R40.1 - Stupor (3) Adrenal insufficiency: Start date: 08/05/21 Start time: 12:15 Status: Resolved Assessment and plan: resolved Increase steroids to 10 mg due to low bp while off methotrexate. Stop lisinopril and continue to monitor. (4) Diabetes type 2, controlled: Start date: 08/05/21 Start time: 12:15 Status: Chronic Assessment and plan: continue diabetic diet sliding scale coverage and blood sugar monitoring Qualifiers: Diabetes mellitus complication status: without complication Diabetes mellitus long term care administrator insulin use: unspecified long term care administrator insulin use status Qualified Code(s): E11.9 - Type 2 diabetes mellitus without complications (5) Multiple sclerosis: Start date: 08/05/21 Start time: 12:36 Status: Chronic Assessment and plan: initially thought to be worsening MS. Dr. Etienne evaluated patient previously on original admission. ESR was normal. CRP was improved from last admission It was thought he was receiving too many medications. Tramadol was held on admission. He has not c/o any pain Gabapentin was decreased. baclofen left alone. Given stress dose steroids and he returned to baseline. consider medication adjustment if needed. (6) DVT prophylaxis: Start date: 08/05/21 Start time: 12:36 Status: Acute Assessment and plan: heparin (7) Discharge planning issues: Start date: 08/05/21 Start time: 12:36 Status: Acute Assessment and plan: palliative following case management following for discharge planning. home with a resumption of support vs SNF for short term rehab prior to returning home discussed with Dr Wright Subjective Subjective Patient reports: no new complaints Exam Narrative Exam Narrative: Exam Narrative: General: cooperative, comfortable and no acute distress Nutritional Appearance: obese Orientation: alert, awake and oriented x3 Eyes Eyelids: eyelids normal Pupils: pupils not ERRL (blind in right eye. ) EOM: EOM not intact bilaterally Neck Neck: normal visual inspection and no JVD Lymphatic: no lymphadenopathy noted Resp Effort & Inspection: normal respiratory effort Auscultation: clear to auscultation bilaterally Cardio Jugular venous pressure: no JVD Rhythm: regular rhythm Heart Sounds: S1 normal GI Auscultation: normal bowel sounds General: No CVA tenderness and deferred Skin General skin exam: no rashes or lesions noted Neuro General: patient alert, patient awake, oriented (baseline mental status) Patient Orientation: Person and Place and does not move all extremities (able to move upper extremities) Speech: speech normal Extrem General: abnormal to inspection, abnormal ROM, clubbing, cyanosis or edema noted and clubbing (bilateral lower extermities) Objective Last Vital Signs Temp 37 C 08/05/21 07:57 Pulse 64 08/05/21 07:57 Resp 16 08/05/21 07:57 BP 102/62 08/05/21 07:57 Pulse Ox 97 08/05/21 07:57
[2021-08-05 15:08] VITALS: BP 113/63; PULSE 62; RESP 16; TEMP 36.4; O2SAT 99
[2021-08-05] MEDS: Insulin Aspart 300 UNITS/3 ML PEN SC (16:58)
[2021-08-05] MEDS: Lidocaine 2% Jelly 11 ML SYR UR (19:57)
[2021-08-05] MEDS: clonazePAM 1 MG TAB PO (21:45)
[2021-08-05] MEDS: Baclofen 10 MG TAB 40 MG PO (21:45)
[2021-08-05 23:15] VITALS: BP 102/61; PULSE 68; RESP 16; TEMP 36.4; O2SAT 98
[2021-08-06] MEDS: Heparin 5,000 UNITS/ML VIAL 5000 UNITS SC ×2 (04:07→11:53)
[2021-08-06 06:25] VITALS: BP 100/65; PULSE 61; RESP 14; TEMP 37; O2SAT 95
[2021-08-06 06:37] LABS: Abs Immature Grans 0.09 10^3/uL (0.0-0.06); Absolute Basophil Count 0.04 10^3/uL (0.0-0.2); Absolute Eosinophil Count 0.25 10^3/uL (0.0-0.7); Absolute Lymphocyte Count 3.74 10^3/uL (1.2-3.4); Absolute Monocyte Count 0.83 10^3/uL (0.1-0.8); Absolute Neutrophil Count 3.77 10^3/uL (1.2-6.7); Basophils % 0.5; Eosinophils % 2.9; HGB 10.4 g/dL (13.5-17.5); Lymphocytes % 42.9; MCH 27.7 pg (27.0-33.0); MCHC 32.5 % (32.0-36.0); MCV 85.1 fL (80-95); MPV 10.9 fL (8.0-11.0); Monocytes % 9.5; Neutrophils % 43.2; Nucleated RBC 0 %; Platelet Count 217 10^3/uL (130-400); RBC 3.76 10^6/uL (4.36-5.78); RDW 16.6 % (11.8-14.1); RDW-SD 50.8 fL; WBC 8.72 10^3/uL (4.4-10.8)
[2021-08-06 06:49] LABS: Anion Gap 10.8 mmol/L (3-11); BUN 8 mg/dL (7-18); CO2 20.2 mmol/L (21.0-32.0); CREATININE 1.2 mg/dL (0.70-1.30); Calcium 8.9 mg/dL (8.5-10.1); Chloride 108 mmol/L (98-107); Glucose 94 mg/dL (74-106); Potassium 3.5 mmol/L (3.5-5.1); Sodium 139 mmol/L (136-145)
--- NOTE | 2021-08-06 08:23 | W.PALPGNOTE ---
Date of service: 08/06/21 Time of Service: 08:23 Assessment and Plan Assessment and plan (1) Weakness: Status: Acute (2) Adrenal insufficiency: Status: Resolved (3) Multiple sclerosis: Status: Chronic (4) Diabetes type 2, controlled: Status: Chronic Qualifiers: Diabetes mellitus complication status: without complication Diabetes mellitus long-term insulin use: unspecified medical terminologist insulin use status Qualified Code(s): E11.9 - Type 2 diabetes mellitus without complications (5) Palliative care patient: Status: Acute Assessment and plan: Despite all that is going on, and each day bringing more problems, Bryan states he wants to continue with all treatments available except CPR Subjective Subjective Interval history since last seen: I met Bryan a couple of weeks ago. At that time staff was uncertain if he wanted to continue aggressive care. Prior to going in to see Bryan staff again was concerned that he did not want to the interventions that he was getting and that he may choose a more comfort care route. I did accompany the nurses who are signing out to each other. They felt that he was doing better last evening and overnight. I went in to speak with Bryan. He was cooperative and felt that he had a understanding of what was going on with him as far as his health Exam Narrative Exam Narrative: Lying in bed. Looks at me and talks, sometimes I have to ask him to repeat himself. His heart was regular. Lungs diminished lung sounds but clear. Abdomen was soft nontender Objective Last Vital Signs Temp 98.6 F 08/06/21 06:25 Pulse 61 08/06/21 06:25 Resp 14 08/06/21 06:25 BP 100/65 08/06/21 06:25 Pulse Ox 95 08/06/21 06:25 Laboratory Results - last 24 hr 08/06/21 08/06/21 06:10 06:10 WBC 8.72 RBC 3.76 L Hgb 10.4 L Hct 32.0 L MCV 85.1 MCH 27.7 MCHC 32.5 RDW 16.6 H Plt Count 217 MPV 10.9 Immature Gran % 1.0 Neutrophils % 43.2 Lymphocytes % 42.9 Monocytes % 9.5 Eosinophils % 2.9 Basophils % 0.5 Nucleated RBC % 0 Absolute Neutrophils 3.77 Absolute Lymphocytes 3.74 H Absolute Monocytes 0.83 H Absolute Eosinophils 0.25 Absolute Basophils 0.04 Sodium 139 Potassium 3.5 Chloride 108 H Carbon Dioxide 20.2 L Anion Gap 10.8 BUN 8 Creatinine 1.2 Estimated GFR/1.73 m2 >= 60.00 Glucose 94 Calcium 8.9
[2021-08-06] MEDS: Linezolid 600 MG TAB PO (08:43)
[2021-08-06] MEDS: Potassium Chloride Liquid 20 MEQ PKT 40 MEQ PO (08:43)
[2021-08-06] MEDS: Polyethylene Glycol 3350 17 GM PACKET PO (08:45)
[2021-08-06] MEDS: Cholecalciferol (Vitamin D3) 1,000 UNIT TAB 4000 UNITS PO (08:45)
[2021-08-06] MEDS: predniSONE 10 MG TAB PO (08:45)
[2021-08-06] MEDS: Gabapentin 300 MG CAP PO (08:45)
[2021-08-06] MEDS: Baclofen 10 MG TAB 20 MG PO (08:46)
[2021-08-06] MEDS: Folic Acid 1 MG TAB PO (08:46)
[2021-08-06] MEDS: Metoclopramide 10 MG TAB PO ×2 (08:46→11:54)
[2021-08-06] MEDS: Docusate Sodium 100 MG CAP PO (08:46)
[2021-08-06] MEDS: Aspirin 81 MG CHEW PO (08:46)
[2021-08-06] MEDS: Ferrous Gluconate 324 MG TAB PO (08:46)
[2021-08-06] MEDS: Loratidine 10 MG TAB PO (08:46)
[2021-08-06] MEDS: Tamsulosin 0.4 MG CAPCR PO (08:46)
[2021-08-06] MEDS: Ascorbic Acid 500 MG TAB PO (08:47)
[2021-08-06] MEDS: Pantoprazole 40 MG VIAL IVP (09:04)
[2021-08-06] MEDS: Normal Saline Flush 10 ML SYR IVP (09:04)
[2021-08-06] MEDS: Lidocaine 2% Jelly 11 ML SYR UR (10:25)
--- NOTE | 2021-08-06 10:32 | DSE_ITS ---
Date of service: 08/06/21 Time of Service: 10:32 DS: Diagnosis Discharge Diagnosis (1) Weakness: Status: Acute (2) Adrenal insufficiency: Status: Resolved (3) Multiple sclerosis: Status: Chronic (4) Diabetes type 2, controlled: Status: Chronic (5) Palliative care patient: Status: Acute Discharge Plan Disposition Patient Disposition: SNF (LEVEL 1) TH & REHAB Condition: Stable Discharge Details Reason For Visit: Dehydration Admit Date/Time: 07/31/21 12:59 Admit Provider: Mian Jones Attending Provider: Mian Jones Primary Care Provider: Ale Barraza V Hospital Course Hospital Course: This is a 60 year old male who was originally admitted to [facility] after being found altered. He was given stress dose steroids, his tramadol was held and gabapent in was decreased. After a couple of days he returned to baseline mental status. Urine was checked for UTI. He had no nitrates or leuk estrase. Crp and ESR checked for progression of MS. ESR was normal. CRP improved from last admission. he was evaluated by neurology who did not feel he had an acute flare of his MS. He was not safe enough for discharge to home but he refused to go to rehab, he did mention hospice to , palliative consult placed, after meeting with palliative he did decide not to go on comfort care. He required bowel management and eventually an NGT for an ileus which did resolve. His NG was removed and began taking PO. He began failing again, increased lethargy, poor PO intake, increased weakness and difficulty working with PT. As he is not interested in going NURSING SPECIALIST, he was admitted back to acute care for further work up and management. His urine grew MRSA, sensitive to linezolid. His blood sugars have been controlled off his metformin and glypizide, will defer when and if to restart to outpatient team based on glucose control after discharge. Also he has had low blood pressures and lisinopril has been on hold. continue to monitor and adjust outpatient. he was having issues with urinary retention requiring straight cath. It was noted his afluzosin was on hold and will be restarted on discharge. consider a void trial if appropriate after restarting in a few days. discharge discussed with Dr Wright Home Meds and New Rx's Prescriptions: New baclofen 10 mg Tablet 40 mg PO HS Qty: 0 RF: 0 baclofen 10 mg Tablet 20 mg PO 0800,1600 Qty: 0 RF: 0 gabapentin 300 mg Capsule 300 mg PO BID Qty: 0 RF: 0 gabapentin 100 mg Capsule 100 mg PO 1200 Qty: 30 RF: 0 Continued folic acid 1 mg tablet 1 mg PO DAILY RF: 0 methotrexate (PF) 25 mg/0.4 mL auto-injector 25 mg subcut QWEEK RF: 0 clonazepam 1 mg tablet 1 mg PO QHS Qty: 30 RF: 3 alfuzosin 10 mg tablet extended release 24 hr 10 mg PO DAILY RF: 0 alendronate 70 MG tablet 70 mg PO WEEKLY RF: 0 ferrous gluconate [Ferate] 240 mg (27 mg iron) tablet 240 mg PO DAILY RF: 0 loratadine 10 mg tablet 10 mg PO DAILY RF: 0 prednisone 5 mg tablet 5 mg PO DAILY RF: 0 cholecalciferol (vitamin D3) 25 mcg (1,000 unit) tablet 2,000 unit PO DAILY RF: 0 docusate sodium [Doc-Q-Lace] 100 MG capsule 100 mg PO TID RF: 0 aspirin [Aspirin Low-Strength] 81 MG tablet,chewable 81 mg PO DAILY RF: 0 atorvastatin [Lipitor] 40 MG tablet 40 mg PO QPM RF: 0 multivitamin [Daily Multi-Vitamin] 1 EACH tablet 1 tab PO DAILY RF: 0 lactulose 20 gram/30 mL solution 20 g PO BID PRN PRNRF: 0 polyethylene glycol 3350 17 gram Powder In Packet 17 g PO BID Qty: 100 RF: 0 potassium chloride [Klor-Con M20] 20 mEq Tablet,Er Particles/Crystals 40 meq PO DAILY Qty: 20 RF: 0 tamsulosin 0.4 mg Capsule 0.4 mg PO DAILY Qty: 30 RF: 0 ascorbic acid (vitamin C) [Vitamin C] 500 mg tablet 500 mg PO BID Qty: 60 RF: 0 sennosides [Senna Lax] 8.6 mg tablet 8.6 mg PO DAILY Qty: 20 RF: 0 Changed omeprazole 40 mg capsule,delayed release(DR/EC) 40 mg PO BID Qty: 0 RF: 0 Discontinued baclofen 20 mg tablet 20 mg PO DIRECTED Qty: 360 RF: 3 gabapentin 300 mg capsule See Rx Instructions PO TID Qty: 450 RF: 3 acetaminophen 500 MG tablet 500 mg PO Q48H PRNRF: 0 tramadol 100 mg tablet extended release 24 hr 100 mg PO HS RF: 0 No Action lisinopril 2.5 mg tablet 2.5 mg PO DAILY RF: 0 glipizide 10 mg tablet extended release 24hr 10 mg PO DAILY RF: 0 (DME) Prodigy No Coding 1 EACH strip 1 ea Sub-Q BID RF: 0 metformin 850 mg tablet 850 mg PO BID RF: 0 Discharge Instructions Instructions: Catheter-associated Urinary Tract Infection (DC) Stand Alone Forms: Nursing Discharge Form [facility]errals: [facility] [Other] - 08/16/21 10:15 am () Activity:: Activity as Tolerated Equipment/Supplies:: No Equipment Needed Diet:: Carb Counting Discharge Orders Discharge Orders: Discharge Order (Routine); Ordered 08/06/21 Ordered By: Shana Parrish Discharge Data Discharge Date/Time-TO BE ENTERED AT DEPARTURE: 08/06/21 12:27 DS: Summary Time Spent with Patient providing and/or coordinating discharge services: Greater than 30 minutes Status at Discharge Functional status at discharge: wheelchair bound Overall status at discharge: patient is not back to baseline Mental Status: mental status grossly normal Speech and Movement: speech and movement normal Mood: congruent mood Affect: normal affect Exam Narrative Exam Narrative: General: cooperative, comfortable and no acute distress Nutritional Appearance: obese Orientation: alert, awake and oriented x3 Eyes Eyelids: eyelids normal Pupils: pupils not ERRL (blind in right eye. ) EOM: EOM not intact bilaterally Neck Neck: normal visual inspection and no JVD Lymphatic: no lymphadenopathy noted Resp Effort & Inspection: normal respiratory effort Auscultation: clear to auscultation bilaterally Cardio Jugular venous pressure: no JVD Rhythm: regular rhythm Heart Sounds: S1 normal GI Auscultation: normal bowel sounds General: No CVA tenderness and deferred Skin General skin exam: no rashes or lesions noted Neuro General: patient alert, patient awake, oriented (baseline mental status) Patient Orientation: Person and Place and does not move all extremities (able to move upper extremities) Speech: speech normal Extrem General: abnormal to inspection, abnormal ROM, clubbing, cyanosis or edema noted and clubbing (bilateral lower extermities) Psych Mental Status: mental status grossly normal Speech and Movement: speech and movement normal Mood: congruent mood Affect: normal affect DS: Data Vitals/I&O Vitals and I&O: Vital Signs Temperature 37.0 C 08/06/21 06:25 Temperature Source Tympanic 08/06/21 06:25 Pulse 61 08/06/21 06:25 Pulse Rhythm Regular 08/06/21 08:48 Respiratory Rate 14 08/06/21 06:25 Respiratory Effort Non-Labored 08/06/21 08:48 Respiratory Depth Normal 08/06/21 08:48 Respiratory Pattern Normal 08/06/21 08:48 Blood Pressure 100/65 08/06/21 06:25 Pulse Oximetry 95 08/06/21 06:25 Oxygen Delivery Method Room Air 08/06/21 06:25 Oxygen Flow Rate 0 08/06/21 06:25 Pain Level 0 08/05/21 15:08 Intake & Output 08/05/21 08/05/21 08/06/21 11:59 23:59 11:59 Intake Total 240 / 480 240 / 480 250 / 250 Output Total 1225 / 1225 150 / 150 Balance 240 / -745 -985 / -745 100 / 100 Intake: Oral 240 / 480 240 / 480 250 / 250 Output: Urine 750 / 750 150 / 150 Post Void Residual 475 / 475 Other: Urine Color Yellow Yellow Yellow Urine Appearance Clear Clear Clear Urine Odor None Normal Comment Moderate amount of urine in diaper. pT was mildly incont and voided 175 in urinal. Bladder scan after patient was incontinent. Stool Size Moderate Stool Characteristics Liquid Brown Voiding Methods Diaper Urinal Diaper Incontinent Diaper Incontinent Incontinent Data Completed and Pending Labs on day of discharge: Labs from last 24 hours 08/06/21 08/06/21 06:10 06:10 WBC 8.72 RBC 3.76 L Hgb 10.4 L Hct 32.0 L MCV 85.1 MCH 27.7 MCHC 32.5 RDW 16.6 H Plt Count 217 MPV 10.9 Immature Gran % 1.0 Neutrophils % 43.2 Lymphocytes % 42.9 Monocytes % 9.5 Eosinophils % 2.9 Basophils % 0.5 Nucleated RBC % 0 Absolute Neutrophils 3.77 Absolute Lymphocytes 3.74 H Absolute Monocytes 0.83 H Absolute Eosinophils 0.25 Absolute Basophils 0.04 Sodium 139 Potassium 3.5 Chloride 108 H Carbon Dioxide 20.2 L Anion Gap 10.8 BUN 8 Creatinine 1.2 Estimated GFR/1.73 m2 >= 60.00 Glucose 94 Calcium 8.9 Preliminary micro results at discharge 07/31/21 21:37 Urine Culture - Preliminary Urine - Reflex from Ua Staph aureus, MRSA Enterococcus Species Gram Positive Tiera,Mixed PFSH Active Problem List Palliative care patient (Acute) Encephalopathy (Acute) Hypernatremia (Acute) Incontinence (Chronic) Discharge planning issues (Acute) DVT prophylaxis (Acute) Microcytic anemia (Chronic) Multiple sclerosis (Chronic) Diabetes type 2, controlled (Chronic) Urinary incontinence (Chronic) Medical History Abnormal computed tomography angiography (CTA) of abdomen Abnormal CT of liver Anemia Bilateral cataracts Bilateral leg edema BPH (benign prostatic hyperplasia) Cervical radiculopathy Cervical spinal stenosis Cervicalgia Chewing tobacco nicotine dependence Chronic pain a. chronic opiate rx Clostridium difficile colitis Congenital ptosis of left eyelid Diabetic retinopathy Family hx of colon cancer GERD (gastroesophageal reflux disease) Hip pain, right Hyperkalemia Hyperlipidemia Ileus Lytic bone lesions on xray Lytic lesion of bone on x-ray Mediastinal adenopathy Neck pain A. 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 Chronic opiate Rx Optic nerve atrophy Optic neuritis a. legally blind Osteopenia Palliative care patient Pelvic lymphadenopathy Peripheral neuropathy Pituitary adenoma Renal insufficiency Rhabdomyolysis Right leg weakness Right shoulder pain Rotator cuff tear, right Sarcoidosis Spasticity Spinal stenosis Tendonitis of long head of biceps brachii of right shoulder Tobacco abuse a. Uses chewing tobacco Ulcer of calf Vision loss Vitamin D deficiency Surgical History H/O surgical procedure a. appendectomy b. 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 Former part time. What is your relationship status?: Panel score (0-1 are the most socially isolated patients): 0 What type of physical activity do you participate in: weight lifting, wheelchair-bound and additional Details: PT Do you feel safe at home: Yes Do you feel safe in your relationship?: Yes
[2021-08-06 10:58] LABS: Bilirubin Negative (Negative); Blood Trace-intact (Negative); Clarity Clear (Clear); Glucose Negative (Negative); Ketones Negative (Negative); Leukocyte Esterase Negative (Negative); Nitrite Negative (Negative); Urobilinogen 0.2 EU/dL (Up TO 0.2); pH 5.5 (5-8)
[2021-08-06 11:09] LABS: Bacteria Negative HPF (Negative); C & S Indicated? No; Casts Negative LPF (Negative); Crystals Negative HPF (Negative); Epithelial Cells Negative HPF (Negative); Mucus Negative (Negative); WBC 0-2 HPF (0-5)
[2021-08-06 11:36] LABS: Source Nasal/Nares
[2021-08-06] MEDS: Gabapentin 100 MG CAP PO (11:54)
[2021-08-06 12:19] LABS: COVID-19 PCR Negative (Negative)
--- NOTE | 2021-08-06 13:08 | PT.INTREAT ---
Date of service: 08/06/21 Time of Service: 10:55 PT Notes Visit Reasons: Dehydration Inpatient Physical Therapy Treatment Note [facility] Date: 08/06/2021 PRECAUTIONS: Non-ambulatory, wheelchair bound SUBJECTIVE: Bryan states that he is feeling very tired today. He reports that he did not sleep well last night as there was continuous disturbance from the room next to his. OBJECTIVE: PAIN: No c/o pain BED MOBILITY/TRANSFERS: Declined OOB THEREX: Patient was instructed in a resisted UE strengthening program, completed in both supine and long-sitting positions, as per flow sheet. ASSESSMENT: Patient demonstrates an improvement in UE strength, tolerating increased reps with most resisted exercises. PLAN: Patient to discharge to SNF level rehab later today, per provider for continued global strengthening and progression toward baseline level of function. TREATMENT CODE/TIME: 23 minutes; 60100 x2 (10:55)
--- NOTE | 2021-08-06 18:28 | PDOC.CMDIS ---
- If Service Date Differs Date of service: 08/06/21 Time of Service: 18:28 LACE Index Scoring Tool - Questions: Length of Stay (in days): 14 or more Acuity (Admit via E.D.?): No Comorbidities: Diabetes w/o Complication E.D. Visits: 2 - Answers: Total Score: 10 Risk of Readmission: High Risk Care Management Discharge Reason for Hospitalization: Dehydration Discharge Plan: Bryan will go to [facility] today for short term rehab prior to returning home. He will be transported via facility w/c van, coordinated by CM. He will follow up with his PCP and discharge plan of care. He was happy to be transitioned to rehab. Patient/Family Education Needs: Review discharge instructions regarding activity levels and medications, discussion of self care needs including ask me three and goals of care. Services Needed at Discharge: Half-Way Facility ([facility]), Transportation (w/c van)
--- NOTE | 2021-08-08 09:19 | INDS_ITS ---
Date of service: 08/08/21 Time of Service: 09:19 PT Notes Visit Reasons: Dehydration Physical Therapy Inpatient Initial Discharge Summary Date: 08/08/2021 Dates of Service: 08/02/2021 through 08/06/2021 This is a clinical summary of care provided for the duration of dates listed above. No charge was made in the completion of this documentation. Referring Doctor: Shana Parrish NP PT Orders: PT CONSULT: Eval/treat Precautions: Fall. Standard. Activity as tolerated. Wheelchair-bound. Legally blind. Patient Profile/Admitting Diagnosis: Patient converted to acute level of care as of 07/31/2021. Bryan is a 60-year-old male with chronic multiple sclerosis, sarcoidosis, and diabetes mellitus who presented to the ED on 07/16/2021 due to increased lethargy and inability to manage at home alone. Patient was diagnosed with altered mental status, hypernatremia, and incontinence. Continued rehabilitation services were provided for patient under swing bed level II from 07/22/2021 through 07/31/2021. Patient demonstrated functional mobility decline, increased lethargy, and worsening weakness however refused comfort measures level of care. Hence patient needed to go back to acute level of care with new referrrla for PT sent in today for resumption of services. PMHX: Active Problem List Palliative care patient (Acute) Encephalopathy (Acute) Hypernatremia (Acute) Incontinence (Chronic) Discharge planning issues (Acute) DVT prophylaxis (Acute) I think the reason why he did well from yesterday was because he had morphine on board Microcytic anemia (Chronic) Multiple sclerosis (Chronic) Diabetes type 2, controlled (Chronic) Urinary incontinence (Chronic) Medical History Abnormal computed tomography angiography (CTA) of abdomen and begin doing as well with you the afternoon he said he was tired Abnormal CT of liver Anemia Bilateral cataracts Bilateral leg edema BPH (benign prostatic hyperplasia) Cervical radiculopathy Cervical spinal stenosis Cervicalgia Chewing tobacco nicotine dependence Chronic pain a. 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 Chronic opiate Rx Optic nerve atrophy Optic neuritis a. legally blind Osteopenia Palliative care patient Pelvic lymphadenopathy Peripheral neuropathy Pituitary adenoma Renal insufficiency Rhabdomyolysis Right leg weakness Right shoulder pain Rotator cuff tear, right Sarcoidosis Spasticity Spinal stenosis Tendonitis of long head of biceps brachii of right shoulder Tobacco abuse a. Uses chewing tobacco Ulcer of calf Vision loss Vitamin D deficiency Surgical History H/O surgical procedure a. appendectomy b. left levator surgery 2011 History of appendectomy History of lung biopsy Social History/Home Situation: Lives alone in a handicap-accessible apartment complex in [place] with community support being managed by community child care counselor Darcy Alfaro. From recent admission patient states that at baseline, he is able to perform stand pivot transfers to and from his motorized wheelchair at home. He receives home health assistance with meal preparation for his breakfast and dinners. Receives help with house chores, groceries, and medical transport. He performs a strengthening program at [facility] 2x/week at baseline for core and upper body strengthening. Equipment Owned/DME: Hospital bed, regular wheelchair, motorized wheelchair, front-wheeled walker Subjective: NT. See most recent ENERGY ANALYST notes. Objective: General Observation: NT. See most recent ENERGY ANALYST notes. Mental Status: NT. See most recent ENERGY ANALYST notes. Pain: NT. See most recent ENERGY ANALYST notes. ROM: Right Upper Extremity: Shoulder Flexion to 120 degrees. Elbow flexion WFL. Wrist flexion WFL. Functional opening and closing of hand WFL. Left Upper Extremity: Shoulder Flexion to 120 degrees. Elbow flexion WFL. Wrist flexion WFL. Functional opening and closing of hand WFL. Right Lower Extremity: Hip flexion-unable to slide heel up in supine. Hip abduction-only able to move R LE 10-20 degrees in supine to edge of bed. Knee flexion up to 20 degrees. Knee extension allowed up to 45 degrees from 90 degrees while seated at edge of bed. Ankle dorsiflexion no actual movement seen, muscle contraction only. Ankle plantarflexion muscle contraction only. Left Lower Extremity: Unable to perform any movements in L LE. Strength: Right Upper Extremity: Shoulder flexors 3/5. Elbow flexors 4-/5. Elbow extensors 4-/5. Radiocommunications Technician weak but functional. Left Upper Extremity: Shoulder flexors 3/5. Elbow flexors 4-/5. Elbow extensors 4-/5. Radiocommunications Technician weak but functional. Right Lower Extremity: Hip flexors 1/5. Hip abductors 1/5. Knee flexors 2-/5. Knee extensors 2-/5. Ankle dorsiflexors 1/5. Ankle plantarflexors 1/5. Left Lower Extremity: Hip flexors 1/5. Hip abductors 2-/5. Knee flexors 2-/5. Knee extensors 2-/5. Ankle dorsiflexors 1/5. Ankle plantarflexors 1/5. Bed Mobility/Transfers: Supine to sit minimal assist using leg qualitative field coordinator, R bed rail, and overhead trapeze with tactile cueing provided due to legal blindness Sit to stand contact guard assist of 2 with use of STEDY LIFT, tactile cueing provided for hand placement due to legal blindness Stand to sit contact guard assist of 2 with use of STEDY LIFT, tactile cueing provided for hand placement due to legal blindness Bed to reclining chair contact guard assist of 2 with use of STEDY LIFT, tactile cueing provided for hand placement due to legal blindness Gait: N/A. Patient non-ambulatory. Balance: Static Sitting: Good Dynamic Sitting: Fair Static Standing: Unable Dynamic Standing: Unable Special Tests: Mobility Limitations Standardized Measure [facility]-PAC 6 clicks Basic Mobility Inpatient Short Form: Raw Score: 10 CMS Score: 77% deficit Assessment: Bryan continues to demonstrate mobility decline, increasing weakness, and worsening dysphagia at this time necessitating reconversion back to acute level of care as of today. Patient is a 60 year old male with chronic medical conditions including multiple sclerosis, sarcoidosis, diabetes with diabetic retinopathy, and legal blindness. Patient presents with clinical signs and symptoms consistent with current/admitting diagnoses that have resulted to mobility limitations, gait instability, generalized weakness, and overall ADL decline as demonstrated by the following impairment level findings: 1. Decreased strength to BUE/LE/trunk major muscle groups 2. Impaired sitting/ balance and tolerance 3. Impaired activity tolerance 4. Limitation of joint range of motion in BUE/LE 6. Legally blind due to optic neuritis Impairments are contributing to the following functional limitations: 1. Continued decline in bed mobility skills 2. Continue decline in transfer skills 3. Continued increased completion time for mobility ADL performance 5. Continue increased risk for falls 6. Continue increased risk for skin breakdown Goals: Goals X1 week 1. Supine-Sit stand by assist NOT MET 2. Sit-Supine stand by assist NOT MET 3. Sitting balance/tolerance to Good high NOT MET 4. B UE strength to 3/5 and B LE strength to 3-/5 to progress transfer skills NOT MET DISCHARGE RECOMMENDATIONS: [] Home with no services [] [] Home with services [specify] [] Home with outpatient PT [] [X] SNF for continued rehabilitation to address impairments in trunk stability, B UE/LE strength, and improve mobility level prior to discharge to home. [X] Maintenance Worker Care. Patient may require LTC placement depending on how much mobility is achieved during his rehab stay. Otherwise patient may end up needing 24/7 care. [] SNF versus LTC based on ability to participate and progress [] TREATMENT CODE/TIME: FL Thank you for the opportunity to participate in the care of this patient. Rosa Luevano PT, DPT, CLT [facility] [place], [place]
== END 2021-08-06 12:27 | disposition skilled nursing facility (03) | DRG 690 ==
PROVIDERS: Internal Medicine; Nurse Practitioner Acute Care; Nurse Practitioner Family; Admitting Provider Internal Medicine; PCP Family Medicine; Visit Provider Internal Medicine
DX: N30.00 Acute cystitis without hematuria (principal); E27.40 Unspecified adrenocortical insufficiency; K56.7 Ileus, unspecified; G35 Multiple sclerosis; E11.319 Type 2 diabetes mellitus with unspecified diabetic retinopathy without macular edema; E11.42 Type 2 diabetes mellitus with diabetic polyneuropathy; D64.9 Anemia, unspecified; R40.1 Stupor; R53.1 Weakness; F17.220 Nicotine dependence, chewing tobacco, uncomplicated; E55.9 Vitamin D deficiency, unspecified; E78.5 Hyperlipidemia, unspecified; K21.9 Gastro-esophageal reflux disease without esophagitis; M54.12 Radiculopathy, cervical region; M48.02 Spinal stenosis, cervical region; N40.0 Benign prostatic hyperplasia without lower urinary tract symptoms
CPT/HCPCS: 36415; 80048; 80053; 85027; 87077; 87635; 97110; 97530; 81003; 81015; 85025; 87086; 87186; 99223; 99232; 99233; 99239; J0696; J1644; J1720; J7512

== ENCOUNTER 2021-08-09 09:27 | Emergency (ER) | payer MEDICARE, MEDICAID, SELFPAY ==
[2021-08-09] VITALS (10 sets, daily range): BP systolic 80–97; BP diastolic 51–62; PULSE 93–102; RESP 12–20; TEMP 36; O2SAT 96–98
--- NOTE | 2021-08-09 09:30 | RT.EKG_ITS ---
APPROVED REPORT Exam: Resting ECG Reason for Exam: altered mental status Patient Location: E HR:93 bpm ECG Measurements Heart Rate 93 AXIS ID 142 P 30 QRSd 75 QRS 19 QT 412 T 34 QTc 515 Conclusion Sinus rhythm...normal P axis, V-rate 60- 99 Prolonged QT interval...QTc >500mS
--- NOTE | 2021-08-09 09:43 | ED.GENADUL_ITS ---
Discharge Plan Disposition Patient Disposition: SNF (LEVEL 1) [facility] Condition: Stable Discharge Details Clinical Impression: Urinary tract infection, Weakness Primary Care Provider: Ale Barraza V ED Provider: Pérez Wall Home Meds and New Rx's Prescriptions: New linezolid 600 mg tablet 600 mg PO BID Qty: 14 RF: 0 Continued lisinopril 2.5 mg tablet 2.5 mg PO DAILY RF: 0 folic acid 1 mg tablet 1 mg PO DAILY RF: 0 methotrexate (PF) 25 mg/0.4 mL auto-injector 25 mg subcut QWEEK RF: 0 clonazepam 1 mg tablet 1 mg PO QHS Qty: 30 RF: 3 alfuzosin 10 mg tablet extended release 24 hr 10 mg PO DAILY RF: 0 alendronate 70 MG tablet 70 mg PO WEEKLY RF: 0 ferrous gluconate [Ferate] 240 mg (27 mg iron) tablet 240 mg PO DAILY RF: 0 glipizide 10 mg tablet extended release 24hr 10 mg PO DAILY RF: 0 prednisone 5 mg tablet 5 mg PO DAILY RF: 0 cholecalciferol (vitamin D3) 25 mcg (1,000 unit) tablet 2,000 unit PO DAILY RF: 0 docusate sodium [Doc-Q-Lace] 100 MG capsule 100 mg PO TID RF: 0 aspirin [Aspirin Low-Strength] 81 MG tablet,chewable 81 mg PO DAILY RF: 0 atorvastatin [Lipitor] 40 MG tablet 40 mg PO QPM RF: 0 (DME) Prodigy No Coding 1 EACH strip 1 ea Sub-Q BID RF: 0 multivitamin [Daily Multi-Vitamin] 1 EACH tablet 1 tab PO DAILY RF: 0 metformin 850 mg tablet 850 mg PO BID RF: 0 polyethylene glycol 3350 17 gram Powder In Packet 17 g PO BID Qty: 100 RF: 0 potassium chloride [Klor-Con M20] 20 mEq Tablet,Er Particles/Crystals 40 meq PO DAILY Qty: 20 RF: 0 tamsulosin 0.4 mg Capsule 0.4 mg PO DAILY Qty: 30 RF: 0 ascorbic acid (vitamin C) [Vitamin C] 500 mg tablet 500 mg PO BID Qty: 60 RF: 0 sennosides [Senna Lax] 8.6 mg tablet 8.6 mg PO DAILY Qty: 20 RF: 0 baclofen 10 mg Tablet 40 mg PO HS Qty: 0 RF: 0 baclofen 10 mg Tablet 20 mg PO 0800,1600 Qty: 0 RF: 0 gabapentin 300 mg Capsule 300 mg PO BID Qty: 0 RF: 0 gabapentin 100 mg Capsule 100 mg PO 1200 Qty: 30 RF: 0 lactulose 20 gram/30 mL Solution 20 g PO BID RF: 0 omeprazole 40 mg capsule,delayed release(DR/EC) 40 mg PO DAILY RF: 0 Discharge Instructions Instructions: Urinary Tract Infection in Men (ED) Additional Instructions: your urine showed evidence of another infection take the linezolid as prescribed Part of the drowsiness could be due to the baclofen you are on, trying to decrease this or holding your morning dose of baclofen may help. try to drink a glass of water hourly if possible if you feel more ill, have fevers or difficulty breathing return to the emergency department Medical Decision Making 60 yo male with hx of MS, adrenal insufficiency, t2dm who was recently admitted with weakness and uti and discharged to rehab, comes in after he had an episode of syncope. He was apparently up working with PT and felt nausea and an episode of vomit and had brief loss of consciousness. EMS was called and on arrival patient denies any complaints, states I feel at my baseline. He denies headache, chest pain, abdominal pain, fevers, chills. He is caox4, perrl, clear speech, soft nontender abdomen, clear lung sounds. HE is noted to be hypotensive on arrival which could be from dehydration or possible med side effect, less likely sepsis given lack of infectious symptoms. He is on a lot of sedating meds which could have caused his episode this morning. Will evaluate with ekg, troponin, cbc, electrolytes and reassess after a liter of fluids. labs show no acute changes other than mild increase in creatinine to 1.5 from 1.2. His ng wasn't draining and wasn't able to be flushed due to it being clogged with debris, this was removed and his urine again does look infected. I discussed results with patient and he remains asymptomatic now. I discussed with him hospitalization but he has spent a long time recently in the hospital and is resistant to being hospitalized. He is requesting d/c back to rehab which I feel is reasonable given reassuring workup and exam here. His culture of his urine from when he was admitted grew staph resistant to cipro, is sensitive to bactrim and linezolid, given his mild tania and being on lisinopril hesistant to give bactrim so will start linezolid. Will d/c back to rehab and return precautions given. I also did recommend trying to decrease his baclofen given he continues to feel drowsy. Differential Diagnosis Differential Diagnosis: overmedicated, anemia, hypotension Medical Records Medical records reviewed: Yes I reviewed the patient's medical records. Lab Data Lab results reviewed: Yes I reviewed the patient's lab results. ECG Data Attestation: I personally reviewed and interpreted this ECG (s) as follows: Prior ECG tracings: available for review Interpretation: sinus rhythm, rate of 93, qtc 515ms, no acute st t wave ischemic findings HPI General Mode of arrival: EMS . Date/Time Provider Initiated Documentation: 08/09/21 09:36 . Limitations to Documentation: no limitations . Information obtained by: patient . History of Present Illness 60 year old M presents to the emergency department with the chief complaint of syncope, described as moderate, Patient reports no radiation. Patient started experiencing this hour(s) (1) and it has been constant. No relieving factors improve symptom(s), No exacerbating factors reported . Patient did receive the following treatments prior to arrival, none Related Data Home Medications Medication Instructions Recorded Confirmed aspirin [Aspirin Low-Strength] 81 mg PO DAILY 11/23/13 08/09/21 docusate sodium [Doc-Q-Lace] 100 mg PO TID 11/23/13 08/09/21 atorvastatin [Lipitor] 40 mg PO QPM 06/14/14 08/09/21 Prodigy No Coding 12/23/15 07/31/21 multivitamin [Daily Multi-Vitamin] 1 tab PO DAILY 03/23/16 08/09/21 alendronate 70 mg PO WEEKLY 05/13/17 08/09/21 alfuzosin 10 mg tablet,extended 10 mg PO DAILY 12/10/18 08/09/21 release 24 hr ferrous gluconate 240 mg (27 mg 240 mg PO DAILY tab 12/23/18 08/09/21 iron) tablet glipizide 10 mg tablet, extended 10 mg PO DAILY 12/23/18 08/09/21 release 24 hr prednisone 5 mg tablet 5 mg PO DAILY 12/23/18 08/09/21 cholecalciferol (vitamin D3) 25 2,000 unit PO DAILY tab 12/21/19 08/09/21 mcg (1,000 unit) tablet clonazepam 1 mg tablet 1 mg PO QHS #30 tab 06/04/21 08/09/21 folic acid 1 mg tablet 1 mg PO DAILY 06/04/21 08/09/21 lisinopril 2.5 mg tablet 2.5 mg PO DAILY 06/04/21 08/09/21 methotrexate (PF) 25 mg/0.4 mL 25 mg SUBCUT QWEEK 06/04/21 08/09/21 subcutaneous auto-injector ascorbic acid (vitamin C) [Vitamin 500 mg PO BID #60 tab 07/14/21 08/09/21 C] polyethylene glycol 3350 17 g PO BID #100 ea 07/14/21 08/09/21 potassium chloride [Klor-Con M20] 40 meq PO DAILY #20 tab 07/14/21 08/09/21 sennosides [Senna Lax] 8.6 mg PO DAILY #20 tab 07/14/21 08/09/21 tamsulosin 0.4 mg PO DAILY #30 cap 07/14/21 08/09/21 metformin 850 mg PO BID 07/24/21 08/09/21 baclofen 20 mg PO 0800,1600 #0 tab 08/06/21 08/09/21 baclofen 40 mg PO HS #0 tab 08/06/21 08/09/21 gabapentin 100 mg PO 1200 #30 cap 08/06/21 08/09/21 gabapentin 300 mg PO BID #0 cap 08/06/21 08/09/21 lactulose 20 g PO BID 08/09/21 08/09/21 linezolid 600 mg PO BID #14 tab 08/09/21 omeprazole 40 mg PO DAILY 08/09/21 08/09/21 Previous Rx's Medication Instructions Recorded clonazepam 1 mg tablet 1 mg PO QHS #30 tab 06/04/21 ascorbic acid (vitamin C) [Vitamin 500 mg PO BID #60 tab 07/14/21 C] polyethylene glycol 3350 17 g PO BID #100 ea 07/14/21 potassium chloride [Klor-Con M20] 40 meq PO DAILY #20 tab 07/14/21 sennosides [Senna Lax] 8.6 mg PO DAILY #20 tab 07/14/21 tamsulosin 0.4 mg PO DAILY #30 cap 07/14/21 baclofen 20 mg PO 0800,1600 #0 tab 08/06/21 baclofen 40 mg PO HS #0 tab 08/06/21 gabapentin 100 mg PO 1200 #30 cap 08/06/21 gabapentin 300 mg PO BID #0 cap 08/06/21 linezolid 600 mg PO BID #14 tab 08/09/21 Allergies Allergy/AdvReac Type Severity Reaction Status Date / Time No Known Allergies Allergy Unverified 08/09/21 09:57 General Stated Complaint: AMS/LOC AIDA: 2 Review of Systems All systems reviewed & are unremarkable except as noted in HPI and below Constitutional Constitutional: Denies chills, Denies fever(s) and Denies weakness Cardiovascular Cardiovascular: Denies chest pain and Denies dyspnea Respiratory Respiratory: Denies cough and Denies dyspnea Gastrointestinal Gastrointestinal: Denies abdominal pain Musculoskeletal Musculoskeletal: Denies joint swelling Neurologic Neurologic: Denies weakness Psychiatric Psychiatric: Denies depression [facility] Active Problem List Palliative care patient (Acute) Encephalopathy (Acute) Hypernatremia (Acute) Incontinence (Chronic) Discharge planning issues (Acute) DVT prophylaxis (Acute) Microcytic anemia (Chronic) Multiple sclerosis (Chronic) Diabetes type 2, controlled (Chronic) Urinary incontinence (Chronic) Medical History Abnormal computed tomography angiography (CTA) of abdomen Abnormal CT of liver Anemia Bilateral cataracts Bilateral leg edema BPH (benign prostatic hyperplasia) Cervical radiculopathy Cervical spinal stenosis Cervicalgia Chewing tobacco nicotine dependence Chronic pain a. chronic opiate rx Clostridium difficile colitis Congenital ptosis of left eyelid Diabetic retinopathy Family hx of colon cancer GERD (gastroesophageal reflux disease) Hip pain, right Hyperkalemia Hyperlipidemia Ileus Lytic bone lesions on xray Lytic lesion of bone on x-ray Mediastinal adenopathy Neck pain A. 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 Chronic opiate Rx Optic nerve atrophy Optic neuritis a. legally blind Osteopenia Palliative care patient Pelvic lymphadenopathy Peripheral neuropathy Pituitary adenoma Renal insufficiency Rhabdomyolysis Right leg weakness Right shoulder pain Rotator cuff tear, right Sarcoidosis Spasticity Spinal stenosis Tendonitis of long head of biceps brachii of right shoulder Tobacco abuse a. Uses chewing tobacco Ulcer of calf Vision loss Vitamin D deficiency Surgical History H/O surgical procedure a. appendectomy b. 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 What is your relationship status?: Panel score (0-1 are the most socially isolated patients): 0 What type of physical activity do you participate in: weight lifting, wheelchair-bound and additional Details: PT Do you feel safe at home: Yes Do you feel safe in your relationship?: Yes Exam Const General: no acute distress Orientation: alert HENMT Head: normal to inspection Ears: external ears normal General nose exam: external nose normal Mouth: moist mucous membranes Eyes General: appearance normal, both eyes and all related structures Neck Neck: normal visual inspection Resp Effort & Inspection: normal respiratory effort and able to speak in complete sentences Cardio Rate: regular rate GI Palpation: soft and nontender Skin General skin exam: no rashes or lesions noted Neuro General: patient alert and patient oriented x3 Extrem General: normal to inspection Psych Mental Status: mental status grossly normal Course Vital Signs Vital signs: Vital Signs Temperature 36.0 C L 08/09/21 09:30 Pulse 102 H 08/09/21 09:30 Respiratory Rate 20 08/09/21 09:30 Blood Pressure 80/51 L 08/09/21 09:30 Pulse Oximetry 96 08/09/21 09:30 Temperature 36.0 C L 08/09/21 09:30 Temperature Source Temporal Artery Scan 08/09/21 09:30 Pulse 102 H 08/09/21 09:30 Respiratory Rate 20 08/09/21 09:30 Blood Pressure 80/51 L 08/09/21 09:30 Blood Pressure Position Supine 08/09/21 09:30 Pulse Oximetry 96 08/09/21 09:30 Oxygen Delivery Method Room Air 08/09/21 09:30 Oxygen Flow Rate 0 08/09/21 09:30 Pain Level 0 08/09/21 09:30 Lab/Test Results Lab/Test Results: 08/09/21 09:24 Blood Blood Culture - Pending 08/09/21 09:24 Blood Blood Culture - Pending
[2021-08-09] MEDS: Normal Saline 1,000 ML 1000 ML IV (09:57)
[2021-08-09 10:01] LABS: Abs Immature Grans 0.04 10^3/uL (0.0-0.06); Absolute Basophil Count 0.02 10^3/uL (0.0-0.2); Absolute Eosinophil Count 0.29 10^3/uL (0.0-0.7); Absolute Lymphocyte Count 2.41 10^3/uL (1.2-3.4); Absolute Monocyte Count 0.56 10^3/uL (0.1-0.8); Absolute Neutrophil Count 3.92 10^3/uL (1.2-6.7); Basophils % 0.3; HCT 34.7 % (40.0-50.0); HGB 11.4 g/dL (13.5-17.5); Immature Grans % 0.6; Lymphocytes % 33.3; MCH 27.7 pg (27.0-33.0); MCHC 32.9 % (32.0-36.0); MCV 84.4 fL (80-95); MPV 10.2 fL (8.0-11.0); Monocytes % 7.7; Neutrophils % 54.1; Nucleated RBC 0 %; Platelet Count 157 10^3/uL (130-400); RBC 4.11 10^6/uL (4.36-5.78); RDW 16.9 % (11.8-14.1); RDW-SD 51.4 fL; WBC 7.24 10^3/uL (4.4-10.8)
[2021-08-09 10:02] LABS: BE (Venous) -10 mmol/L (-2-3); HCO3 (Venous) 17 mmol/L (23-28); O2 Sat (Venous) 90 %; TCO2 (Venous) 16 mmol/L (24-29); pCO2 (Venous) 34 mmHg (41-51); pO2 (Venous) 60 mmHg
[2021-08-09 10:03] LABS: Lactate 1.3 mmol/L (0.6-1.4)
[2021-08-09 10:06] LABS: Source Nasal/Nares
[2021-08-09 10:16] LABS: Lipase 102 U/L (73-393)
[2021-08-09 10:21] LABS: Creatine Kinase 170 U/L (39-308)
[2021-08-09 10:39] LABS: ALT 14 U/L (16-63); AST 18 U/L (15-37); Albumin 3.8 g/dL (3.4-5.0); Alkaline Phosphatase 74 U/L (46-116); BUN 9 mg/dL (7-18); Bilirubin, Direct 0.2 mg/dL (0.0-0.2); Bilirubin, Total 0.6 mg/dL (0.2-1.0); CREATININE 1.5 mg/dL (0.70-1.30); Calcium 8.9 mg/dL (8.5-10.1); Chloride 107 mmol/L (98-107); Estimated GFR 48.07 (mL/min/1.73m2); Glucose 141 mg/dL (74-106); Magnesium 2.2 mg/dL (1.8-2.4); Potassium 3.4 mmol/L (3.5-5.1); Sodium 139 mmol/L (136-145); TSH (W/Ref FT4) 2.87 uIU/mL (0.36-3.74); Total Protein 7.3 g/dL (6.4-8.2)
[2021-08-09 10:45] LABS: COVID-19 PCR Negative (Negative)
[2021-08-09 10:47] LABS: Troponin I < 0.05 ng/mL (<0.06)
[2021-08-09 11:36] LABS: Bilirubin Negative (Negative); Blood Large (Negative); Clarity Sl Cloudy (Clear); Glucose Negative (Negative); Ketones Negative (Negative); Leukocyte Esterase Trace (Negative); Nitrite Negative (Negative); Specific Gravity >= 1.030 (1.005-1.025); Urobilinogen 0.2 EU/dL (Up TO 0.2); pH 5.5 (5-8)
[2021-08-09 11:44] LABS: Bacteria Many HPF (Negative); Crystals Negative HPF (Negative); Epithelial Cells Few HPF (Negative); RBC >50 HPF (0-2)
[2021-08-09 11:45] LABS: C & S Indicated? C&S Done As Ordered; Casts Negative LPF (Negative); Mucus Trace (Negative)
[2021-08-09] MEDS: Lidocaine 2% Jelly 6 ML SYR (12:46)
[2021-08-09] MEDS: Linezolid 600 MG TAB PO (13:13)
== END 2021-08-09 13:44 | disposition skilled nursing facility (03) ==
PROVIDERS: Emergency Provider Emergency Medicine; PCP Family Medicine
DX: N39.0 Urinary tract infection, site not specified (principal); R53.1 Weakness; R41.82 Altered mental status, unspecified; E11.319 Type 2 diabetes mellitus with unspecified diabetic retinopathy without macular edema
CPT/HCPCS: 36415; 36416; 51702; 80053; 82550; 82805; 82962; 83690; 87040; 87635; 93005; 96360; 96361; 99284; 81003; 81015; 82248; 83605; 83735; 84443; 84484; 85025; 87086; 93010

== ENCOUNTER 2021-08-10 04:20 | Inpatient (IN) | payer MEDICARE, MEDICAID, SELFPAY ==
[2021-08-10] VITALS (126 sets, daily range): BP systolic 61–149; BP diastolic 31–123; PULSE 66–163; RESP 4–44; TEMP 36.1–38.9; O2SAT 88–100
--- NOTE | 2021-08-10 04:14 | W.ED.GENAD ---
Discharge Plan Disposition Patient Disposition: [facility] INPATIENT Condition: Critical Discharge Details Clinical Impression: Sepsis, Urinary tract infection, Pseudoobstruction of colon, Pneumonia Primary Care Provider: Ale Barraza V ED Provider: Adrian Tompkins Home Meds and New Rx's Prescriptions: No Action lisinopril 2.5 mg tablet 2.5 mg PO DAILY RF: 0 folic acid 1 mg tablet 1 mg PO DAILY RF: 0 methotrexate (PF) 25 mg/0.4 mL auto-injector 25 mg subcut QWEEK RF: 0 clonazepam 1 mg tablet 1 mg PO QHS Qty: 30 RF: 3 alfuzosin 10 mg tablet extended release 24 hr 10 mg PO DAILY RF: 0 alendronate 70 MG tablet 70 mg PO WEEKLY RF: 0 ferrous gluconate [Ferate] 240 mg (27 mg iron) tablet 240 mg PO DAILY RF: 0 glipizide 10 mg tablet extended release 24hr 10 mg PO DAILY RF: 0 prednisone 5 mg tablet 5 mg PO DAILY RF: 0 cholecalciferol (vitamin D3) 25 mcg (1,000 unit) tablet 2,000 unit PO DAILY RF: 0 docusate sodium [Doc-Q-Lace] 100 MG capsule 100 mg PO TID RF: 0 aspirin [Aspirin Low-Strength] 81 MG tablet,chewable 81 mg PO DAILY RF: 0 atorvastatin [Lipitor] 40 MG tablet 40 mg PO QPM RF: 0 (DME) Prodigy No Coding 1 EACH strip 1 ea Sub-Q BID RF: 0 multivitamin [Daily Multi-Vitamin] 1 EACH tablet 1 tab PO DAILY RF: 0 metformin 850 mg tablet 850 mg PO BID RF: 0 polyethylene glycol 3350 17 gram Powder In Packet 17 g PO BID Qty: 100 RF: 0 potassium chloride [Klor-Con M20] 20 mEq Tablet,Er Particles/Crystals 40 meq PO DAILY Qty: 20 RF: 0 tamsulosin 0.4 mg Capsule 0.4 mg PO DAILY Qty: 30 RF: 0 ascorbic acid (vitamin C) [Vitamin C] 500 mg tablet 500 mg PO BID Qty: 60 RF: 0 sennosides [Senna Lax] 8.6 mg tablet 8.6 mg PO DAILY Qty: 20 RF: 0 baclofen 10 mg Tablet 40 mg PO HS Qty: 0 RF: 0 baclofen 10 mg Tablet 20 mg PO 0800,1600 Qty: 0 RF: 0 gabapentin 300 mg Capsule 300 mg PO BID Qty: 0 RF: 0 gabapentin 100 mg Capsule 100 mg PO 1200 Qty: 30 RF: 0 lactulose 20 gram/30 mL Solution 20 g PO BID RF: 0 omeprazole 40 mg capsule,delayed release(DR/EC) 40 mg PO DAILY RF: 0 linezolid 600 mg tablet 600 mg PO BID Qty: 14 RF: 0 Medical Decision Making This is a 60-year-old -F[place] male with a past medical history of type 2 diabetes, multiple sclerosis, adrenal insufficiency, pseudoobstruction of the colon, diabetes, chronic Marrero catheter use, who [facility] who presents today for evaluation of altered mental status. Upon review of notes the patient has had multiple recent admissions, he was just here in the emergency department earlier today. At that time he was diagnosed with a urinary tract infection. Patient declined hospitalization and wanted to go [facility] Patient was discharged home. This evening the patient was found at 3 in the morning to be tachycardic, tachypneic mildly hypoxic. EMS was called the patient was brought to the ER for further assessment. Currently the patient has no complaints at all, he states he just wants to sleep. He denies headache, chest pain, abdominal pain. He states that he feels fluid. No other complaints or modifying factors. Physical exam demonstrates fatigued patient, but otherwise is very clear that he has no acute distress. Lungs are clear. Abdomen is slightly distended but notably nontender. 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 Marrero catheter is in place. There is a small skin lesion on his left de leon, as well as 1 on his right thigh. The left de leon may certainly be infected. We will get an x-ray to evaluate for osteomyelitis. Get a chest x-ray and a abdominal series. He is currently tachycardic, febrile and tachypneic. He meets criterion for sepsis. Suspect urinary is a primary source. We will start broad-spectrum antibiotics with vancomycin, Zosyn, and doxycycline. Review of previous cultures for his urine revealed that it is staph aureus, quite resistant, but still susceptible to vancomycin. We will rehydrate, monitor closely and plan to admit. 6:20 AM Laboratory work-up is returned, he has a white count of 13, left shift, lactate is elevated at 2.3, pro calcitonin is elevated, creatinine has jumped notably to 3.5. Urinalysis shows no significant evidence of infection now, however it certainly did before. Chest x-ray shows concern for infiltrate. Tib-fib x-ray shows no evidence of significant lesion that I can appreciate. We are pending radiology read though. Broad-spectrum antibiotics have been started already. Discussed the case with the hospitalist , he agrees with the need for admission. Patient will be admitted to the ICU for further management. I have extensively reviewed the treatment plan with the patient. I have addressed all patient concerns at this time. I have also discussed the plan with the admitting physician and they agree with the current assessment and plan and have agreed to assume responsibility for the patient. All parties demonstrate verbal understanding and agreement with our assessment and plan at this time. The documentation in this chart was dictated using [employer] dictation software. Please excuse any dictation errors. HPI General Date/Time Provider Initiated Documentation: 08/10/21 05:00. HPI Narrative: This is a 60-year-old -Faroese male with a past medical history of type 2 diabetes, multiple sclerosis, adrenal insufficiency, pseudoobstruction of the colon, diabetes, chronic Marrero catheter use, who is currently a [facility] who presents today for evaluation of altered mental status. Upon review of notes the patient has had multiple recent admissions, he was just here in the emergency department earlier today. At that time he was diagnosed with a urinary tract infection. Patient declined hospitalization and wanted to go [facility] to [facility]. Patient was discharged home. This evening the patient was found at 3 in the morning to be tachycardic, tachypneic mildly hypoxic. EMS was called the patient was brought to the ER for further assessment. Currently the patient has no complaints at all, he states he just wants to sleep. He denies headache, chest pain, abdominal pain. He states that he feels fluid. No other complaints or modifying factors. Related Data Home Medications Medication Instructions Recorded Confirmed aspirin [Aspirin Low-Strength] 81 mg PO DAILY 11/23/13 08/10/21 docusate sodium [Doc-Q-Lace] 100 mg PO TID 11/23/13 08/10/21 atorvastatin [Lipitor] 40 mg PO QPM 06/14/14 08/10/21 Prodigy No Coding 04/23/16 11/30/21 multivitamin [Daily Multi-Vitamin] 1 tab PO DAILY 03/23/16 08/10/21 alendronate 70 mg PO WEEKLY 05/13/17 08/10/21 alfuzosin 10 mg tablet,extended 10 mg PO DAILY 12/10/18 08/10/21 release 24 hr ferrous gluconate 240 mg (27 mg 240 mg PO DAILY tab 12/23/18 08/10/21 iron) tablet glipizide 10 mg tablet, extended 10 mg PO DAILY 12/23/18 08/10/21 release 24 hr prednisone 5 mg tablet 5 mg PO DAILY 12/23/18 08/10/21 cholecalciferol (vitamin D3) 25 2,000 unit PO DAILY tab 12/21/19 08/10/21 mcg (1,000 unit) tablet clonazepam 1 mg tablet 1 mg PO QHS #30 tab 06/04/21 08/10/21 folic acid 1 mg tablet 1 mg PO DAILY 06/04/21 08/10/21 lisinopril 2.5 mg tablet 2.5 mg PO DAILY 06/04/21 08/10/21 methotrexate (PF) 25 mg/0.4 mL 25 mg SUBCUT QWEEK 06/04/21 08/10/21 subcutaneous auto-injector ascorbic acid (vitamin C) [Vitamin 500 mg PO BID #60 tab 07/14/21 08/10/21 C] polyethylene glycol 3350 17 g PO BID #100 ea 07/14/21 08/10/21 potassium chloride [Klor-Con M20] 40 meq PO DAILY #20 tab 07/14/21 08/10/21 sennosides [Senna Lax] 8.6 mg PO DAILY #20 tab 07/14/21 08/10/21 tamsulosin 0.4 mg PO DAILY #30 cap 07/14/21 08/10/21 metformin 850 mg PO BID 07/24/21 08/10/21 baclofen 20 mg PO 0800,1600 #0 tab 08/06/21 08/10/21 baclofen 40 mg PO HS #0 tab 08/06/21 08/10/21 gabapentin 100 mg PO 1200 #30 cap 08/06/21 08/10/21 gabapentin 300 mg PO BID #0 cap 08/06/21 08/10/21 lactulose 20 g PO BID 08/09/21 08/10/21 linezolid 600 mg PO BID #14 tab 08/09/21 08/10/21 omeprazole 40 mg PO DAILY 08/09/21 08/10/21 Previous Rx's Medication Instructions Recorded clonazepam 1 mg tablet 1 mg PO QHS #30 tab 06/04/21 ascorbic acid (vitamin C) [Vitamin 500 mg PO BID #60 tab 07/14/21 C] polyethylene glycol 3350 17 g PO BID #100 ea 07/14/21 potassium chloride [Klor-Con M20] 40 meq PO DAILY #20 tab 07/14/21 sennosides [Senna Lax] 8.6 mg PO DAILY #20 tab 07/14/21 tamsulosin 0.4 mg PO DAILY #30 cap 07/14/21 baclofen 20 mg PO 0800,1600 #0 tab 08/06/21 baclofen 40 mg PO HS #0 tab 08/06/21 gabapentin 100 mg PO 1200 #30 cap 08/06/21 gabapentin 300 mg PO BID #0 cap 08/06/21 linezolid 600 mg PO BID #14 tab 08/09/21 Allergies Allergy/AdvReac Type Severity Reaction Status Date / Time No Known Allergies Allergy Unverified 08/10/21 04:55 General AIDA: 2 Review of Systems All systems reviewed & are unremarkable except as noted in HPI and below PFSH All Active Problems (Updated 08/10/21 @ 06:23 by Adrian Tompikns DO) Sepsis (Acute) Pneumonia (Acute) Urinary tract infection (Acute) Pseudoobstruction of colon (Acute) Abdominal pain (Acute) Ileus (Acute) Weakness (Acute) Palliative care patient (Acute) Encephalopathy (Acute) Hypernatremia (Acute) Incontinence (Chronic) Discharge planning issues (Acute) DVT prophylaxis (Acute) Microcytic anemia (Chronic) Multiple sclerosis (Chronic) Diabetes type 2, controlled (Chronic) Urinary incontinence (Chronic) Medical History Abnormal computed tomography angiography (CTA) of abdomen Abnormal CT of liver Anemia Bilateral cataracts Bilateral leg edema BPH (benign prostatic hyperplasia) Cervical radiculopathy Cervical spinal stenosis Cervicalgia Chewing tobacco nicotine dependence Chronic pain a. chronic opiate rx Clostridium difficile colitis Congenital ptosis of left eyelid Diabetic retinopathy Family hx of colon cancer GERD (gastroesophageal reflux disease) Hip pain, right Hyperkalemia Hyperlipidemia Lytic bone lesions on xray Lytic lesion of bone on x-ray Mediastinal adenopathy Neck pain A. 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 Chronic opiate Rx Optic nerve atrophy Optic neuritis a. legally blind Osteopenia Palliative care patient Pelvic lymphadenopathy Peripheral neuropathy Pituitary adenoma Renal insufficiency Rhabdomyolysis Right leg weakness Right shoulder pain Rotator cuff tear, right Sarcoidosis Spasticity Spinal stenosis Tendonitis of long head of biceps brachii of right shoulder Tobacco abuse a. Uses chewing tobacco Ulcer of calf Vision loss Vitamin D deficiency Surgical History H/O surgical procedure a. appendectomy b. 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 What is your relationship status?: Panel score (0-1 are the most socially isolated patients): 0 What type of physical activity do you participate in: weight lifting, wheelchair-bound and additional Details: PT Do you feel safe at home: Yes Do you feel safe in your relationship?: Yes Exam Narrative Exam Narrative: 1.Const: Well-nourished, Well-developed, appearing stated age 2.Eyes: PERRL, no conjunctival injection, and symmetrical lids. 3.ENT: Atraumatic external nose and ears. Dry MM. Neck: Symmetric, trachea midline, No thyromegaly. Patient demonstrates good movement of cervical neck. There is no nuchal rigidity, no nuchal tenderness. Patient is able to flex the neck without any difficulty or significant pain. Negative Kernig's and Brudzinski sign. 4.CVS: +S1/S2, No murmurs or gallops. Peripheral pulses 2+ and equal in all extremities. Brisk capillary refill in all extremities. 5.RESP: Unlabored respiratory effort. Clear to auscultation bilaterally. No wheezes rales or rhonchi 6.GI: Soft, nontender, mildly distended. EMS at bedside states that this is his baseline as the submarine cable equipment technician has had multiple experiences with him in the past. 7.MSK: Normocephalic/Atraumatic, Extremities w/o deformity or ttp No cyanosis or clubbing, Normal movement of all extremities 8.Skin: Warm, Dry. No evidence of decubitus ulcer. The patient does have a small lesion on his left de leon, as well as his right side. 9.Neuro: experiential therapist II-XII grossly intact. Sensation grossly intact, no focal neurologic deficits. However he does appear notably fatigued. 10.Psych: (AAO) x3. Appropriate mood and affect Critical Care Time Critical Care Time Critical Care Time: Yes Total Critical Care Time: 45 Attestation: Upon my evaluation, this patient had a high probability of imminent or life-threatening deterioration, which required my direct attention, intervention, and personal management. I have personally provided 45 minutes of critical care time exclusive of time spent on separately billable procedures. Time includes review of laboratory data, radiology results, discussion with consultants, and monitoring for potential decompensation. Interventions were performed as documented.
--- NOTE | 2021-08-10 04:15 | DI.RAD_ITS ---
Exam(s) XR PORTABLE CHEST AP EXAM: XR PORTABLE CHEST AP CLINICAL HISTORY: fever, septic TECHNIQUE: 2D digital imaging was performed of the chest. One image was obtained. An AP view was ob tained. COMPARISON: CR,XR XR PORTABLE CHEST AP from 07/29/2021 FINDINGS: Examination is limited by poor inspiration. MEDIASTINUM: Normal. HEART: Normal. PULMONARY VASCULATURE: Normal. LUNGS: There is a question of an infiltrate in the left lung base medially. This is however compromi sed due to low lung volumes. There is crowding of the pulmonary vasculature. PLEURAL SPACE: No pleural effusion or pneumothorax. BONE:Within normal limits for the patient's age. OTHER FINDINGS:Normal. IMPRESSION: Question of a left basilar infiltrate. DATA REPOSITORY: RADIATION DOSE DELIVERED:
--- NOTE | 2021-08-10 04:30 | DI.RAD_ITS ---
Exam(s) XR TIB/FIB LT EXAM: XR TIB/FIB LT CLINICAL HISTORY: lesion at proximal anterior tibia, r/o osteo. TECHNIQUE: 2D digital imaging was performed of the left tibia and fibula. Images were obtained. A P and lateral views were obtained. COMPARISON: No exams were available for comparison FINDINGS: BONES: No acute fracture is present. No bony destructive lesion is seen. No blastic or lytic lesions are seen. No periosteal reaction is identified. Visualized portion of knee and ankle joints are un remarkable. SOFT TISSUE: Normal. IMPRESSION: No evidence of osteomyelitis. If there is continued concern, an MRI may be helpful for further evalu ation. DATA REPOSITORY: RADIATION DOSE DELIVERED:
--- NOTE | 2021-08-10 04:30 | DI.RAD_ITS ---
Exam(s) XR ABDOMEN FLAT UPRIGHT EXAM: 2D digital imaging was performed. CLINICAL HISTORY: abdominal distension. COMPARISON: CR,XR XR ABDOMEN FLAT UPRIGHT from 07/28/2021 TECHNIQUE: Supine and uprightSupine and Lateral views of the abdomen was performed. FINDINGS: LUNG BASES: Left basilar infiltrate. BOWEL GAS PATTERN: There are dilated loops of bowel present. It appears to represent both small and large bowel. FREE AIR: None. CALCIFICATIONS: No radiopaque calcifications. OSSEOUS STRUCTURES: Normal for age. OTHER FINDINGS: There is an overall increased opacity of the abdomen which can be seen with ascites. IMPRESSION: 1. Distended loops of small and large bowel suspicious for an ileus. A low bowel obstruction cannot be entirely excluded. CT scan may be considered for further evaluation. 2. Overall increased opacity of the abdomen which can be seen with ascites. DATA REPOSITORY: RADIATION DOSE DELIVERED:
[2021-08-10] MEDS: PIPERACILLIN/TAZO 4.5 GM in Normal Saline 100 ML IVPB (04:40)
[2021-08-10 04:52] LABS: Lactate 2.3 mmol/L (0.6-1.4)
[2021-08-10 04:54] LABS: Abs Immature Grans 0.11 10^3/uL (0.0-0.06); Absolute Basophil Count 0.04 10^3/uL (0.0-0.2); Absolute Eosinophil Count 0.23 10^3/uL (0.0-0.7); Absolute Lymphocyte Count 2.32 10^3/uL (1.2-3.4); Absolute Monocyte Count 0.31 10^3/uL (0.1-0.8); Absolute Neutrophil Count 9.97 10^3/uL (1.2-6.7); Basophils % 0.3; Eosinophils % 1.8; HCT 34.8 % (40.0-50.0); HGB 11.2 g/dL (13.5-17.5); Immature Grans % 0.8; Lymphocytes % 17.9; MCH 27.9 pg (27.0-33.0); MCHC 32.2 % (32.0-36.0); MCV 86.6 fL (80-95); MPV 10.9 fL (8.0-11.0); Monocytes % 2.4; Neutrophils % 76.8; Nucleated RBC 0 %; Platelet Count 172 10^3/uL (130-400); RBC 4.02 10^6/uL (4.36-5.78); RDW 16.7 % (11.8-14.1); RDW-SD 52.1 fL; WBC 12.98 10^3/uL (4.4-10.8)
[2021-08-10 04:55] LABS: Source Nasal/Nares
[2021-08-10] MEDS: Normal Saline 1,000 ML 1000 ML IV ×2 (04:56)
[2021-08-10] MEDS: DOXYCYCLINE 100 MG in Normal Saline 100 ML IVPB (04:57)
[2021-08-10 05:01] LABS: ALT 15 U/L (16-63); AST 21 U/L (15-37); Albumin 3.8 g/dL (3.4-5.0); Alkaline Phosphatase 77 U/L (46-116); Anion Gap 15.5 mmol/L (3-11); BUN 13 mg/dL (7-18); Bilirubin, Total 0.7 mg/dL (0.2-1.0); CO2 17.5 mmol/L (21.0-32.0); CREATININE 3.5 mg/dL (0.70-1.30); Calcium 8.5 mg/dL (8.5-10.1); Chloride 107 mmol/L (98-107); Estimated GFR 18.08 (mL/min/1.73m2); Glucose 144 mg/dL (74-106); Potassium 3.5 mmol/L (3.5-5.1); Sodium 140 mmol/L (136-145); Total Protein 7.2 g/dL (6.4-8.2)
[2021-08-10 05:18] LABS: Bilirubin Negative (Negative); Blood Large (Negative); Clarity Sl Cloudy (Clear); Glucose Negative (Negative); Ketones Negative (Negative); Leukocyte Esterase Negative (Negative); Nitrite Negative (Negative); Specific Gravity >= 1.030 (1.005-1.025); Urobilinogen 0.2 EU/dL (Up TO 0.2)
[2021-08-10 05:26] LABS: Bacteria Few HPF (Negative); C & S Indicated? No; Casts Negative LPF (Negative); Crystals Moderate Amorphous HPF (Negative); Epithelial Cells Few HPF (Negative); Mucus Negative (Negative); WBC Negative HPF (0-5)
[2021-08-10 05:34] LABS: COVID-19 PCR Negative (Negative)
[2021-08-10 05:50] LABS: Procalcitonin 0.9 ng/mL
--- NOTE | 2021-08-10 07:08 | DI.VRAD_ITS ---
PROCEDURE INFORMATION: Exam: XR Left Tibia and Fibula Exam date and time: 08/10/2021 4:41 AM Age: 60 years old Clinical indication: Other: Lesion at proximal anterior tibia, R/O osteo TECHNIQUE: Imaging protocol: XR Left tibia and fibula. Views: 2 views. COMPARISON: No relevant prior studies available. FINDINGS: Bones/joints: The left tibia and fibula maintain anatomic alignment at the knee and ankle joints. No acute fracture is identified. There are no blastic or bony destructive lesions. There is thickening of the tibial cortex associated with trabecular coarsening. No periosteal reaction. There are no areas of bone destruction. Soft tissues: There are no radiopaque foreign bodies. IMPRESSION: 1. Osteomyelitis would be difficult to exclude on this plain film examination; however, the findings are not typical of osteomyelitis as there is no periosteal reaction or bone destruction. 2. These findings are more suggestive of Paget's disease. However, if there is a known primary neoplasm or osteomyelitis is strongly suspected, MRI may be helpful for further characterization. Dictated and Authenticated by: Shahid Yo MD. Ordering:KENTON Campbell MD
--- NOTE | 2021-08-10 07:14 | DI.VRAD_ITS ---
PROCEDURE INFORMATION: Exam: XR Chest Exam date and time: 08/10/2021 4:30 AM Age: 60 years old Clinical indication: Other: Fever, septic TECHNIQUE: Imaging protocol: XR of the chest. Views: 1 view. COMPARISON: XR PORTABLE CHEST AP 07/29/2021 9:47 AM FINDINGS: Lungs: There is a poor inspiratory effort and crowding of the vascular markings. There is no evidence of focal pulmonary consolidation. Pleural spaces: No pleural effusion or pneumothorax. Heart/Mediastinum: Normal in size. Bones/joints: No acute fracture is identified. Gastrointestinal tract: Dilated loops of bowel and colon are present. IMPRESSION: Poor inspiratory effort and crowding of the vascular markings. Dictated and Authenticated by: Shahid Yo MD. Ordering:KENTON Campbell MD
[2021-08-10 07:15] LABS: NT-proBNP 120 pg/mL (<300)
--- NOTE | 2021-08-10 07:20 | DI.VRAD_ITS ---
PROCEDURE INFORMATION: Exam: XR Abdomen Exam date and time: 08/10/2021 4:32 AM Age: 60 years old Clinical indication: Other: Abdominal distension TECHNIQUE: Imaging protocol: XR of the abdomen. Views: 2 Views. Upright and supine views. COMPARISON: XR ABDOMEN FLAT PLATE 07/29/2021 9:54 AM FINDINGS: Lungs: There are mild bibasilar atelectatic changes. Diaphragm: The upright image centered on the hemidiaphragms shows no definite evidence of free air. Gastrointestinal tract: Mild dilatation of small bowel and colon suggests an abdominal ileus pattern. Intraperitoneal space: There is increased hazy opacity throughout the abdomen as may be seen in ascites. Bones/joints: Unremarkable for age. IMPRESSION: 1. An abdominal ileus pattern. 3. No evidence of free air. 2. A large amount of intra-abdominal and pelvic ascites is suspected. Abdominal ultrasound may be helpful for confirmation. Alternatively, CT scan can be used to evaluate for free air and ascites, if clinically indicated. Dictated and Authenticated by: Shahid Yo MD. Ordering:KENTON Campbell MD
[2021-08-10] MEDS: Lactated Ringers 500 ML IV (08:15)
--- NOTE | 2021-08-10 08:24 | HPE_ITS ---
Date of service: 08/10/21 Time of Service: 06:24 Assessment and Plan Assessment and plan (1) Sepsis: Status: Acute Assessment and plan: Source is unclear. CXR was poor quality but cannot r/o pneumonia. He did expectorate sputum that was thick and light yellow. Previous UTI appears to be treated. Skin source possible. Blood cultures pending. Cont Zosyn and Linezolid. Doxycycline initiated in ED and will continue. BP initially responded to fluid resuscitation, but may need pressor support. Admitted to the ICU (2) Pseudoobstruction of colon: Status: Acute Assessment and plan: Chronic. Cont current bowel regimen. (3) Palliative care patient: Status: Acute Assessment and plan: Palliative consulted to continue the discussion on his goals of care. He is overall continuing to decline but he has previously endorsed the desire to continue rehab efforts and treatment. (4) Adrenal insufficiency: Status: Resolved Assessment and plan: He is on prednisone 5mg daily, chronically. Add stress dose hydrocortisone IV given his septic, critically ill, state. (5) Multiple sclerosis: Status: Chronic Assessment and plan: Chronic. Watch for evidence of progression. (6) Diabetes type 2, controlled: Status: Chronic Assessment and plan: Will hold oral medications and initiate SS insulin correction dosing. May need to add basal insulin now he is off oral meds and is receiving IV steroid. Monitor Carb controlled diet; when safe to eat. Qualifiers: Diabetes mellitus complication status: without complication Diabetes mellitus retirement insulin use: unspecified research nutritionist insulin use status Qualified Code(s): E11.9 - Type 2 diabetes mellitus without complications (7) Urinary incontinence: Status: Chronic Assessment and plan: Cont ng catheter. (8) Urinary tract infection: Status: Acute Assessment and plan: Diagnosed at last admission and d/c'd on Linezolid for MRSA and enterococcus sensitive to LInezolid. Qualifiers: Hematuria presence: without hematuria Urinary tract infection type: acute cystitis Qualified Code(s): N30.00 - Acute cystitis without hematuria (9) Skin lesion of left lower extremity: Status: Acute Assessment and plan: No obvious cellulitis but could be portal of entry causing his current bacteremia / sepsis. Zosyn, doxycycline and Linezolid being administered. History of Present Illness History of Present Illness Chief Complaint: Altered mental status Narrative: Mr De is a 60 yo male, currently [facility]. He has a PMH of multiple sclerosis, DM2, adrenal insufficinecy, pseudo-obstruction of the colon, chronic indwelling gn. He had presented to [facility] ED in the evening of 08/09/21 and diagnosed with a UTI w/o evicence of sepsis. He desired to return to [facility] and ED provider felt outpt treatment was reasonable at that time. At appx 3AM on the day of admission he was found by staff to be confused, with some degree of tachycardia and tachypnea. He was foster back to the ED where he stated he just wanted to sleep. He did not voice any complaints but was noted to be confused and lethargic. His physical exam was unremarkable; his baseline abd distension was noted. He was tachycardic, febrile and tachypneic. Initial systolic BP of 100, then decreased to the 70-90's range. IV NS boluses x 2000L administered with improvement in BP. His RA oxygen saturations fluctuated during my evaluation that appeared to be due to intermittently poor readings from finger probe monitor. He did have some thick, slightly yellow sputum that he had coughed up onto his chest; noted when I first went into the room to evaluate him. UA showed large blood, 10-20 RBCs, No WBCs or bacteria. Nitritie and Leukocyte esterase neg. CXR showed poor inspiratory effort with crowded lungs. WBC count of 13 with a left shift. Lactate 2.3. Procalcitonin elevated at 0.9. Zosyn, IV VAncomycin and doxycycline administered. He had been on Linezolid orally since recent d/c for a UTI; culture grew MRSA and enterococcus. Admitted to the ICU for sepsis. Review of Systems Unobtainable due to mental condition [facility] All Active Problems (Updated 08/10/21 @ 08:49 by Abraham Alcantar MD) Skin lesion of left lower extremity (Acute) Sepsis (Acute) Pneumonia (Acute) Urinary tract infection (Acute) Pseudoobstruction of colon (Acute) Abdominal pain (Acute) Ileus (Acute) Weakness (Acute) Palliative care patient (Acute) Encephalopathy (Acute) Hypernatremia (Acute) Incontinence (Chronic) Discharge planning issues (Acute) DVT prophylaxis (Acute) Microcytic anemia (Chronic) Multiple sclerosis (Chronic) Diabetes type 2, controlled (Chronic) Urinary incontinence (Chronic) Medical History Abnormal computed tomography angiography (CTA) of abdomen Abnormal CT of liver Anemia Bilateral cataracts Bilateral leg edema BPH (benign prostatic hyperplasia) Cervical radiculopathy Cervical spinal stenosis Cervicalgia Chewing tobacco nicotine dependence Chronic pain a. chronic opiate rx Clostridium difficile colitis Congenital ptosis of left eyelid Diabetic retinopathy Family hx of colon cancer GERD (gastroesophageal reflux disease) Hip pain, right Hyperkalemia Hyperlipidemia Lytic bone lesions on xray Lytic lesion of bone on x-ray Mediastinal adenopathy Neck pain A. 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 Chronic opiate Rx Optic nerve atrophy Optic neuritis a. legally blind Osteopenia Palliative care patient Pelvic lymphadenopathy Peripheral neuropathy Pituitary adenoma Renal insufficiency Rhabdomyolysis Right leg weakness Right shoulder pain Rotator cuff tear, right Sarcoidosis Spasticity Spinal stenosis Tendonitis of long head of biceps brachii of right shoulder Tobacco abuse a. Uses chewing tobacco Ulcer of calf Vision loss Vitamin D deficiency Surgical History H/O surgical procedure a. appendectomy b. 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 What is your relationship status?: Panel score (0-1 are the most socially isolated patients): 0 What type of physical activity do you participate in: weight lifting, wheelchair-bound and additional Details: PT Do you feel safe at home: Yes Do you feel safe in your relationship?: Yes Meds Allergies and Home Medications Allergies Allergy/AdvReac Type Severity Reaction Status Date / Time No Known Allergies Allergy Unverified 08/10/21 04:55 Home Medications Medication Instructions Recorded Confirmed Type aspirin [Aspirin Low-Strength] 81 mg PO DAILY 11/23/13 08/10/21 History docusate sodium [Doc-Q-Lace] 100 mg PO TID 11/23/13 08/10/21 History atorvastatin [Lipitor] 40 mg PO QPM 06/14/14 08/10/21 History Prodigy No Coding 12/23/15 07/31/21 History multivitamin [Daily Multi-Vitamin] 1 tab PO DAILY 03/23/16 08/10/21 History alendronate 70 mg PO WEEKLY 05/13/17 08/10/21 History alfuzosin 10 mg tablet,extended 10 mg PO DAILY 12/10/18 08/10/21 History release 24 hr ferrous gluconate 240 mg (27 mg 240 mg PO DAILY tab 12/23/18 08/10/21 History iron) tablet glipizide 10 mg tablet, extended 10 mg PO DAILY 12/23/18 08/10/21 History release 24 hr prednisone 5 mg tablet 5 mg PO DAILY 12/23/18 08/10/21 History cholecalciferol (vitamin D3) 25 2,000 unit PO DAILY tab 12/21/19 08/10/21 History mcg (1,000 unit) tablet clonazepam 1 mg tablet 1 mg PO QHS #30 tab 06/04/21 08/10/21 Rx folic acid 1 mg tablet 1 mg PO DAILY 06/04/21 08/10/21 History lisinopril 2.5 mg tablet 2.5 mg PO DAILY 06/04/21 08/10/21 History methotrexate (PF) 25 mg/0.4 mL 25 mg SUBCUT QWEEK 06/04/21 08/10/21 History subcutaneous auto-injector ascorbic acid (vitamin C) [Vitamin 500 mg PO BID #60 tab 07/14/21 08/10/21 Rx C] polyethylene glycol 3350 17 g PO BID #100 ea 07/14/21 08/10/21 Rx potassium chloride [Klor-Con M20] 40 meq PO DAILY #20 tab 07/14/21 08/10/21 Rx sennosides [Senna Lax] 8.6 mg PO DAILY #20 tab 07/14/21 08/10/21 Rx tamsulosin 0.4 mg PO DAILY #30 cap 07/14/21 08/10/21 Rx metformin 850 mg PO BID 07/24/21 08/10/21 History baclofen 20 mg PO 0800,1600 #0 tab 08/06/21 08/10/21 Rx baclofen 40 mg PO HS #0 tab 08/06/21 08/10/21 Rx gabapentin 100 mg PO 1200 #30 cap 08/06/21 08/10/21 Rx gabapentin 300 mg PO BID #0 cap 08/06/21 08/10/21 Rx lactulose 20 g PO BID 08/09/21 08/10/21 History linezolid 600 mg PO BID #14 tab 08/09/21 08/10/21 Rx omeprazole 40 mg PO DAILY 08/09/21 08/10/21 History Exam Narrative Exam Narrative: Patient evaluated in the ED. He was lying in a slightly inclined position. He was arousable to verbal stimuli. Stated he was at home. Const General: ill appearing and lethargic Nutritional Appearance: overweight Orientation: confused HENMT Head: normocephalic Ears: hearing grossly normal bilaterally Eyes General: appearance normal, both eyes and all related structures Sclera: sclerae normal Neck Neck: no JVD Resp Effort & Inspection: normal respiratory effort Auscultation: clear to auscultation bilaterally and diminished lung sounds Cardio Rate: tachycardic Rhythm: regular rhythm Heart Sounds: S1 normal and S2 normal GI Inspection: distended Palpation: nontender Skin Full body images: 1. de leon lesion with bandage in place. No erythema/purulent drainage. Results Labs Result diagrams: 08/10/21 04:35 08/10/21 04:35 Labs: Laboratory Results - last 24 hr 08/10/21 08/10/21 08/10/21 04:35 04:35 04:35 WBC 12.98 H D RBC 4.02 L Hgb 11.2 L Hct 34.8 L MCV 86.6 MCH 27.9 MCHC 32.2 RDW 16.7 H Plt Count 172 MPV 10.9 Immature Gran % 0.8 Neutrophils % 76.8 Lymphocytes % 17.9 Monocytes % 2.4 Eosinophils % 1.8 Basophils % 0.3 Nucleated RBC % 0 Absolute Neutrophils 9.97 H Absolute Lymphocytes 2.32 Absolute Monocytes 0.31 Absolute Eosinophils 0.23 Absolute Basophils 0.04 VBG Lactate 2.3 H* Sodium 140 Potassium 3.5 Chloride 107 Carbon Dioxide 17.5 L Anion Gap 15.5 H BUN 13 Creatinine 3.5 H D Estimated GFR/1.73 m2 18.08 Glucose 144 H Calcium 8.5 Total Bilirubin 0.7 AST 21 ALT 15 L Alkaline Phosphatase 77 NT-Pro-B Natriuret Pep 120 Total Protein 7.2 Albumin 3.8 Procalcitonin Urine Color Urine Clarity Urine pH Ur Specific [place] Urine Protein Urine Ketones Urine Blood Urine Nitrite Urine Bilirubin Urine Urobilinogen Ur Leukocyte Esterase Urine RBC Urine WBC Ur Epithelial Cells Urine Crystals Urine Bacteria Urine Casts Urine Mucus Ur Culture Indicated? Urine Glucose COVID-19 Source SARS-CoV-2 (PCR) 08/10/21 08/10/21 08/10/21 04:35 04:45 04:53 WBC RBC Hgb Hct MCV MCH MCHC RDW Plt Count MPV Immature Gran % Neutrophils % Lymphocytes % Monocytes % Eosinophils % Basophils % Nucleated RBC % Absolute Neutrophils Absolute Lymphocytes Absolute Monocytes Absolute Eosinophils Absolute Basophils VBG Lactate Sodium Potassium Chloride Carbon Dioxide Anion Gap BUN Creatinine Estimated GFR/1.73 m2 Glucose Calcium Total Bilirubin AST ALT Alkaline Phosphatase NT-Pro-B Natriuret Pep Total Protein Albumin Procalcitonin 0.9 Urine Color Yellow Urine Clarity Sl Cloudy Urine pH 6.0 Ur Specific [place] >= 1.030 H Urine Protein >=300 H Urine Ketones Negative Urine Blood Large H Urine Nitrite Negative Urine Bilirubin Negative Urine Urobilinogen 0.2 Ur Leukocyte Esterase Negative Urine RBC 10-20 H Urine WBC Negative Ur Epithelial Cells Few Urine Crystals Moderate Amorphous Urine Bacteria Few Urine Casts Negative Urine Mucus Negative Ur Culture Indicated? No Urine Glucose Negative COVID-19 Source Nasal/Nares SARS-CoV-2 (PCR) Negative Last Vital Signs Temp 38.9 C H 08/10/21 04:22 Pulse 105 H 08/10/21 07:51 Resp 28 H 08/10/21 07:51 BP 82/44 L 08/10/21 07:51 Pulse Ox 96 08/10/21 07:51
--- NOTE | 2021-08-10 08:36 | PDOC.CMIN ---
- If Service Date Differs Date of service: 08/10/21 Time of Service: 08:36 Care Management Initial Assess REASON FOR HOSPITALIZATION:: UTI, Sepsis PAST MEDICAL HISTORY/PAST SURGICAL HISTORY:: Hypernatremia (Acute). Altered mental status (Acute). Incontinence (Acute). Discharge planning issues (Acute). DVT prophylaxis (Acute). Microcytic anemia (Chronic). Multiple sclerosis (Chronic). Diabetes type 2, controlled (Chronic). Urinary incontinence (Chronic). Abnormal computed tomography angiography (CTA) of abdomen. Abnormal CT of liver. Anemia. Bilateral cataracts. Bilateral leg edema. BPH (benign prostatic hyperplasia). Cervical radiculopathy. Cervical spinal stenosis. Cervicalgia. Chewing tobacco nicotine dependence. Chronic pain. a. chronic opiate rx. Clostridium difficile colitis. Congenital ptosis of left eyelid. Diabetic retinopathy. Family hx of colon cancer. GERD (gastroesophageal reflux disease). Hip pain, right. Hyperkalemia. Hyperlipidemia. Ileus. Lytic bone lesions on xray. Lytic lesion of bone on x-ray. Mediastinal adenopathy. Neck pain. A. 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 b. Chronic opiate Rx. Optic nerve atrophy. Optic neuritis. a. legally blind. Osteopenia. Pelvic lymphadenopathy. Peripheral neuropathy. Pituitary adenoma. Renal insufficiency. Rhabdomyolysis. Right leg weakness. Right shoulder pain. Rotator cuff tear, right. Sarcoidosis. Spasticity. Spinal stenosis. Tendonitis of long head of biceps brachii of right shoulder. Tobacco abuse. a. Uses chewing tobacco. Ulcer of calf. Vision loss. Vitamin D deficiency PREVIOUS FUNCTIONAL STATUS/SOCIAL/FAMILY SUPPORTS:: Bryan is currently at [facility] for a short rehab stay. He normally resides alone in [place], [place] in a handicap accessible apartment. 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. Home health aide helps with cleaning and meal prep. He has a son, Bryan MCCURDY who resides locally and a father, Bryan Abraham who is a Reverend in [place] and keeps in good contact with Bryan. CURRENT FUNCTIONAL STATUS:: Bryan remains in the ICU at this time, CM attempted to call Bryan MCCURDY Robel number in the chart was not active. ADVANCE DIRECTIVES:: On file at [facility]: Bryan De III as agent, others include Cal Mock and Reverend Bryan De Sr. Has patient been provided with info about the portal/API?: Yes Did the patient sign up for the portal?: No CODE STATUS:: Full Code INSURANCE COVERAGE / FINANCIAL ISSUES:: Medicaid. Medicare. Choices for Care: LT Medicaid CURRENT HOME/COMMUNITY SERVICES/EQUIPMENT:: Current SNF. In community/at home: Grab bars, hand rails, wheel chair, hospital bed, glucometer, Homemaker; [facility]: RAMIREZ Villanueva. Bryan has met with Dr. Hayes in the past for Palliative Care. Disability income. [facility] W/[facility] Van for appointments. PRIMARY CARE PHYSICIAN:: Ale Barraza POTENTIAL DISCHARGE NEEDS:: Discussion around increased services; coordination of support. Follow up appointment with PCP. PATIENT/FAMILY EDUCATION NEEDS:: Review of discharge instructions, discuss Ask Me Three to ensure patient understanding of reason for hospitalization and self care needs upon discharge. ANTICIPATED BARRIERS TO DISCHARGE:: None identified at this time. TRANSPORTATION:: [facility] PLAN:: Anticipate Bryan will discharge back to [facility] when ready per MD via the facility's W/C van.
[2021-08-10] MEDS: Hydrocortisone SOD SUC. 100 MG VIAL IVP (09:08)
[2021-08-10] MEDS: Furosemide 20 MG/2 ML VIAL IVP (09:50)
[2021-08-10] MEDS: Albuterol 2.5 MG/3 ML INH SOLN VIAL UPD ×2 (09:50→14:42)
[2021-08-10] MEDS: Heparin 5,000 UNITS/ML VIAL 5000 UNITS SC (10:41)
--- NOTE | 2021-08-10 11:15 | DI.CT_ITS ---
Exam(s) CT ABDOMEN PELVIS WO EXAM: CT ABDOMEN PELVIS WO CLINICAL HISTORY: ?SBO. TECHNIQUE: Imaging Protocol: Axial computed tomography images with coronal and sagittal reformatted images were created and reviewed. COMPARISON: CT CT ABDOMEN PELVIS W from 07/11/2021 FINDINGS: The examination is limited due to patient motion artifact. ABDOMEN: Lung Bases: The esophagus appears mildly distended and fluid-filled. There are bilateral dependent i nfiltrates present. These likely reflect atelectasis. Pneumonia/aspiration cannot be excluded. Liver: There is fatty infiltration of the liver. No measurable mass. Gallbladder and biliary tract: No radiodense calculus or biliary ductal dilation. Pancreas: Normal density, no abnormal calcifications or inflammatory process. Spleen: Normal. Kidneys: There is left renal cortical scarring. There is a decreased size of the left kidney. The r ight kidney is grossly unremarkable.No radiodense stones or obstructive uropathy. No masses seen. Adrenal glands: No mass is seen. Lymph nodes: Within normal limits. Abdominal Aorta: Abdominal portion non-dilated. Atherosclerosis. PELVIS: Bladder:There is a Marrero catheter in the urinary bladder which is decompressed. Air is seen within t he urinary bladder likely reflecting the instrumentation. Bowel: There is dilatation of small and large bowel loops without definite transition. No evidence o f appendicitis. No evidence of pneumatosis or bowel wall thickening. Peritoneal cavity: No ascites, collection or mesenteric inflammatory response. No free air. Reproductive organs: Within normal limits. Bones: Within normal limits. Soft Tissues: Bilateral fat containing inguinal hernia. IMPRESSION: 1. Distended loops of small and large bowel without definite transition. The findings are most suspi cious for an adynamic ileus. 2. Bilateral dependent infiltrates in the lungs. Fluid is seen within the mildly distended esophagus . Aspiration/pneumonia should be considered. Atelectasis cannot be excluded. 3. Hepatic steatosis. RADIATION DOSE DELIVERED: 1,061.58mGy.cm Total DLP DATA REPOSITORY: All CT scans at this facility are submitted to the National Radiology Data Registry (NRDR) Dose Index Registry (DIR) with the [employer] (A[employer]). RADIATION OPTIMIZATION: All CT scans at this facility use at least one of these dose optimization te chniques: automated exposure control; mA and/or kV adjustment per patient size (includes targeted exa ms where dose is matched to clinical indication); or iterative reconstruction.
--- NOTE | 2021-08-10 11:24 | W.SURGCON ---
Date of service: 08/10/21 Time of Service: 11:24 Assessment and Plan Assessment and plan (1) Pseudoobstruction of colon: Status: Chronic Assessment and plan: -2/2 polypharmacy vs MS or combined effect -CT scan reviewed, no acute surgical pathology -Recommend trial of IV Reglan 10mg q6 -No NG tube unless emesis/persistent nausea -AM Abdominal x-ray ordered (2) Pneumonia: Status: Acute Qualifiers: Pneumonia type: due to unspecified organism Laterality: bilateral Lung location: lower lobe of lung Qualified Code(s): J18.9 - Pneumonia, unspecified organism (3) Skin lesion of left lower extremity: Status: Acute (4) Septic shock: Status: Acute (5) Acute adrenal insufficiency: Status: Acute (6) AMALIA (acute kidney injury): Status: Acute (7) Lactic acidosis: Status: Acute (8) Palliative care patient: Status: Acute History of Present Illness Narrative: 60 year old male well known to the surgical service secondary to chronic pseudoobstruction secondary to neurogenic bowel who came into the ER overnight with altered mental status. Due to his abdominal distention and altered mental status there was concern for intra-abdominal pathology which was why I was consulted. Patient underwent an abdominal x-ray yesterday and CT scan today revealing a gaseous distended colon and dilated fluid-filed loops of small bowel. He does not appear to have any acute intraabdominal surgical pathology per my review. He was most recently admitted 3 weeks ago for similar symptomatology and recovered after trial of Reglan. He has not been vomiting but does appear distended, similar to previous visits. He had a large liquid BM today and improvement in mental status while family visited. Consults Consult date: 08/10/21 Requesting physician: Taryn Wright Review of Systems Unobtainable due to mental status ON LICENSE OF [facility] All Active Problems (Updated 08/10/21 @ 20:23 by Aurora Terry DO) Lactic acidosis (Acute) AMALIA (acute kidney injury) (Acute) Distended abdomen (Acute) Toxic metabolic encephalopathy (Acute) Acute adrenal insufficiency (Acute) Septic shock (Acute) Skin lesion of left lower extremity (Acute) Sepsis (Acute) Pneumonia (Acute) Urinary tract infection (Acute) Pseudoobstruction of colon (Chronic) Abdominal pain (Acute) Ileus (Acute) Weakness (Acute) Palliative care patient (Acute) Encephalopathy (Acute) Hypernatremia (Acute) Incontinence (Chronic) Discharge planning issues (Acute) DVT prophylaxis (Acute) Microcytic anemia (Chronic) Multiple sclerosis (Chronic) Diabetes type 2, controlled (Chronic) Urinary incontinence (Chronic) Medical History Abnormal computed tomography angiography (CTA) of abdomen Abnormal CT of liver Anemia Bilateral cataracts Bilateral leg edema BPH (benign prostatic hyperplasia) Cervical radiculopathy Cervical spinal stenosis Cervicalgia Chewing tobacco nicotine dependence Chronic pain a. chronic opiate rx Clostridium difficile colitis Congenital ptosis of left eyelid Diabetic retinopathy Family hx of colon cancer GERD (gastroesophageal reflux disease) Hip pain, right Hyperkalemia Hyperlipidemia Lytic bone lesions on xray Lytic lesion of bone on x-ray Mediastinal adenopathy Neck pain A. 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 Chronic opiate Rx Optic nerve atrophy Optic neuritis a. legally blind Osteopenia Palliative care patient Pelvic lymphadenopathy Peripheral neuropathy Pituitary adenoma Renal insufficiency Rhabdomyolysis Right leg weakness Right shoulder pain Rotator cuff tear, right Sarcoidosis Spasticity Spinal stenosis Tendonitis of long head of biceps brachii of right shoulder Tobacco abuse a. Uses chewing tobacco Ulcer of calf Vision loss Vitamin D deficiency Surgical History H/O surgical procedure a. appendectomy b. 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 What is your relationship status?: Panel score (0-1 are the most socially isolated patients): 0 What type of physical activity do you participate in: weight lifting, wheelchair-bound and additional Details: PT Do you feel safe at home: Yes Do you feel safe in your relationship?: Yes Exam Const General: comfortable and no acute distress Resp Effort & Inspection: normal respiratory effort, no cough, no grunting, not labored and no respiratory distress Cardio Rate: regular rate Rhythm: regular rhythm GI Inspection: distended and obesity Palpation: soft, not firm, no guarding, not rigid and nontender Percussion: tympanic to percussion General: other (ng ) Neuro General: patient obtunded Cognition: abnormal cognition Speech: abnormal speech Results Last Vital Signs Temp 102.0 F H 08/10/21 04:22 Pulse 98 H 08/10/21 10:15 Resp 18 08/10/21 10:20 BP 89/52 L 08/10/21 10:15 Pulse Ox 97 08/10/21 10:20 Labs Result diagrams: 08/10/21 04:35 08/10/21 04:35 Labs: Laboratory Results - last 24 hr 08/10/21 08/10/21 08/10/21 04:35 04:35 04:35 WBC 12.98 H D RBC 4.02 L Hgb 11.2 L Hct 34.8 L MCV 86.6 MCH 27.9 MCHC 32.2 RDW 16.7 H Plt Count 172 MPV 10.9 Immature Gran % 0.8 Neutrophils % 76.8 Lymphocytes % 17.9 Monocytes % 2.4 Eosinophils % 1.8 Basophils % 0.3 Nucleated RBC % 0 Absolute Neutrophils 9.97 H Absolute Lymphocytes 2.32 Absolute Monocytes 0.31 Absolute Eosinophils 0.23 Absolute Basophils 0.04 VBG Lactate 2.3 H* Sodium 140 Potassium 3.5 Chloride 107 Carbon Dioxide 17.5 L Anion Gap 15.5 H BUN 13 Creatinine 3.5 H D Estimated GFR/1.73 m2 18.08 Glucose 144 H Calcium 8.5 Total Bilirubin 0.7 AST 21 ALT 15 L Alkaline Phosphatase 77 NT-Pro-B Natriuret Pep 120 Total Protein 7.2 Albumin 3.8 Procalcitonin Urine Color Urine Clarity Urine pH Ur Specific [place] Urine Protein Urine Ketones Urine Blood Urine Nitrite Urine Bilirubin Urine Urobilinogen Ur Leukocyte Esterase Urine RBC Urine WBC Ur Epithelial Cells Urine Crystals Urine Bacteria Urine Casts Urine Mucus Ur Culture Indicated? Urine Glucose COVID-19 Source SARS-CoV-2 (PCR) 08/10/21 08/10/21 08/10/21 04:35 04:45 04:53 WBC RBC Hgb Hct MCV MCH MCHC RDW Plt Count MPV Immature Gran % Neutrophils % Lymphocytes % Monocytes % Eosinophils % Basophils % Nucleated RBC % Absolute Neutrophils Absolute Lymphocytes Absolute Monocytes Absolute Eosinophils Absolute Basophils VBG Lactate Sodium Potassium Chloride Carbon Dioxide Anion Gap BUN Creatinine Estimated GFR/1.73 m2 Glucose Calcium Total Bilirubin AST ALT Alkaline Phosphatase NT-Pro-B Natriuret Pep Total Protein Albumin Procalcitonin 0.9 Urine Color Yellow Urine Clarity Sl Cloudy Urine pH 6.0 Ur Specific [place] >= 1.030 H Urine Protein >=300 H Urine Ketones Negative Urine Blood Large H Urine Nitrite Negative Urine Bilirubin Negative Urine Urobilinogen 0.2 Ur Leukocyte Esterase Negative Urine RBC 10-20 H Urine WBC Negative Ur Epithelial Cells Few Urine Crystals Moderate Amorphous Urine Bacteria Few Urine Casts Negative Urine Mucus Negative Ur Culture Indicated? No Urine Glucose Negative COVID-19 Source Nasal/Nares SARS-CoV-2 (PCR) Negative
--- NOTE | 2021-08-10 11:24 | W.PM.PROGNOT ---
Date of Service Date of service: 08/10/21 Time of Service: 11:24 Assessment and Plan Assessment and plan (1) Septic shock: Status: Acute Assessment and plan: With aneuric AMALIA and toxic metabolic encephalopathy. Source is not 100% clear at this time, but clinically respiratory and intraabdominal sources seem likely, and skin wounds could also be a portal of entry. UA not c/w UTI. Continue linezolid/zosyn, vasopressors, stress dose steroids. Not tolerating IVF. Await CT abdomen. Surgery is consulted for both the abdomen and possible CVL placement. Await blood and respiratory cultures. Consult palliative care. The patient is DNR based on the last note by Palliative care. (2) Acute adrenal insufficiency: Status: Acute Assessment and plan: Provide stress dose steroids. (3) Distended abdomen: Status: Acute Assessment and plan: Concern for bowel obstruction. The patient does have baseline neurogenic bowel with chronic distention, but it is unclear at this time if this looks worse than baseline. Await CT read and surgical consult. NPO. Hold heparin in case surgical intervention is needed. (4) Pneumonia: Status: Acute Assessment and plan: As above (5) AMALIA (acute kidney injury): Status: Acute Assessment and plan: Aneuric, and we are ensuring that the ng catheter is patent. Provide vasopressor support and antibiotics as above. Monitor intake/output, Cr, daily weights. No response to lasix (20 mg IV) or IVF (2.25 L since admission). (6) Toxic metabolic encephalopathy: Status: Acute Assessment and plan: due to sepsis. hold all sedating meds. Treat infection (7) Pseudoobstruction of colon: Status: Chronic Assessment and plan: Seen on prior imaging. Comparing current pictures to prior (8) Multiple sclerosis: Status: Chronic Assessment and plan: With neurogenic bowel/bladder. (9) Lactic acidosis: Status: Acute Assessment and plan: In setting of septic shock. Continue to trend (10) DVT prophylaxis: Status: Acute Assessment and plan: SC heparin on hold due to possible need for operative intervention (11) Discharge planning issues: Status: Acute Assessment and plan: DNR based on last palliative care note. Keep in ICU. Total Critical Care Time 60 minutes. Subjective Subjective Interval history since last seen: The patient is lethargic and hypotensive in the ICU. He is not following my commands. He does wake up to painful stimuli and nods when I tell him information, but cannot tell me where he is. He shook his head no when I asked him about pain in his abdomen. He has been initiated on levophed peripherally and stress dose steroids. Nursing noted that he became wheezy and developed rales after a bolus of 250 cc of fluids this am. He required initiation of supplemental oxygen (2.5 L). For this, he was given lasix and an albuterol neb with symptom improvement. Exam Narrative Exam Narrative: General: Middle-Aged male who is lethargic, arousable, not answering questions verbally but shakes his head no and nods to questions HEENT: Eyes closed, dry MM Heart: RRR, no m/r/g Lungs: upper airway wheezing, distended abdomen not permitting adequate expansion of the lungs Abdomen: very distended bowel, firm, nontender (patient not grimacing), hyperactive bowel sounds Extremities: no edema BLE's; lower RLE dressed, dressings on wounds R medial thigh and below L knee Objective Last Vital Signs Temp 38.9 C H 08/10/21 04:22 Pulse 98 H 08/10/21 10:15 Resp 18 08/10/21 10:20 BP 89/52 L 08/10/21 10:15 Pulse Ox 97 08/10/21 10:20 Laboratory Results - last 24 hr 08/10/21 08/10/21 08/10/21 04:35 04:35 04:35 WBC 12.98 H D RBC 4.02 L Hgb 11.2 L Hct 34.8 L MCV 86.6 MCH 27.9 MCHC 32.2 RDW 16.7 H Plt Count 172 MPV 10.9 Immature Gran % 0.8 Neutrophils % 76.8 Lymphocytes % 17.9 Monocytes % 2.4 Eosinophils % 1.8 Basophils % 0.3 Nucleated RBC % 0 Absolute Neutrophils 9.97 H Absolute Lymphocytes 2.32 Absolute Monocytes 0.31 Absolute Eosinophils 0.23 Absolute Basophils 0.04 VBG Lactate 2.3 H* Sodium 140 Potassium 3.5 Chloride 107 Carbon Dioxide 17.5 L Anion Gap 15.5 H BUN 13 Creatinine 3.5 H D Estimated GFR/1.73 m2 18.08 Glucose 144 H Calcium 8.5 Total Bilirubin 0.7 AST 21 ALT 15 L Alkaline Phosphatase 77 NT-Pro-B Natriuret Pep 120 Total Protein 7.2 Albumin 3.8 Procalcitonin Urine Color Urine Clarity Urine pH Ur Specific [place] Urine Protein Urine Ketones Urine Blood Urine Nitrite Urine Bilirubin Urine Urobilinogen Ur Leukocyte Esterase Urine RBC Urine WBC Ur Epithelial Cells Urine Crystals Urine Bacteria Urine Casts Urine Mucus Ur Culture Indicated? Urine Glucose COVID-19 Source SARS-CoV-2 (PCR) 08/10/21 08/10/21 08/10/21 04:35 04:45 04:53 WBC RBC Hgb Hct MCV MCH MCHC RDW Plt Count MPV Immature Gran % Neutrophils % Lymphocytes % Monocytes % Eosinophils % Basophils % Nucleated RBC % Absolute Neutrophils Absolute Lymphocytes Absolute Monocytes Absolute Eosinophils Absolute Basophils VBG Lactate Sodium Potassium Chloride Carbon Dioxide Anion Gap BUN Creatinine Estimated GFR/1.73 m2 Glucose Calcium Total Bilirubin AST ALT Alkaline Phosphatase NT-Pro-B Natriuret Pep Total Protein Albumin Procalcitonin 0.9 Urine Color Yellow Urine Clarity Sl Cloudy Urine pH 6.0 Ur Specific [place] >= 1.030 H Urine Protein >=300 H Urine Ketones Negative Urine Blood Large H Urine Nitrite Negative Urine Bilirubin Negative Urine Urobilinogen 0.2 Ur Leukocyte Esterase Negative Urine RBC 10-20 H Urine WBC Negative Ur Epithelial Cells Few Urine Crystals Moderate Amorphous Urine Bacteria Few Urine Casts Negative Urine Mucus Negative Ur Culture Indicated? No Urine Glucose Negative COVID-19 Source Nasal/Nares SARS-CoV-2 (PCR) Negative Objective Narrative Objective Narrative: CT abdomen/pelvis: read pending
--- NOTE | 2021-08-10 11:33 | NUR.NOTE ---
if/when patient returns to long term, please send updated advanced directives with any other paper work, please. Nursing Note:
[2021-08-10] MEDS: LINEZOLID 600 MG/300 ML BAG 300 MG IVPB ×2 (11:46→21:51)
[2021-08-10 12:17] LABS: Lactate 3.2 mmol/L (0.6-1.4)
--- NOTE | 2021-08-10 12:55 | WOUNDCONS ---
- If Service Date Differs Date of service: 08/10/21 Time of Service: 12:55 Wound Initial Evaluation Narrative: Patient is a 60 yom. He is seen here for AMS, abdominal distension, aneuric AMALIA, Toxic metabolic encephalopathy. He also has a history significant for MS and is non-ambulatory at his baseline. Patient was asked if he wanted the wound team to look at his legs. He nodded his head in agreement, but was unable to sign the consent. Jina, his primary in the ICU was there to witness, and we signed the consent together. Wounds on the left knee and right thigh, had intact Mepilex applied. The wound on the lateral right calf has an Unna boot applied. Patient had been previously seen at [facility] wound care, and they had been applying an Unna boot. Having seen the patient myself, a couple of weeks ago, I notice that the Unna boot and overlying compression have made a difference in the wound, and the edema in the leg has subsided. Attempted to discuss goals of treatment with the patient but all he was able to do was nod his head, and not give verbal answers. - Wound Right Thigh Wound Type: Skin Tear, Other (shear) Wound General Appearance: Clean/Dry, Reddened, Unapproximated Wound Bed Greatest Portion: Pale [place] Wound Bed Lesser Portion: Red (Granulation) Wound Surrounding Tissue Appearance: Normal/Healthy Percent of Wound Bed Granulated/Red: 40 Wound Length: 3.4 cm Wound Width: 3.5 cm Wound Depth: 0.1 cm Wound Drainage Amount: None Wound Drainage Odor: None/Absent Wound Drainage Description: No drainage Wound Topical Solution/Irrigant: Antibiotic Irrigant Wound Debridement Method: Mechanical Wound Debridement Result: Healthy Tissue Revealed Wound Debridement Amount of Tissue Removed: None Left Knee Wound Type: Skin Tear, Other (shear) Wound General Appearance: Open to air, Reddened, Draining, Bleeding, Necrotic Wound Bed Greatest Portion: Red (Granulation) Wound Bed Lesser Portion: Yellow (Slough) Wound Surrounding Tissue Appearance: Edges Rolled, Normal/Healthy Percent of Wound Bed Granulated/Red: 50 Percent of Wound Bed Slough/Yellow: 50 Wound Length: 1.6 cm Wound Width: 0.8 cm Wound Depth: 0.1 cm Wound Drainage Amount: Moderate Wound Drainage Odor: None/Absent Wound Drainage Description: Bloody Wound Topical Solution/Irrigant: Antibiotic Irrigant Wound Debridement Method: Mechanical Wound Debridement Result: Yellow Sloughing Remains Wound Debridement Amount of Tissue Removed: Minimal Right Lateral Calf Wound Type: Statis Ulcer Wound General Appearance: Reddened, Blackened, Draining, Bleeding, Necrotic, Unapproximated Wound Bed Greatest Portion: Red (Granulation) Wound Bed Lesser Portion: Yellow (Slough) Wound Surrounding Tissue Appearance: Dark Red, Edematous, Edematous-pitting Percent of Wound Bed Granulated/Red: 90 Percent of Wound Bed Slough/Yellow: 10 Wound Length: 11.5 cm Wound Width: 4 cm Wound Depth: 0.2 cm Wound Drainage Amount: Moderate Wound Drainage Odor: None/Absent Wound Drainage Description: Bloody Wound Topical Solution/Irrigant: Antibiotic Irrigant Wound Debridement Method: Mechanical Wound Debridement Result: Healthy Tissue Revealed Wound Debridement Amount of Tissue Removed: Minimal - Circulation, Sensation, Motion Edema Degree: 2+ Peripheral Pulse Strength: Weak Capillary Refill: Less than 3 seconds Sensation Description: Numbness, Tingling Skin Temperature: Warm Skin Color: Normal - Pain Pain Level: 0 Patient who has had these wounds for an extended amount of time. Left knee wound has developed necrosis in the base, will apply Santyl and change dressing daily, Right thigh wound is closing over, and will apply a mepilex for protection. Noted the edema on the right calf has decreased with the Unna boot and compression, this treatment will continue - Treatment/Dressing Change Topicals/Ointments: Anasept Gel, Santyl Cleanse With: Anasept, Other Dressing Types: Mepilex w/Border, Unna Boot, Other (Poly mem) - Recomendation Recomendation:: Lateral right calf: Cleanse with Anasept spray and Debrisoft sponge. Pat dry. apply a small piece of Poly mem to the base of the open area in the distal section of the wound. Wrap with Unna boot. Apply compression with maverick wrap to 2 inches below the knee. Change every 3 days or Prn. Right thigh Cleanse with debrisoft spray and gauze, pat dry. Apply a nickel thickness of Anasept gel to the wound bed Cover with a Mepilex border. Change every 3 days or Prn. Left knee Cleanse with Anasept spray and Debrisoft sponge, pat dry. Apply 2 mm of Santyl to the wound bed. Cover with Mepilex border. Change Daily or Prn. Physcian/Nurse Practioner Notified: Yes (Dr. Wright) Treatment Time - Time Total Time Spent with Patient: 90 minutes - Patient Will be Seen Weekly Treatment: daily - For: For:: 1 week
[2021-08-10] MEDS: PIPERACILLIN/TAZO 2.25 GM in Normal Saline 50 ML IVPB ×2 (13:03→18:49)
[2021-08-10] MEDS: Hydrocortisone SOD SUC. 100 MG VIAL 50 MG IVP ×2 (13:04→19:48)
[2021-08-10] MEDS: Pantoprazole 40 MG VIAL IVP (13:05)
[2021-08-10] MEDS: Normal Saline Flush 10 ML SYR (13:10)
[2021-08-10] MEDS: Insulin Aspart 300 UNITS/3 ML PEN SC ×2 (13:20→18:54)
--- NOTE | 2021-08-10 15:44 | W.PALLCONSUL ---
Documented by User: Matrha Duffy NP 08/10/21 17:17 Date of service: 08/10/21 Time of Service: 15:45 History of Present Illness Narrative: Bryan De is a 60 year old man with MS who was recently hospitalized here at [facility] and discharged to [facility]. He is not back in the hospital, in ICU with sepsis of unknown origin. He has required pressors. He has been minimally responsive. At the time of his visit, nursing reports that he has been a little more alert, however, he opens his eyes but he is unable to respond in any way. He did not nod or shake his head for me. There was some confusion surrounding his CODE status. On his last admission here, he was listed as a DNR/DNI. He was most recently seen by Dr. Wren for Palliative care and her note indicates that he wants all treatment except CPR. It was unclear if he would want mechanical ventilation. However, I spoke to Dr. Wren who states that he was clear to her that he was a DNR/DNI. She also notes that he wanted to continue treatment at that time. I called his PCP office to see if they had documentation to support what he would prefer for his CODE status but the office was closed. I spoke with his son, Bryan (), who is his closest relative. Bryan states he recently had a conversation about this with his father and he stated that he would not want to be on life support/ventilator. Given this, his CODE status will be changed to DNR/DNI. states that he is coming to visit his dad this evening. I made it clear to him that his father is very sick and he really should visit. I also explained to him that if his dad does not continue to improve, we will be looking to him to help us make decisions. Assessment and Plan Assessment and plan (1) Septic shock: Status: Acute Assessment and plan: With unclear source, possible intraabdominal and possibly aspiration as well. (2) Acute adrenal insufficiency: Status: Acute Assessment and plan: He is on stress dose steroids. (3) Distended abdomen: Status: Acute Assessment and plan: Ileus noted on CT, general surgery consulted. (4) Pneumonia: Status: Acute Assessment and plan: As above (5) AMALIA (acute kidney injury): Status: Acute Assessment and plan: He is beginning to have very little urine output. (6) Toxic metabolic encephalopathy: Status: Acute Assessment and plan: due to sepsis. (7) Multiple sclerosis: Status: Chronic Assessment and plan: With neurogenic bowel/bladder. (8) Lactic acidosis: Status: Acute Assessment and plan: In setting of septic shock. (9) Palliative care patient: Status: Acute Assessment and plan: Bryan is very ill at this time. His CODE status was unclear initially but has since been clarified. He is a DNR/DNI. His son, Bryan/ corroborates this. thinks his dad would want to continue treatment for now. is coming in to see his dad this evening. We discussed that if his dad does not continue to improve, we will be looking to him to help us make decisions. Palliative will continue to follow along. [facility] All Active Problems (Updated 08/10/21 @ 12:14 by Taryn Wright MD) Lactic acidosis (Acute) AMALIA (acute kidney injury) (Acute) Distended abdomen (Acute) Toxic metabolic encephalopathy (Acute) Acute adrenal insufficiency (Acute) Septic shock (Acute) Skin lesion of left lower extremity (Acute) Sepsis (Acute) Pneumonia (Acute) Urinary tract infection (Acute) Pseudoobstruction of colon (Chronic) Abdominal pain (Acute) Ileus (Acute) Weakness (Acute) Palliative care patient (Acute) Encephalopathy (Acute) Hypernatremia (Acute) Incontinence (Chronic) Discharge planning issues (Acute) DVT prophylaxis (Acute) Microcytic anemia (Chronic) Multiple sclerosis (Chronic) Diabetes type 2, controlled (Chronic) Urinary incontinence (Chronic) Medical History Abnormal computed tomography angiography (CTA) of abdomen Abnormal CT of liver Anemia Bilateral cataracts Bilateral leg edema BPH (benign prostatic hyperplasia) Cervical radiculopathy Cervical spinal stenosis Cervicalgia Chewing tobacco nicotine dependence Chronic pain a. chronic opiate rx Clostridium difficile colitis Congenital ptosis of left eyelid Diabetic retinopathy Family hx of colon cancer GERD (gastroesophageal reflux disease) Hip pain, right Hyperkalemia Hyperlipidemia Lytic bone lesions on xray Lytic lesion of bone on x-ray Mediastinal adenopathy Neck pain A. 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 Chronic opiate Rx Optic nerve atrophy Optic neuritis a. legally blind Osteopenia Palliative care patient Pelvic lymphadenopathy Peripheral neuropathy Pituitary adenoma Renal insufficiency Rhabdomyolysis Right leg weakness Right shoulder pain Rotator cuff tear, right Sarcoidosis Spasticity Spinal stenosis Tendonitis of long head of biceps brachii of right shoulder Tobacco abuse a. Uses chewing tobacco Ulcer of calf Vision loss Vitamin D deficiency Surgical History H/O surgical procedure a. appendectomy b. 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 What is your relationship status?: Panel score (0-1 are the most socially isolated patients): 0 What type of physical activity do you participate in: weight lifting, wheelchair-bound and additional Details: PT Do you feel safe at home: Yes Do you feel safe in your relationship?: Yes Exam Narrative Exam Narrative: General: middle aged man, laying in bed, unresponsive, he opens eyes to tactile stimuli but he is unable to keep his eyes open or speak. HEENT: normocephalic, atraumatic, mucous membranes dry. Heart: heart sounds regular, nontachycardic. Lungs: does not appear to be in respiratory distress. Abdomen: very distended bowel, firm, tympanic bowel sounds Extremities: no edema BLE's, feet with wrinkled skin. Dressing to right lower leg. Results Last Vital Signs Temp 38.9 C H 08/10/21 04:22 Pulse 98 H 08/10/21 10:15 Resp 18 08/10/21 10:20 BP 89/52 L 08/10/21 10:15 Pulse Ox 97 08/10/21 10:20 Labs Result diagrams: 08/10/21 04:35 08/10/21 04:35 Labs: Laboratory Results - last 24 hr 08/10/21 08/10/21 08/10/21 04:35 04:35 04:35 WBC 12.98 H D RBC 4.02 L Hgb 11.2 L Hct 34.8 L MCV 86.6 MCH 27.9 MCHC 32.2 RDW 16.7 H Plt Count 172 MPV 10.9 Immature Gran % 0.8 Neutrophils % 76.8 Lymphocytes % 17.9 Monocytes % 2.4 Eosinophils % 1.8 Basophils % 0.3 Nucleated RBC % 0 Absolute Neutrophils 9.97 H Absolute Lymphocytes 2.32 Absolute Monocytes 0.31 Absolute Eosinophils 0.23 Absolute Basophils 0.04 VBG Lactate 2.3 H* Sodium 140 Potassium 3.5 Chloride 107 Carbon Dioxide 17.5 L Anion Gap 15.5 H BUN 13 Creatinine 3.5 H D Estimated GFR/1.73 m2 18.08 Glucose 144 H Calcium 8.5 Total Bilirubin 0.7 AST 21 ALT 15 L Alkaline Phosphatase 77 NT-Pro-B Natriuret Pep 120 Total Protein 7.2 Albumin 3.8 Procalcitonin Urine Color Urine Clarity Urine pH Ur Specific Gaylord Urine Protein Urine Ketones Urine Blood Urine Nitrite Urine Bilirubin Urine Urobilinogen Ur Leukocyte Esterase Urine RBC Urine WBC Ur Epithelial Cells Urine Crystals Urine Bacteria Urine Casts Urine Mucus Ur Culture Indicated? Urine Glucose COVID-19 Source SARS-CoV-2 (PCR) 08/10/21 08/10/21 08/10/21 04:35 04:45 04:53 WBC RBC Hgb Hct MCV MCH MCHC RDW Plt Count MPV Immature Gran % Neutrophils % Lymphocytes % Monocytes % Eosinophils % Basophils % Nucleated RBC % Absolute Neutrophils Absolute Lymphocytes Absolute Monocytes Absolute Eosinophils Absolute Basophils VBG Lactate Sodium Potassium Chloride Carbon Dioxide Anion Gap BUN Creatinine Estimated GFR/1.73 m2 Glucose Calcium Total Bilirubin AST ALT Alkaline Phosphatase NT-Pro-B Natriuret Pep Total Protein Albumin Procalcitonin 0.9 Urine Color Yellow Urine Clarity Sl Cloudy Urine pH 6.0 Ur Specific Gaylord >= 1.030 H Urine Protein >=300 H Urine Ketones Negative Urine Blood Large H Urine Nitrite Negative Urine Bilirubin Negative Urine Urobilinogen 0.2 Ur Leukocyte Esterase Negative Urine RBC 10-20 H Urine WBC Negative Ur Epithelial Cells Few Urine Crystals Moderate Amorphous Urine Bacteria Few Urine Casts Negative Urine Mucus Negative Ur Culture Indicated? No Urine Glucose Negative COVID-19 Source Nasal/Nares SARS-CoV-2 (PCR) Negative 08/10/21 12:05 WBC RBC Hgb Hct MCV MCH MCHC RDW Plt Count MPV Immature Gran % Neutrophils % Lymphocytes % Monocytes % Eosinophils % Basophils % Nucleated RBC % Absolute Neutrophils Absolute Lymphocytes Absolute Monocytes Absolute Eosinophils Absolute Basophils VBG Lactate 3.2 H* Sodium Potassium Chloride Carbon Dioxide Anion Gap BUN Creatinine Estimated GFR/1.73 m2 Glucose Calcium Total Bilirubin AST ALT Alkaline Phosphatase NT-Pro-B Natriuret Pep Total Protein Albumin Procalcitonin Urine Color Urine Clarity Urine pH Ur Specific Gay[place] Urine Protein Urine Ketones Urine Blood Urine Nitrite Urine Bilirubin Urine Urobilinogen Ur Leukocyte Esterase Urine RBC Urine WBC Ur Epithelial Cells Urine Crystals Urine Bacteria Urine Casts Urine Mucus Ur Culture Indicated? Urine Glucose COVID-19 Source SARS-CoV-2 (PCR) Documented by User: Connie Hayes MD 08/10/21 17:24 PFSH All Active Problems (Updated 08/10/21 @ 12:14 by Taryn Wright MD) Lactic acidosis (Acute) AMALIA (acute kidney injury) (Acute) Distended abdomen (Acute) Toxic metabolic encephalopathy (Acute) Acute adrenal insufficiency (Acute) Septic shock (Acute) Skin lesion of left lower extremity (Acute) Sepsis (Acute) Pneumonia (Acute) Urinary tract infection (Acute) Pseudoobstruction of colon (Chronic) Abdominal pain (Acute) Ileus (Acute) Weakness (Acute) Palliative care patient (Acute) Encephalopathy (Acute) Hypernatremia (Acute) Incontinence (Chronic) Discharge planning issues (Acute) DVT prophylaxis (Acute) Microcytic anemia (Chronic) Multiple sclerosis (Chronic) Diabetes type 2, controlled (Chronic) Urinary incontinence (Chronic) Medical History Abnormal computed tomography angiography (CTA) of abdomen Abnormal CT of liver Anemia Bilateral cataracts Bilateral leg edema BPH (benign prostatic hyperplasia) Cervical radiculopathy Cervical spinal stenosis Cervicalgia Chewing tobacco nicotine dependence Chronic pain a. chronic opiate rx Clostridium difficile colitis Congenital ptosis of left eyelid Diabetic retinopathy Family hx of colon cancer GERD (gastroesophageal reflux disease) Hip pain, right Hyperkalemia Hyperlipidemia Lytic bone lesions on xray Lytic lesion of bone on x-ray Mediastinal adenopathy Neck pain A. 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 Chronic opiate Rx Optic nerve atrophy Optic neuritis a. legally blind Osteopenia Palliative care patient Pelvic lymphadenopathy Peripheral neuropathy Pituitary adenoma Renal insufficiency Rhabdomyolysis Right leg weakness Right shoulder pain Rotator cuff tear, right Sarcoidosis Spasticity Spinal stenosis Tendonitis of long head of biceps brachii of right shoulder Tobacco abuse a. Uses chewing tobacco Ulcer of calf Vision loss Vitamin D deficiency Surgical History H/O surgical procedure a. appendectomy b. 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
[2021-08-10] MEDS: Metoclopramide 10 MG/2 ML VIAL IVP (21:06)
[2021-08-10] MEDS: Lactated Ringers 1,000 ML 100 ML IV (23:54)
[2021-08-11] VITALS (79 sets, daily range): BP systolic 71–151; BP diastolic 44–92; PULSE 48–113; RESP 9–45; TEMP 36.5–37.1; O2SAT 95–100
[2021-08-11 00:04] LABS: C Diff PCR Negative (Negative)
[2021-08-11] MEDS: metroNIDAZOLE 500 MG/100 ML BAG 100 MG IVPB ×5 (00:17→23:58)
[2021-08-11] MEDS: PIPERACILLIN/TAZO 2.25 GM in Normal Saline 50 ML IVPB ×5 (00:18→23:57)
[2021-08-11] MEDS: Hydrocortisone SOD SUC. 100 MG VIAL 50 MG IVP ×3 (04:03→19:44)
[2021-08-11 05:48] LABS: Lactate 1.7 mmol/L (0.6-1.4)
[2021-08-11] MEDS: Insulin Aspart 300 UNITS/3 ML PEN SC ×3 (05:51→11:52)
[2021-08-11 05:55] LABS: Abs Immature Grans 0.16 10^3/uL (0.0-0.06); Absolute Basophil Count 0.04 10^3/uL (0.0-0.2); Absolute Lymphocyte Count 2.03 10^3/uL (1.2-3.4); Absolute Monocyte Count 0.78 10^3/uL (0.1-0.8); Basophils % 0.2; HCT 28.3 % (40.0-50.0); HGB 9.2 g/dL (13.5-17.5); Immature Grans % 0.8; Lymphocytes % 9.9; MCH 27.8 pg (27.0-33.0); MCHC 32.5 % (32.0-36.0); MCV 85.5 fL (80-95); MPV 10.5 fL (8.0-11.0); Monocytes % 3.8; Neutrophils % 85.3; Nucleated RBC 0 %; Platelet Count 146 10^3/uL (130-400); RBC 3.31 10^6/uL (4.36-5.78); RDW 16.4 % (11.8-14.1); RDW-SD 50.9 fL; WBC 20.46 10^3/uL (4.4-10.8)
[2021-08-11 06:03] LABS: Magnesium 1.8 mg/dL (1.8-2.4)
[2021-08-11 06:06] LABS: Absolute Neutrophil Count 17.45 10^3/uL (1.2-6.7)
[2021-08-11 06:10] LABS: ALT 21 U/L (16-63); AST 146 U/L (15-37); Albumin 2.8 g/dL (3.4-5.0); Alkaline Phosphatase 67 U/L (46-116); BUN 27 mg/dL (7-18); Bilirubin, Total 0.4 mg/dL (0.2-1.0); Calcium 7.4 mg/dL (8.5-10.1); Chloride 110 mmol/L (98-107); Estimated GFR 13.19 (mL/min/1.73m2); Glucose 224 mg/dL (74-106); Potassium 3.8 mmol/L (3.5-5.1); Sodium 139 mmol/L (136-145); Total Protein 6.2 g/dL (6.4-8.2)
[2021-08-11 06:23] LABS: CREATININE 4.6 mg/dL (0.70-1.30)
[2021-08-11] MEDS: Normal Saline Flush 10 ML SYR ×3 (06:38→22:55)
[2021-08-11] MEDS: LINEZOLID 600 MG/300 ML BAG 300 MG IVPB ×2 (09:53→22:05)
[2021-08-11] MEDS: Lactated Ringers 1,000 ML 100 ML IV ×2 (10:37→23:57)
[2021-08-11] MEDS: Collagenase 30 GM TUBE TP (11:45)
[2021-08-11] MEDS: Pantoprazole 40 MG VIAL IVP (12:11)
--- NOTE | 2021-08-11 13:07 | W.PM.PROGNOT ---
Date of Service Date of service: 08/11/21 Time of Service: 13:08 Assessment and Plan Assessment and plan (1) Sepsis: Status: Acute Assessment and plan: Source is unclear. CXR was poor quality but cannot r/o pneumonia. He did expectorate sputum that was thick and light yellow. Previous UTI appears to be treated. Skin source possible. Blood cultures neg x 24 hours; todays read on cultures pending. Cont Zosyn and Linezolid. Doxycycline initiated in ED and will continue. BP initially responded to fluid resuscitation, but now requiring pressor support with Levophed. (2) Pseudoobstruction of colon: Status: Chronic Assessment and plan: Chronic. Has had liquid stools that were C.Diff negative: Question of ischemia. Surgical consult appreciated. Today, less distension than seen at time of admission. (3) Palliative care patient: Status: Acute Assessment and plan: Palliative care following. DNR/DNI. Son is DPOA for healthcare decisions. (4) Adrenal insufficiency: Status: Resolved Assessment and plan: He is on prednisone 5mg daily, chronically. Add stress dose hydrocortisone IV given his septic, critically ill, state. (5) Multiple sclerosis: Status: Chronic Assessment and plan: Chronic. Watch for evidence of progression. (6) Diabetes type 2, controlled: Status: Chronic Assessment and plan: Will hold oral medications and initiate SS insulin correction dosing. No strong indication to add basal insulin at this time. Monitor Carb controlled diet; when safe to eat. Qualifiers: Diabetes mellitus detention insulin use: unspecified detention insulin use status Diabetes mellitus complication status: without complication Qualified Code(s): E11.9 - Type 2 diabetes mellitus without complications (7) Urinary incontinence: Status: Chronic Assessment and plan: Cont ng catheter. (8) Urinary tract infection: Status: Acute Assessment and plan: Diagnosed at last admission and d/c'd on Linezolid for MRSA and enterococcus sensitive to LInezolid. Urine cx grew <41167 cfus of gram positive niya. Qualifiers: Urinary tract infection type: acute cystitis Hematuria presence: without hematuria Qualified Code(s): N30.00 - Acute cystitis without hematuria (9) Skin lesion of left lower extremity: Status: Acute Assessment and plan: No obvious cellulitis but could be portal of entry causing his current bacteremia / sepsis. Zosyn, doxycycline and Linezolid being administered. Also has RLE Unna boot in place and R medial thigh ulcer. Subjective Subjective Patient reports: diarrhea (watery) and afebrile; denies vomiting Interval history since last seen: Pt remains confused. Doesn't verbalize responses to questions. Restless at times. Exam Const General: ill appearing Nutritional Appearance: overweight Orientation: awake and confused HENMT Head: atraumatic Mouth: oral mucosae normal Eyes General: appearance normal, both eyes and all related structures Sclera: sclerae normal Resp Effort & Inspection: normal respiratory effort Auscultation: clear to auscultation bilaterally Cardio Rate: regular rate Rhythm: regular rhythm Heart Sounds: S1 normal and S2 normal GI Inspection: distended (more compressable. ) Palpation: nontender (No grimace with palpation. ) Neuro General: no focal motor deficits (less spontaneous LUE, LLE movement compared to right) and patient confused Extrem General: no pedal edema and no cyanosis Objective Last Vital Signs Temp 36.8 C 08/11/21 12:25 Pulse 51 L 08/11/21 12:31 Resp 10 L 08/11/21 12:31 BP 120/60 08/11/21 12:31 Pulse Ox 99 08/11/21 12:31 Laboratory Results - last 24 hr 08/10/21 08/11/21 08/11/21 22:20 05:30 05:30 WBC RBC Hgb Hct MCV MCH MCHC RDW Plt Count MPV Immature Gran % Neutrophils % Lymphocytes % Monocytes % Eosinophils % Basophils % Nucleated RBC % Absolute Neutrophils Absolute Lymphocytes Absolute Monocytes Absolute Eosinophils Absolute Basophils VBG Lactate Sodium 139 Potassium 3.8 Chloride 110 H Carbon Dioxide 14.0 L Anion Gap 15.0 H BUN 27 H D Creatinine 4.6 H* D Estimated GFR/1.73 m2 13.19 Glucose 224 H D Calcium 7.4 L Magnesium 1.8 Total Bilirubin 0.4 AST 146 H ALT 21 Alkaline Phosphatase 67 C-Reactive Protein 20.70 H Total Protein 6.2 L Albumin 2.8 L Stl C.difficile Tox PCR Negative 08/11/21 08/11/21 05:30 05:30 WBC 20.46 H D RBC 3.31 L Hgb 9.2 L Hct 28.3 L MCV 85.5 MCH 27.8 MCHC 32.5 RDW 16.4 H Plt Count 146 MPV 10.5 Immature Gran % 0.8 Neutrophils % 85.3 Lymphocytes % 9.9 Monocytes % 3.8 Eosinophils % 0.0 Basophils % 0.2 Nucleated RBC % 0 Absolute Neutrophils 17.45 H Absolute Lymphocytes 2.03 Absolute Monocytes 0.78 Absolute Eosinophils 0.00 Absolute Basophils 0.04 VBG Lactate 1.7 H Sodium Potassium Chloride Carbon Dioxide Anion Gap BUN Creatinine Estimated GFR/1.73 m2 Glucose Calcium Magnesium Total Bilirubin AST ALT Alkaline Phosphatase C-Reactive Protein Total Protein Albumin Stl C.difficile Tox PCR
--- NOTE | 2021-08-11 13:12 | W.PM.PROGNOT ---
Date of Service Date of service: 08/11/21 Time of Service: 13:13 Assessment and Plan Assessment and plan (1) Pseudoobstruction of colon: Status: Chronic Assessment and plan: -Trial of Reglan, seems to be improving -Lactic acidosis no longer present, doubt ischemia and no signs of ischemia on CT -Continue to monitor BM's, may need skilled nursing PO Reglan at time of DC -C. diff negative -Chronic adynamic ileus, maintain soft diet once able to tolerate PO -Will sign off please call with questions or concerns (2) Adrenal insufficiency: Status: Resolved (3) Toxic metabolic encephalopathy: Status: Acute (4) AMALIA (acute kidney injury): Status: Acute Subjective Subjective Patient reports: no new complaints, bowel movement, diarrhea and afebrile; denies vomiting Exam Const General: ill appearing Nutritional Appearance: overweight Orientation: awake and confused HENMT Head: atraumatic Mouth: oral mucosae normal Eyes General: appearance normal, both eyes and all related structures Sclera: sclerae normal Resp Effort & Inspection: normal respiratory effort, no audible wheezes, no cough and no respiratory distress Cardio Rate: regular rate Rhythm: regular rhythm Heart Sounds: S1 normal and S2 normal GI Inspection: distended (more compressable. ) Palpation: soft and nontender (No grimace with palpation. ) Percussion: tympanic to percussion General: other (ng ) Skin Wounds: wounds noted (see wound care note for measurements) Neuro General: no focal motor deficits (less spontaneous LUE, LLE movement compared to right) and patient confused Extrem General: no pedal edema and no cyanosis Objective Last Vital Signs Temp 98.2 F 08/11/21 12:25 Pulse 51 L 08/11/21 12:31 Resp 10 L 08/11/21 12:31 BP 120/60 08/11/21 12:31 Pulse Ox 99 08/11/21 12:31 Laboratory Results - last 24 hr 08/10/21 08/11/21 08/11/21 22:20 05:30 05:30 WBC RBC Hgb Hct MCV MCH MCHC RDW Plt Count MPV Immature Gran % Neutrophils % Lymphocytes % Monocytes % Eosinophils % Basophils % Nucleated RBC % Absolute Neutrophils Absolute Lymphocytes Absolute Monocytes Absolute Eosinophils Absolute Basophils VBG Lactate Sodium 139 Potassium 3.8 Chloride 110 H Carbon Dioxide 14.0 L Anion Gap 15.0 H BUN 27 H D Creatinine 4.6 H* D Estimated GFR/1.73 m2 13.19 Glucose 224 H D Calcium 7.4 L Magnesium 1.8 Total Bilirubin 0.4 AST 146 H ALT 21 Alkaline Phosphatase 67 C-Reactive Protein 20.70 H Total Protein 6.2 L Albumin 2.8 L Stl C.difficile Tox PCR Negative 08/11/21 08/11/21 05:30 05:30 WBC 20.46 H D RBC 3.31 L Hgb 9.2 L Hct 28.3 L MCV 85.5 MCH 27.8 MCHC 32.5 RDW 16.4 H Plt Count 146 MPV 10.5 Immature Gran % 0.8 Neutrophils % 85.3 Lymphocytes % 9.9 Monocytes % 3.8 Eosinophils % 0.0 Basophils % 0.2 Nucleated RBC % 0 Absolute Neutrophils 17.45 H Absolute Lymphocytes 2.03 Absolute Monocytes 0.78 Absolute Eosinophils 0.00 Absolute Basophils 0.04 VBG Lactate 1.7 H Sodium Potassium Chloride Carbon Dioxide Anion Gap BUN Creatinine Estimated GFR/1.73 m2 Glucose Calcium Magnesium Total Bilirubin AST ALT Alkaline Phosphatase C-Reactive Protein Total Protein Albumin Stl C.difficile Tox PCR
--- NOTE | 2021-08-11 14:36 | NUR.NOTE ---
Nursing Note: Pt. was moving more in bed/agitated, RN checked on Pt. and suctioned mouth out. Pt. vomited around 40cc of dark brown foul smelling fluid, potential stool. notified of findings. ABD X-ray to be taken on Pt. and will await results.
--- NOTE | 2021-08-11 15:00 | DI.RAD_ITS ---
Exam(s) XR ABDOMEN FLAT PLATE EXAM: 2D digital imaging was performed. CLINICAL HISTORY: emesis / stool. COMPARISON: CR,XR XR ABDOMEN FLAT PLATE from 07/29/2021 CR,XR XR ABDOMEN FLAT UPRIGHT from 08/10/[address] ABDOMEN PELVIS WO from 08/10/2021 CR,XR XR ABDOMEN FLAT UPRIGHT from 08/10/[address] ABDOMEN PELVIS WO from 08/10/2021 TECHNIQUE: Supine views of the abdomen performed. FINDINGS: BOWEL GAS PATTERN: There has been a slight decrease in size of the dilated small and large bowel loop s. No evidence for perforation. CALCIFICATIONS: No radiopaque calcifications. OSSEOUS STRUCTURES: Normal for age. OTHER FINDINGS: None. IMPRESSION: 1. Persistent but mildly improved adynamic ileus. 2. No definite evidence of free air. DATA REPOSITORY: RADIATION DOSE DELIVERED:
--- NOTE | 2021-08-11 15:58 | DI.VRAD_ITS ---
PROCEDURE INFORMATION: Exam: XR Abdomen Exam date and time: 08/11/2021 2:38 PM Age: 60 years old Clinical indication: Other: Emesis/stool TECHNIQUE: Imaging protocol: XR of the abdomen. Views: Frontal supine view of the abdomen. 1 View. COMPARISON: CT ABDOMEN PELVIS WO 08/10/2021 11:03 AM FINDINGS: Lungs: Lung bases are clear. Gastrointestinal tract: Redemonstration of diffusely dilated loops of small and large bowel with distal rectal air present. Large bowel loops measure up to 8 cm. Small bowel loops measure up to 4.6 cm. Concern for interloop fluid versus small bowel wall thickening. Intraperitoneal space: No free air. Bones/joints: No acute skeletal abnormality or aggressive osseous lesion. IMPRESSION: 1. Findings in keeping with minimally improved but persistent adynamic ileus. 2. No evidence for bowel perforation at this time. 3. Ascites versus bowel wall thickening. Dictated and Authenticated by: Dontae Hernandez MD. Ordering:HARRIET Rosario MD
--- NOTE | 2021-08-11 16:20 | NUR.NOTE ---
Nursing Note: Pt. has been having cont. N/V, Dr. Alcantar did see Pt, and results of ABD XR did come back with no changes. Dr. Alcantar to talk with surgery about inserting NG tube for decompression. No other recommendations at this time.
[2021-08-11] MEDS: MORPHine 2 MG/ML SYR IVP ×3 (18:11→23:11)
--- NOTE | 2021-08-11 18:45 | DI.RAD_ITS ---
Exam(s) XR PORTABLE CHEST AP POST LINE EXAM: XR PORTABLE CHEST AP POST LINE CLINICAL HISTORY: Post OG tube placement TECHNIQUE: 2D digital imaging was performed of the chest. Two images were obtained. Two AP views w ere obtained. COMPARISON: CR,XR XR PORTABLE CHEST AP from 08/10/2021 FINDINGS: MEDIASTINUM: Normal. HEART: Normal. PULMONARY VASCULATURE: Atherosclerosis of the thoracic aorta. LUNGS: No focal consolidating infiltrates. The apices of the lungs are not included due to patient p ositioning. There are low lung volumes which causes crowding of the pulmonary vasculature. PLEURAL SPACE: No pleural effusion or pneumothorax. BONE:Within normal limits for the patient's age. OTHER FINDINGS:There has been interval placement of a nasogastric tube. The tip of the tube is seen in the gastric antrum. IMPRESSION: 1. No acute pulmonary findings. 2. Tip of the gastric tube is seen in the gastric antrum. DATA REPOSITORY: RADIATION DOSE DELIVERED:
--- NOTE | 2021-08-11 19:17 | DI.VRAD_ITS ---
PROCEDURE INFORMATION: Exam: XR Chest Exam date and time: 08/11/2021 6:55 PM Age: 60 years old Clinical indication: Device placement; Ng tube; Patient HX: Post og tube placement TECHNIQUE: Imaging protocol: XR of the chest. Views: 1 view. COMPARISON: XR PORTABLE CHEST AP 08/10/2021 5:26 AM FINDINGS: Tubes, catheters and devices: Nasogastric tube tip in the stomach antrum. Airway: Patent Lungs: Low lung volumes causes crowding of the bronchovascular structures. No acute interstitial or airspace disease. Pleural spaces: Unremarkable. No pleural effusion. No pneumothorax. Heart/Mediastinum: Cardiomediastinal silhouette is magnified due to technique. Vasculature: Calcified aortic knob. Bones/joints: No acute skeletal abnormality or aggressive osseous lesion. Gastrointestinal tract: Stable diffusely dilated loops of bowel seen in the upper abdomen. IMPRESSION: NASOGASTRIC TUBE TIP IN THE STOMACH ANTRUM. Dictated and Authenticated by: Dontae Hernandez MD. Ordering:HARRIET Rosario MD
[2021-08-12] VITALS (76 sets, daily range): BP systolic 66–137; BP diastolic 47–100; PULSE 48–115; RESP 7–30; TEMP 35.3–37.1; O2SAT 93–99
[2021-08-12] MEDS: Insulin Aspart 300 UNITS/3 ML PEN SC ×4 (00:14→23:49)
[2021-08-12] MEDS: LORazepam 2 MG/ML VIAL 0.5 MG IVP ×3 (01:18→03:28)
[2021-08-12] MEDS: Normal Saline Flush 10 ML SYR (01:43)
[2021-08-12] MEDS: MORPHine 2 MG/ML SYR IVP ×3 (03:11→08:16)
[2021-08-12] MEDS: Hydrocortisone SOD SUC. 100 MG VIAL 50 MG IVP ×3 (04:00→21:07)
[2021-08-12] MEDS: PIPERACILLIN/TAZO 2.25 GM in Normal Saline 50 ML IVPB ×4 (05:54→23:58)
[2021-08-12] MEDS: metroNIDAZOLE 500 MG/100 ML BAG 100 MG IVPB (05:54)
[2021-08-12 06:53] LABS: HCT 27.3 % (40.0-50.0); MCH 27.5 pg (27.0-33.0); MCV 83.5 fL (80-95); MPV 11.1 fL (8.0-11.0); Platelet Count 164 10^3/uL (130-400); RBC 3.27 10^6/uL (4.36-5.78); RDW 16.3 % (11.8-14.1); RDW-SD 49.9 fL; WBC 18.45 10^3/uL (4.4-10.8)
[2021-08-12 07:10] LABS: ALT 23 U/L (16-63); AST 88 U/L (15-37); Albumin 2.8 g/dL (3.4-5.0); Alkaline Phosphatase 66 U/L (46-116); Anion Gap 17.6 mmol/L (3-11); BUN 31 mg/dL (7-18); Bilirubin, Total 0.4 mg/dL (0.2-1.0); CO2 14.4 mmol/L (21.0-32.0); Calcium 7.4 mg/dL (8.5-10.1); Chloride 113 mmol/L (98-107); Estimated GFR 13.19 (mL/min/1.73m2); Glucose 161 mg/dL (74-106); Potassium 3.2 mmol/L (3.5-5.1); Sodium 145 mmol/L (136-145); Total Protein 6.1 g/dL (6.4-8.2)
[2021-08-12 07:14] LABS: CREATININE 4.6 mg/dL (0.70-1.30)
--- NOTE | 2021-08-12 09:11 | PDOC.CMPRO ---
Care Management Progress Note Bryan was placed in soft restraints due to agitation which is being attributed to backlofen withdrawal and increased back pain. MD ordered one time dose of 40mg this morning to restart medication.
[2021-08-12] MEDS: LORazepam 2 MG/ML VIAL 1 MG IVP ×2 (09:27→14:59)
[2021-08-12] MEDS: Baclofen 10 MG TAB 40 MG PO ×2 (09:27→21:05)
[2021-08-12] MEDS: POTASSIUM CHLORIDE 10 MEQ/100 ML BAG 100 MEQ IVPB ×2 (09:36→10:42)
[2021-08-12] MEDS: Collagenase 30 GM TUBE TP (09:36)
[2021-08-12] MEDS: Metoclopramide 10 MG/2 ML VIAL 5 MG IVP ×3 (09:36→21:07)
--- NOTE | 2021-08-12 10:15 | W.PM.PROGNOT ---
Date of Service Date of service: 08/12/21 Time of Service: 10:15 Assessment and Plan Assessment and plan (1) Sepsis: Status: Acute Assessment and plan: Source is unclear. CXR was poor quality but cannot r/o pneumonia. He did expectorate sputum that was thick and light yellow. Previous UTI appears to be treated. Skin source possible. Blood cultures neg x 24 hours; todays read on cultures pending. Cont Zosyn. Stopped Linezolid d/t interaction with metoclopromide which appears to be working for his GI sxs. BP initially responded to fluid resuscitation, but now requiring pressor support with Levophed. (2) Pseudoobstruction of colon: Status: Chronic Assessment and plan: Chronic. Has had liquid stools that were C.Diff negative: Question of ischemia. Surgical consult appreciated. Today, less distension than seen at time of admission. Scheduled Reglan (3) Palliative care patient: Status: Acute Assessment and plan: Palliative care following. DNR/DNI. Son is DPOA for healthcare decisions. Will have discussion with son today regarding transition to comfort measures. (4) Adrenal insufficiency: Status: Resolved Assessment and plan: He is on prednisone 5mg daily, chronically. Add stress dose hydrocortisone IV given his septic, critically ill, state. (5) Multiple sclerosis: Status: Chronic Assessment and plan: Chronic. Watch for evidence of progression. (6) Diabetes type 2, controlled: Status: Chronic Assessment and plan: Will hold oral medications and initiate SS insulin correction dosing. No strong indication to add basal insulin at this time. Monitor Carb controlled diet; when safe to eat. 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 (8) Urinary tract infection: Status: Acute Assessment and plan: Diagnosed at last admission and d/c'd on Linezolid for MRSA and enterococcus sensitive to LInezolid. Urine cx grew <06251 cfus of gram positive niya. Qualifiers: Urinary tract infection type: acute cystitis Hematuria presence: without hematuria Qualified Code(s): N30.00 - Acute cystitis without hematuria (9) Skin lesion of left lower extremity: Status: Acute Assessment and plan: No obvious cellulitis but could be portal of entry causing his current bacteremia / sepsis. Zosyn, doxycycline and Linezolid being administered. Also has RLE Unna boot in place and R medial thigh ulcer. Subjective Subjective Patient reports: diarrhea (watery) and afebrile; denies vomiting Interval history since last seen: Pt is restless. Did express to nurse that his back hurts. Otherwise, doesn't communicate. In soft wrist restraints to keep him from pulling out his NG tube. Exam Narrative Exam Narrative: Patient evaluated in the ED. He was lying in a slightly inclined position. He was arousable to verbal stimuli. Stated he was at home. Const General: ill appearing and other (wrestless/agitated.) Nutritional Appearance: overweight Orientation: awake and confused HENMT Head: normocephalic and atraumatic Ears: hearing grossly normal bilaterally Mouth: oral mucosae normal Eyes General: appearance normal, both eyes and all related structures Sclera: sclerae normal Neck Neck: no JVD Resp Effort & Inspection: normal respiratory effort Auscultation: clear to auscultation bilaterally and diminished lung sounds Cardio Rate: regular rate and tachycardic Rhythm: regular rhythm Heart Sounds: S1 normal and S2 normal GI Inspection: distended (more compressable. ) Palpation: nontender (No grimace with palpation. ) Neuro General: no focal motor deficits (less spontaneous LUE, LLE movement compared to right) and patient confused Extrem General: no pedal edema and no cyanosis Objective Last Vital Signs Temp 36.6 C 08/12/21 04:51 Pulse 52 L 08/12/21 06:01 Resp 8 L 08/12/21 06:01 BP 134/72 08/12/21 06:01 Pulse Ox 99 08/12/21 06:01 Laboratory Results - last 24 hr 08/11/21 08/12/21 08/12/21 Unknown 06:40 06:40 WBC RBC Hgb Hct MCV MCH MCHC RDW Plt Count MPV VBG Lactate Cancelled 2.0 H Sodium 145 Potassium 3.2 L Chloride 113 H Carbon Dioxide 14.4 L Anion Gap 17.6 H BUN 31 H Creatinine 4.6 H* Estimated GFR/1.73 m2 13.19 Glucose 161 H Calcium 7.4 L Total Bilirubin 0.4 AST 88 H ALT 23 Alkaline Phosphatase 66 Total Protein 6.1 L Albumin 2.8 L 08/12/21 06:40 WBC 18.45 H RBC 3.27 L Hgb 9.0 L Hct 27.3 L MCV 83.5 MCH 27.5 MCHC 33.0 RDW 16.3 H Plt Count 164 MPV 11.1 H VBG Lactate Sodium Potassium Chloride Carbon Dioxide Anion Gap BUN Creatinine Estimated GFR/1.73 m2 Glucose Calcium Total Bilirubin AST ALT Alkaline Phosphatase Total Protein Albumin
[2021-08-12] MEDS: Pantoprazole 40 MG VIAL IVP (11:32)
[2021-08-12] MEDS: MORPHine 4 MG/ML SYR IVP ×6 (11:40→23:50)
[2021-08-12] MEDS: Lactated Ringers 1,000 ML 100 ML IV (12:24)
[2021-08-12] MEDS: Baclofen 10 MG TAB 20 MG PO (15:32)
[2021-08-13] VITALS (17 sets, daily range): BP systolic 123–135; BP diastolic 61–86; PULSE 61–106; RESP 6–18; TEMP 36.1–36.8; O2SAT 96–99
[2021-08-13] MEDS: MORPHine 4 MG/ML SYR IVP ×7 (01:31→14:00)
[2021-08-13] MEDS: Hydrocortisone SOD SUC. 100 MG VIAL 50 MG IVP ×2 (05:01→12:51)
[2021-08-13] MEDS: PIPERACILLIN/TAZO 2.25 GM in Normal Saline 50 ML IVPB ×2 (05:01→12:56)
[2021-08-13] MEDS: Lactated Ringers 1,000 ML 100 ML IV (05:03)
[2021-08-13] MEDS: Metoclopramide 10 MG/2 ML VIAL 5 MG IVP ×2 (05:04→11:02)
[2021-08-13] MEDS: Insulin Aspart 300 UNITS/3 ML PEN SC ×2 (05:43→12:49)
[2021-08-13] MEDS: LORazepam 2 MG/ML VIAL 1 MG IVP ×2 (07:00→10:14)
--- NOTE | 2021-08-13 07:47 | W.PALPGNOTE ---
Date of service: 08/13/21 Time of Service: 06:47 Assessment and Plan Assessment and plan (1) AMALIA (acute kidney injury): Status: Acute (2) Toxic metabolic encephalopathy: Status: Acute (3) Sepsis: Status: Acute (4) Palliative care patient: Status: Acute Assessment and plan: I saw Bryan this morning. I have seen him on 2 other occasions. He is significantly different from other visits. He was unresponsive even to sternal rub. He looked very agitated and uncomfortable. Nursing is going to help to medicate him in hopes of helping his comfort. I did call his son Bryan the third on 2 occasions at 7:20 and 8:53. neither time was the phone answered. I did want to discuss his dad's present state and urged him to consider comfort care so that Bryan remains comfortable during this time. Nursing plan to give him some morphine and some Ativan soon Hopefully his son will come in soon and consider transitioning him to comfort measures. He is very different from other times that I have met Bryan. I do think that the treatment that he is receiving up to this point is what he wanted, but moving forward transitioning to comfort measures would be in Bryan's best interest Addendum I came to see Bryan this evening. He looks more comfortable. His family has transitioned him to comfort measures Subjective Subjective Interval history since last seen: I had met Bryan on 2 occasions in the past. During that time staff had asked me to discuss whether he wanted to continue the aggressive work-ups that he was receiving. At that point he did want to, but did not want CPR or intubation. Unfortunately he went back to [facility] developed sepsis and came back to [facility]. In [facility] he was transferred to the ICU and started on pressors. He is presently on pressors. Family is discussing whether to transition him to comfort measures. I went in to see Bryan this morning. He was unresponsive. He looked agitated and his left arm was moving. He did not respond to commands such as squeezing my fingers. Exam Narrative Exam Narrative: Bryan is lying in an ICU bed. He was not responding to commands or to sternal rub. He did look agitated and his left arm was reaching. His heart was regular. Lungs very little air movement but no wheezes Abdomen was soft nontender. Extremities no edema. Objective Last Vital Signs Temp 97.2 F L 08/13/21 06:00 Pulse 78 08/13/21 05:01 Resp 14 08/13/21 06:00 BP 135/86 08/13/21 05:01 Pulse Ox 97 08/13/21 05:01
[2021-08-13] MEDS: Normal Saline Flush 10 ML SYR ×4 (10:15→16:31)
--- NOTE | 2021-08-13 11:03 | W.NUTRFU ---
Date of service: 08/13/21 Time of Service: 11:03 Nutrition Note NOTE: Assessment: Mr. De is admitted with sepsis. He is currently unresponsive and has been NPO x 4 days. Blood sugars are at target. He is 88.3 kg, BMI is 29.6 c/w overweight. His weight is down 7% in the past month which is significant. Nutrition diagnosis: Severe malnutrition in the context of acute illness related to poor po intake as evidenced by 7% weight loss in one month and less than 50% of estimated energy needs for at least 5 days (counting his past admission here) Intervention: Would consider nutrition support such as tube feeding if it is clinically appropriate and/or it is c/w his wishes. Monitoring and Evaluation: Will continue to monitor nutritional status. Will evaluate nutrition care plan ongoing and adjust as needed. Time Spent in Nutritional Counseling and Treatment: 0
--- NOTE | 2021-08-13 11:57 | PDOC.CMPRO ---
- If Service Date Differs Date of service: 08/13/21 Time of Service: 11:58 Care Management Progress Note S/O: Bryan's son met with Dr. Alcantar today, and made the decision for Bryan to transition to comfort measures. Per report, Bryan is not able to communicate, is obtunded and intermittently agitated. Hospice was consulted. Bryan will likely remain at [facility] vs return to [facility] for end of life care. His son, , has been visiting daily. CM will continue to follow. A: Bryan is a 60 year old male admitted to [facility] on 08/10/21 with Sepsis, UTI. P: Bryan transitioned to comfort measures today. He may remain at [facility] for end of life care vs return to [facility]. CM will continue to support Bryan and his family during this difficult time.
--- NOTE | 2021-08-13 12:47 | PUCC_ITS ---
General Date of Service Date of service: 08/13/21 Time of Service: 08:00 Reason for Admission to ICU: Distributive shock Assessment and Plan Assessment and plan (1) AMALIA (acute kidney injury): Status: Acute (2) Toxic metabolic encephalopathy: Status: Acute (3) Shock circulatory: Status: Acute (4) Skin lesion of left lower extremity: Status: Acute (5) Ileus: Status: Acute (6) Multiple sclerosis: Status: Chronic (7) Diabetes type 2, controlled: Status: Chronic Assessment and plan: This is a 60 yo man with progressive multiple sclerosis who is admitted to the ICU for distributive shock of unclear etiology. His procalcitonin is essentially negative (particularly in the setting of his AMALIA) and there is no sign of pneumonia or UTI as a causes of sepsis. His skin lesions certainly could cause a degree of sepsis, however it is typically rare f or this to cause shock. Given his incontinence and his adynamic ileus, it is possible he could have some autonomic dysfunction leading to a distributive shock. His bedside POCUS did not show signs of cardiac dysfunction and on exam he is warm. Given his history with GI, keeping him on Zosyn is appropriate. 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 Qualified Code(s): E11.9 - Type 2 diabetes mellitus without complications Recommendations Pulmonary: No acute concerns Cardiac: Distributive shock - worry about autonomic dysfunction - levophed for MAP >65 - increased stress dose steroids to q6hr (if dosed 50mg should be q6h, for 100mg dosed q8h) - POCUS ok h/o HTN - holding all BP lower meds Renal: AMALIA, likely ATN - ATN probably from hypotension - maintenance of MAP >65 - good UOP - can discontinue IVF I&O: Intake & Output 08/10/21 08/11/21 08/12/21 08/13/21 23:59 23:59 23:59 23:59 Intake Total 4028.448 / 4028.448 3621.544 / 3621.544 2850 / 2850 389.384 / 389.384 Output Total 102 / 102 1080 / 1080 1180 / 1180 950 / 950 Balance 3926.448 / 3926.448 2541.544 / 2541.544 1670 / 1670 -560.616 / -560.616 Weight 87.3 kg 86.4 kg 88.3 kg Daily Fluid Goal:: Recommend discontinuing IVF Even to negative goal GI Nutrition: Adynamic ileus - NPO for now - NGT intermittent suction - if NGT output decreasing can give trickle feeds (10cc/hr nepro) Date of Last Bowel Movement: 08/12/21 Infectious Disease: Concern for sepsis - can consider adding Daptomycin (dose adjusting) given positive MRSA screen - continue Zosyn - pneumonia and UTI ruled out - soft tissue infection also possible Hematologic: Leukocytosis - reactive vs infectious Neurologic: Metabolic encephalopathy - treatment of hypotension and potential infection - head CT recommended and negative today Endocrine: Diabetes - SSI - glucose goal 140-180 Lines: PIV Code Status: Resuscitation Status DNR/DNI Subjective Critical and life-threatening events over the past 24 hours: This is a 60 yo man who has multiple sclerosis and diabetes, who was recently admitted for colonic pseudoobstruction treated with neostigmine out of a concern for perforation and who is now admitted to the ICU with distributive shock of unclear etiology. He is requiring Levophed to maintain appropriate MAPs. He also has an ence phalopathy likely due to his shock. Overall his functional status has been declining recently. There are ongoing disussions with his family about considering a comfort centric plan. He is only responding to physical stimuli during my assessment. Exam Narrative Exam Narrative: POCUS 08/13/21: Parasternal and apical views obtained, subxyphoid view limited by bowel gas. Normal appearing EF and no obvious chamber dilation. Normal RV size and function. Const General: no acute distress Nutritional Appearance: well nourished [facility] Head: normocephalic Ears: external ears normal and no periauricular adenopathy General nose exam: nasal mucous membranes and turbinates normal Face and sinus: sinuses nontender Mouth: oropharynx normal and moist mucous membranes Eyes General: appearance normal, both eyes and all related structures Neck Neck: normal visual inspection and no lymphadenopathy Chest Chest: normal inspection of the chest Resp Effort & Inspection: normal respiratory effort Auscultation: clear to auscultation bilaterally, no rales, no rhonchi and no wheezes Cardio Rate: regular rate Rhythm: regular rhythm Heart Sounds: S1 normal, S2 normal and no murmurs Pulses: radial pulses present bilaterally GI Inspection: normal to inspection Palpation: soft Skin Lesions: lesion noted Neuro General: patient alert, patient awake and patient oriented x3 Extrem General: no clubbing, cyanosis or edema Psych Mental Status: mental status grossly abnormal Most Recent VS/Results Last Vital Signs Temp 36.8 C 08/13/21 07:15 Pulse 78 08/13/21 05:01 Resp 14 08/13/21 06:00 BP 135/86 08/13/21 05:01 Pulse Ox 97 08/13/21 05:01 Review of Systems Unobtainable due to mental status Time spent with patient Time spent in Critical Care: 35 Time spent in Critical care included: Coordination of care, Chart review, Documenting critically ill care, Time at immediate bedside and Discussing critically ill care with other medical staff
[2021-08-13] MEDS: Pantoprazole 40 MG VIAL IVP (12:51)
[2021-08-13] MEDS: LORazepam 2 MG/ML VIAL 1 MG IV ×7 (13:53→22:43)
--- NOTE | 2021-08-13 13:53 | PGE_ITS ---
Date of Service Date of service: 08/13/21 Time of Service: 13:53 Assessment and Plan Assessment and plan (1) Sepsis: Status: Acute Assessment and plan: Source is unclear. CXR was poor quality but cannot r/o pneumonia. He did expectorate sputum that was thick and light yellow. Previous UTI appears to be treated. Skin source possible. Blood cultures neg to date. He remains obtunded, intermittently agitated. His son, who is his DPOA has been present for the last several days and we spoke about his father each day and today. He is in agreement that the best alternative and one that Bryan would want is to be keep comfortable and to stop treatments for medical conditions. Comfort care measures initiated and Hospice consulted. (2) Pseudoobstruction of colon: Assessment and plan: See above. NG will be d/c'd. PRN reglan will continue as long as an iv is present. (3) Palliative care patient: Status: Acute Assessment and plan: DNR/DNI Now comfort care patient. Hospice consulted. Subjective Subjective Patient reports: diarrhea (watery) and afebrile; denies vomiting Interval history since last seen: Mr De remains unresponsive to stimuli. Intermittently agitated; calms with morphine. Remains on Levophed for pressure support. Exam Narrative Exam Narrative: Bilateral soft wrist restraints present. Const General: ill appearing and other (wrestless/agitated.) Nutritional Appearance: overweight Orientation: obtunded [facility] Head: normocephalic, atraumatic and other (NG tube in place. ) Ears: hearing grossly normal bilaterally Mouth: oral mucosae normal Eyes General: appearance normal, both eyes and all related structures Sclera: sclerae normal Neck Neck: no JVD Resp Effort & Inspection: normal respiratory effort Auscultation: clear to auscultation bilaterally and diminished lung sounds Cardio Rate: regular rate and tachycardic Rhythm: regular rhythm Heart Sounds: S1 normal and S2 normal GI Inspection: distended (more compressable. ) Palpation: nontender (No grimace with palpation. ) Neuro General: moves all extremities (spontaneously, not on command. ) and patient obtunded Extrem General: no pedal edema and no cyanosis Objective Last Vital Signs Temp 36.8 C 08/13/21 07:15 Pulse 78 08/13/21 05:01 Resp 14 08/13/21 06:00 BP 135/86 08/13/21 05:01 Pulse Ox 97 08/13/21 05:01
[2021-08-13] MEDS: Scopolamine 1 MG/3 DAYS PATCH TD (14:59)
[2021-08-13] MEDS: MORPHine 2 MG/ML SYR IVP ×7 (15:00→22:43)
[2021-08-14] MEDS: LORazepam 2 MG/ML VIAL 1 MG IV ×4 (00:12→20:40)
[2021-08-14] MEDS: MORPHine 2 MG/ML SYR IVP ×3 (00:12→12:28)
[2021-08-14] MEDS: Refresh PLUS Eye Drops 0.4ml 1 EACH OU (06:12)
--- NOTE | 2021-08-14 10:03 | PDOC.CMPRO ---
- If Service Date Differs Date of service: 08/14/21 Time of Service: 10:03 Care Management Progress Note S/O: Bryan was resting in bed when CM met with him. He did not respond to CM, but did move around in bed briefly. Per RN, he had recently been turned. He has been transitioned to M/S status, as he is not comfort measures, and will likely move to the M/S floor once a bed becomes available. His son and daughter in law visited today, per staff. CM will continue to support Bryan and his family. A: Bryan is a 60 year old male admitted to [facility] on 08/10/21 with Sepsis, UTI. P: Bryan transitioned to comfort measures today. He may remain at [facility] for end of life care vs return to [facility]. CM will continue to support Bryan and his family during this difficult time.
--- NOTE | 2021-08-14 12:30 | NUR.NOTE ---
Patient is rubbing his abdomen which signifies patient is experiencing pain. RN gives patient 2mg of Morphine IVP. Patient settles nicely.Nursing Note:
[2021-08-14] MEDS: Normal Saline Flush 10 ML SYR ×3 (14:25→18:12)
--- NOTE | 2021-08-14 14:26 | NUR.NOTE ---
Patient being visited by his [id number] at bedside. Patient resting comfortably in his back. Patient has been rotated onto each side every 2 hours.Nursing Note:
--- NOTE | 2021-08-14 15:36 | W.PM.PROGNOT ---
Date of Service Date of service: 08/14/21 Time of Service: 15:36 Assessment and Plan Assessment and plan (1) Comfort measures only status: Status: Acute Assessment and plan: Has remained nonagitated / comfortable today with, thus far, 3 doses of 2mg IV morphine and IV lorazepam 1 mg x 2 doses. Both his son and [id number] have visited. Discussed his care with them both. 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 Exam Narrative Exam Narrative: Pt is asleep. NAD. No increased work of breathing. Objective Last Vital Signs Temp 36.8 C 08/13/21 07:15 Pulse 78 08/13/21 05:01 Resp 14 08/13/21 06:00 BP 135/86 08/13/21 05:01 Pulse Ox 97 08/13/21 05:01
[2021-08-14] MEDS: Normal Saline Flush 10 ML SYR IVP (20:42)
[2021-08-15] MEDS: LORazepam 2 MG/ML VIAL 1 MG IV ×3 (01:24→14:49)
[2021-08-15] MEDS: Normal Saline Flush 10 ML SYR IVP ×2 (10:18→14:49)
--- NOTE | 2021-08-15 10:41 | W.PALPGNOTE ---
Date of service: 08/15/21 Assessment and Plan Assessment and plan (1) Comfort measures only status: Status: Acute Assessment and plan: Increased his basal rate of morphine to 2 mg/hr with a 15 minute bolus of 1 mg prn. Added both glycopyrolate and atropine for upper airway secretions. (2) Dying care: Status: Acute Assessment and plan: Bryan's son has been in most days. His other son, who is about 18 yo, has not seen his father in many years. In the past, Bryan has always wanted to connect with this son. That son's mother did not want to continue any connection. I cannot appreciate any angst or distress psychologically, but it is possible that this unfinished business may be keeping him from letting go. (3) Lactic acidosis: Status: Acute Assessment and plan: Still dying from shock with lactic acidosis. Also from end-stage multiple sclerosis and long-standing diabetes. (4) Toxic metabolic encephalopathy: Status: Acute Assessment and plan: Cannot communicate. (5) Palliative care patient: Status: Acute Assessment and plan: Someone from the pall care team will see Bryan daily until he passes. Martha Duffy NP will be on tomorrow. Subjective Subjective Patient reports: no new complaints, pain is less and shortness of breath Interval history since last seen: I was asked to see Bryan to help medicate his secretions and ensure that he was comfortable on his current dose of morphine pump. He is unresponsive. He does not open his eyes to touch. He is not taking in anything by mouth. He is still making light-colored yellow urine in his ng bag. His primary nurse was asking for both glycopyrolate and atropine drops as he has had upper airway congestion. Exam Narrative Exam Narrative: Bryan was lying on his back, neck with torticollis, eyes closed, no apnea. No increased work of breathing. No furrowed brow. No grimace. Lungs were clear though he did have some upper airway respiratory noise audible. Heart was tachycardic. Skin without breakdown or rash. Minimally responsive. Objective Last Vital Signs Temp 98.2 F 08/13/21 07:15 Pulse 78 08/13/21 05:01 Resp 14 08/13/21 06:00 BP 135/86 08/13/21 05:01 Pulse Ox 97 08/13/21 05:01
[2021-08-15] MEDS: LORazepam 2 MG/ML VIAL 1 MG IV/SC (17:22)
--- NOTE | 2021-08-15 18:30 | PDOC.CMPRO ---
- If Service Date Differs Date of service: 08/15/21 Time of Service: 18:30 Care Management Progress Note S/O: Bryan remains on comfort measures, and will stay at [facility] for end of life care. He appeared comfortable when CM visited with him. He has candles and music in the room. His son has been visiting daily. CM will continue to follow. A: Bryan is a 60 year old male admitted to [facility] on 08/10/21 with Sepsis, UTI. P: Bryan transitioned to comfort measures today. He may remain at [facility] for end of life care vs return to [facility]. CM will continue to support Bryan and his family during this difficult time.
--- NOTE | 2021-08-16 09:07 | W.PM.DDS ---
Date of service: 08/16/21 Time of Service: 09:08 Discharge Sum: Prov Provider Consults: 08/10/21 06:29 Palliative Care Consult [CONS] Routine Consultation Status:: Contact made by MD Clarification:: Manage/follow per spec. Reason for consult:: Worsening chronic conditions. Define goals of care. 08/10/21 10:32 Surgical Consult [CONS] Routine Consulting Provider: Aurora Terry Consultation Status:: Contact made by Clarification:: Manage/follow per spec. Reason for consult:: ?Bowel obstruction/surgical abdomen 08/10/21 11:36 Wound Care Consult [CONS] Routine Consultation Status:: Follow-up needed Clarification:: Manage/follow per spec. Reason for consult:: RLE wounds 08/13/21 13:41 Hospice Consult [CONS] Routine Consultation Status:: Contact made by MD Clarification:: Manage/follow per spec. Reason for consult:: Comfort measures instituted. Sepsis, worsening chronic medical conditions. Discharge Sum: Diag Contributing Factors (1) Comfort measures only status: (2) Dying care: (3) Lactic acidosis: (4) Toxic metabolic encephalopathy: (5) Palliative care patient: Discharge Sum: Summary Date and Time Admission Date: 07/17/2112/10/21 06:23
== END 2021-08-16 07:05 | disposition expired | DRG 871 ==
LOC: ER 06:39 → ICU 07:19 → MS 08-14 18:40
PROVIDERS: Internal Medicine; Admitting Provider Family Medicine; Emergency Provider Student in an Organized Health Care Education/Training Program; PCP Family Medicine; Visit Provider Family Medicine
DX: A41.9 Sepsis, unspecified organism (principal); G92.8 Other toxic encephalopathy; R65.21 Severe sepsis with septic shock; J18.9 Pneumonia, unspecified organism; K56.699 Other intestinal obstruction unspecified as to partial versus complete obstruction; N30.00 Acute cystitis without hematuria; N17.9 Acute kidney failure, unspecified; E27.49 Other adrenocortical insufficiency; K59.2 Neurogenic bowel, not elsewhere classified; L97.218 Non-pressure chronic ulcer of right calf with other specified severity; G35 Multiple sclerosis; R32 Unspecified urinary incontinence; D64.9 Anemia, unspecified; M48.02 Spinal stenosis, cervical region; M54.12 Radiculopathy, cervical region; G89.29 Other chronic pain; E11.319 Type 2 diabetes mellitus with unspecified diabetic retinopathy without macular edema; Z80.0 Family history of malignant neoplasm of digestive organs; K21.9 Gastro-esophageal reflux disease without esophagitis; E78.5 Hyperlipidemia, unspecified; E11.42 Type 2 diabetes mellitus with diabetic polyneuropathy; E55.9 Vitamin D deficiency, unspecified; Z20.822 Contact with and (suspected) exposure to COVID-19; N31.9 Neuromuscular dysfunction of bladder, unspecified; I87.2 Venous insufficiency (chronic) (peripheral); Z66 Do not resuscitate; Z51.5 Encounter for palliative care
CPT/HCPCS: 36415; 71045; 80053; 84145; 85027; 87040; 87081; 87493; 87635; 96361; 96365; 96367; 99222; 99291; 73590; 74018; 74019; 74176; 81003; 81015; 83605; 83735; 83880; 85025; 86140; 99223; 99231; 99232; 99233; J1644; J1720; J1941; J2020; J2060; J2270; J2543; J2765; J3480; J7613